=== PATIENT | female | born 1935 | race Caucasian/White ===

== ENCOUNTER 2018-04-05 20:00 | Emergency (ER) | payer OTHER, MEDICARE ==
--- NOTE | 2018-04-05 20:33 | RAD REPORT ---
EXAM DESCRIPTION: CT - Ct Stroke Brain Wo Cont - 04/05/2018 8:24 pm CLINICAL HISTORY: WEAKNESS TIA/CVA COMPARISON: Head Brain Wo Cont dated 08/12/2017; HEAD BRAIN W O CONTRAST dated 03/09/2013; HEAD BRAIN W O CONTRAST dated 02/13/2012 TECHNIQUE: All CT scans are performed using dose optimization technique as appropriate and may inclu de automated exposure control or mA/KV adjustment according to patient size. FINDINGS: No intracranial hemorrhage, hydrocephalus or extra-axial fluid collection.Advanced general ized brain atrophy is present with mild to moderate periventricular and deep white matter chronic ileana rovascular ischemic changes.No areas of brain edema or evidence of midline shift. The paranasal sinuses and mastoids are clear. The calvarium is intact. IMPRESSION: No acute intracranial abnormality. If there is continued clinical concern for CVA, MR i maging of the brain would be recommended.
[2018-04-05 20:39] LABS: Absolute Lymphocytes (CBC) 2.9 K/uL (0.7-4.9); Absolute Monocytes 0.5 K/uL (0.1-1.3); Absolute Neutrophil 2.9 K/uL (1.8-8.0); Basophils % 0.1 % (0-1.3); Hematocrit 36.2 % (36.0-45.0); Lymphocytes % 43.8 % (15.3-44.8); MCH 32.1 pg (27.0-35.0); Monocytes % 8.2 % (3.3-12.3); RBC Red Blood Cell Count 3.89 M/uL (3.86-4.86)
--- NOTE | 2018-04-05 20:42 | RAD REPORT ---
EXAM DESCRIPTION: RAD - Chest Single View - 04/05/2018 8:37 pm CLINICAL HISTORY: MALAISE Chest pain. COMPARISON: Chest Single View dated 08/12/2017; Chest Single View dated 08/08/2016; CHEST SINGLE VIEW dated 08/10/2013; CHEST SINGLE VIEW dated 09/17/2012 FINDINGS: Portable technique limits examination quality. The lungs are mildly emphysematous but clear. The heart is normal in size. No displaced fractures. IMPRESSION: Mild COPD.
[2018-04-05 20:45] LABS: Protime INR 0.92
[2018-04-05 20:46] LABS: Potassium 3.9 mmol/L (3.5-5.1)
--- NOTE | 2018-04-05 21:04 | ER ---
Nurse's Notes [facility] Name: Dinh Love Age: 82 yrs Sex: Female : 1935 Arrival Date: 04/05/2018 Time: 20:08 Bed 7 Private MD: Diagnosis: Cerebral infarction;Aphasia following cerebral infarction Presentation: 04/05 20:05 Presenting complaint: EMS states: Patient began to have symptoms of slurred speech, lp1 right side facial droop, left sided weakness about 1845 this evening; Hx of TIA x7; Speech has resolved on arrival to ED, patient states continued feeling of weakness and less sensation on left side. Transition of care: patient was not received from another setting of care. An acute neurological deficit is present. The charge nurse has been notified. Pre-hospital glucose is not applicable to this patient. Onset of symptoms was April 05, 2018 at 18:45. Risk Assessment: Do you want to hurt yourself or someone else? Patient reports no desire to harm self or others. Initial Sepsis Screen: Does the patient meet any 2 criteria? No. Patient's initial sepsis screen is negative. Does the patient have a suspected source of infection? No. Patient's initial sepsis screen is negative. Care prior to arrival: None. 20:05 Method Of Arrival: EMS: [facility] lp1 20:05 Acuity: KAROLINA 2 lp1 Triage Assessment: 21:00 The onset of the patients symptoms was April 05, 2018 at 18:45. lp1 Stroke Activation: Symptom onset < 3 hours Physician: Stroke Attending; Name: ; Notified At: ; Arrived At: Physician: Chief Stroke Resident; Name: ; Notified At: ; Arrived At: Physician: Stroke Resident; Name: ; Notified At: ; Arrived At: Physician: ED Attending; Name: Dr. Roberts; Notified At: 20:04; Arrived At: 20:07 Physician: ED Resident; Name: ; Notified At: ; Arrived At: Historical: - Allergies: 20:55 Keflex; lp1 - Home Meds: 20:55 alprazolam 1 mg Oral tab nightly [Active]; fentanyl 25 mcg/hr Topical pt72 1 patch lp1 every 72 hours [Active]; meclizine 25 mg Oral tab 1 tab 2 times per day [Active]; aspirin 81 mg Oral TbEC 1 tab once daily [Active]; propranolol 20 mg Oral tab 2 times per day [Active]; amitriptyline 50 mg oral tab nightly [Active]; - PMHx: 20:55 Arthritis; SHAKING SYNDROME; TIA; x 7; lp1 - Immunization history:: Adult Immunizations up to date. - Family history:: not pertinent. - Social history:: Smoking status: Patient uses tobacco products, smokes one-half pack cigarettes per day. - Ebola Screening: : No symptoms or risks identified at this time. Screenin:18 Abuse screen: Denies threats or abuse. Denies injuries from another. Nutritional lp1 screening: No deficits noted. Tuberculosis screening: No symptoms or risk factors identified. Fall Risk Total Rivas Fall Scale indicates High Risk Score (45 or more points). Fall prevention measures have been instituted. Side Rails Up X 2 Family Present and informed to notify staff if the need to leave the bedside As available patient and family educated on Fall Prevention Program and Strategies. Assessment: 20:30 General: Appears in no apparent distress. Behavior is calm, cooperative, appropriate lp1 for age. Pain: Denies pain. Neuro: Level of Consciousness is awake, alert, obeys commands, Oriented to person, place, time, situation, Assistant Department Manager are equal bilaterally Weakness in left leg(s) Gait is steady, Speech is normal, Facial droop on right, Pupils are PERRLA, paresthesias in left leg, left side of face Reports paresthesias in left leg, left side of face weakness in left leg. Cardiovascular: Patient's skin is warm and dry. Respiratory: Respiratory effort is even, unlabored, Respiratory pattern is regular, Breath sounds are clear bilaterally. GI: Abdomen is flat. : No signs and/or symptoms were reported regarding the genitourinary system. EENT: No signs and/or symptoms were reported regarding the EENT system. Derm: Skin is intact, is fragile, is thin, Skin is dry, Skin is pink, warm \T\ dry. Musculoskeletal: Range of motion: intact in all extremities. 20:35 Patient has been NPO before screening. The patient is alert, and able to follow lp1 commands. The patient does not exhibit slurred or garbled speech. The patient is not exhibiting difficulty speaking. The patient does not exhibit difficulty understanding words. The patient is able to swallow own secretions with no drooling or need for suction. Patient tolerated one teaspoon of water. No drooling, immediate coughing, gurgling, or clearing of the throat was noted. The patient tolerated 90mL of water. No drooling, immediate coughing, gurgling, or clearing of the throat was noted. The patient passed the bedside swallow screening. Oral medications may be given as ordered. Contact Physician for further diet orders. Provider notified of bedside swallow screening results: Nahid Roberts MD. 21:15 T-PA (Activase) Screening: Indications: Definite evidence of stroke, ischemic, embolic, lp1 or hypertensive: Yes. Treatment will start within 4.5 hours onset of symptoms: Yes. No evidence of intracranial hemorrhage or CT of head and no evidence of peripheral hemorrhage or recent CVA: Yes. Consent for thrombolytic therapy: Yes. 21:40 Reassessment: Patient states improvement of sensation to left side of face and left lp1 leg; TPA currently infusing. 22:00 Reassessment: Patient appears in no apparent distress at this time. Patient is alert, lp1 oriented x 3, equal unlabored respirations, skin warm/dry/pink. Family at bedside Patient states feeling better. Patient states symptoms have improved. 22:10 Reassessment: EMS at bedside. lp1 Vital Signs: 20:02 BP 179 / 79; Pulse 79; Resp 18; Pulse Ox 98% on R/A; Weight 52.16 kg; Pain 0/10; lp1 20:45 BP 190 / 84; Pulse 77; Resp 18; Pulse Ox 99% on R/A; lp1 21:05 Weight 51.39 kg (M); lp1 21:35 lp1 21:37 BP 177 / 76; Pulse 78; Resp 15; Pulse Ox 98% on R/A; tl2 21:55 BP 164 / 68; Pulse 73; Resp 14; Pulse Ox 99% on R/A; Pain 0/10; lp1 21:35 See TPA transfusion flowsheet for vitals lp1 NIH Stroke Scale Scores: 20:10 NIHSS Score: 3 lp1 20:32 NIHSS Score: 1 mamadou 21:00 NIHSS Score: 2 lp1 22:00 NIHSS Score: 1 lp1 ED Course: 20:08 Patient arrived in ED. tl2 20:23 Inserted saline lock: 22 gauge in right antecubital area, using aseptic technique. lp1 Blood collected. 20:24 CT Stroke Brain w/o Contrast In Process Unspecified. EDMS 20:25 Claire Echols, MARIO is Primary Nurse. lp1 20:26 Nahid Roberts MD is Attending Physician. mamadou 20:27 Triage completed. lp1 20:35 X-ray completed. Portable x-ray completed in exam room. Patient tolerated procedure ls3 well. 20:37 Stroke CXR 1 View In Process Unspecified. EDMS 20:45 Patient has correct armband on for positive identification. Placed in gown. Bed in low lp1 position. Call light in reach. Side rails up X2. court recording monitor on. Pulse ox on. NIBP on. 20:48 Arm band placed on right wrist. lp1 20:53 EKG done, by ED staff, reviewed by Nahid Roberts MD. cb2 21:25 One-on-one care X 45 minutes. lp1 21:30 Inserted saline lock: 22 gauge in left antecubital area, using aseptic technique. tl2 22:00 No provider procedures requiring assistance completed. Patient transferred, IV remains lp1 in place. Administered Medications: 21:25 Drug: ACTIvase 46.8 mg {Co-Signature: tl2 (Magda Walton RN).} {Note: 46.25mg per lp1 weight.} Route: IV; Rate: calculated rate; Infused Over: 60 mins; Site: right antecubital; 22:15 Follow up: IV Status: Infusion continued upon transfer lp1 21:30 Drug: NS 0.9% 1000 ml Route: IV; Rate: 1 bolus; Site: left antecubital; tl2 22:14 Follow up: IV Status: Infusion continued upon transfer lp1 21:30 Drug: foLIC Acid 1 mg Route: IVPB; Site: left antecubital; tl2 22:15 Follow up: IV Status: Completed infusion lp1 22:14 Not Given (Patient for transfer): Pepcid 20 mg IVP once lp1 Point of Care Testing: Blood Glucose: 20:06 Blood Glucose: 101 mg/dL; lp1 Ranges: Outcome: 21:04 ER care complete, transfer ordered by . mamadou 22:20 Transferred by ground EMS to [facility], Transfer form completed. lp1 X-rays sent w/ patient. 22:20 Condition: stable 22:20 Instructed on the need for transfer. 22:20 Patient left the ED. lp1 NIH Stroke Scale - NIH Stroke Score Date: 04/05/2018 Time: 20:10 Total Score = 3 1a. Level of Consciousness (LOC) - 0(Alert) 1b. Level of Consciousness (LOC) (Year \T\ Age) - 0(Both) 1c. LOC Commands (Open \T\ Closes Eyes/Administrative Operations Coordinator) - 0(Both) 2. Best Gaze (Lateral Gaze Paresis) - 0(Normal) 3. Visual Field Loss - 0(No visual loss) 4. Facial Palsy - 1(Minor Paralysis) 5a. Left Arm: Motor (10-second hold) - 0(No drift) 5b. Right Arm: Motor (10-second hold) - 0(No drift) 6a. Left Leg: Motor (5-second hold - always test supine) - 1(Drift) 6b. Right Leg: Motor (5-second hold - always test supine) - 0(No drift) 7. Limb Ataxia (finger/nose \T\ heel/betancourt - test with eyes open) - 0(Absent) 8. Sensory Loss (pinprick arms/legs/face) - 1(Mild to moderate loss) 9. Best Language: Aphasia (description/naming/reading) - 0(No aphasia) 10. Dysarthria (speech clarity - read or repeat words) - 0(Normal) 11. Extinction and Inattention (visual/tactile/auditory/spatial/personal) - 0(No abnormality) Initials: lp1 NIH Stroke Scale - NIH Stroke Score Date: 04/05/2018 Time: 20:32 Total Score = 1 1a. Level of Consciousness (LOC) - 0(Alert) 1b. Level of Consciousness (LOC) (Year \T\ Age) - 0(Both) 1c. LOC Commands (Open \T\ Closes Eyes/Administrative Operations Coordinator) - 0(Both) 2. Best Gaze (Lateral Gaze Paresis) - 0(Normal) 3. Visual Field Loss - 0(No visual loss) 4. Facial Palsy - 0(Normal) 5a. Left Arm: Motor (10-second hold) - 0(No drift) 5b. Right Arm: Motor (10-second hold) - 0(No drift) 6a. Left Leg: Motor (5-second hold - always test supine) - 0(No drift) 6b. Right Leg: Motor (5-second hold - always test supine) - 0(No drift) 7. Limb Ataxia (finger/nose \T\ heel/betancourt - test with eyes open) - 0(Absent) 8. Sensory Loss (pinprick arms/legs/face) - 1(Mild to moderate loss) 9. Best Language: Aphasia (description/naming/reading) - 0(No aphasia) 10. Dysarthria (speech clarity - read or repeat words) - 0(Normal) 11. Extinction and Inattention (visual/tactile/auditory/spatial/personal) - 0(No abnormality) Initials: mamadou NIH Stroke Scale - NIH Stroke Score Date: 04/05/2018 Time: 21:00 Total Score = 2 1a. Level of Consciousness (LOC) - 0(Alert) 1b. Level of Consciousness (LOC) (Year \T\ Age) - 0(Both) 1c. LOC Commands (Open \T\ Closes Eyes/Administrative Operations Coordinator) - 0(Both) 2. Best Gaze (Lateral Gaze Paresis) - 0(Normal) 3. Visual Field Loss - 0(No visual loss) 4. Facial Palsy - 0(Normal) 5a. Left Arm: Motor (10-second hold) - 0(No drift) 5b. Right Arm: Motor (10-second hold) - 0(No drift) 6a. Left Leg: Motor (5-second hold - always test supine) - 1(Drift) 6b. Right Leg: Motor (5-second hold - always test supine) - 0(No drift) 7. Limb Ataxia (finger/nose \T\ heel/betancourt - test with eyes open) - 0(Absent) 8. Sensory Loss (pinprick arms/legs/face) - 1(Mild to moderate loss) 9. Best Language: Aphasia (description/naming/reading) - 0(No aphasia) 10. Dysarthria (speech clarity - read or repeat words) - 0(Normal) 11. Extinction and Inattention (visual/tactile/auditory/spatial/personal) - 0(No abnormality) Initials: lp1 NIH Stroke Scale - NIH Stroke Score Date: 04/05/2018 Time: 22:00 Total Score = 1 1a. Level of Consciousness (LOC) - 0(Alert) 1b. Level of Consciousness (LOC) (Year \T\ Age) - 0(Both) 1c. LOC Commands (Open \T\ Closes Eyes/Administrative Operations Coordinator) - 0(Both) 2. Best Gaze (Lateral Gaze Paresis) - 0(Normal) 3. Visual Field Loss - 0(No visual loss) 4. Facial Palsy - 0(Normal) 5a. Left Arm: Motor (10-second hold) - 0(No drift) 5b. Right Arm: Motor (10-second hold) - 0(No drift) 6a. Left Leg: Motor (5-second hold - always test supine) - 1(Drift) 6b. Right Leg: Motor (5-second hold - always test supine) - 0(No drift) 7. Limb Ataxia (finger/nose \T\ heel/betancourt - test with eyes open) - 0(Absent) 8. Sensory Loss (pinprick arms/legs/face) - 0(Normal) 9. Best Language: Aphasia (description/naming/reading) - 0(No aphasia) 10. Dysarthria (speech clarity - read or repeat words) - 0(Normal) 11. Extinction and Inattention (visual/tactile/auditory/spatial/personal) - 0(No abnormality) Initials: lp1 Signatures: Dispatcher [employer] EDMS Nahid Roberts MD MD cha Pena, Laura, RN RN lp1 Magda Walton RN RN tl2 Siddharth Herndon Lynzie 3 Magda Walton RN tl2 Corrections: (The following items were deleted from the chart) 22:28 20:30 Neuro: Level of Consciousness is awake, alert, obeys commands, Oriented lp1 to person, place, time, situation, Assistant Department Manager are equal bilaterally Weakness in left leg(s) Gait is steady, Speech is normal, Facial droop on right, Pupils are PERRLA, paresthesias in left leg, left side of face lp1 22:30 22:29 Patient left the ED. lp1 lp1
--- NOTE | 2018-04-05 21:04 | EDPHYS ---
Physician Documentation [facility] Name: Dinh Love Age: 82 yrs Sex: Female : 1935 Arrival Date: 04/05/2018 Time: 20:08 Bed 7 Private MD: ED Physician Nahid Roberts HPI: 04/05 20:28 This 82 yrs old Female presents to ER via EMS with complaints of S/S of mamadou Possible Stroke. 20:28 The patient's problem is reported as paresthesias, in left upper extremity, in left mamadou lower extremity, in left side of face, weakness. Onset: The symptoms/episode began/occurred just prior to arrival. Duration: The episode is continuous. Context: the episode(s) was witnessed, by family. The symptoms are alleviated by nothing. The symptoms are aggravated by nothing. Associated signs and symptoms: The patient has no apparent associated signs or symptoms. Severity of symptoms: At their worst the symptoms were mild in the emergency department the symptoms have improved moderately. Patient's baseline: Neuro: alert and fully oriented. The patient has experienced similar episodes in the past, a few times. 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 - Family history:: not pertinent. - Social history:: Smoking status: Patient uses tobacco products, smokes one-half pack cigarettes per day. - Ebola Screening: : No symptoms or risks identified at this time. ROS: 20:28 Constitutional: Negative for fever, chills, and weight loss, Eyes: Negative for injury, mamadou pain, redness, and discharge, ENT: Negative for injury, pain, and discharge, Neck: Negative for injury, pain, and swelling, Cardiovascular: Negative for chest pain, palpitations, and edema, Respiratory: Negative for shortness of breath, cough, wheezing, and pleuritic chest pain, Abdomen/GI: Negative for abdominal pain, nausea, vomiting, diarrhea, and constipation, Back: Negative for injury and pain, : Negative for injury, bleeding, discharge, and swelling, MS/Extremity: Negative for injury and deformity, Skin: Negative for injury, rash, and discoloration, Psych: Negative for depression, anxiety, suicide ideation, homicidal ideation, and hallucinations, Allergy/Immunology: Negative for hives, rash, and allergies, Endocrine: Negative for neck swelling, polydipsia, polyuria, polyphagia, and marked weight changes, Hematologic/Lymphatic: Negative for swollen nodes, abnormal bleeding, and unusual bruising. 20:28 Neuro: Positive for gait disturbance, numbness, speech changes, of the face, left arm and left leg. Exam: 20:28 Constitutional: This is a well developed, well nourished patient who is awake, alert, mamadou and in no acute distress. Head/Face: Normocephalic, atraumatic. Eyes: Pupils equal round and reactive to light, extra-ocular motions intact. Lids and lashes normal. Conjunctiva and sclera are non-icteric and not injected. Cornea within normal limits. Periorbital areas with no swelling, redness, or edema. ENT: Nares patent. No nasal discharge, no septal abnormalities noted. Tympanic membranes are normal and external auditory canals are clear. Oropharynx with no redness, swelling, or masses, exudates, or evidence of obstruction, uvula midline. Mucous membranes moist. Neck: Trachea midline, no thyromegaly or masses palpated, and no cervical lymphadenopathy. Supple, full range of motion without nuchal rigidity, or vertebral point tenderness. No Meningismus. Chest/axilla: Normal chest wall appearance and motion. Nontender with no deformity. No lesions are appreciated. Cardiovascular: Regular rate and rhythm with a normal S1 and S2. No gallops, murmurs, or rubs. Normal PMI, no JVD. No pulse deficits. Respiratory: Lungs have equal breath sounds bilaterally, clear to auscultation and percussion. No rales, rhonchi or wheezes noted. No increased work of breathing, no retractions or nasal flaring. Abdomen/GI: Soft, non-tender, with normal bowel sounds. No distension or tympany. No guarding or rebound. No evidence of tenderness throughout. Back: No spinal tenderness. No costovertebral tenderness. Full range of motion. Female : Normal external genitalia. Skin: Warm, dry with normal turgor. Normal color with no rashes, no lesions, and no evidence of cellulitis. MS/ Extremity: Pulses equal, no cyanosis. Neurovascular intact. Full, normal range of motion. Psych: Awake, alert, with orientation to person, place and time. Behavior, mood, and affect are within normal limits. 20:28 Neuro: Orientation: appropriate for stated age, no acute changes, to person, place, time \T\ situation. Mentation: is normal, appropriate for stated age, no acute changes, Memory: is normal, appropriate for stated age, no acute changes, Cranial nerves: is grossly normal based on the patient's age, no acute changes, Cerebellar function: is grossly normal based on the patient's age, no acute changes, Motor: moves all fours, strength is normal, strength is 5/5 in all extremities, Sensation: no obvious gross deficits, appropriate no acute changes, Gait: not tested. seizure activity, is not displayed by the patient. 20:31 Radiologist reports: see report [facility] Vital Signs: 20:02 BP 179 / 79; Pulse 79; Resp 18; Pulse Ox 98% on R/A; Weight 52.16 kg; Pain 0/10; lp1 20:45 BP 190 / 84; Pulse 77; Resp 18; Pulse Ox 99% on R/A; lp1 21:05 Weight 51.39 kg (M); lp1 21:35 lp1 21:37 BP 177 / 76; Pulse 78; Resp 15; Pulse Ox 98% on R/A; tl2 21:55 BP 164 / 68; Pulse 73; Resp 14; Pulse Ox 99% on R/A; Pain 0/10; lp1 21:35 See TPA transfusion flowsheet for vitals lp1 NIH Stroke Scale Scores: 20:10 NIHSS Score: 3 lp1 20:32 NIHSS Score: 1 mamadou 21:00 NIHSS Score: 2 lp1 22:00 NIHSS Score: 1 lp1 MDM: 20:26 Patient medically screened. [facility] 20:31 Data reviewed: vital signs, nurses notes, lab test result(s), EKG, radiologic studies, [facility] CT scan, plain films. 10/10 20:19 Order name: Basic Metabolic Panel; Complete Time: 20:59 aa04/05 20:19 Order name: CBC with Diff; Complete Time: 20:59 aa04/05 20:19 Order name: Protime (+inr); Complete Time: 20:59 aa1 04/05 20:19 Order name: Ptt, Activated; Complete Time: 20:59 aa04/05 20:27 Order name: Urine Culture [facility] 04/05 20:40 Order name: Urine Dipstick--Ancillary (enter results); Complete Time: 22:20 mt 04/05 20:19 Order name: CT Stroke Brain w/o Contrast; Complete Time: 20:59 aa04/05 20:19 Order name: Stroke CXR 1 View; Complete Time: 20:59 04/05 20:19 Order name: EKG; Complete Time: 20:19 aa04/05 20:19 Order name: Accucheck; Complete Time: 20:57 04/05 20:19 Order name: Cardiac monitoring; Complete Time: 20:57 04/05 20:19 Order name: EKG - Nurse/Tech; Complete Time: 20:53 04/05 20:19 Order name: IV Saline Lock; Complete Time: 20:57 04/05 20:19 Order name: Labs collected and sent; Complete Time: 20:57 04/05 20:19 Order name: NPO; Complete Time: 20:57 04/05 20:19 Order name: O2 Per Protocol; Complete Time: 20:57 04/05 20:19 Order name: O2 Sat Monitoring; Complete Time: 20:57 04/05 20:19 Order name: Stroke Swallow Screen; Complete Time: 20:57 04/05 20:19 Order name: Urine Dipstick-Ancillary (obtain specimen); Complete Time: 20:57 aa Administered Medications: 21:25 Drug: ACTIvase 46.8 mg {Co-Signature: tl2 (Magda Walton RN).} {Note: 46.25mg per lp1 weight.} Route: IV; Rate: calculated rate; Infused Over: 60 mins; Site: right antecubital; 22:15 Follow up: IV Status: Infusion continued upon transfer lp1 21:30 Drug: NS 0.9% 1000 ml Route: IV; Rate: 1 bolus; Site: left antecubital; tl2 22:14 Follow up: IV Status: Infusion continued upon transfer lp1 21:30 Drug: foLIC Acid 1 mg Route: IVPB; Site: left antecubital; tl2 22:15 Follow up: IV Status: Completed infusion lp1 22:14 Not Given (Patient for transfer): Pepcid 20 mg IVP once lp1 Point of Care Testing: Blood Glucose: 20:06 Blood Glucose: 101 mg/dL; lp1 Ranges: Critical Glucose Levels:Adult <50 mg/dl or >400 mg/dl <40 mg/dl or >180 mg/dl Disposition: 04/05/18 21:04 Transfer ordered to [facility]. Diagnosis are Cerebral infarction, Aphasia following cerebral infarction. - Reason for transfer: Higher level of care. - Accepting physician is to neuro icu, dr torres. - Condition is Fair. - Problem is new. - Symptoms have improved. NIH Stroke Scale - NIH Stroke Score Date: 04/05/2018 Time: 20:10 Total Score = 3 1a. Level of Consciousness (LOC) - 0(Alert) 1b. Level of Consciousness (LOC) (Year \T\ Age) - 0(Both) 1c. LOC Commands (Open \T\ Closes Eyes/Presales Consultant) - 0(Both) 2. Best Gaze (Lateral Gaze Paresis) - 0(Normal) 3. Visual Field Loss - 0(No visual loss) 4. Facial Palsy - 1(Minor Paralysis) 5a. Left Arm: Motor (10-second hold) - 0(No drift) 5b. Right Arm: Motor (10-second hold) - 0(No drift) 6a. Left Leg: Motor (5-second hold - always test supine) - 1(Drift) 6b. Right Leg: Motor (5-second hold - always test supine) - 0(No drift) 7. Limb Ataxia (finger/nose \T\ heel/betancourt - test with eyes open) - 0(Absent) 8. Sensory Loss (pinprick arms/legs/face) - 1(Mild to moderate loss) 9. Best Language: Aphasia (description/naming/reading) - 0(No aphasia) 10. Dysarthria (speech clarity - read or repeat words) - 0(Normal) 11. Extinction and Inattention (visual/tactile/auditory/spatial/personal) - 0(No abnormality) Initials: lp1 NIH Stroke Scale - NIH Stroke Score Date: 04/05/2018 Time: 20:32 Total Score = 1 1a. Level of Consciousness (LOC) - 0(Alert) 1b. Level of Consciousness (LOC) (Year \T\ Age) - 0(Both) 1c. LOC Commands (Open \T\ Closes Eyes/Presales Consultant) - 0(Both) 2. Best Gaze (Lateral Gaze Paresis) - 0(Normal) 3. Visual Field Loss - 0(No visual loss) 4. Facial Palsy - 0(Normal) 5a. Left Arm: Motor (10-second hold) - 0(No drift) 5b. Right Arm: Motor (10-second hold) - 0(No drift) 6a. Left Leg: Motor (5-second hold - always test supine) - 0(No drift) 6b. Right Leg: Motor (5-second hold - always test supine) - 0(No drift) 7. Limb Ataxia (finger/nose \T\ heel/betancourt - test with eyes open) - 0(Absent) 8. Sensory Loss (pinprick arms/legs/face) - 1(Mild to moderate loss) 9. Best Language: Aphasia (description/naming/reading) - 0(No aphasia) 10. Dysarthria (speech clarity - read or repeat words) - 0(Normal) 11. Extinction and Inattention (visual/tactile/auditory/spatial/personal) - 0(No abnormality) Initials: mamadou NIH Stroke Scale - NIH Stroke Score Date: 04/05/2018 Time: 21:00 Total Score = 2 1a. Level of Consciousness (LOC) - 0(Alert) 1b. Level of Consciousness (LOC) (Year \T\ Age) - 0(Both) 1c. LOC Commands (Open \T\ Closes Eyes/Presales Consultant) - 0(Both) 2. Best Gaze (Lateral Gaze Paresis) - 0(Normal) 3. Visual Field Loss - 0(No visual loss) 4. Facial Palsy - 0(Normal) 5a. Left Arm: Motor (10-second hold) - 0(No drift) 5b. Right Arm: Motor (10-second hold) - 0(No drift) 6a. Left Leg: Motor (5-second hold - always test supine) - 1(Drift) 6b. Right Leg: Motor (5-second hold - always test supine) - 0(No drift) 7. Limb Ataxia (finger/nose \T\ heel/betancourt - test with eyes open) - 0(Absent) 8. Sensory Loss (pinprick arms/legs/face) - 1(Mild to moderate loss) 9. Best Language: Aphasia (description/naming/reading) - 0(No aphasia) 10. Dysarthria (speech clarity - read or repeat words) - 0(Normal) 11. Extinction and Inattention (visual/tactile/auditory/spatial/personal) - 0(No abnormality) Initials: lp1 NIH Stroke Scale - NIH Stroke Score Date: 04/05/2018 Time: 22:00 Total Score = 1 1a. Level of Consciousness (LOC) - 0(Alert) 1b. Level of Consciousness (LOC) (Year \T\ Age) - 0(Both) 1c. LOC Commands (Open \T\ Closes Eyes/Presales Consultant) - 0(Both) 2. Best Gaze (Lateral Gaze Paresis) - 0(Normal) 3. Visual Field Loss - 0(No visual loss) 4. Facial Palsy - 0(Normal) 5a. Left Arm: Motor (10-second hold) - 0(No drift) 5b. Right Arm: Motor (10-second hold) - 0(No drift) 6a. Left Leg: Motor (5-second hold - always test supine) - 1(Drift) 6b. Right Leg: Motor (5-second hold - always test supine) - 0(No drift) 7. Limb Ataxia (finger/nose \T\ heel/betancourt - test with eyes open) - 0(Absent) 8. Sensory Loss (pinprick arms/legs/face) - 0(Normal) 9. Best Language: Aphasia (description/naming/reading) - 0(No aphasia) 10. Dysarthria (speech clarity - read or repeat words) - 0(Normal) 11. Extinction and Inattention (visual/tactile/auditory/spatial/personal) - 0(No abnormality) Initials: lp1 Signatures: Dispatcher [employer] EDDarcie Cheema RN RN aa1 Nahid Roberts MD MD cha Pena, Laura, RN RN lp1 Magda Walton RN RN tl2 Magda Walton RN tl2 Corrections: (The following items were deleted from the chart) 22:29 21:04 04/05/2018 21:04 Transfer ordered to [facility]. lp1 Diagnosis is Cerebral infarction; Aphasia following cerebral infarction. Reason for transfer: Higher level of care. Accepting physician is to neuro icu, dr torres. Condition is Fair. Problem is new. Symptoms have improved. mamadou
[2018-04-05] MEDS ORDERED: NA CHLORIDE 0.9% 1,000 ML ONE (21:05)
[2018-04-05] MEDS ORDERED: FOLIC ACID 5 MG/ML VIAL ONE (21:06)
[2018-04-05] MEDS ORDERED: NA CHLORIDE 0.9% 50 ML IV ONE ×2 (21:06→21:30)
[2018-04-05] MEDS ORDERED: ALTEPLASE 100 ML IV ONE (21:20)
[2018-04-05 21:34] LABS: Urine Blood TRACE (NEG); Urine Glucose NEGATIVE (NEG); Urine Protein NEGATIVE (NEG); Urine pH 7.5 (5.0-7.0)
[2018-04-05 22:46] VITALS: BP 164/68; O2SAT 99
--- NOTE | 2018-04-06 07:53 | EKG ---
Test Date: 2018-04-05 Test Time: 20:52:03 Reflector [employer]iller And Deburrer: RHONDA MEASUREMENT RESULTS: Intervals: Rate: 74 NC: 188 QRSD: 84 QT: 390 QTc: 432 [place]: P: 51 NC: 188 QRS: -10 T: 65 INTERPRETIVE STATEMENTS: Normal sinus rhythm Normal ECG Compared to ECG 08/12/2017 20:56:44 No significant changes Electronically Signed On 04-06-18 07:53:14 CDT by Lit Morales
== END 2018-04-05 22:29 | disposition short-term general hospital (02) ==
LOC: ER 20:00
DX: I63.9 Cerebral infarction, unspecified (principal); R47.01 Aphasia; R29.703 NIHSS score 3; F17.210 Nicotine dependence, cigarettes, uncomplicated; Z79.82 Long term (current) use of aspirin; Z88.1 Allergy status to other antibiotic agents; Z86.73 Personal history of transient ischemic attack (TIA), and cerebral infarction without residual deficits
CPT/HCPCS: 36415; 70450; 71045; 80048; 81003; 85025; 85610; 85730; 87086; 87088; 96374; J2997; J7030; 93005

== ENCOUNTER 2018-11-11 20:57 | Inpatient (IN) | payer OTHER, MEDICARE ==
--- OUTSIDE RECORDS SUMMARY | 2018-11-11 21:00 | XMS REPORT ---
:1935 Author Organization [facility] Address [address] [place] [address] Care Team Providers Name Role Phone RICARDO CARLTON Unavailable Unavailable Problems This patient has no known problems. Allergies, Adverse Reactions, Alerts This patient has no known allergies or adverse reactions. Medications This patient has no known medications. Results Test Description Test Time Test Comments Text Results Atomic Results Result Comments B-TYPE NATRIURETIC FACTOR (BNP) 2018-04-08 14:09:00 Test Item Value Reference Range Comments B-TYPE NATRIURETIC PEPTIDE (BEAKER) (test ejff=448) 109 pg/mL 0-100 [id number] 07:11:00 Test Item Value Reference Range Comments MAGNESIUM (BEAKER) (test hwim=749) 2.0 mg/dL 1.6-2.6 BASIC METABOLIC [id number] 07:11:00 Test Item Value Reference Range Comments SODIUM (BEAKER) (test 128 meq/L 136-145 jbqt=193) POTASSIUM (BEAKER) (test 3.9 meq/L 3.5-5.1 yrsk=487) CHLORIDE (BEAKER) (test 101 meq/L 98-107 lgvn=080) CO2 (BEAKER) (test 21 meq/L 22-29 sqjy=144) BLOOD UREA NITROGEN 13 mg/dL 7-21 (BEAKER) (test dusq=280) CREATININE (BEAKER) (test 0.73 mg/dL 0.57-1.25 hdqu=785) GLUCOSE RANDOM (BEAKER) 84 mg/dL 70-105 (test mqqx=052) CALCIUM (BEAKER) (test 8.6 mg/dL 8.4-10.2 gybk=190) EGFR (BEAKER) (test 77 mL/min/1.73 sq m ESTIMATED GFR IS NOT vnkc=2666) ACCURATE CREATININE CLEARANCE IN PREDICTING GLOMERULAR FILTRATION RATE. ESTIMATED GFR IS NOT APPLICABLE FOR DIALYSIS PATIENTS. CBC W/PLT COUNT & AUTO [id number] 06:38:00 Test Item Value Reference Range Comments WHITE BLOOD CELL COUNT (BEAKER) (test nhhb=202) 6.5 K/ L 3.5-10.5 RED BLOOD CELL COUNT (BEAKER) (test hrmy=625) 3.54 M/ L 3.93-5.22 HEMOGLOBIN (BEAKER) (test hctd=455) 11.2 GM/DL 11.2-15.7 HEMATOCRIT (BEAKER) (test wshr=631) 33.2 % 34.1-44.9 MEAN CORPUSCULAR VOLUME (BEAKER) (test sbcd=842) 93.8 fL 79.4-94.8 MEAN CORPUSCULAR HEMOGLOBIN (BEAKER) (test 31.6 pg 25.6-32.2 ayzf=020) MEAN CORPUSCULAR HEMOGLOBIN CONC (BEAKER) (test 33.7 GM/DL 32.2-35.5 qhce=206) RED CELL DISTRIBUTION WIDTH (BEAKER) (test 13.7 % 11.7-14.4 wfbv=783) PLATELET COUNT (BEAKER) (test fodu=186) 229 K/CU MM 150-450 MEAN PLATELET VOLUME (BEAKER) (test kfwt=356) 10.6 fL 9.4-12.3 NUCLEATED RED BLOOD CELLS (BEAKER) (test 0 /100 WBC 0-0 ibph=472) NEUTROPHILS RELATIVE PERCENT (BEAKER) (test 35 % bdlt=006) LYMPHOCYTES RELATIVE PERCENT (BEAKER) (test 49 % oaty=137) MONOCYTES RELATIVE PERCENT (BEAKER) (test 10 % jjfc=692) EOSINOPHILS RELATIVE PERCENT (BEAKER) (test 4 % qmdm=501) BASOPHILS RELATIVE PERCENT (BEAKER) (test 2 % fmpy=657) NEUTROPHILS ABSOLUTE COUNT (BEAKER) (test 2.25 K/ L 1.56-6.13 jymq=149) LYMPHOCYTES ABSOLUTE COUNT (BEAKER) (test 3.18 K/ L 1.18-3.74 lzxo=884) MONOCYTES ABSOLUTE COUNT (BEAKER) (test 0.65 K/ L 0.24-0.36 aiys=810) EOSINOPHILS ABSOLUTE COUNT (BEAKER) (test 0.27 K/ L 0.04-0.36 qflf=833) BASOPHILS ABSOLUTE COUNT (BEAKER) (test 0.11 K/ L 0.01-0.08 rthk=355) IMMATURE GRANULOCYTES-RELATIVE PERCENT (BEAKER) 1 % 0-1 (test frtd=6451) BASIC METABOLIC [id number] 06:18:00 Test Item Value Reference Range Comments SODIUM (BEAKER) (test 129 meq/L 136-145 qrqg=071) POTASSIUM (BEAKER) (test 3.9 meq/L 3.5-5.1 fbet=282) CHLORIDE (BEAKER) (test 101 meq/L 98-107 ydsp=189) CO2 (BEAKER) (test 21 meq/L 22-29 qqyj=975) BLOOD UREA NITROGEN 12 mg/dL 7-21 (BEAKER) (test xlhw=703) CREATININE (BEAKER) (test 0.73 mg/dL 0.57-1.25 rolp=701) GLUCOSE RANDOM (BEAKER) 84 mg/dL 70-105 (test dqkm=530) CALCIUM (BEAKER) (test 8.7 mg/dL 8.4-10.2 wspq=674) EGFR (BEAKER) (test 77 mL/min/1.73 sq m ESTIMATED GFR IS NOT wnih=8537) ACCURATE CREATININE CLEARANCE IN PREDICTING GLOMERULAR FILTRATION RATE. ESTIMATED GFR IS NOT APPLICABLE FOR DIALYSIS PATIENTS. [id number] 03:50:00 Test Item Value Reference Range Comments RPR SCREEN (BEAKER) (test qrvt=853) Nonreactive Nonreactive BASIC METABOLIC [id number] 06:30:00 Test Item Value Reference Range Comments SODIUM (BEAKER) (test 134 meq/L 136-145 qlzg=175) POTASSIUM (BEAKER) (test 4.2 meq/L 3.5-5.1 Specimen slightly ncct=473) hemolyzed CHLORIDE (BEAKER) (test 103 meq/L 98-107 tswq=299) CO2 (BEAKER) (test 24 meq/L 22-29 fdrq=667) BLOOD UREA NITROGEN 12 mg/dL 7-21 (BEAKER) (test fdja=477) CREATININE (BEAKER) (test 0.81 mg/dL 0.57-1.25 Specimen slightly qqyn=140) hemolyzed GLUCOSE RANDOM (BEAKER) 89 mg/dL 70-105 (test gnmt=409) CALCIUM (BEAKER) (test 9.2 mg/dL 8.4-10.2 eheh=763) EGFR (BEAKER) (test 68 mL/min/1.73 sq m ESTIMATED GFR IS NOT ihui=3395) ACCURATE CREATININE CLEARANCE IN PREDICTING GLOMERULAR FILTRATION RATE. ESTIMATED GFR IS NOT APPLICABLE FOR DIALYSIS PATIENTS. [id number] 06:24:00 Test Item Value Reference Range Comments MAGNESIUM (BEAKER) (test uqmh=304) 2.4 mg/dL 1.6-2.6 CBC W/PLT COUNT & AUTO [id number] 06:06:00 Test Item Value Reference Range Comments WHITE BLOOD CELL COUNT (BEAKER) (test uwsj=024) 8.2 K/ L 3.5-10.5 RED BLOOD CELL COUNT (BEAKER) (test wzye=507) 3.83 M/ L 3.93-5.22 HEMOGLOBIN (BEAKER) (test axlt=696) 11.9 GM/DL 11.2-15.7 HEMATOCRIT (BEAKER) (test knxu=396) 36.5 % 34.1-44.9 MEAN CORPUSCULAR VOLUME (BEAKER) (test zopw=650) 95.3 fL 79.4-94.8 MEAN CORPUSCULAR HEMOGLOBIN (BEAKER) (test 31.1 pg 25.6-32.2 ktry=001) MEAN CORPUSCULAR HEMOGLOBIN CONC (BEAKER) (test 32.6 GM/DL 32.2-35.5 ezcu=641) RED CELL DISTRIBUTION WIDTH (BEAKER) (test 14.2 % 11.7-14.4 spsp=320) PLATELET COUNT (BEAKER) (test uutf=508) 245 K/CU MM 150-450 MEAN PLATELET VOLUME (BEAKER) (test ejrl=792) 10.6 fL 9.4-12.3 NUCLEATED RED BLOOD CELLS (BEAKER) (test 0 /100 WBC 0-0 cmll=074) NEUTROPHILS RELATIVE PERCENT (BEAKER) (test 49 % ybop=996) LYMPHOCYTES RELATIVE PERCENT (BEAKER) (test 36 % eesp=240) MONOCYTES RELATIVE PERCENT (BEAKER) (test 10 % obkn=161) EOSINOPHILS RELATIVE PERCENT (BEAKER) (test 3 % tegv=776) BASOPHILS RELATIVE PERCENT (BEAKER) (test 1 % foyc=698) NEUTROPHILS ABSOLUTE COUNT (BEAKER) (test 4.01 K/ L 1.56-6.13 zkmh=134) LYMPHOCYTES ABSOLUTE COUNT (BEAKER) (test 2.99 K/ L 1.18-3.74 rvek=751) MONOCYTES ABSOLUTE COUNT (BEAKER) (test 0.85 K/ L 0.24-0.36 enxt=693) EOSINOPHILS ABSOLUTE COUNT (BEAKER) (test 0.23 K/ L 0.04-0.36 hcby=780) BASOPHILS ABSOLUTE COUNT (BEAKER) (test 0.11 K/ L 0.01-0.08 jblj=976) IMMATURE GRANULOCYTES-RELATIVE PERCENT (BEAKER) 0 % 0-1 (test ajab=5663) MR, BRAIN, WITHOUT [id number] 04:23:00FINAL REPORT MRI Brain without contrast, MRA head and neck without contrast. Clinical History: Stroke Technique: MRI of the brain utilizing axial T2, FLAIR, GRE, DWI; sagittal and coronal T1-weighted images.MRA of the head utilizing 3-D riuu-zf-kwatij technique, with 3-D reconstructions. MRA of the neck utilizing 2- D and 3-D xeur-lz-mvditx technique, with 3-D reconstructions. Comparisons: None Findings:MRI brain:There is no evidence of acute infarct or hemorrhage. Multiple bilateral T2 and FLAIR hyperintense ventricular and deep white matter foci likely represent chronic white matter microvascular disease. Remote small infarction within the right marshall radiata. Generalized parenchymal volume loss with commensurate enlargement of CSF spaces and ventricles, particularly within the frontal lobes. There is no hydrocephalus or midline shift. There are no extra-axial fluid collections. The craniocervical junction is preserved. The major intracranial flow-voids appear patent. Paranasal sinuses are clear. Middle ears and mastoid air cells are clear. Intraorbital contents areunremarkable. No aggressive osseous or soft tissue lesions identified. MRA head: Examination is severely degraded by motion artifact. The bilateral A1 and proximal A2 segments of the anterior cerebral arteries are not well evaluated.Otherwise no evidence of intracranial aneurysm, focal stenosis, or major branch vessel occlusion. MRA neck: The carotid arteries in the neck are patent including theirbifurcations. There is antegrade flow in the vertebral arteries in the neck. IMPRESSION:MRI brain: No evidence of acute infarct, hemorrhage, or hydrocephalus. Remote small right marshall radiata infarction superimposed on chronic microvascular ischemic changes. MRA head: Examination is severely degraded by motion artifact. The bilateral A1 and proximal A2 segments of the anterior cerebral arteries are not well evaluated. Otherwise no evidence for a major alatna of Smiley proximal branch vessel occlusion. MRA neck: No evidence of hemodynamically significant stenosis in the cervical carotid or vertebral arteries by NASCET criteria. Signed: Nallely Torres Verified Date/Time: 04/07/2018 04:23:47 Reading Location: [address] Reading Room MR, MRA, BRAIN, WITHOUT [id number] 04 :23:00Reason for exam:->stroke s/p tpaFINAL REPORT MRI Brain without contrast, MRA head and neck without contrast. Clinical History : Stroke Technique: MRI of the brain utilizing axial T2, FLAIR, GRE, DWI; sagittal and coronal T1-weighted images.MRA of the head utilizing 3-D time-of- flight technique, with 3-D reconstructions. MRA of the neck utilizing 2-D and 3- D zupv-qi-izdwgt technique, with 3-D reconstructions. Comparisons: None Findings :MRI brain:There is no evidence of acute infarct or hemorrhage. Multiple bilateral T2 and FLAIR hyperintense ventricular and deep white matter foci likely represent chronic white matter microvascular disease. Remote small infarction within the right marshall radiata. Generalized parenchymal volume loss with commensurate enlargement of CSF spaces and ventricles, particularly within the frontal lobes. There is no hydrocephalus or midline shift. There are no extra-axial fluid collections. The craniocervical junction is preserved. The major intracranial flow-voids appear patent. Paranasal sinuses are clear. Middle ears and mastoid air cells are clear. Intraorbital contents areunremarkable. No aggressive osseous or soft tissue lesions identified. MRA head: Examination is severely degraded by motion artifact. The bilateral A1 and proximal A2 segments of the anterior cerebral arteries are not well evaluated.Otherwise no evidence of intracranial aneurysm, focal stenosis, or major branch vessel occlusion. MRA neck: The carotid arteries in the neck are patent including theirbifurcations. There is antegrade flow in the vertebral arteries in the neck. IMPRESSION:MRI brain: No evidence of acute infarct, hemorrhage, or hydrocephalus. Remote small right marshall radiata infarction superimposed on chronic microvascular ischemic changes. MRA head: Examination is severely degraded by motion artifact. The bilateral A1 and proximal A2 segments of the anterior cerebral arteries are not well evaluated. Otherwise no evidence for a major alatna of Smiley proximal branch vessel occlusion. MRA neck: No evidence of hemodynamically significant stenosis in the cervical carotid or vertebral arteries by NASCET criteria. Signed: Nallely Torres MDReport Verified Date/Time: 04/07/2018 04:23:47 Reading Location: [address] Reading Room MR, MRA, NECK, WITHOUT IV [id number] 04:23:00Reason for exam:->stroke s/p tpaFINAL REPORT MRI Brain without contrast, MRA head and neck without contrast. Clinical History : Stroke Technique: MRI of the brain utilizing axial T2, FLAIR, GRE, DWI; sagittal and coronal T1-weighted images.MRA of the head utilizing 3-D time-of- flight technique, with 3-D reconstructions. MRA of the neck utilizing 2-D and 3- D lhky-nf-ndaqvf technique, with 3-D reconstructions. Comparisons: None Findings :MRI brain:There is no evidence of acute infarct or hemorrhage. Multiple bilateral T2 and FLAIR hyperintense ventricular and deep white matter foci likely represent chronic white matter microvascular disease. Remote small infarction within the right marshall radiata. Generalized parenchymal volume loss with commensurate enlargement of CSF spaces and ventricles, particularly within the frontal lobes. There is no hydrocephalus or midline shift. There are no extra-axial fluid collections. The craniocervical junction is preserved. The major intracranial flow-voids appear patent. Paranasal sinuses are clear. Middle ears and mastoid air cells are clear. Intraorbital contents areunremarkable. No aggressive osseous or soft tissue lesions identified. MRA head: Examination is severely degraded by motion artifact. The bilateral A1 and proximal A2 segments of the anterior cerebral arteries are not well evaluated.Otherwise no evidence of intracranial aneurysm, focal stenosis, or major branch vessel occlusion. MRA neck: The carotid arteries in the neck are patent including theirbifurcations. There is antegrade flow in the vertebral arteries in the neck. IMPRESSION:MRI brain: No evidence of acute infarct, hemorrhage, or hydrocephalus. Remote small right marshall radiata infarction superimposed on chronic microvascular ischemic changes. MRA head: Examination is severely degraded by motion artifact. The bilateral A1 and proximal A2 segments of the anterior cerebral arteries are not well evaluated. Otherwise no evidence for a major alatna of Smiley proximal branch vessel occlusion. MRA neck: No evidence of hemodynamically significant stenosis in the cervical carotid or vertebral arteries by NASCET criteria. Signed: Nallely Torres MDReport Verified Date/Time: 04/07/2018 04:23:47 Reading Location: [address] Reading Room TROPONIN [id number] 19:07:00 Test Item Value Reference Range Comments TROPONIN I (BEAKER) (test klgl=493) 0.36 ng/mL 0.00-0.03 Troponin I (TnI) levels must be interpreted in the context of the presenting symptoms and the clinical findings. Elevated TnI levels indicate myocardial damage, but are not specific for ischemic heart disease. Elevated TnI levels are seen in patients with other cardiac conditions (including myocarditis and congestive heart failure), and slight TnI elevations occur in patients with other conditions, including sepsis, renal failure, acidosis, acute neurological disease, and persistent tachyarrhythmia.CREATINE KINASE (CK), TOTAL AND [id number] 19:06:00 Test Item Value Reference Range Comments CREATINE KINASE TOTAL (BEAKER) (test svnl=477) 60 U/L 29-200 CREATINE KINASE-MB (BEAKER) (test isha=033) 4.8 ng/mL 0.0-6.6 CREATINE KINASE-MB INDEX (BEAKER) (test qtxy=662) 8.0 % CK-MB Reference Range:<6.7 Normal6.7-10.0 Borderline>10.0 AbnormalTROPONIN [id number] 13:23:00 Test Item Value Reference Range Comments TROPONIN I (BEAKER) (test fzic=435) 0.33 ng/mL 0.00-0.03 Troponin I (TnI) levels must be interpreted in the context of the presenting symptoms and the clinical findings. Elevated TnI levels indicate myocardial damage, but are not specific for ischemic heart disease. Elevated TnI levels are seen in patients with other cardiac conditions (including myocarditis and congestive heart failure), and slight TnI elevations occur in patients with other conditions, including sepsis, renal failure, acidosis, acute neurological disease, and persistent tachyarrhythmia.Check Serum Potassium level 2 hours after oral potassium replacement completed or 30 min after intravenous potassium replacement.CREATINE KINASE (CK), TOTAL AND [id number] 13:17:00 Test Item Value Reference Range Comments CREATINE KINASE TOTAL (BEAKER) (test rthl=134) 64 U/L 29-200 CREATINE KINASE-MB (BEAKER) (test nqva=165) 4.2 ng/mL 0.0-6.6 CREATINE KINASE-MB INDEX (BEAKER) (test fyzj=972) 6.6 % CK-MB Reference Range:<6.7 Normal6.7-10.0 Borderline>10.0 AbnormalCheck Serum Potassium level 2 hours after oral potassium replacement completed or 30 min after intravenous potassium replacement.Check Serum Potassium level 2 hours after oral potassium replacement completed or 30 min after intravenous potassium replacement.[id number] 13:08:00 Test Item Value Reference Range Comments POTASSIUM (BEAKER) (test wlda=182) 4.0 meq/L 3.5-5.1 Check Serum Potassium level 2 hours after oral potassium replacement completed or 30 min after intravenous potassium replacement.[id number] 13:08:00 Test Item Value Reference Range Comments MAGNESIUM (BEAKER) (test wxso=874) 2.6 mg/dL 1.6-2.6 Check Serum Potassium level 2 hours after oral potassium replacement completed or 30 min after intravenous potassium replacement.HEMOGLOBIN [id number] 09:52 :00 Test Item Value Reference Range Comments HEMOGLOBIN A1C (BEAKER) (test ftuj=982) 5.1 % 4.3-6.1 TROPONIN [id number] 06:59:00 Test Item Value Reference Range Comments TROPONIN I (BEAKER) (test obsy=518) 0.48 ng/mL 0.00-0.03 Troponin I (TnI) levels must be interpreted in the context of the presenting symptoms and the clinical findings. Elevated TnI levels indicate myocardial damage, but are not specific for ischemic heart disease. Elevated TnI levels are seen in patients with other cardiac conditions (including myocarditis and congestive heart failure), and slight TnI elevations occur in patients with other conditions, including sepsis, renal failure, acidosis, acute neurological disease, and persistent tachyarrhythmia.CREATINE KINASE (CK), TOTAL AND [id number] 06:58:00 Test Item Value Reference Range Comments CREATINE KINASE TOTAL (BEAKER) (test deok=593) 63 U/L 29-200 CREATINE KINASE-MB (BEAKER) (test mjoy=373) 4.0 ng/mL 0.0-6.6 CREATINE KINASE-MB INDEX (BEAKER) (test ublc=335) 6.3 % CK-MB Reference Range:<6.7 Normal6.7-10.0 Borderline>10.0 AbnormalTSH/FREE T4 IF [id number] 03:54:00 Test Item Value Reference Range Comments THYROID STIMULATING HORMONE (BEAKER) (test 2.21 uIU/mL 0.35-4.94 garw=358) VITAMIN B12 AND [id number] 03:54:00 Test Item Value Reference Range Comments VITAMIN B12 (BEAKER) (test aqpf=720) 802 pg/mL 213-816 FOLATE (BEAKER) (test srwl=444) 36.5 ng/mL >=7.0 RAD, CHEST, 1 VIEW, NON [id number] 03:38:00Reason for exam:->basline hospitalized for strokeShould this be performed at the bedside?->YesFINAL REPORT Chest one view. Clinical history: Baseline; hospitalized for stroke Comparison: None. Technique: A single frontal view of the chest was obtained. Findings/impression: The heart is normal in size. The aorta is uncoiled and atherosclerotic. There is no focal pulmonary consolidation , pleural effusion or pneumothorax. There is no pulmonary edema. The bony thorax is demineralized. Impression: No focal pulmonary consolidation. Signed: Sonya Armendariz MDReport Verified Date/Time: 04/06/2018 03:38:00 Reading Location: [facility] C013Y CT Body Reading Room C-REACTIVE [id number] 02:20:00 Test Item Value Reference Range Comments C-REACTIVE PROTEIN (BEAKER) (test kcfo=959) 0.05 mg/dL 0.00-0.50 TROPONIN [id number] 02:07:00 Test Item Value Reference Range Comments TROPONIN I (BEAKER) (test pqqs=929) 0.67 ng/mL 0.00-0.03 Troponin I (TnI) levels must be interpreted in the context of the presenting symptoms and the clinical findings. Elevated TnI levels indicate myocardial damage, but are not specific for ischemic heart disease. Elevated TnI levels are seen in patients with other cardiac conditions (including myocarditis and congestive heart failure), and slight TnI elevations occur in patients with other conditions, including sepsis, renal failure, acidosis, acute neurological disease, and persistent tachyarrhythmia.FastingPROTHROMBIN [id number] 02 :06:00 Test Item Value Reference Range Comments PROTIME (BEAKER) (test msvr=255) 13.6 seconds 11.7-14.7 INR (BEAKER) (test snwr=307) 1.0 <=5.9 RECOMMENDED COUMADIN/WARFARIN INR THERAPY RANGESSTANDARD DOSE: 2.0 - 3.0 Includes: PROPHYLAXIS forvenous thrombosis, systemic embolization; TREATMENT for venous thrombosis and/or pulmonary embolus.HIGH RISK: Target INR is 2.5-3.5 for patients with mechanical heart valves.[id number] 02:06:00 Test Item Value Reference Range Comments PARTIAL THROMBOPLASTIN TIME (BEAKER) (test 26.6 seconds 22.5-36.0 szyr=663) [id number] 01:57:00 Test Item Value Reference Range Comments MAGNESIUM (BEAKER) (test rowh=921) 1.9 mg/dL 1.6-2.6 FastingBASIC METABOLIC [id number] 01:57:00 Test Item Value Reference Range Comments SODIUM (BEAKER) (test 138 meq/L 136-145 wzfe=326) POTASSIUM (BEAKER) (test 3.7 meq/L 3.5-5.1 rvui=877) CHLORIDE (BEAKER) (test 106 meq/L 98-107 ealr=110) CO2 (BEAKER) (test 23 meq/L 22-29 atqv=608) BLOOD UREA NITROGEN 11 mg/dL 7-21 (BEAKER) (test pavd=553) CREATININE (BEAKER) (test 0.73 mg/dL 0.57-1.25 wopt=703) GLUCOSE RANDOM (BEAKER) 100 mg/dL 70-105 (test ucuy=783) CALCIUM (BEAKER) (test 8.9 mg/dL 8.4-10.2 xldw=841) EGFR (BEAKER) (test 77 mL/min/1.73 sq m ESTIMATED GFR IS NOT uijd=5990) ACCURATE CREATININE CLEARANCE IN PREDICTING GLOMERULAR FILTRATION RATE. ESTIMATED GFR IS NOT APPLICABLE FOR DIALYSIS PATIENTS. FastingLIPID [id number] 01:57:00 Test Item Value Reference Range Comments TRIGLYCERIDES (BEAKER) (test zfhl=580) 68 mg/dL CHOLESTEROL (BEAKER) (test kdhj=054) 216 mg/dL HDL CHOLESTEROL (BEAKER) (test rdws=709) 60 mg/dL LDL CHOLESTEROL CALCULATED (BEAKER) (test 142 mg/dL zwol=875) Triglyceride Reference Range: Low Risk <150 Borderline 150- 199 High Risk 200-499 Very High Risk >=500Cholesterol Reference Range: Low Risk <200 Borderline 200-239 High Risk > 240HDL Cholesterol Reference Range: Low Risk >=60 High Risk <40LDL Cholesterol Reference Range: Optimal <100 Near Optimal 100-129 Borderline 130-159 High 160-189 Very High >=190 FastingCBC W/PLT COUNT & AUTO [id number] 01:37:00 Test Item Value Reference Range Comments WHITE BLOOD CELL COUNT (BEAKER) (test iwek=792) 8.9 K/ L 3.5-10.5 RED BLOOD CELL COUNT (BEAKER) (test jhwc=442) 3.79 M/ L 3.93-5.22 HEMOGLOBIN (BEAKER) (test angd=664) 12.2 GM/DL 11.2-15.7 HEMATOCRIT (BEAKER) (test tooz=576) 35.9 % 34.1-44.9 MEAN CORPUSCULAR VOLUME (BEAKER) (test auhn=076) 94.7 fL 79.4-94.8 MEAN CORPUSCULAR HEMOGLOBIN (BEAKER) (test 32.2 pg 25.6-32.2 gsws=624) MEAN CORPUSCULAR HEMOGLOBIN CONC (BEAKER) (test 34.0 GM/DL 32.2-35.5 focy=676) RED CELL DISTRIBUTION WIDTH (BEAKER) (test 14.4 % 11.7-14.4 pghc=401) PLATELET COUNT (BEAKER) (test ynye=930) 252 K/CU MM 150-450 MEAN PLATELET VOLUME (BEAKER) (test xxst=661) 10.4 fL 9.4-12.3 NUCLEATED RED BLOOD CELLS (BEAKER) (test 0 /100 WBC 0-0 cdnj=507) NEUTROPHILS RELATIVE PERCENT (BEAKER) (test 56 % nzqq=356) LYMPHOCYTES RELATIVE PERCENT (BEAKER) (test 30 % jnvp=563) MONOCYTES RELATIVE PERCENT (BEAKER) (test 9 % utrf=065) EOSINOPHILS RELATIVE PERCENT (BEAKER) (test 3 % yrne=556) BASOPHILS RELATIVE PERCENT (BEAKER) (test 1 % wiwq=785) NEUTROPHILS ABSOLUTE COUNT (BEAKER) (test 5.01 K/ L 1.56-6.13 fiaw=281) LYMPHOCYTES ABSOLUTE COUNT (BEAKER) (test 2.71 K/ L 1.18-3.74 evyl=953) MONOCYTES ABSOLUTE COUNT (BEAKER) (test 0.80 K/ L 0.24-0.36 wklb=706) EOSINOPHILS ABSOLUTE COUNT (BEAKER) (test 0.27 K/ L 0.04-0.36 vvvz=074) BASOPHILS ABSOLUTE COUNT (BEAKER) (test 0.10 K/ L 0.01-0.08 xsrg=640) IMMATURE GRANULOCYTES-RELATIVE PERCENT (BEAKER) 0 % 0-1 (test xzsu=4796)
--- OUTSIDE RECORDS SUMMARY | 2018-11-11 21:00 | XMS REPORT | Clinical Summary ---
:1935 Author Organization [facility] Address [address] [place] [address] Care Team Providers Name Role Phone Randolph Moore Primary Care Provider Allergies Active Allergy Reactions Severity Noted Date Comments Cephalexin 04/06/2018 Medications Medication Sig Dispensed Refills Start Date End Date Status ALPRAZolam (XANAX) 1 Take 1 mg by 0 03/28/2018 Active MG tablet mouth every night as needed . fentaNYL (DURAGESIC) Place 25 0 03/27/2018 Active 25 mcg/hr patch patches onto the skin every third day . meclizine (ANTIVERT) Take 25 mg by 0 Active 25 MG tablet mouth 2 (two) times daily as needed. aspirin 81 MG EC Take 81 mg by 0 Active tablet mouth daily. propranolol (INDERAL) Take 20 mg by 0 Active 20 MG tablet mouth 2 (two) times daily. amitriptyline (ELAVIL) Take 50 mg by 0 Active 50 MG tablet mouth nightly. atorvastatin (LIPITOR) Take 1 tablet 30 tablet 1 04/09/2018 Active 80 MG tablet (80 mg total) by mouth nightly. clopidogrel (PLAVIX) Take 1 tablet 87 tablet 0 04/09/2018 07/05/2018 75 mg tablet (75 mg total) by mouth daily for 87 days. Active Problems Problem Noted Date Stroke (cerebrum) 04/06/2018 Acute ischemic stroke 04/06/2018 Essential hypertension 04/06/2018 Received tissue plasminogen activator (t-PA) less than 24 hours prior to 04/06 arrival Encounters Date Type Specialty Care Team Description 04/05/2018 - [facility] Acute [facility] ([facility]); 04/09/2018 Encounter Medicine Jonatan Received tissue plasminogen activator (t-PA) less than 24 hours prior to arrival; MD Marvin Essential hypertension Evelyn Stallings MD after 11/10/2017 Family History Medical History Relation Name Comments Stroke Mother Relation Name Status Comments Mother Social History Tobacco Use Types Packs/Day Years Used Date Current Every Day Smoker 0.5 60 Alcohol Use Drinks/Week oz/Week Comments No Sex Assigned at Date Recorded Not on file Job Start Date Occupation Industry Not on file Not on file Not on file Travel History Travel Start Travel End No recent travel history available. Last Filed Vital Signs Vital Sign Reading Time Taken Blood Pressure 178/81 04/09/2018 11:48 AM CDT Pulse 71 04/09/2018 11:48 AM CDT Temperature 36.9 C (98.4 F) 04/09/2018 11:48 AM CDT Respiratory Rate 18 04/09/2018 11:48 AM CDT Oxygen Saturation 98% 04/09/2018 11:48 AM CDT Inhaled Oxygen Concentration - - Weight 52.6 kg (116 lb) 04/06/2018 3:40 AM CDT Height 149.9 cm (4' 11") 04/06/2018 3:40 AM CDT Body Mass Index 23.43 04/06/2018 3:40 AM CDT Plan of Treatment Not on file Procedures Procedure Name Priority Date/Time Associated Comments Diagnosis REPORT OF PROCEDURE - 04/11/2018 11:11 ENDOSCOPY SCAN AM CDT RHYTHM STRIP - SCAN 04/11/2018 11:11 AM CDT ECHOCARDIOGRAM REPORT - 04/09/2018 1:20 SCAN PM CDT 2D ECHO W/ DOPPLER STAT 04/08/2018 2:33 Results for this (CW/PW/COLOR) PM CDT procedure are in the results section. B-TYPE NATRIURETIC Routine 04/08/2018 1:26 Results for this FACTOR (BNP) PM CDT procedure are in the results section. CBC W/PLT COUNT & AUTO Routine 04/08/2018 4:47 Results for this DIFFERENTIAL AM CDT procedure are in the results section. MAGNESIUM Routine 04/08/2018 4:47 Results for this AM CDT procedure are in the results section. CBC W/PLT COUNT & AUTO Routine 04/08/2018 4:47 Results for this DIFFERENTIAL AM CDT procedure are in the results section. BASIC METABOLIC PANEL Routine 04/08/2018 4:47 Results for this (7) AM CDT procedure are in the results section. BASIC METABOLIC PANEL Routine 04/08/2018 4:47 Results for this (7) AM CDT procedure are in the results section. MAGNESIUM Routine 04/07/2018 5:56 Results for this AM CDT procedure are in the results section. CBC W/PLT COUNT & AUTO Routine 04/07/2018 5:36 Results for this DIFFERENTIAL AM CDT procedure are in the results section. BASIC METABOLIC PANEL Routine 04/07/2018 5:36 Results for this (7) AM CDT procedure are in the results section. CBC W/PLT COUNT & AUTO Routine 04/07/2018 5:36 Results for this DIFFERENTIAL AM CDT procedure are in the results section. MR MRA NECK WITHOUT IV Routine 04/07/2018 2:08 Results for this CONTRAST AM CDT procedure are in the results section. MR MRA HEAD WITHOUT Routine 04/07/2018 2:08 Results for this CONTRAST AM CDT procedure are in the results section. MR BRAIN WITHOUT IV Routine 04/07/2018 2:08 Results for this CONTRAST AM CDT procedure are in the results section. CREATINE KINASE (CK), Routine 04/06/2018 6:30 Results for this TOTAL AND MB PM CDT procedure are in the results section. TROPONIN I Routine 04/06/2018 6:30 Results for this PM CDT procedure are in the results section. POTASSIUM Routine 04/06/2018 11:58 Results for this AM CDT procedure are in the results section. MAGNESIUM Routine 04/06/2018 11:58 Results for this AM CDT procedure are in the results section. CREATINE KINASE (CK), Routine 04/06/2018 11:58 Results for this TOTAL AND MB AM CDT procedure are in the results section. TROPONIN I Routine 04/06/2018 11:58 Results for this AM CDT procedure are in the results section. CREATINE KINASE (CK), Routine 04/06/2018 6:07 Results for this TOTAL AND MB AM CDT procedure are in the results section. TROPONIN I Routine 04/06/2018 6:07 Results for this AM CDT procedure are in the results section. XR CHEST 1 VIEW Routine 04/06/2018 3:20 Results for this PORTABLE/BEDSIDE AM CDT procedure are in the results section. C-REACTIVE PROTEIN Routine 04/06/2018 1:27 Results for this AM CDT procedure are in the results section. MAGNESIUM Routine 04/06/2018 1:26 Results for this AM CDT procedure are in the results section. TROPONIN I Routine 04/06/2018 1:26 Results for this AM CDT procedure are in the results section. LIPID PANEL Routine 04/06/2018 1:26 Results for this AM CDT procedure are in the results section. BASIC METABOLIC PANEL Routine 04/06/2018 1:26 Results for this (7) AM CDT procedure are in the results section. CBC W/PLT COUNT & AUTO Routine 04/06/2018 1:25 Results for this DIFFERENTIAL AM CDT procedure are in the results section. VITAMIN B12 AND FOLATE Routine 04/06/2018 1:25 Results for this AM CDT procedure are in the results section. TSH/FREE T4 IF Routine 04/06/2018 1:25 Results for this INDICATED AM CDT procedure are in the results section. PROTHROMBIN TIME/INR Routine 04/06/2018 1:25 Results for this AM CDT procedure are in the results section. APTT Routine 04/06/2018 1:25 Results for this AM CDT procedure are in the results section. RPR Routine 04/06/2018 1:25 Results for this AM CDT procedure are in the results section. HEMOGLOBIN A1C Routine 04/06/2018 1:25 Results for this AM CDT procedure are in the results section. CBC W/PLT COUNT & AUTO Routine 04/06/2018 1:25 Results for this DIFFERENTIAL AM CDT procedure are in the results section. after 11/10/2017 Results EKG-SCANNED (04/11/2018 11:11 AM CDT) Narrative Performed At RHYTHM STRIP - SCAN (04/11/2018 11:11 AM CDT) Narrative Performed At ECHOCARDIOGRAM REPORT - SCAN (04/09/2018 1:20 PM CDT) Narrative Performed At Transthoracic 2D echo w/ doppler (cw/pw/color) (04/08/2018 2:33 PM CDT) Ejection Fraction [facility] [facility] Specimen Narrative Performed At Transthoracic Echocardiography Report (TTE) [facility] [facility] Demographics Patient NameVANDERGRIFFT,Date of Study04/08/2018 DINH Gender Female Visit [id number] Race Unknown [id number] Number Date of 1935 Romaincharlibri Mouna piedad Age 82 year(s) SonographMelody Rodrigues [facility] Interpreting Vania Ochoa FEL Procedure Type of Study TTE procedure:2DECHO W DOPPLER(CW/PW/COLOR) (STAT) Indications:Suspected cardiac source of emboli. Clinical History Tremor, TIA HGB 11.2 HCT 33.2 % Contrast Medium: Bubble Study. Height: 59 inches Weight: 52.62 kg (116 lbs) BSA: 1.46 m^2 BMI: 23.43 kg/m^2 HR: 55 bpm BP: 110/53 mmHg Summary 1. No apparent segmental wall motion abnormalities. Estimated LVEF by qualitative assessment is normal (60%) . 2. Grade 1 diastolic dysfunction (impaired relaxation and low-normal LA pressure). 3. IV saline contrast injection was negative for a PFO (patent foramen ovale) at rest and post Valsalva . The right ventricular chamber size and systolic function are within normal limits. Previous Study No prior studies available for comparison. Signature Findings Rhythm/BPRegular rhythm during the exam. Left Ventricle Normal left ventricular chamber size. Normal wall th ickness. Normal overall left ventricular systolic fu nction. No apparent segmental wall motion ab normalities. Gr adolfo 1 diastolic dysfunction (impaired relaxation an d low-normal LA pressure). Es timated LVEF by qualitative assessment is normal (6 0%) . Left AtriumLA size is normal . Right VentricleThe right ventricular chamber size and systolic fu nction are within normal limits. Right Atrium RA size is normal. Atrial SeptumIV saline contrast injection was negative for a PFO (p atent foramen ovale) at rest and post Valsalva . Aortic Valve AoV is not well visualized, by current views the Ao V appears normal. Mitral Valve Normal MV structure. Tricuspid ValveTV structure is normal. No evidence of tricuspid regurgitation. Es timated peak systolic PA pressure is cannot be de termined due to inadequate TR velocity signal . Pulmonic Valve Normal PV structure and function by limited views an d Doppler. AortaAortic root size (SInus of Valsalva diameter) is no rmal . PericardiumAn echo lucent space is noted consistent with pr ominent pericardial fat pad. IVC/SVC/PA/PV/PleuralThe estimated RA pressure by IVC dynamics 0-5mmHg . Chambers/Structures Left Atrium LA Volume: 28.98 ml LA Vol. Index: 20 ml/m^2 Left Ventricle LVIDd: 3.58 cm LVEDV:53.79 ml LVIDs: 2.67 cm LVESV:19.01 ml LV Septum Diastolic: 0.96 cm LVEF 2D Cube: 58.7 % LV PW Diastolic: 1.11 cm LVEDV Miranda's:53.42 ml LV FS: 25.4 % LVESV Miranda's:22.94 ml LVEF Miranda's: 57.1 % LVEDVI: 37 ml/m^2 LVESVI: 16 ml/m^2 LVOT Diameter: 1.69 cm LVEF: 64.7 % Aorta Ao Root S of Donna.: 2.64 cm Doppler/Quantitative Measurements Mitral Valve MV Peak E-Wave: 0.48 m/sMV Peak A-Wave: 0.8 m/s E/A Ratio: 0.6 Mean Velocity: 0.42 m/s Peak Gradient: 0.91 mmHg Mean Gradient: 0.9 mmHg Deceleration Time: 277.6 msec Area (continuity): 2.49 cm^2 MV VTI: 18.79 cm MV Luis A. Peak: 0.95 m/s Tissue Doppler E' Septal Velocity: 0.07 m/sE/E': 6.96 Aortic Valve Peak Velocity: 1.16 m/sMean Velocity: 0.92 m/s Peak Gradient: 5.4 mmHgMean Gradient: 3.62 mmHg AV Area (continuity): 1.69 cm^2 AV VTI: 27.72 cm AV DVI: 0.75 LVOT Peak Velocity: 1.07 m/s Peak Gradient: 4.6 mmHg Mean Velocity: 0.75 m/s Mean Gradient: 2.52 mmHg LVOT Diameter: 1.69 cmLVOT VTI: 20.88 cm LVOT Area: 2.24 cm^2LVOT SV:46.81 ml LVOT CO: 2.57 l/min LVOT CI: 1.76 l/min/m^2 Procedure Note Interface, External Ris In - 04/09/2018 12:31 PM CDT Transthoracic Echocardiography Report (TTE) Demographics Patient Name LI, Date of Study 04/08/2018 DINH Gender Female Visit Number [id number] Race Unknown Room Number 2206 Number Date of 1935 [address] [facility] Physician Chandrakant Age 82 year(s) Seamless [employer] Roller Jennifer Rodrigues [facility] Interpreting Debby Maloney, Physician MD Fellow CRIS Schaefer Procedure Type of Study TTE procedure:2DECHO W DOPPLER(CW/PW/COLOR) (STAT) Indications:Suspected cardiac source of emboli. Clinical History Tremor, TIA HGB 11.2 HCT 33.2 % Contrast Medium: Bubble Study. Height: 59 inches Weight: 52.62 kg (116 lbs) BSA: 1.46 m^2 BMI: 23.43 kg/m^2 HR: 55 bpm BP: 110/53 mmHg Summary 1. No apparent segmental wall motion abnormalities. Estimated LVEF by qualitative assessment is normal (60%) . 2. Grade 1 diastolic dysfunction (impaired relaxation and low-normal LA pressure). 3. IV saline contrast injection was negative for a PFO (patent foramen ovale) at rest and post Valsalva . The right ventricular chamber size and systolic function are within normal limits. Previous Study No prior studies available for comparison. Signature Findings Rhythm/BP Regular rhythm during the exam. Left Ventricle Normal left ventricular chamber size. Normal wall thickness. Normal overall left ventricular systolic function. No apparent segmental wall motion abnormalities. Grade 1 diastolic dysfunction (impaired relaxation and low-normal LA pressure). Estimated LVEF by qualitative assessment is normal (60%) . Left Atrium LA size is normal . Right Ventricle The right ventricular chamber size and systolic function are within normal limits. Right Atrium RA size is normal. Atrial Septum IV saline contrast injection was negative for a PFO (patent foramen ovale) at rest and post Valsalva . Aortic Valve AoV is not well visualized, by current views the AoV appears normal. Mitral Valve Normal MV structure. Tricuspid Valve TV structure is normal. No evidence of tricuspid regurgitation. Estimated peak systolic PA pressure is cannot be determined due to inadequate TR velocity signal . Pulmonic Valve Normal PV structure and function by limited views and Doppler. Aorta Aortic root size (SInus of Valsalva diameter) is normal . Pericardium An echo lucent space is noted consistent with prominent pericardial fat pad. IVC/SVC/PA/PV/Pleural The estimated RA pressure by IVC dynamics 0-5mmHg . Chambers/Structures Left Atrium LA Volume: 28.98 ml LA Vol. Index: 20 ml/m^2 Left Ventricle LVIDd: 3.58 cm LVEDV:53.79 ml LVIDs: 2.67 cm LVESV:19.01 ml LV Septum Diastolic: 0.96 cm LVEF 2D Cube: 58.7 % LV PW Diastolic: 1.11 cm LVEDV Miranda's:53.42 ml LV FS: 25.4 % LVESV Miranda's:22.94 ml LVEF Miranda's: 57.1 % LVEDVI: 37 ml/m^2 LVESVI: 16 ml/m^2 LVOT Diameter: 1.69 cm LVEF: 64.7 % Aorta Ao Root S of Donna.: 2.64 cm Doppler/Quantitative Measurements Mitral Valve MV Peak E-Wave: 0.48 m/s MV Peak A-Wave: 0.8 m/s E/A Ratio: 0.6 Mean Velocity: 0.42 m/s Peak Gradient: 0.91 mmHg Mean Gradient: 0.9 mmHg Deceleration Time: 277.6 msec Area (continuity): 2.49 cm^2 MV VTI: 18.79 cm MV Luis A. Peak: 0.95 m/s Tissue Doppler E' Septal Velocity: 0.07 m/s E/E': 6.96 Aortic Valve Peak Velocity: 1.16 m/s Mean Velocity: 0.92 m/s Peak Gradient: 5.4 mmHg Mean Gradient: 3.62 mmHg AV Area (continuity): 1.69 cm^2 AV VTI: 27.72 cm AV DVI: 0.75 LVOT Peak Velocity: 1.07 m/s Peak Gradient: 4.6 mmHg Mean Velocity: 0.75 m/s Mean Gradient: 2.52 mmHg LVOT Diameter: 1.69 cm LVOT VTI: 20.88 cm LVOT Area: 2.24 cm^2 LVOT SV:46.81 ml LVOT CO: 2.57 l/min LVOT CI: 1.76 l/min/m^2 Performing Organization Address City/[facility]ode Phone Number [facility] MKCKESSON CPACS B-type Natriuretic Factor (BNP) (04/08/2018 1:26 PM CDT) BNP 109 (H) 0 - 100 pg/mL [facility] Specimen Blood Performing Organization Address City/[facility]/Zipcode Phone Number [facility] [address] [place] [address] [phone] CENTER CBC with platelet count + automated diff (04/08/2018 4:47 AM CDT)Only the most recent of3 resultswithin the time period is included. WBC 6.5 3.5 - 10.5 K/L [facility] RBC 3.54 (L) 3.93 - 5.22 M/L [facility] Hemoglobin 11.2 11.2 - 15.7 GM/DL [facility] Hematocrit 33.2 (L) 34.1 - 44.9 % [facility] MCV 93.8 79.4 - 94.8 fL [facility] MCH 31.6 25.6 - 32.2 pg [facility] MCHC 33.7 32.2 - 35.5 GM/DL [facility] RDW 13.7 11.7 - 14.4 % [facility] Platelets 229 150 - 450 K/CU MM [facility] MPV 10.6 9.4 - 12.3 fL [facility] nRBC 0 0 - 0 /100 WBC [facility] % Neutros 35 % [facility] % Lymphs 49 % [facility] % Monos 10 % [facility] % Eos 4 % [facility] % Baso 2 % [facility] # Neutros 2.25 1.56 - 6.13 K/L [facility] # Lymphs 3.18 1.18 - 3.74 K/L [facility] # Monos 0.65 (H) 0.24 - 0.36 K/L [facility] # Eos 0.27 0.04 - 0.36 K/L [facility] # Baso 0.11 (H) 0.01 - 0.08 K/L [facility] Immature Granulocytes-Relative 1 0 - 1 % [facility] Specimen Blood Performing Organization Address City/State/Zipcode Phone Number [facility] [address] [place] [address] CENTER Magnesium (04/08/2018 4:47 AM CDT)Only the most recent of4 resultswithin the time period is included. Magnesium 2.0 1.6 - 2.6 mg/dL [facility] Specimen Blood Performing Organization Address City/[facility]/Zipcode Phone Number [facility] [address] [place] [address] [phone] [facility] Basic Metabolic Panel (04/08/2018 4:47 AM CDT)Only the most recent of4 resultswithin the time period is included. Sodium 129 (L) 136 - 145 meq/L [facility] Potassium 3.9 3.5 - 5.1 meq/L [facility] Chloride 101 98 - 107 meq/L [facility] CO2 21 (L) 22 - 29 meq/L [facility] BUN 12 7 - 21 mg/dL [facility] Creatinine 0.73 0.57 - 1.25 mg/dL [facility] Glucose 84 70 - 105 mg/dL [facility] Calcium 8.7 8.4 - 10.2 mg/dL [facility] EGFR 77Comment: ESTIMATED GFR IS mL/min/1.73 sq m [facility] NOT ACCURATE CREATININE [facility] CLEARANCE IN PREDICTING GLOMERULAR FILTRATION RATE. ESTIMATED GFR IS NOT APPLICABLE FOR DIALYSIS PATIENTS. Specimen Blood Performing Organization Address City/[facility]/Zipcode Phone Number [place] [phone] [place] [address] [phone] [facility] MR brain without IV contrast (04/07/2018 2:08 AM CDT) Specimen Narrative Performed At FINAL REPORT [employer] [facility] MRI Brain without contrast, MRA head and neck without contrast. Clinical History: Stroke Technique: MRI of the brain utilizing axial T2, FLAIR, GRE, DWI; sagittal and coronal T1-weighted images. MRA of the head utilizing 3-D fzjo-qu-cyhlow technique, with 3-D reconstructions. MRA of the neck utilizing 2-D and 3-D kbqv-mv-lzycef technique, with 3-D reconstructions. Comparisons: None Findings: MRI brain: There is no evidence of acute infarct or [...] mastoid air cells are clear. Intraorbital contents are unremarkable. No aggressive osseous or soft tissue lesions identified. MRA head: Examination is severely degraded by motion artifact. The bilateral A1 and proximal A2 segments of the anterior cerebral arteries are not well evaluated. Otherwise no evidence of intracranial aneurysm, focal stenosis, or major branch vessel occlusion. MRA neck: The carotid arteries in the neck are patent including their bifurcations. There is antegrade flow in the vertebral arteries in the neck. IMPRESSION: MRI brain: No evidence of acute infarct, hemorrhage, or hydrocephalus. Remote small right marshall radiata infarction superimposed on chronic microvascular ischemic changes. MRA head: Examination is severely degraded by motion artifact. The bilateral A1 and proximal A2 segments of the anterior cerebral arteries are not well evaluated.Otherwise no evidence for a major [place] proximal branch vessel occlusion. MRA neck: No evidence of hemodynamically significant stenosis in the cervical carotid or vertebral arteries by NASCET criteria. Signed: Nallely Torres MD Report Verified Date/Time:04/07/2018 04:23:47 Reading Location: [address] Reading Room Procedure Note Interface, External Ris In - 04/07/2018 4:26 AM CDT FINAL REPORT MRI Brain without contrast, MRA head and neck without contrast. Clinical History: Stroke Technique: MRI of the brain utilizing axial T2, FLAIR, GRE, DWI; sagittal and coronal T1-weighted images. MRA of the head utilizing 3-D rzyz-dr-ohdpal technique, with 3-D reconstructions. MRA of the neck utilizing 2-D and 3-D vkjd-xe-wdlchw technique, with 3-D reconstructions. Comparisons: None Findings: MRI brain: There is no evidence of acute infarct or [...] mastoid air cells are clear. Intraorbital contents are unremarkable. No aggressive osseous or soft tissue lesions identified. MRA head: Examination is severely degraded by motion artifact. The bilateral A1 and proximal A2 segments of the anterior cerebral arteries are not well evaluated. Otherwise no evidence of intracranial aneurysm, focal stenosis, or major branch vessel occlusion. MRA neck: The carotid arteries in the neck are patent including their bifurcations. There is antegrade flow in the vertebral arteries in the neck. IMPRESSION: MRI brain: No evidence of acute infarct, hemorrhage, or hydrocephalus. Remote small right marshall radiata infarction superimposed on chronic microvascular ischemic changes. MRA head: Examination is severely degraded by motion artifact. The bilateral A1 and proximal A2 segments of the anterior cerebral arteries are not well evaluated. Otherwise no evidence for a major [place] proximal branch vessel occlusion. MRA neck: No evidence of hemodynamically significant stenosis in the cervical carotid or vertebral arteries by NASCET criteria. Signed: Nallely Torres MD Report Verified Date/Time: 04/07/2018 04:23:47 Reading Location: [address] Reading Room Performing Organization Address City/State/Zipcode Phone Number [facility] MRA neck without IV contrast (04/07/2018 2:08 AM CDT) Specimen Narrative Performed At FINAL REPORT [facility] MRI Brain without contrast, MRA head and neck without contrast. Clinical History: Stroke Technique: MRI of the brain utilizing axial T2, FLAIR, GRE, DWI; sagittal and coronal T1-weighted images. MRA of the head utilizing 3-D hpyi-io-fjpvbm technique, with 3-D reconstructions. MRA of the neck utilizing 2-D and 3-D kozq-uo-yrefws technique, with 3-D reconstructions. Comparisons: None Findings: MRI brain: There is no evidence of acute infarct or [...] mastoid air cells are clear. Intraorbital contents are unremarkable. No aggressive osseous or soft tissue lesions identified. MRA head: Examination is severely degraded by motion artifact. The bilateral A1 and proximal A2 segments of the anterior cerebral arteries are not well evaluated. Otherwise no evidence of intracranial aneurysm, focal stenosis, or major branch vessel occlusion. MRA neck: The carotid arteries in the neck are patent including their bifurcations. There is antegrade flow in the vertebral arteries in the neck. IMPRESSION: MRI brain: No evidence of acute infarct, hemorrhage, or hydrocephalus. Remote small right marshall radiata infarction superimposed on chronic microvascular ischemic changes. MRA head: Examination is severely degraded by motion artifact. The bilateral A1 and proximal A2 segments of the anterior cerebral arteries are not well evaluated.Otherwise no evidence for a major [place] proximal branch vessel occlusion. MRA neck: No evidence of hemodynamically significant stenosis in the cervical carotid or vertebral arteries by NASCET criteria. Signed: Nallely Torres MD Report Verified Date/Time:04/07/2018 04:23:47 Reading Location: [address] Reading Room Procedure Note Interface, External Ris In - 04/07/2018 4:26 AM CDT FINAL REPORT MRI Brain without contrast, MRA head and neck without contrast. Clinical History: Stroke Technique: MRI of the brain utilizing axial T2, FLAIR, GRE, DWI; sagittal and coronal T1-weighted images. MRA of the head utilizing 3-D apmp-gc-wgoxxw technique, with 3-D reconstructions. MRA of the neck utilizing 2-D and 3-D coey-pc-ceexwn technique, with 3-D reconstructions. Comparisons: None Findings: MRI brain: There is no evidence of acute infarct or [...] mastoid air cells are clear. Intraorbital contents are unremarkable. No aggressive osseous or soft tissue lesions identified. MRA head: Examination is severely degraded by motion artifact. The bilateral A1 and proximal A2 segments of the anterior cerebral arteries are not well evaluated. Otherwise no evidence of intracranial aneurysm, focal stenosis, or major branch vessel occlusion. MRA neck: The carotid arteries in the neck are patent including their bifurcations. There is antegrade flow in the vertebral arteries in the neck. IMPRESSION: MRI brain: No evidence of acute infarct, hemorrhage, or hydrocephalus. Remote small right marshall radiata infarction superimposed on chronic microvascular ischemic changes. MRA head: Examination is severely degraded by motion artifact. The bilateral A1 and proximal A2 segments of the anterior cerebral arteries are not well evaluated. Otherwise no evidence for a major [place] proximal branch vessel occlusion. MRA neck: No evidence of hemodynamically significant stenosis in the cervical carotid or vertebral arteries by NASCET criteria. Signed: Nallely Torres MD Report Verified Date/Time: 04/07/2018 04:23:47 Reading Location: [address] Reading Room Performing Organization Address City/State/Zipcode Phone Number GE i'mma MRA head without IV contrast (04/07/2018 2:08 AM CDT) Specimen Narrative Performed At FINAL REPORT [facility] MRI Brain without contrast, MRA head and neck without contrast. Clinical History: Stroke Technique: MRI of the brain utilizing axial T2, FLAIR, GRE, DWI; sagittal and coronal T1-weighted images. MRA of the head utilizing 3-D shdg-rw-ugcawb technique, with 3-D reconstructions. MRA of the neck utilizing 2-D and 3-D mwdq-zq-vtxfdn technique, with 3-D reconstructions. Comparisons: None Findings: MRI brain: There is no evidence of acute infarct or [...] mastoid air cells are clear. Intraorbital contents are unremarkable. No aggressive osseous or soft tissue lesions identified. MRA head: Examination is severely degraded by motion artifact. The bilateral A1 and proximal A2 segments of the anterior cerebral arteries are not well evaluated. Otherwise no evidence of intracranial aneurysm, focal stenosis, or major branch vessel occlusion. MRA neck: The carotid arteries in the neck are patent including their bifurcations. There is antegrade flow in the vertebral arteries in the neck. IMPRESSION: MRI brain: No evidence of acute infarct, hemorrhage, or hydrocephalus. Remote small right marshall radiata infarction superimposed on chronic microvascular ischemic changes. MRA head: Examination is severely degraded by motion artifact. The bilateral A1 and proximal A2 segments of the anterior cerebral arteries are not well evaluated.Otherwise no evidence for a major [place] proximal branch vessel occlusion. MRA neck: No evidence of hemodynamically significant stenosis in the cervical carotid or vertebral arteries by NASCET criteria. Signed: Nallely Torres MD Report Verified Date/Time:04/07/2018 04:23:47 Reading Location: [address] Reading Room Procedure Note Interface, External Ris In - 04/07/2018 4:26 AM CDT FINAL REPORT MRI Brain without contrast, MRA head and neck without contrast. Clinical History: Stroke Technique: MRI of the brain utilizing axial T2, FLAIR, GRE, DWI; sagittal and coronal T1-weighted images. MRA of the head utilizing 3-D dxxr-az-zkxgdl technique, with 3-D reconstructions. MRA of the neck utilizing 2-D and 3-D tgsh-vk-ohdjlk technique, with 3-D reconstructions. Comparisons: None Findings: MRI brain: There is no evidence of acute infarct or [...] mastoid air cells are clear. Intraorbital contents are unremarkable. No aggressive osseous or soft tissue lesions identified. MRA head: Examination is severely degraded by motion artifact. The bilateral A1 and proximal A2 segments of the anterior cerebral arteries are not well evaluated. Otherwise no evidence of intracranial aneurysm, focal stenosis, or major branch vessel occlusion. MRA neck: The carotid arteries in the neck are patent including their bifurcations. There is antegrade flow in the vertebral arteries in the neck. IMPRESSION: MRI brain: No evidence of acute infarct, hemorrhage, or hydrocephalus. Remote small right marshall radiata infarction superimposed on chronic microvascular ischemic changes. MRA head: Examination is severely degraded by motion artifact. The bilateral A1 and proximal A2 segments of the anterior cerebral arteries are not well evaluated. Otherwise no evidence for a major [place] proximal branch vessel occlusion. MRA neck: No evidence of hemodynamically significant stenosis in the cervical carotid or vertebral arteries by NASCET criteria. Signed: Nallely Torres MD Report Verified Date/Time: 04/07/2018 04:23:47 Reading Location: [address] Reading Room Performing Organization Address City/State/Zipcode Phone Number [facility] Troponin I (04/06/2018 6:30 PM CDT)Only the most recent of4 resultswithin the time period is included. Troponin I 0.36 (HH) 0.00 - 0.03 ng/mL [facility] Specimen Blood Narrative Performed At [facility] Troponin I (TnI) levels must be interpreted [...] failure, acidosis, acute neurological disease, and persistent tachyarrhythmia. Performing Organization Address City/[facility] Phone Number [address] [phone] [place] Creatine Kinase (CK), Total and MB (04/06/2018 6:30 PM CDT)Only the most recent of3 resultswithin the time period is included. Total CK 60 29 - 200 U/L [facility] CK-MB 4.8 0.0 - 6.6 ng/mL [facility] MB Relative Index 8.0 % [facility] Specimen Blood Narrative Performed At CK-MB Reference Range: [facility] <6.7Normal 6.7-10.0Borderline >10.0 Abnormal Performing Organization Address [facility] Cent[facility] Phone Number [address] [phone] [place] Potassium (04/06/2018 11:58 AM CDT) Potassium 4.0 3.5 - 5.1 meq/L [facility] Specimen Blood Narrative Performed At Check Serum Potassium level 2 hours after [facility] oral potassium replacement completed or 30 min after intravenous potassium replacement. Performing Organization Address City/[facility] Cent[facility] Phone Number [address] [phone] [place] XR chest 1 view portable / bedside (04/06/2018 3:20 AM CDT) Specimen Narrative Performed At FINAL REPORT [facility] Chest one view. Clinical history: Baseline; hospitalized for stroke Comparison: None. Technique: A single frontal view of the chest was obtained. Findings/impression: The heart is normal in size. The aorta is uncoiled and atherosclerotic. There is no focal pulmonary consolidation, pleural effusion or pneumothorax. There is no pulmonary edema. The bony thorax is demineralized. Impression: No focal pulmonary consolidation. Signed: Kervin Armendariz MD Report Verified Date/Time:04/06/2018 03:38:00 Reading Location: [facility] B1 C013Y CT Body Reading Room Procedure Note Interface, External Ris In - 04/06/2018 3:40 AM CDT FINAL REPORT Chest one view. Clinical history: Baseline; hospitalized for stroke Comparison: None. Technique: A single frontal view of the chest was obtained. Findings/impression: The heart is normal in size. The aorta is uncoiled and atherosclerotic. There is no focal pulmonary consolidation, pleural effusion or pneumothorax. There is no pulmonary edema. The bony thorax is demineralized. Impression: No focal pulmonary consolidation. Signed: Kervin Armendariz MD Report Verified Date/Time: 04/06/2018 03:38:00 Reading Location: [facility] B1 C013Y CT Body Reading Room Performing Organization Address City/[facility] Phone Number RIS C-Reactive Protein (04/06/2018 1:27 AM CDT) CRP 0.05 0.00 - 0.50 mg/dL [facility] Specimen Blood Performing Organization Address [facility] [place] [address] CENTER Fasting lipid panel (04/06/2018 1:26 AM CDT) Triglycerides 68 mg/dL [facility] Cholesterol 216 mg/dL [facility] HDL 60 mg/dL [facility] LDL Calculated 142 mg/dL [facility] Specimen Blood Narrative Performed At [facility] Triglyceride Reference Range: Low Risk <150 [id number] High Risk 200-499 Very High Risk>=500 Cholesterol Reference Range: Low Risk <200 [id number] High Risk>240 HDL Cholesterol Reference Range: Low Risk >=60 High Risk <40 LDL Cholesterol Reference Range: Optimal<100 Near [id number] Cnatxcokvi251-875 [id number] Very High >=190 Fasting Performing Organization Address [facility]/Zipcode Phone Number [address] [phone] CENTER Vitamin B12 and Folate (04/06/2018 1:25 AM CDT) Vitamin B12 802 213 - 816 pg/mL [facility] Folate 36.5 >=7.0 ng/mL [facility] Specimen Blood Performing Organization Address City/[facility] Phone Number [address] [phone] CENTER TSH/Free T4 If Indicated (04/06/2018 1:25 AM CDT) TSH 2.21 0.35 - 4.94 uIU/mL [facility] Specimen Blood Performing Organization Address [facility] Centerconh Phone Number [address] [phone] CENTER RPR (04/06/2018 1:25 AM CDT) RPR Nonreactive Nonreactive [facility] Specimen Blood Performing Organization Address City/[facility] Centercode Phone Number [address] [address] [phone] CENTER aPTT (04/06/2018 1:25 AM CDT) PTT 26.6 22.5 - 36.0 seconds [facility] Specimen Blood Performing Organization Address City/[facility] Cent[facility] Phone Number [address] [phone] CENTER Prothrombin time/INR (04/06/2018 1:25 AM CDT) Protime 13.6 11.7 - 14.7 seconds [facility] INR 1.0 <=5.9 [facility] Specimen Blood Narrative Performed At [facility] RECOMMENDED COUMADIN/WARFARIN INR THERAPY RANGES STANDARD DOSE: 2.0 - 3.0 Includes: PROPHYLAXIS for venous thrombosis, systemic embolization; TREATMENT for venous thrombosis and/or pulmonary embolus. HIGH RISK: Target INR is 2.5-3.5 for patients with mechanical heart valves. Performing Organization Address City/State/Zipcode Phone Number [facility] [address] [place] [address] [phone] CENTER Hemoglobin A1c (04/06/2018 1:25 AM CDT) Hemoglobin A1C 5.1 4.3 - 6.1 % [facility] Specimen Blood Performing Organization Address City/State/Zipcode Phone Number [facility] [address] [place], [place] [phone] CENTER after 11/10/2017 Insurance Payer Benefit Plan / Group Subscriber ID Type Phone Address MEDICARE MEDICARE A B xxxxxxxxxxx Medicare MCR SUPPLEMENT/INDIVIDUAL AARP/[facility] xxxxxxxxxxx Medigap Advance Directives Patient has advance care planning documents, and code status on file. For more information, please contact:[facility] [place] [address] [phone] Code Status Date Activated Date Inactivated Comments Full Code 04/06/2018 12:42 AM 04/09/2018 4:50 PM This code status was determined by: Patient
[2018-11-11 21:42] LABS: Absolute Lymphocytes (CBC) 2.6 K/uL (0.7-4.9); Absolute Monocytes 0.6 K/uL (0.1-1.3); Absolute Neutrophil 3.2 K/uL (1.8-8.0); Basophils % 2.3 % (0-1.3); Eosinophils % 3.8 % (0-4.4); Lymphocytes % 38.3 % (15.3-44.8); MPV 9.1 fL (7.6-11.3); Monocytes % 8.5 % (3.3-12.3); RBC Red Blood Cell Count 4.05 M/uL (3.86-4.86)
[2018-11-11 21:45] LABS: Protime INR 0.9
[2018-11-11 22:22] LABS: BUN Blood Urea Nitrogen 21 mg/dL (7-18); Bicarbonate 28 mmol/L (21-32); Glucose Level 97 mg/dL (74-106); Potassium 4.1 mmol/L (3.5-5.1); Sodium Level 141 mmol/L (136-145)
[2018-11-11 22:23] LABS: ALT/SGPT 19 U/L (12-78); AST/SGOT 19 U/L (15-37); Albumin 3.7 g/dL (3.4-5.0); Alkaline Phosphatase 82 U/L (45-117); Bilirubin Direct 0.1 mg/dL (0-0.2); Bilirubin Total 0.3 mg/dL (0.2-1.0); NT PRO-BNP 180 pg/mL (<450); Protein, Total 7.3 g/dL (6.4-8.2); Troponin (Emerg Dept Use Only) < 0.02 ng/mL (0.0-0.045)
[2018-11-11 22:24] LABS: Magnesium 1.7 mg/dL (1.8-2.4)
[2018-11-11] MEDS ORDERED: ACETAMINOPHEN 500 MG TAB ONE (22:48)
[2018-11-11] MEDS ORDERED: cloNIDine HCl 0.1 MG TAB ONE (23:25)
--- NOTE | 2018-11-12 00:35 | ER ---
Nurse's Notes [facility] Name: Dinh Love Age: 83 yrs Sex: Female : 1935 Arrival Date: 11/11/2018 Time: 21:02 Bed 7 Private MD: Diagnosis: Hypertensive urgency;Non-ST elevation (NSTEMI) myocardial infarction Presentation: 11/11 20:55 Presenting complaint: EMS states: "chest tightness that started 2 hours ago associated cc3 with jaw pain and horrible headache". Transition of care: patient was not received from another setting of care. Onset of symptoms was November 11, 2018. Risk Assessment: Do you want to hurt yourself or someone else? Patient reports no desire to harm self or others. Initial Sepsis Screen: Does the patient meet any 2 criteria? No. Patient's initial sepsis screen is negative. Does the patient have a suspected source of infection? No. Patient's initial sepsis screen is negative. Care prior to arrival: Medication(s) given: Patient took 1 baby Aspirin at home then EMS gave 3 more baby Aspirin en route. 20:55 Method Of Arrival: EMS: [facility] cc3 20:55 Acuity: KAROLINA 3 cc3 Triage Assessment: 20:55 General: Appears in no apparent distress. uncomfortable, Behavior is calm, cooperative, cc3 appropriate for age. Pain: Complains of pain in head and jaw Pain currently is 8 out of 10 on a pain scale. Quality of pain is described as aching. EENT: No signs and/or symptoms were reported regarding the EENT system. Neuro: Level of Consciousness is awake, alert, obeys commands, Oriented to person, place, time, situation, Appropriate for age. Cardiovascular: Reports chest tightness since 2 hours ago Patient's skin is warm and dry. Respiratory: Airway is patent Respiratory effort is even, unlabored, Respiratory pattern is regular, symmetrical. GI: Abdomen is flat. : No signs and/or symptoms were reported regarding the genitourinary system. Derm: No signs and/or symptoms reported regarding the dermatologic system. Musculoskeletal: Circulation, motion, and sensation intact. Range of motion: intact in all extremities. Historical: - Allergies: 20:55 Keflex; cc3 - Home Meds: 20:55 alprazolam 1 mg Oral tab nightly [Active]; amitriptyline 50 mg Oral tab nightly cc3 [Active]; aspirin 81 mg Oral TbEC 1 tab once daily [Active]; fentanyl 25 mcg/hr Topical pt72 1 patch every 72 hours [Active]; meclizine 25 mg Oral tab 1 tab 2 times per day [Active]; propranolol 20 mg Oral tab 2 times per day [Active]; 21:00 Fortea shots daily [Active]; cc3 - PMHx: 20:55 Arthritis; TIA; cc3 - PSHx: 20:55 hiatal hernia; Hysterectomy; Cholecystectomy; cc3 - Immunization history:: Adult Immunizations up to date. - Social history:: Smoking status: Patient uses tobacco products, denies chronic smoking, but will smoke occasionally. - Ebola Screening: : No symptoms or risks identified at this time. Screenin:55 Abuse screen: Denies threats or abuse. Denies injuries from another. Nutritional cc3 screening: No deficits noted. Tuberculosis screening: No symptoms or risk factors identified. Fall Risk Ambulatory Aid- None/Bed Rest/Nurse Assist (0 pts). Gait- Normal/Bed Rest/Wheelchair (0 pts) Mental Status- Oriented to own ability (0 pts). Assessment: 20:55 General: see triage assessment. cc3 21:47 Reassessment: Patient appears in no apparent distress at this time. Patient and/or cc3 family updated on plan of care and expected duration. Pain level reassessed. Patient is alert, oriented x 3, equal unlabored respirations, skin warm/dry/pink. 22:38 Reassessment: pt stated she just remembered she has her 23mcg fentanyl patch on that ak1 she changes every 3 days for pain control. 23:20 Reassessment: Patient appears in no apparent distress at this time. Patient and/or cc3 family updated on plan of care and expected duration. Pain level reassessed. Patient is alert, oriented x 3, equal unlabored respirations, skin warm/dry/pink. Troponin I sample collected and sent to lab as ordered. 11/12 00:50 Reassessment: Patient appears in no apparent distress at this time. Patient and/or cc3 family updated on plan of care and expected duration. Pain level reassessed. Patient is alert, oriented x 3, equal unlabored respirations, skin warm/dry/pink. Patient for admission, Dr. Guerrero at bedside. 01:20 Reassessment: Patient appears in no apparent distress at this time. Patient and/or cc3 family updated on plan of care and expected duration. Pain level reassessed. Patient is alert, oriented x 3, equal unlabored respirations, skin warm/dry/pink. 02:18 Reassessment: Patient appears in no apparent distress at this time. Patient and/or cc3 family updated on plan of care and expected duration. Pain level reassessed. Patient is alert, oriented x 3, equal unlabored respirations, skin warm/dry/pink. 03:00 Reassessment: Patient appears in no apparent distress at this time. Patient and/or cc3 family updated on plan of care and expected duration. Pain level reassessed. Patient is alert, oriented x 3, equal unlabored respirations, skin warm/dry/pink. Patient for admission in ICU but no bed available, charting started in [facility]. Vital Signs: 11/11 20:55 BP 203 / 84; Pulse 81; Resp 19 S; Temp 98.1(O); Pulse Ox 100% on R/A; Weight 51.71 kg cc3 (R); Height 4 ft. 11 in. (149.86 cm) (R); Pain 8/10; 21:20 BP 179 / 77; Pulse 80; Resp 12; Temp 98.1; Pulse Ox 100% on R/A; ak1 22:39 BP 177 / 88; Pulse 79; Resp 14; Pulse Ox 99% on R/A; ak1 23:02 BP 170 / 86; Pulse 74; Resp 19 S; Pulse Ox 98% on R/A; cc3 23:30 BP 161 / 80; Pulse 78; Resp 16 S; Pulse Ox 98% on R/A; cc3 11/12 00:06 BP 160 / 78; Pulse 76; Resp 14; Pulse Ox 98% on R/A; ak1 00:30 BP 143 / 84; Pulse 84; Resp 14 S; Pulse Ox 98% on R/A; Pain 2/10; cc3 01:00 BP 164 / 88; Pulse 75; Resp 11 S; Pulse Ox 98% on R/A; cc3 01:13 BP 139 / 87; Pulse 82; Resp 18 S; Pulse Ox 97% on R/A; cc3 02:00 BP 116 / 73; Pulse 75; Resp 13 S; Pulse Ox 98% on R/A; cc3 03:28 BP 153 / 71; Pulse 82; Resp 13 S; Pulse Ox 99% on R/A; cc3 11/11 20:55 Body Mass Index 23.02 (51.71 kg, 149.86 cm) cc3 ED Course: 11/11 20:55 Patient has correct armband on for positive identification. Placed in gown. Bed in low cc3 position. Call light in reach. Side rails up X 1. pvc monitor on. Pulse ox on. NIBP on. 20:55 Arm band placed on right wrist. EKG completed in triage. Results shown to MD. cc3 21:02 Patient arrived in ED. bb 21:04 Lisa Donato is Primary Nurse. cc3 21:09 Triage completed. cc3 21:10 Joni Nieto MD is Attending Physician. tw4 21:18 Initial lab(s) drawn, by me, sent to lab. EKG done, by ED staff, reviewed by Joni Nieto MD. Inserted saline lock: 22 gauge in right antecubital area, using aseptic technique. Blood collected. 11/12 00:01 XRAY Chest (1 view) In Process Unspecified. EDMS 00:21 Elva Guerrero MD is Hospitalizing Provider. tw4 07:00 Report given to MARIO Guardado and MARIO Pat. cc3 07:26 Debby Frances, MARIO is Primary Nurse. sv 08:54 No provider procedures requiring assistance completed. Patient admitted, IV remains in iw place. Administered Medications: 11/11 22:38 Drug: Tylenol 1000 mg Route: PO; ak1 22:45 Follow up: Response: No adverse reaction cc3 23:10 Drug: cloNIDine 0.1 mg Route: PO; cc3 11/12 00:30 Follow up: Response: No adverse reaction; Blood pressure is lowered cc3 01:07 Drug: Nitroglycerin 0.4 mg Route: Sublingual; ak1 01:13 Follow up: Response: No adverse reaction; Blood pressure is lowered cc3 Point of Care Testing: Blood Glucose: 11/11 21:18 Blood Glucose: 107 mg/dL; ak1 Ranges: Outcome: 11/12 00:34 Decision to Hospitalize by Provider. tw4 07:00 Admitted to ER Hold. Please see [employer] for further documentation. iw 08:54 Condition: stable iw 10:43 Admitted to ICU accompanied by nurse, accompanied by tech, family with patient, via stretcher, room 1, on monitor, with chart, Report called to Lamine MARTIN 10:54 Patient left the ED. Signatures: Dispatcher [employer] EDDebby Plasencia RN RN sv Ballard, Brenda RN Hallie Hodges RN RN Maria Victoria Carmona RN RN ak1 Joni Nieto MD MD tw4 Lisa Donato cc3 Corrections: (The following items were deleted from the chart) 01:01 00:30 BP 143 / 84; Pulse 84bpm; Resp 14bpm; Spontaneous; Pulse Ox 98% RA; cc3 cc3 01:01 00:30 BP 143 / 84; Pulse 84bpm; Resp 14bpm; Spontaneous; Pulse Ox 98% RA; Pain 3/10; cc3cc3 08:54 08:53 Admitted to ER Hold. Please see [employer] for further documentation. iw
--- NOTE | 2018-11-12 00:35 | EDPHYS ---
Physician Documentation [facility] Name: Dinh Love Age: 83 yrs Sex: Female : 1935 Arrival Date: 11/11/2018 Time: 21:02 Bed 7 Private MD: ED Physician Joni Nieto HPI: 11/12 02:50 This 83 yrs old Female presents to ER via EMS with complaints of Chest tw4 Tightness, Headache. 02:50 The patient or guardian reports chest pain that is located primarily in the anterior tw4 chest wall. Onset: today. The pain does not radiate. Associated signs and symptoms: Pertinent positives: headache, lightheadedness, weakness. The chest pain is described as dull. Duration: The patient or guardian reports a single episode, that is still ongoing. Modifying factors: The symptoms are alleviated by nothing. the symptoms are aggravated by nothing. Severity of pain: At its worst the pain was moderate in the emergency department the pain is unchanged. The patient has not experienced similar symptoms in the past. Historical: - Allergies: 11/11 20:55 Keflex; cc3 - Home Meds: 20:55 alprazolam 1 mg Oral tab nightly [Active]; amitriptyline 50 mg Oral tab nightly cc3 [Active]; aspirin 81 mg Oral TbEC 1 tab once daily [Active]; fentanyl 25 mcg/hr Topical pt72 1 patch every 72 hours [Active]; meclizine 25 mg Oral tab 1 tab 2 times per day [Active]; propranolol 20 mg Oral tab 2 times per day [Active]; 21:00 Fortea shots daily [Active]; cc3 - PMHx: 20:55 Arthritis; TIA; cc3 - PSHx: 20:55 hiatal hernia; Hysterectomy; Cholecystectomy; cc3 - Immunization history:: Adult Immunizations up to date. - Social history:: Smoking status: Patient uses tobacco products, denies chronic smoking, but will smoke occasionally. - Ebola Screening: : No symptoms or risks identified at this time. ROS: 11/12 02:50 Constitutional: Negative for fever, chills, and weight loss, Eyes: Negative for injury, tw4 pain, redness, and discharge, Respiratory: Negative for shortness of breath, cough, wheezing, and pleuritic chest pain, Abdomen/GI: Negative for abdominal pain, nausea, vomiting, diarrhea, and constipation, Back: Negative for injury and pain, MS/Extremity: Negative for injury and deformity, Skin: Negative for injury, rash, and discoloration. Abdomen/GI: Positive for abdominal pain, Negative for nausea and vomiting, nausea, vomiting, and diarrhea, nausea, vomiting, abdominal cramps, abdominal distension, anorexia, dysphagia, hematemesis, black/tarry stool, rectal pain, rectal bleeding. Exam: 02:50 Constitutional: This is a well developed, well nourished patient who is awake, alert, tw4 and in no acute distress. Head/Face: Normocephalic, atraumatic. Eyes: Pupils equal round and reactive to light, extra-ocular motions intact. Lids and lashes normal. Conjunctiva and sclera are non-icteric and not injected. Cornea within normal limits. Periorbital areas with no swelling, redness, or edema. Chest/axilla: Normal chest wall appearance and motion. Nontender with no deformity. No lesions are appreciated. Cardiovascular: Regular rate and rhythm with a normal S1 and S2. No gallops, murmurs, or rubs. Normal PMI, no JVD. No pulse deficits. Respiratory: Lungs have equal breath sounds bilaterally, clear to auscultation and percussion. No rales, rhonchi or wheezes noted. No increased work of breathing, no retractions or nasal flaring. Abdomen/GI: Soft, non-tender, with normal bowel sounds. No distension or tympany. No guarding or rebound. No evidence of tenderness throughout. MS/ Extremity: Pulses equal, no cyanosis. Neurovascular intact. Full, normal range of motion. Neuro: Awake and alert, GCS 15, oriented to person, place, time, and situation. Cranial nerves II-XII grossly intact. Motor strength 5/5 in all extremities. Sensory grossly intact. Cerebellar exam normal. Normal gait. Vital Signs: 11/11 20:55 BP 203 / 84; Pulse 81; Resp 19 S; Temp 98.1(O); Pulse Ox 100% on R/A; Weight 51.71 kg cc3 (R); Height 4 ft. 11 in. (149.86 cm) (R); Pain 8/10; 21:20 BP 179 / 77; Pulse 80; Resp 12; Temp 98.1; Pulse Ox 100% on R/A; ak1 22:39 BP 177 / 88; Pulse 79; Resp 14; Pulse Ox 99% on R/A; ak1 23:02 BP 170 / 86; Pulse 74; Resp 19 S; Pulse Ox 98% on R/A; cc3 23:30 BP 161 / 80; Pulse 78; Resp 16 S; Pulse Ox 98% on R/A; cc3 11/12 00:06 BP 160 / 78; Pulse 76; Resp 14; Pulse Ox 98% on R/A; ak1 00:30 BP 143 / 84; Pulse 84; Resp 14 S; Pulse Ox 98% on R/A; Pain 2/10; cc3 01:00 BP 164 / 88; Pulse 75; Resp 11 S; Pulse Ox 98% on R/A; cc3 01:13 BP 139 / 87; Pulse 82; Resp 18 S; Pulse Ox 97% on R/A; cc3 02:00 BP 116 / 73; Pulse 75; Resp 13 S; Pulse Ox 98% on R/A; cc3 03:28 BP 153 / 71; Pulse 82; Resp 13 S; Pulse Ox 99% on R/A; cc3 11/11 20:55 Body Mass Index 23.02 (51.71 kg, 149.86 cm) cc3 MDM: 11/11 21:10 Patient medically screened. tw4 11/12 02:50 Differential diagnosis: abnormal EKG, acute pericarditis, pulmonary embolus, thoracic tw4 aortic disection, unstable angina. Data reviewed: vital signs, nurses notes. Data interpreted: Pulse oximetry: Interpretation: normal. Test interpretation: by ED physician or midlevel provider: ECG. Counseling: I had a detailed discussion with the patient and/or guardian regarding: the historical points, exam findings, and any diagnostic results supporting the discharge/admit diagnosis, lab results, radiology results. Medication response: Nitro x 2 relieved pain. Response to treatment: the patient's symptoms have markedly improved after treatment, and as a result, I will admit patient. Physician consultation: Elva Guerrero MD regarding admission, and will see patient in ED. 11/11 21:25 Order name: Basic Metabolic Panel; Complete Time: 23:04 tw4 11/11 23:04 Interpretation: Normal except: CL 109; BUN 21; GFR 57. tw4 11/11 21:25 Order name: CBC with Diff; Complete Time: 23:04 [facility] 11/11 23:04 Interpretation: Within normal limits. [facility] 11/11 21:25 Order name: LFT's; Complete Time: 23:05 [facility] 11/11 23:05 Interpretation: Normal except: GLOB 3.6; A/G 1.0. [facility] 11/11 21:25 Order name: Magnesium; Complete Time: 23:05 [facility] 11/11 23:05 Interpretation: Normal except: MG 1.7. [facility] 11/11 21:25 Order name: NT PRO-BNP; Complete Time: 23:05 [facility] 11/11 23:05 Interpretation: Within normal limits: NT PRO-BNP 180. [facility] 11/11 21:25 Order name: PT-INR; Complete Time: 23:05 [facility] 11/11 21:25 Order name: Troponin (emerg Dept Use Only); Complete Time: 23:05 [facility] 11/11 23:05 Interpretation: Within normal limits: TROPED < 0.02. [facility] 11/11 21:25 Order name: XRAY Chest (1 view) [facility] 11/11 23:06 Order name: Troponin I; Complete Time: 00:06 [facility] 11/11 23:50 Order name: Glucose, Ancillary Testing [facility] 11/12 05:41 Order name: Lipid Profile [facility] 11/12 05:53 Order name: Troponin I [facility] 11/11 21:25 Order name: EKG; Complete Time: 21:26 [facility] 11/11 21:25 Order name: Cardiac monitoring; Complete Time: 21: [facility] 11/11 21:25 Order name: EKG - Nurse/Tech; Complete Time: 21: [facility] 11/11 21:25 Order name: IV Saline Lock; Complete Time: 21:31 [facility] 11/11 21:25 Order name: Labs collected and sent; Complete Time: 21: [facility] 11/11 21:25 Order name: O2 Per Protocol; Complete Time: 21:31 [facility] 11/11 21:25 Order name: O2 Sat Monitoring; Complete Time: 21:31 4 EC:49 Rate is 79 beats/min. Rhythm is regular. QRS [place] is Normal. [place] interval is normal. QRS tw4 interval is normal. QT interval is normal. No Q waves. T waves are Normal. ST Segment is depressed in leads V2, V3. Clinical impression: Normal ECG. Interpreted by me. Reviewed by me. Administered Medications: 11/11 22:38 Drug: Tylenol 1000 mg Route: PO; ak1 22:45 Follow up: Response: No adverse reaction cc3 23:10 Drug: cloNIDine 0.1 mg Route: PO; cc3 11/12 00:30 Follow up: Response: No adverse reaction; Blood pressure is lowered cc3 01:07 Drug: Nitroglycerin 0.4 mg Route: Sublingual; ak1 01:13 Follow up: Response: No adverse reaction; Blood pressure is lowered cc3 Point of Care Testing: Blood Glucose: 11/11 21:18 Blood Glucose: 107 mg/dL; ak1 Ranges: Critical Glucose Levels:Adult <50 mg/dl or >400 mg/dl <40 mg/dl or >180 mg/dl Disposition: 11/12/18 00:34 Hospitalization ordered by Elva Guerrero for Observation. Preliminary diagnosis are Hypertensive urgency, Non-ST elevation (NSTEMI) myocardial infarction. - Bed requested for Intensive Care Unit. - Status is Observation. sv - Condition is Stable. - Problem is new. - Symptoms have improved. UTI on Admission? No Signatures: Dispatcher [employer] EDDebby Plasencia RN RN sv Hallie Wynne RN RN iw Maria Victoria Carmona RN RN ak1 Joni Nieto MD MD tw4 Lisa Donato cc3 Corrections: (The following items were deleted from the chart) 11/12 03:10 00:34 Hospitalization Ordered by Elva Guerrero MD for Observation. Preliminary tw4 diagnosis is Angina pectoris, unspecified; Hypertensive urgency. Bed requested for Telemetry/MedSurg (observation). Status is Observation. Condition is Stable. Problem is new. Symptoms have improved. UTI on Admission? No. tw4 07:22 03:10 11/12/2018 00:34 Hospitalization Ordered by Elva Guerrero MD for Observation. iw Preliminary diagnosis is Hypertensive urgency; Non-ST elevation (NSTEMI) myocardial infarction. Bed requested for Telemetry/MedSurg (observation). Status is Observation. Condition is Stable. Problem is new. Symptoms have improved. UTI on Admission? No. tw4 10:33 07:22 11/12/2018 00:34 Hospitalization Ordered by Elva Guerrero MD for Observation. sv Preliminary diagnosis is Hypertensive urgency; Non-ST elevation (NSTEMI) myocardial infarction. Bed requested for [facility] ER HOLD. Status is Observation. Condition is Stable. Problem is new. Symptoms have improved. UTI on Admission? No. iw 10:54 10:33 11/12/2018 00:34 Hospitalization Ordered by Elva Guerrero MD for Observation. sv Preliminary diagnosis is Hypertensive urgency; Non-ST elevation (NSTEMI) myocardial infarction. Bed requested for Intensive Care Unit. Status is Observation. Condition is Stable. Problem is new. Symptoms have improved. UTI on Admission? No. sv
[2018-11-12] MEDS ORDERED: NITROGLYCERIN 0.4 MG/TAB SL ONE (01:15)
--- NOTE | 2018-11-12 01:51 | P.HP ---
Certification for Inpatient Patient admitted to: Inpatient With expected LOS: >2 Midnights Practitioner: I am a practitioner with admitting privileges, knowledge of patient current condition, hospital course, and medical plan of care. Services: Services provided to patient in accordance with Admission requirements found in Title 42 Section 412.3 of the Code of Federal Regulations Patient History Date of Service: 11/12/18 Reason for admission: NESTEMI History of Present Illness: Ms Love is an 83 years old woman with history of osteoarthritis, HTN, tobacco abuse, who start with chest tightness in the morning around 9:00. She said that her chest pain was constant, 8/10 of intensity, associated with nausea , SOB, and 1 episode of diaphoresis. The pain radiate to her jaw. At arrival, she was hypertensive 179/77, HR [address] depression on anteroinferior leads, however, she has this changes in previous EKG. Initial trop I was negative. Second trop I was 0.09. The patient received 3 babies aspiring by EMS. In ER the pain in her jaw resolved with 1 nitro SL, and her chest pain almost disappeared. Allergies cephalexin monohydrate [From Keflex] Allergy (Severe, Verified 08/07/15 09:33) CAUSES VERY HIGH TEMP codeine [Codeine] Allergy (Severe, Verified 08/07/15 09:33) PARALYSIS Home medications list reviewed: Yes Home Medications: Amitriptyline [Elavil*] 50 mg PO BEDTIME 02/13/12 ALPRAZolam [Xanax*] 0.5 mg PO BEDTIME 09/17/12 Omeprazole [Prilosec] 40 mg PO DAILY 08/11/13 Fentanyl Patch [Duragesic Patch*] 1 patch TD EVERY 3RD DAY 08/07/15 Tramadol HCl [Ultram] 50 mg PO QID 08/09/16 Aspirin [Aspirin EC 81 MG] 81 mg PO DAILY #30 tablet. 08/13/17 Metoprolol Tartrate [Lopressor] 25 mg PO BID #60 tab 08/13/17 Vitamin E 400 unit PO DAILY 08/13/17 - Past Medical/Surgical History Diabetic: No -: Transient ischemic attack -: Deep venous thrombosis -: hiatal hernia -: OA OF SPINE -: SHAKING SYNDROME -: MIGRAINES -: behzad fundiplication -: choleycystectomy -: hysterectomy -: growth on facial nerv rmovd -: bilateral cataract - Family History Family History: Reviewed- Non-Contributory - Social History Smoking Status: Current every day smoker Counseled patient to stop smoking for: less than 10 minutes Alcohol use: Yes CD- Drugs: No Caffeine use: Yes Place of Residence: Home Review of Systems 10-point ROS is otherwise unremarkable Physical Examination - Physical Exam General: Alert, In no apparent distress HEENT: Atraumatic, PERRLA, Mucous membr. moist/pink, EOMI, Sclerae nonicteric Neck: Supple, 2+ carotid pulse no bruit, No LAD, Without JVD or thyroid abnormality Respiratory: Clear to auscultation bilaterally, Normal air movement Cardiovascular: Regular rate/rhythm, Normal S1 S2 Gastrointestinal: Normal bowel sounds, No tenderness Musculoskeletal: No tenderness Integumentary: No rashes Neurological: Normal speech, Normal strength at 5/5 x4 extr, Normal tone, Normal affect Lymphatics: No axilla or inguinal lymphadenopathy - Studies Laboratory Data (last 24 hrs) 11/11/18 23:20: Troponin I 0.09 H 11/11/18 21:15: PT 10.7, INR 0.90 11/11/18 21:15: WBC 6.8, Hgb 12.6, Hct 38.0, Plt Count 249 11/11/18 21:15: Sodium 141, Potassium 4.1, BUN 21 H, Creatinine 0.94, Glucose 97 , Magnesium 1.7 L, Total Bilirubin 0.3, AST 19, ALT 19, Alkaline Phosphatase 82 Assessment and Plan - Problems (Diagnosis) (1) NSTEMI (non-ST elevated myocardial infarction) Current Visit: Yes Status: Acute (2) HTN (hypertension) Current Visit: Yes Status: Acute Qualifiers: Hypertension type: essential hypertension Qualified Code(s): I10 - Essential (primary) hypertension (3) Osteoarthritis Current Visit: Yes Status: Acute Qualifiers: Osteoarthritis location: unspecified site Osteoarthritis type: unspecified Qualified Code(s): M19.90 - Unspecified osteoarthritis, unspecified site - Plan Will admit the patient in ICU for close monitoring due to a NSTEMI. Will order ASA, brilinta, statins, metoprolol and full dose Lovenox. Will order ECHO, consult cardiology team. - Advance Directives Does patient have a Living Will: Yes Does patient have a Durable POA for Healthcare: No - Code Status/Comfort Care Code Status Assessed: Yes Code Status: Full Code
[2018-11-12] MEDS ORDERED: NITROGLYCERIN 0.4 MG/TAB SL PRN (03:09)
--- NOTE | 2018-11-12 06:19 | EKG ---
Test Date: 2018-11-11 Test Time: 21:04:09 Compliance Manager: COLETTE MEASUREMENT RESULTS: Intervals: Rate: 79 IN: 188 QRSD: 82 QT: 366 QTc: 419 [place]: P: 68 IN: 188 QRS: -15 T: 68 INTERPRETIVE STATEMENTS: Normal sinus rhythm Normal ECG Compared to ECG 04/05/2018 20:52:03 No significant changes Electronically Signed On 11-12-18 06:18:43 CDT by Lit Morales
[2018-11-12] MEDS ORDERED: ASPIRIN EC 81 MG TAB PO ONE (08:17)
[2018-11-12] MEDS ORDERED: TICAGRELOR 90 MG TABLET PO ONE (08:17)
[2018-11-12] MEDS ORDERED: ENOXAPARIN 60 MG/0.6 ML SQ ONE (08:17)
[2018-11-12] MEDS: ONDANSETRON 4 MG/2 ML VIAL IV PRN ×2 (08:27→12:34)
[2018-11-12] MEDS ORDERED: ONDANSETRON 4 MG/2 ML VIAL ONE (08:31)
[2018-11-12] MEDS: ASPIRIN EC 81 MG TAB PO SCH (08:50)
[2018-11-12] MEDS: TICAGRELOR 90 MG TABLET PO SCH ×2 (08:50→20:48)
[2018-11-12] MEDS: METOPROLOL TAR 50 MG TAB PO SCH ×2 (09:00→21:21)
[2018-11-12] MEDS ORDERED: MORPHINE 2 MG/ML SYR IV ONE (09:00)
[2018-11-12] MEDS ORDERED: ENOXAPARIN 60 MG/0.6 ML SQ SCH ×3 (09:00→21:00)
[2018-11-12] MEDS ORDERED: METOPROLOL TAR 50 MG TAB ONE (10:40)
[2018-11-12] MEDS ORDERED: HOME MED 1 EA UNK (Meclizine Hcl [Meclizine Hcl] 25 MG) PO PRN (11:36)
[2018-11-12] MEDS ORDERED: FENTANYL TOP SCH (11:45)
[2018-11-12] MEDS ORDERED: MECLIZINE HCL 12.5 MG TAB PO PRN (12:16)
--- NOTE | 2018-11-12 13:05 | RAD REPORT ---
EXAM DESCRIPTION: RAD - Chest Single View - 11/12/2018 12:00 am CLINICAL HISTORY: CHEST PAIN Chest pain. COMPARISON: Chest Single View dated 04/05/2018; Chest Single View dated 08/12/2017; Chest Single View dated 08/08/2016; CHEST SINGLE VIEW dated 08/10/2013 FINDINGS: Portable technique limits examination quality. The lungs are grossly clear. The heart is normal in size. No displaced fractures. IMPRESSION: No acute intrathoracic process suspected.
--- NOTE | 2018-11-12 16:05 | PN ---
Code Status: Full. Subjective: The patient seen and examined, chart reviewed and case discussed with RN. The patient is still complaining of some chest tightness, improved with sublingual nitroglycerin. Medications: List reviewed. Physical Examination: Vital Signs: Temperature 98, heart rate 72, blood pressure 141/73, respirations 14, O2 97% on room air. General: Awake, alert, oriented x3. Elderly female, ill-appearing, in some mild pain due to chest discomfort. CV: S1, S2. Regular rate and rhythm. Peripheral pulses present. Respiratory: Moving air well bilaterally. No wheezing. Gastrointestinal: Abdomen is soft, nontender, nondistended. Positive bowel sounds. Extremities: No clubbing, cyanosis, or edema. Neurologic: Nonfocal. Laboratory Data: Troponin level less than 0.02, 0.09, 0.27. Triglycerides 55, cholesterol 210, LDL 133, HDL 66. Assessment: An 83-year-old female with: 1. Vbf-SQ-[id number] myocardial infarction. Continue with chest pain guidelines. The patient is on beta jalil, statin, prn nitroglycerin and morphine p.r.n. for chest pain. The patient is still having some chest tightness. Continue with Lovenox 1 mg/kg q.12 hours. Cardiology has been consulted. 2. Essential hypertension, stable. We will resume home medications as appropriate. 3. Generalized osteoarthritis. 4. History of transient ischemic attack. 5. History of migraines. Plan: Follow up on echocardiogram. Monitor closely in the ICU setting. BRADLY Voice ID: [id number] Report ID: [id number] KALANI
--- NOTE | 2018-11-12 17:05 | CON ---
History Of Present Illness: Ms. Love came to the hospital because of chest pain. She awaken ed with chest pain and then noticed it was getting worse, came to the hospital. Initial troponin nor mal. Subsequent troponins have been abnormal at 0.09 and 0.27. She has no previous history of myoca rdial infarction, stroke, or diabetes. She has TIAs which are possibly hypertension crisis. It is a lways associated with diastolic blood pressure over 100. She has never had any vascular surgeries. She has longstanding hypertension. Medications: Her outpatient medications have been vitamin E, alprazolam, fentanyl patch, meclizine, propranolol 20 b.i.d., aspirin, amitriptyline. Allergies: SHE IS ALLERGIC TO CEPHALEXIN AND CODEINE. Social History: She uses tobacco. She has cut down to 6 cigarettes a day and plans to quit. Physical Examination: General: She is alert, oriented, pleasant, 4 feet 11 inches, 114 pounds. HEENT: Normal. Lungs: Clear. Heart: Within normal limits. Abdomen: Soft. Extremities: Diminished distal pulses. No cyanosis, clubbing, or edema. Radial pulses reveal very tiny arteries. Femoral pulses are diminished. So access to do a cardiac cath may be challenging, but I think we should approach via the femoral. S he needs a cardiac cath and possibly a stent, possibly coronary bypass surgery. Her EKG does not giv e us any clues as to which part of the heart might be involved. There is no ST elevation and no Q-wa ves. Her EKG is completely normal. Impression: The patient needs a cardiac cath for a non-ST elevation non-Q-wave myocardial infarction . JOSE/RIO Voice ID: [id number] Report ID: [id number]
--- NOTE | 2018-11-12 19:43 | EKG ---
Test Date: 2018-11-12 Test Time: 01:15:15 Cheese Wrapper: COLETTE MEASUREMENT RESULTS: Intervals: Rate: 87 CO: 180 QRSD: 78 QT: 374 QTc: 450 [place]: P: 70 CO: 180 QRS: 1 T: 65 INTERPRETIVE STATEMENTS: Normal sinus rhythm Normal ECG Compared to ECG 11/11/2018 21:04:09 No significant changes Electronically Signed On 11-12-18 19:43:01 CDT by Lit Morales
[2018-11-12] MEDS: AMITRIPTYLINE 50 MG TAB PO SCH (20:47)
[2018-11-12] MEDS: ALPRAZOLAM 0.5 MG TABLET PO SCH (20:47)
[2018-11-12] MEDS: ATORVASTATIN 80 MG TAB PO SCH (20:47)
[2018-11-12] MEDS ORDERED: ALPRAZOLAM 1 MG TABLET PO SCH (21:00)
[2018-11-13] MEDS ORDERED: NA CHLORIDE 0.9% 1,000 ML IV SCH (05:00)
[2018-11-13 06:07] LABS: Absolute Lymphocytes (CBC) 3.2 K/uL (0.7-4.9); Absolute Monocytes 0.7 K/uL (0.1-1.3); Absolute Neutrophil 2.7 K/uL (1.8-8.0); Basophils % 1.2 % (0-1.3); Eosinophils % 3.4 % (0-4.4); Lymphocytes % 45.8 % (15.3-44.8); Monocytes % 10.2 % (3.3-12.3); RBC Red Blood Cell Count 3.76 M/uL (3.86-4.86)
[2018-11-13 06:11] LABS: Potassium 3.8 mmol/L (3.5-5.1)
[2018-11-13] MEDS ORDERED: HYDROCODONE/APAP 5/325 MG TAB PO PRN (08:18)
[2018-11-13 08:45] LABS: Blood Morphology Comment NOT SEEN (NOT SEEN); Platelet Estimate ADEQ
[2018-11-13] MEDS: TICAGRELOR 90 MG TABLET PO SCH ×2 (09:17→20:11)
[2018-11-13] MEDS: METOPROLOL TAR 50 MG TAB PO SCH ×2 (09:17→20:11)
[2018-11-13] MEDS: ASPIRIN EC 81 MG TAB PO SCH (09:17)
--- NOTE | 2018-11-13 13:06 | ECHO ---
HEIGHT: 4 ft 11 in WEIGHT: 107 lb 3.2 oz DATE OF STUDY: 11/13/[address]: Elva Monroe MD 2-DIMENSIONAL: YES M.MODE: YES DOPPLER: YES COLOR FLOW: YES TDS: NO PORTABLE: NO DEFINITY: NO BUBBLE STUDY: NO DIAGNOSIS: NSTEMI CARDIAC HISTORY: CATHERIZATION: NO SURGERY: NO PROSTHETIC VALVE: NO PACEMAKER: NO MEASUREMENTS (cm) DIASTOLIC (NORMALS) SYSTOLIC (NORMALS) IVSd 1.0 (0.6-1.2) LA Diam 3.5 (1.9-4.0) LVEF 66% LVIDd 3.7 (3.5-5.7) LVIDs 2.4 (2.0-3.5) %FS 36% LVPWd 1.0 (0.6-1.2) Ao Diam 2.4 (2.0-3.7) 2 DIMENSIONAL ASSESSMENT: RIGHT ATRIUM: NORMAL LEFT ATRIUM: NORMAL RIGHT VENTRICLE: NORMAL LEFT VENTRICLE: NORMAL TRICUSPID VALVE: NORMAL MITRAL VALVE: NORMAL PULMONIC VALVE: NORMAL AORTIC VALVE: NORMAL PERICARDIAL EFFUSION: NONE AORTIC ROOT: NORMAL LEFT VENTRICULAR WALL MOTION: NORMAL. DOPPLER/COLOR FLOW: TRACE MITRAL REGURGITATION AND TRICUSPID REGURGITATION. UNABLE TO ESTIMATE RIGHT VENTRICULAR SYSTOLIC PRESSURE. COMMENTS: NORMAL 2D ECHOCARDIOGRAM. TRACE MITRAL REGURGITATION AND TRICUSPID REGURGITATION. TECHNOLOGIST: FUENTES NOWAK [facility]
[2018-11-13] MEDS ORDERED: HEPA 1000U/500MLS 2,000 UNIT/1,000 ML BAG IV ONE (13:10)
[2018-11-13] MEDS ORDERED: ATROPINE SULF 1 MG/10 ML SYR IV ONE (13:11)
[2018-11-13] MEDS ORDERED: FENTANYL CITR 100 MCG/2 ML ONE (13:11)
[2018-11-13] MEDS ORDERED: MIDAZOLAM HCL 2 MG/2 ML INJ ONE (13:11)
[2018-11-13] MEDS ORDERED: NA CHLORIDE 0.9% 50 ML ONE (13:11)
[2018-11-13] MEDS ORDERED: HYDRALAZINE HCL 20 MG/ML VIAL ONE (13:53)
[2018-11-13] MEDS: ALPRAZOLAM 0.5 MG TABLET PO SCH (20:11)
[2018-11-13] MEDS: ATORVASTATIN 80 MG TAB PO SCH (20:11)
[2018-11-13] MEDS: AMITRIPTYLINE 50 MG TAB PO SCH (20:11)
--- NOTE | 2018-11-14 00:55 | OP ---
Surgeon: Lit Morales MD Procedures: Left heart catheterization, coronary left ventricular angiography, percutaneous coronary intervention of the right coronary artery, successful. Procedure Findings: The patient had some 40% and 50% smooth lesions in the circumflex and obtuse mar ginal branch. They did not look like they were infarct lesions. The right coronary artery had a deven y irregular 70% to 80% stenosis in its mid section. It looked like it had a dissection plane and was probably the infarct-related artery for her non-ST elevation myocardial infarction. Her left ventri cular ejection fraction is normal and after the stent the 80% stenosis with dissection resolved to a smooth lesion with a 20% residual. We were unable to get that dilated any further and we felt we had adequate angiographic result. Procedure In Detail: The patient was brought to the cardiac laboratory equipment installer in a fasting state, sedated wit h Versed and fentanyl. Prepared and draped in usual sterile fashion. Right femoral artery was used. 1% lidocaine was used to anesthetize the tissues around the right femoral artery. The artery was e ntered using an 18-gauge needle, cannulated with a short J-wire. A 4-Cameroonian sheath was placed. We d id a diagnostic angiography using 4-Cameroonian catheters, a JL-4, 3DRC, and angled pigtail. A decision w as made to put a stent in the right coronary. We switched for a 6-Cam[place]onian sheath, gave Angiomax, demo nstrated activated clotting time over 300 seconds. We guided the catheter into place using a J-wire, engaged the right coronary ostium and placed a Soper wire across it. We were able to easily cross with a stent catheter inflated up to 14 atmospheres. An attempt was made to postdilate, but the ball oons would not cross, and looking at the angiographic result we decided not to try to improve on what was an adequate result and perhaps make things worse. The wire stayed across the lesion the whole t lesa. It was not the matter of the wire being under a strut, just the guide support was not adequate. So, we decided to let things be as they are. If it needs post-dilation, we will start with a diffe rent guide, a stiffer wire, and perhaps we can do that if we need to. I suspect it will not be neces trena. I think we have an excellent angiographic result. Estimated Blood Loss: 30 cc. Spinning Supervisor: Humphrey Fall. Complications: None. JOSE/RIO Voice ID: [id number] Report ID: [id number]
[2018-11-14 05:39] LABS: Absolute Lymphocytes (CBC) 2.9 K/uL (0.7-4.9); Absolute Monocytes 0.9 K/uL (0.1-1.3); Absolute Neutrophil 4.7 K/uL (1.8-8.0); Basophils % 1.2 % (0-1.3); Eosinophils % 2.5 % (0-4.4); Hematocrit 34.1 % (36.0-45.0); Lymphocytes % 32.8 % (15.3-44.8); MPV 9.4 fL (7.6-11.3); Monocytes % 10.2 % (3.3-12.3); RBC Red Blood Cell Count 3.66 M/uL (3.86-4.86)
[2018-11-14 05:47] LABS: Potassium 4.3 mmol/L (3.5-5.1)
[2018-11-14 05:53] VITALS: BMI 21.4
[2018-11-14] MEDS: TICAGRELOR 90 MG TABLET PO SCH ×2 (08:34→22:09)
[2018-11-14] MEDS: ASPIRIN EC 81 MG TAB PO SCH (08:34)
[2018-11-14] MEDS: METOPROLOL TAR 50 MG TAB PO SCH (08:34)
[2018-11-14] MEDS: FORTEO 20 MCG SQ SCH (08:34)
--- NOTE | 2018-11-14 15:32 | PN ---
Date of Progress Note: 11/14/2018 The patient has done quite well post stent. However, her blood pressure has been quite low this morn ing in the 90s/50s. She does feel somewhat lightheaded when she moves. The possibility of her being discharged later in the day will be considered, however, I do not feel comfortable sending her home when hypotensive. She does take a beta-jalil for her tremors. She has not had this today. We patricia l transfer her to the floor and have her walk with physical therapy prior to discharging her. If her blood pressure remains low, we may keep her overnight. HR/MODL Voice ID: [id number] Report ID: [id number]
[2018-11-14] MEDS: AMITRIPTYLINE 50 MG TAB PO SCH (22:08)
[2018-11-14] MEDS: ATORVASTATIN 80 MG TAB PO SCH (22:08)
[2018-11-14] MEDS: ALPRAZOLAM 0.5 MG TABLET PO SCH (22:09)
[2018-11-14] MEDS: METOPROLOL TAR 25 MG TAB PO SCH (22:09)
[2018-11-15 01:50] VITALS: O2SAT 98
--- NOTE | 2018-11-15 08:56 | PN ---
She is in ICU. The patient states she is basically asymptomatic as far as the pain is reported to [facility], which were chest and her jaw, specifically her jaw. When she was borderline on her enzym es, it was reasonable to do a cath. She had one about 2 years ago, which was negative. Cath is sche duled for later today, depending on results, obviously depend on followup treatment. HR/MODAziza Voice ID: [id number] Report ID: [id number]
[2018-11-15] MEDS: METOPROLOL TAR 25 MG TAB PO SCH (09:00)
[2018-11-15] MEDS: FORTEO 20 MCG SQ SCH ×2 (09:00→10:01)
[2018-11-15] MEDS ORDERED: FENTANYL 25 MCG/PATCH TD SCH (09:00)
[2018-11-15] MEDS: ASPIRIN EC 81 MG TAB PO SCH (09:56)
[2018-11-15] MEDS: TICAGRELOR 90 MG TABLET PO SCH (09:56)
[2018-11-15 14:57] VITALS: BP 105/53; TEMP 98.5
--- NOTE | 2018-11-15 15:23 | PN ---
Ms. Love has had some low blood pressures and we are going to reduce her metoprolol dose lowe r to 12.5 b.i.d. I think she could be discharged home fairly soon for an acute coronary syndrome whi ch is stable after her stent. NAM Voice ID: [id number] Report ID: [id number]
[2018-11-15] MEDS ORDERED: METOPROLOL TAR 25 MG TAB PO SCH (21:00)
--- NOTE | 2018-11-15 22:26 | PN ---
Date of Progress Note: 11/15/2018 The patient feels much better this afternoon. I held the beta jalil this morning due to hypotensio n. Blood pressure is not stable. She has been up and about, feels she can handle things at home as long as her blood pressure remains at this level, continue with her beta jalil. Instructed to hold if it is less than 100. Was also placed on Brilinta and Lipitor and was also advised to discontinue smoking altogether. She will be seen in the office next week in a couple of weeks with Cardiology. HR/MODL Voice ID: [id number] Report ID: [id number]
== END 2018-11-15 17:55 | disposition home or self-care (01) | DRG 247 ==
LOC: ER 20:57 → ERHOLD 11-12 02:07 → 3RD-ICU 11-12 10:41 → 2ND 11-14 18:00
PROVIDERS: ADMIT Family Medicine; ATTEND Family Medicine
PROC: 027034Z Dilation of Coronary Artery, One Artery with Drug-eluting Intraluminal Device, Percutaneous Approach (ICD-10-PCS; principal; 2018-11-13)
PROC: 4A023N7 Measurement of Cardiac Sampling and Pressure, Left Heart, Percutaneous Approach (ICD-10-PCS; 2018-11-13)
PROC: B201YZZ Plain Radiography of Multiple Coronary Arteries using Other Contrast (ICD-10-PCS; 2018-11-13)
PROC: B205YZZ Plain Radiography of Left Heart using Other Contrast (ICD-10-PCS; 2018-11-13)
DX: I21.4 Non-ST elevation (NSTEMI) myocardial infarction (principal); I10 Essential (primary) hypertension; M15.9 Polyosteoarthritis, unspecified; I95.9 Hypotension, unspecified; F17.200 Nicotine dependence, unspecified, uncomplicated
CPT/HCPCS: 36415; 71045; 80048; 80061; 80076; 82962; 83735; 83880; 84484; 85025; 85347; 85610; 93005; 93306; 93458; 96365; 96367; 97116; 97163; 97530; 99285; C1725; C1760; C1893; C9600; J0360; J0583; J1650; J2250; J2270; J2405; J3010; J7030

== ENCOUNTER 2020-01-28 12:29 | Emergency (ER) | payer OTHER, MEDICARE ==
[2020-01-28 14:26] LABS: Absolute Lymphocytes (CBC) 2.6 K/uL (0.7-4.9); Basophils % 2.2 % (0-1.3); Hematocrit 34.9 % (36.0-45.0); Lymphocytes % 34.7 % (15.3-44.8); MPV 9.5 fL (7.6-11.3); RBC Red Blood Cell Count 3.75 M/uL (3.86-4.86)
[2020-01-28 14:30] LABS: Protime INR 0.93
--- OUTSIDE RECORDS SUMMARY | 2020-01-28 14:44 | XMS REPORT | Clinical Summary ---
:1935 Author Organization [facility] Address [address] [place] [address] Care Team Providers Name Role Phone Randolph Moore MD Primary Care Provider Allergies Active Allergy Reactions Severity Noted Date Comments Cephalexin 04/06/2018 Medications Medication Sig Dispensed Refills Start Date End Date Status ALPRAZolam (XANAX) 1 MG Take 1 mg by 0 03/28/2018 Active tablet mouth every night as needed . fentaNYL (DURAGESIC) 25 Place 25 patches 0 8 Active mcg/hr patch onto the skin every third day . meclizine (ANTIVERT) 25 Take 25 mg by 0 Active MG tablet mouth 2 (two) times daily as needed. aspirin 81 MG EC tablet Take 81 mg by 0 Active mouth daily. propranolol (INDERAL) Take 20 mg by 0 Active 20 MG tablet mouth 2 (two) times daily. amitriptyline (ELAVIL) Take 50 mg by 0 Active 50 MG tablet mouth nightly. atorvastatin (LIPITOR) Take 1 tablet (80 30 tablet 1 8 Active 80 MG tablet mg total) by mouth nightly. 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 Last Filed Vital Signs Not on file Plan of Treatment Not on file Results Not on fileafter 01/27/2019 Insurance Payer Benefit Plan / Group Subscriber ID Type Phone A ddress MEDICARE MEDICARE A B xxxxxxxxxxx Medicare MCR SUPPLEMENT/INDIVIDUAL AARP/[facility] xxxxxxxxxxx Mediburt Advance Directives Patient has advance care planning documents, and code status on file. For more information, please contact:[facility] [place], [place] [phone] Code Status Date Activated Date Inactivated Comments Full Code 04/06/2018 12:42 AM 04/09/2018 4:50 PM This code status was determined by: Patient
--- OUTSIDE RECORDS SUMMARY | 2020-01-28 14:45 | XMS REPORT | Continuity of Care Document ---
:1935 Author Organization [facility] t Address [address] [place] [address] Care Team Providers Name Role Phone Oscar FRANKLIN Primary Care Physician EVELIN CARLTON Attending Clinician Unavail able EVELIN CARLTON Admitting Clinician Unavail able Problems Condition Condition Condition Status Onset Resolution Last Treating Co mments Source Name Details Category Date Date Treatment Clinician Date Stroke Stroke Disease Active 2017-[address] [facility] (cerebrum) (cerebrum) 0-11 Annalee kes - 00:00: Medical 00 [place] Acute Acute Disease Active 2017-[address] [facility] ischemic ischemic 0-11 [facility] stroke [facility]: Medical 00 [place] Essential Essential Disease Active 2017-[address] [facility] hypertensi hypertensi 0-11 Annalee kes - on on 00:00: Medical 00 [place] Received Received Disease [facility]oge [facility] [place] [facility] activator activator (t-PA) (t-PA) less than less than 24 hours 24 hours prior to prior to arrival arrival Allergies, Adverse Reactions, Alerts Allergy Allergy Status Severity Reaction(s) Onset Inactive Treating Comm ents Source Name Type Date Date Clinician Cephalex Propensi Active 2017-[address] [facility] in ty to 0-11 [facility] - adverse 00:00: Medical reaction 00 Center s Family History Family Member Diagnosis Comments Start Date Stop Date Source Natural mother Stroke [facility] Social History Social Habit Start Date Stop Date Quantity Comments Source Sex Assigned At [facility] Cigarettes smoked 2018-04-06 2018-04-[address] [facility] - current (pack per 00:00:00 00:00:00 [facility] Center day) - Reported Cigarette pack-years 2018-04-06 2018-04-[address] [facility] - 00:[facility]00 [facility]00 [facility] Smoking Status Start Date Stop Date Source Current every day sm[facility] Medications Ordered Filled Start Stop Current Ordering Indication Dosage Frequency Signature Comments Components Source Medication Medication Date Date Medication? Clinician (SIG) Name Name gisela 2017-06 Yes 80mg QD Take [address] [facility] n (LIPITOR) 0-14 tablet (80 Annalee kes - 80 MG 00:00: mg total) Medical tablet 00 by mouth Center nightly. aspirin 81 2017-06 Yes 81mg QD Take [address] MG EC 0-11 by mouth [facility] - tablet 05:33: daily. Medical 43 Center propranolol 2017-06 Yes 20mg Q.5D Take [address] [facility] (INDERAL) 0-11 by mouth 2 [facility] - 20 MG 05:33: (two) Medical tablet 43 times Center daily. amitriptyli 2017-06 Yes 50mg QD Take [address] [facility] ne (ELAVIL) 0-11 by mouth [facility] - 50 MG 05:33: nightly. Medical tablet 43 Center meclizine 2017-06 Yes 25mg Take [address] [facility] (ANTIVERT) 0-11 by mouth 2 Dolores es - 25 MG 05:33: (two) Medical tablet 42 times Center daily as needed. ALPRAZolam 2017-06 Yes 1mg Take [address] [facility] [address] [facility] (XANAX) 1 0-02 by mouth [facility] - MG tablet 00:00: every Medical 00 night as Center needed . fentaNYL 2017-06 Yes 25{patc Place [address] (DURAGESIC) 0-01 h} patches [facility] - 25 mcg/hr 00:00: onto the Medi karlee patch 00 skin every Center third day . Procedures This patient has no known procedures. Results Test Description Test Time Test Comments Results Result Comments Source B-TYPE NATRIURETIC FACTOR (BNP) 2018-04-08 14:09:00 Test Item Value Reference Range Interpretation Comme nts B-TYPE NATRIURETIC PEPTIDE (BEAKER) (test code = 700) 109 pg/mL 0-100 H [id number] 07:11:00 Test Item Value Reference Range Interpretation Comments MAGNESIUM (BEAKER) (test code = 2.0 mg/dL 1.6-2.6 627) BASIC METABOLIC [id number] 07:11:00 Test Item Value Reference Range Interpretation Comments SODIUM (BEAKER) 128 meq/L 136-145 L (test code = 381) POTASSIUM (BEAKER) 3.9 meq/L 3.5-5.1 (test code = 379) CHLORIDE (BEAKER) 101 meq/L 98-107 (test code = 382) CO2 (BEAKER) (test 21 meq/L 22-29 L code = 355) BLOOD UREA NITROGEN 13 mg/dL 7-21 (BEAKER) (test code = 354) CREATININE (BEAKER) 0.73 mg/dL 0.57-1.25 (test code = 358) GLUCOSE RANDOM 84 mg/dL 70-105 (BEAKER) (test code = 652) CALCIUM (BEAKER) 8.6 mg/dL 8.4-10.2 (test code = 697) EGFR (BEAKER) (test 77 mL/min/1.73 ESTIMA BALBINA GFR IS code = 1092) sq m NOT ACCURATE CREATININE CLEARANCE IN PREDICTING GLOMERULAR FILTRATION RATE . ESTIMATED GFR I S NOT APPLICABLE FOR DIALYSIS PATIEN TS. CBC W/PLT COUNT & AUTO [id number] 06:38:00 Test Item Value Reference Range Interpretation Comments WHITE BLOOD CELL COUNT (BEAKER) 6.5 K/ L 3.5-10.5 (test code = 775) RED BLOOD CELL COUNT (BEAKER) 3.54 M/ L 3.93-5.22 L (test code = 761) HEMOGLOBIN (BEAKER) (test code = 11.2 GM/DL 11.2-15.7 410) HEMATOCRIT (BEAKER) (test code = 33.2 % 34.1-44.9 L 411) MEAN CORPUSCULAR VOLUME (BEAKER) 93.8 fL 79.4-94.8 (test code = 753) MEAN CORPUSCULAR HEMOGLOBIN 31.6 pg 25.6-32.2 (BEAKER) (test code = 751) MEAN CORPUSCULAR HEMOGLOBIN CONC 33.7 GM/DL 32.2-35.5 (BEAKER) (test code = 752) RED CELL DISTRIBUTION WIDTH 13.7 % 11.7-14.4 (BEAKER) (test code = 412) PLATELET COUNT (BEAKER) (test 229 K/CU MM 150-450 code = 756) MEAN PLATELET VOLUME (BEAKER) 10.6 fL 9.4-12.3 (test code = 754) NUCLEATED RED BLOOD CELLS 0 /100 WBC 0-0 (BEAKER) (test code = 413) NEUTROPHILS RELATIVE PERCENT 35 % (BEAKER) (test code = 429) LYMPHOCYTES RELATIVE PERCENT 49 % (BEAKER) (test code = 430) MONOCYTES RELATIVE PERCENT 10 % (BEAKER) (test code = 431) EOSINOPHILS RELATIVE PERCENT 4 % (BEAKER) (test code = 432) BASOPHILS RELATIVE PERCENT 2 % (BEAKER) (test code = 437) NEUTROPHILS ABSOLUTE COUNT 2.25 K/ L 1.56-6.13 (BEAKER) (test code = 670) LYMPHOCYTES ABSOLUTE COUNT 3.18 K/ L 1.18-3.74 (BEAKER) (test code = 414) MONOCYTES ABSOLUTE COUNT (BEAKER) 0.65 K/ L 0.24-0.36 H (test code = 415) EOSINOPHILS ABSOLUTE COUNT 0.27 K/ L 0.04-0.36 (BEAKER) (test code = 416) BASOPHILS ABSOLUTE COUNT (BEAKER) 0.11 K/ L 0.01-0.08 H (test code = 417) IMMATURE GRANULOCYTES-RELATIVE 1 % 0-1 PERCENT (BEAKER) (test code = 2801) BASIC METABOLIC [id number] 06:18:00 Test Item Value Reference Range Interpretation Comments SODIUM (BEAKER) 129 meq/L 136-145 L (test code = 381) POTASSIUM (BEAKER) 3.9 meq/L 3.5-5.1 (test code = 379) CHLORIDE (BEAKER) 101 meq/L 98-107 (test code = 382) CO2 (BEAKER) (test 21 meq/L 22-29 L code = 355) BLOOD UREA NITROGEN 12 mg/dL 7-21 (BEAKER) (test code = 354) CREATININE (BEAKER) 0.73 mg/dL 0.57-1.25 (test code = 358) GLUCOSE RANDOM 84 mg/dL 70-105 (BEAKER) (test code = 652) CALCIUM (BEAKER) 8.7 mg/dL 8.4-10.2 (test code = 697) EGFR (BEAKER) (test 77 mL/min/1.73 ESTIMA BALBINA GFR IS code = 1092) sq m NOT ACCURATE CREATININE CLEARANCE IN PREDICTING GLOMERULAR FILTRATION RATE . ESTIMATED GFR I S NOT APPLICABLE FOR DIALYSIS PATIEN TS. [id number] 03:50:00 Test Item Value Reference Range Interpretation Comments RPR SCREEN (BEAKER) (test code = Nonreactive Nonreactive 420) BASIC METABOLIC [id number] 06:30:00 Test Item Value Reference Range Interpretation Comments SODIUM (BEAKER) 134 meq/L 136-145 L (test code = 381) POTASSIUM (BEAKER) 4.2 meq/L 3.5-5.1 Specimen slightly (test code = 379) hemolyzed CHLORIDE (BEAKER) 103 meq/L 98-107 (test code = 382) CO2 (BEAKER) (test 24 meq/L 22-29 code = 355) BLOOD UREA NITROGEN 12 mg/dL 7-21 (BEAKER) (test code = 354) CREATININE (BEAKER) 0.81 mg/dL 0.57-1.25 Specimen slightly (test code = 358) hemolyzed GLUCOSE RANDOM 89 mg/dL 70-105 (BEAKER) (test code = 652) CALCIUM (BEAKER) 9.2 mg/dL 8.4-10.2 (test code = 697) EGFR (BEAKER) (test 68 mL/min/1.73 ESTIMA BALBINA GFR IS code = 1092) sq m NOT ACCURATE CREATININE CLEARANCE IN PREDICTING GLOMERULAR FILTRATION RATE . ESTIMATED GFR I S NOT APPLICABLE FOR DIALYSIS PATIEN TS. [id number] 06:24:00 Test Item Value Reference Range Interpretation Comments MAGNESIUM (BEAKER) (test code = 2.4 mg/dL 1.6-2.6 627) CBC W/PLT COUNT & AUTO [id number] 06:06:00 Test Item Value Reference Range Interpretation Comments WHITE BLOOD CELL COUNT (BEAKER) 8.2 K/ L 3.5-10.5 (test code = 775) RED BLOOD CELL COUNT (BEAKER) 3.83 M/ L 3.93-5.22 L (test code = 761) HEMOGLOBIN (BEAKER) (test code = 11.9 GM/DL 11.2-15.7 410) HEMATOCRIT (BEAKER) (test code = 36.5 % 34.1-44.9 411) MEAN CORPUSCULAR VOLUME (BEAKER) 95.3 fL 79.4-94.8 H (test code = 753) MEAN CORPUSCULAR HEMOGLOBIN 31.1 pg 25.6-32.2 (BEAKER) (test code = 751) MEAN CORPUSCULAR HEMOGLOBIN CONC 32.6 GM/DL 32.2-35.5 (BEAKER) (test code = 752) RED CELL DISTRIBUTION WIDTH 14.2 % 11.7-14.4 (BEAKER) (test code = 412) PLATELET COUNT (BEAKER) (test 245 K/CU MM 150-450 code = 756) MEAN PLATELET VOLUME (BEAKER) 10.6 fL 9.4-12.3 (test code = 754) NUCLEATED RED BLOOD CELLS 0 /100 WBC 0-0 (BEAKER) (test code = 413) NEUTROPHILS RELATIVE PERCENT 49 % (BEAKER) (test code = 429) LYMPHOCYTES RELATIVE PERCENT 36 % (BEAKER) (test code = 430) MONOCYTES RELATIVE PERCENT 10 % (BEAKER) (test code = 431) EOSINOPHILS RELATIVE PERCENT 3 % (BEAKER) (test code = 432) BASOPHILS RELATIVE PERCENT 1 % (BEAKER) (test code = 437) NEUTROPHILS ABSOLUTE COUNT 4.01 K/ L 1.56-6.13 (BEAKER) (test code = 670) LYMPHOCYTES ABSOLUTE COUNT 2.99 K/ L 1.18-3.74 (BEAKER) (test code = 414) MONOCYTES ABSOLUTE COUNT (BEAKER) 0.85 K/ L 0.24-0.36 H (test code = 415) EOSINOPHILS ABSOLUTE COUNT 0.23 K/ L 0.04-0.36 (BEAKER) (test code = 416) BASOPHILS ABSOLUTE COUNT (BEAKER) 0.11 K/ L 0.01-0.08 H (test code = 417) IMMATURE GRANULOCYTES-RELATIVE 0 % 0-1 PERCENT (BEAKER) (test code = 2801) MR, BRAIN, WITHOUT [id number] 04:23:00FINAL REPORT MRI Brain without contrast, MRA head and neck without contrast. C linical History: Stroke Technique: MRI of the brain utilizing axial T2, FLAIR, GRE, DWI; sagittal and coronal T1-weighted images.MRA of the head utilizing 3-D zoej-ln-jbuhtj technique, with 3-D reconstructions. MRA of the neck utilizing 2- D and 3-D sibd-ll-bhiizt technique, with 3-D reconstructions. Comparisons: None Findings:MRI [...] ischemic changes. MRA head: Examination is severely degr aded by motion artifact. The bilateral A1 and proximal A2 segments of the anterior cerebral arteries are not well evaluated. Otherwise no evidence for a major kaibab of Smiley proximal branch vessel occlusion. MRA neck: No evidence of hemodynamically significant stenosis in the cervical carotid or vertebral arteries by NASCET criteria. Signed: Nallely Torres MDRepelissa Verified Date/Time: 04/07/2018 04:23:47 Reading Location: [address] Reading Room MR, MRA, BRAIN, WITHOUT [id number] 04:23:00Reason for exam:->stroke s/p tpaFINAL REPORT MRI Brain without contrast, MRA head and neck without contrast. Clinical History: Stroke Technique: MRI of the brain utilizing axial T2, FLAIR, GRE, DWI; sagittal and coronal T1-weighted images.MRA of the head utilizing 3-D vylu-lm-bshrvo technique, with 3-D reconstructions. MRA of the neck utilizing 2-D and 3-D tnjk-gz-ohdecx technique, with 3-D reconstructions. Comparisons: None Findings:MRI [...] ischemic changes. MRA head: Examination is severely degr aded by motion artifact. The bilateral A1 and proximal A2 segments of the anterior cerebral arteries are not well evaluated. Otherwise no evidence for a major kaibab of Smiley proximal branch vessel occlusion. MRA neck: No evidence of hemodynamically significant stenosis in the cervical carotid or vertebral arteries by NASCET criteria. Signed: Nallely Torres MDRepelissa Verified Date/Time: 04/07/2018 04:23:47 Reading Location: [address] Reading Room MR, MRA, NECK, WITHOUT IV [id number] 04:23:00Reason for exam:->stroke s/p tpaFINAL REPORT MRI Brain without contrast, MRA head and neck without contrast. Clinical History: Stroke Technique: MRI of the brain utilizing axial T2, FLAIR, GRE, DWI; sagittal and coronal T1-weighted images.MRA of the head utilizing 3-D ibhm-ng-gbsvhc technique, with 3-D reconstructions. MRA of the neck utilizing 2-D and 3-D lpjv-nn-qrshqz technique, with 3-D reconstructions. Comparisons: None Findings:MRI [...] ischemic changes. MRA head: Examination is severely degr aded by motion artifact. The bilateral A1 and proximal A2 segments of the anterior cerebral arteries are not well evaluated. Otherwise no evidence for a major kaibab of Smiley proximal branch vessel occlusion. MRA neck: No evidence of hemodynamically significant stenosis in the cervical carotid or vertebral arteries by NASCET criteria. Signed: Nallely Torres MDRepelissa Verified Date/Time: 04/07/2018 04:23:47 Reading Location: [address] Reading Room TROPONIN [id number] 19:07:00 Test Item Value Reference Range Interpretation Comments TROPONIN I (BEAKER) (test code = 0.36 ng/mL 0.00-0.03 [facility]) Troponin I (TnI) levels must be interpreted [...] and persistent tachyarrhythmia.CREATINE KINASE (CK), TOTAL AND MB 2018-04-06 19:06:00 Test Item Value Reference Range Interpretation Comments CREATINE KINASE TOTAL (BEAKER) 60 U/L 29-200 (test code = 380) CREATINE KINASE-MB (BEAKER) (test 4.8 ng/mL 0.0-6.6 code = 750) CREATINE KINASE-MB INDEX (BEAKER) 8.0 % (test code = 395) CK-MB Reference Range:<6.7 Normal6.7-10.0 Borderline>10.0 AbnormalTROPONIN [id number] 13:23:00 Test Item Value Reference Range Interpretation Comments TROPONIN I (BEAKER) (test code = 0.33 ng/mL 0.00-0.03 397) Troponin I (TnI) levels must be interpreted [...] intravenous potassium replacement.CREATINE KINASE (CK), TOTAL AND [id number] 13:17:00 Test Item Value Reference Range Interpretation Comments CREATINE KINASE TOTAL (BEAKER) 64 U/L 29-200 (test code = 380) CREATINE KINASE-MB (BEAKER) (test 4.2 ng/mL 0.0-6.6 code = 750) CREATINE KINASE-MB INDEX (BEAKER) 6.6 % (test code = 395) CK-MB Reference Range:<6.7 Normal6.7-10.0 Borderline>10.0 AbnormalCheck Serum Potassium level 2 hours after oral potassium replacement completed or 30 min after intravenous potassium replacement.Check Serum Potassium level 2 hours after oral potassium replacement completed or 30 min aft er intravenous potassium replacement.[id number] 13:08:00 Test Item Value Reference Range Interpretation Comments POTASSIUM (BEAKER) (test code = 4.0 meq/L 3.5-5.1 379) Check Serum Potassium level 2 hours after oral potassium replacement completed or 30 min after intravenous potassium replacement.[id number] 13:08:00 Test Item Value Reference Range Interpretation Comments MAGNESIUM (BEAKER) (test code = 2.6 mg/dL 1.6-2.6 627) Check Serum Potassium level 2 hours after oral potassium replacement completed or 30 min after intravenous potassium replacement.HEMOGLOBIN [id number] 09:52:00 Test Item Value Reference Range Interpretation Comments HEMOGLOBIN A1C (BEAKER) (test code = 5.1 % 4.3-6.1 368) TROPONIN [id number] 06:59:00 Test Item Value Reference Range Interpretation Comments TROPONIN I (BEAKER) (test code = 0.48 ng/mL 0.00-0.03 [facility] 397) Troponin I (TnI) levels must be interpreted [...] and persistent tachyarrhythmia.CREATINE KINASE (CK), TOTAL AND MB 2018-04-06 06:58:00 Test Item Value Reference Range Interpretation Comments CREATINE KINASE TOTAL (BEAKER) 63 U/L 29-200 (test code = 380) CREATINE KINASE-MB (BEAKER) (test 4.0 ng/mL 0.0-6.6 code = 750) CREATINE KINASE-MB INDEX (BEAKER) 6.3 % (test code = 395) CK-MB Reference Range:<6.7 Normal6.7-10.0 Borderline>10.0 AbnormalTSH/FREE T4 IF [id number] 03:54:00 Test Item Value Reference Range Interpretation Comments THYROID STIMULATING HORMONE 2.21 uIU/mL 0.35-4.94 (BEAKER) (test code = 772) VITAMIN B12 AND [id number] 03:54:00 Test Item Value Reference Range Interpretation Comments VITAMIN B12 (BEAKER) (test code = 802 pg/mL 213-816 774) FOLATE (BEAKER) (test code = 362) 36.5 ng/mL >=7.0 RAD, CHEST, 1 VIEW, NON [id number] 03:38:00Reason for exam:->basline hospitalized for strokeShould this [...] No focal pulmonary consolidation. Signed: Sonya Armendariz MDRepst. louis behavioral medicine institute Verified Date/Time: 04/06/2018 03:38:00 Reading Location: [address] Body Reading Room C-REACTIVE [id number] 02:20:00 Test Item Value Reference Range Interpretation Comments C-REACTIVE PROTEIN (BEAKER) (test 0.05 mg/dL 0.00-0.50 code = 676) TROPONIN [id number] 02:07:00 Test Item Value Reference Range Interpretation Comments TROPONIN I (BEAKER) (test code = 0.67 ng/mL 0.00-0.03 [facility] 397) Troponin I (TnI) levels must be interpreted [...] acidosis, acute neurological disease, and persistent tachyarrhythmia.FastingPROTHROMBIN [id number] 02:06:00 Test Item Value Reference Range Interpretation Comments PROTIME (BEAKER) (test code = 13.6 seconds 11.7-14.7 759) INR (BEAKER) (test code = 370) 1.0 <=5.9 RECOMMENDED COUMADIN/WARFARIN INR THERAPY RANGESSTANDARD DOSE: 2.0 - 3.0 Includes: PROPHYLAXIS forvenous thrombosis, systemic embolization; TREATMENT for venous thrombosis and/or pulmonary embolus.HIGH RISK: Target INR is 2.5-3.5 for patients with mechanical heart valves.[id number] 02:06:00 Test Item Value Reference Range Interpretation Comments PARTIAL THROMBOPLASTIN TIME 26.6 seconds 22.5-36.0 (BEAKER) (test code = 760) [id number] 01:57:00 Test Item Value Reference Range Interpretation Comments MAGNESIUM (BEAKER) (test code = 1.9 mg/dL 1.6-2.6 627) FastingBASIC METABOLIC [id number] 01:57:00 Test Item Value Reference Range Interpretation Comments SODIUM (BEAKER) 138 meq/L 136-145 (test code = 381) POTASSIUM (BEAKER) 3.7 meq/L 3.5-5.1 (test code = 379) CHLORIDE (BEAKER) 106 meq/L 98-107 (test code = 382) CO2 (BEAKER) (test 23 meq/L 22-29 code = 355) BLOOD UREA NITROGEN 11 mg/dL 7-21 (BEAKER) (test code = 354) CREATININE (BEAKER) 0.73 mg/dL 0.57-1.25 (test code = 358) GLUCOSE RANDOM 100 mg/dL 70-105 (BEAKER) (test code = 652) CALCIUM (BEAKER) 8.9 mg/dL 8.4-10.2 (test code = 697) EGFR (BEAKER) (test 77 mL/min/1.73 ESTIMA BALBINA GFR IS code = 1092) sq m NOT ACCURATE CREATININE CLEARANCE IN PREDICTING GLOMERULAR FILTRATION RATE . ESTIMATED GFR I S NOT APPLICABLE FOR DIALYSIS PATIKEL TS. FastingLIPID [id number] 01:57:00 Test Item Value Reference Range Interpretation Comments TRIGLYCERIDES (BEAKER) (test code = 68 mg/dL 540) CHOLESTEROL (BEAKER) (test code = 216 mg/dL 631) HDL CHOLESTEROL (BEAKER) (test code 60 mg/dL = 976) LDL CHOLESTEROL CALCULATED (BEAKER) 142 mg/dL (test code = 633) Triglyceride Reference Range: Low Risk <150 Borderline 150-199 High Risk 200-499 Very High Risk >=500Cholesterol Reference Range: Low Risk <200 Borderline 200-239 High Risk >240HDL Cholesterol Reference Range: Low Risk >=60 High Risk <40LDL Cholesterol Reference Range: Optimal <100 Near Optimal 100-129 Borderline 130-159 High 160-189 Very High >=190 FastingCBC W/PLT COUNT & AUTO [id number] 01:37:00 Test Item Value Reference Range Interpretation Comments WHITE BLOOD CELL COUNT (BEAKER) 8.9 K/ L 3.5-10.5 (test code = 775) RED BLOOD CELL COUNT (BEAKER) 3.79 M/ L 3.93-5.22 L (test code = 761) HEMOGLOBIN (BEAKER) (test code = 12.2 GM/DL 11.2-15.7 410) HEMATOCRIT (BEAKER) (test code = 35.9 % 34.1-44.9 411) MEAN CORPUSCULAR VOLUME (BEAKER) 94.7 fL 79.4-94.8 (test code = 753) MEAN CORPUSCULAR HEMOGLOBIN 32.2 pg 25.6-32.2 (BEAKER) (test code = 751) MEAN CORPUSCULAR HEMOGLOBIN CONC 34.0 GM/DL 32.2-35.5 (BEAKER) (test code = 752) RED CELL DISTRIBUTION WIDTH 14.4 % 11.7-14.4 (BEAKER) (test code = 412) PLATELET COUNT (BEAKER) (test 252 K/CU MM 150-450 code = 756) MEAN PLATELET VOLUME (BEAKER) 10.4 fL 9.4-12.3 (test code = 754) NUCLEATED RED BLOOD CELLS 0 /100 WBC 0-0 (BEAKER) (test code = 413) NEUTROPHILS RELATIVE PERCENT 56 % (BEAKER) (test code = 429) LYMPHOCYTES RELATIVE PERCENT 30 % (BEAKER) (test code = 430) MONOCYTES RELATIVE PERCENT 9 % (BEAKER) (test code = 431) EOSINOPHILS RELATIVE PERCENT 3 % (BEAKER) (test code = 432) BASOPHILS RELATIVE PERCENT 1 % (BEAKER) (test code = 437) NEUTROPHILS ABSOLUTE COUNT 5.01 K/ L 1.56-6.13 (BEAKER) (test code = 670) LYMPHOCYTES ABSOLUTE COUNT 2.71 K/ L 1.18-3.74 (BEAKER) (test code = 414) MONOCYTES ABSOLUTE COUNT (BEAKER) 0.80 K/ L 0.24-0.36 H (test code = 415) EOSINOPHILS ABSOLUTE COUNT 0.27 K/ L 0.04-0.36 (BEAKER) (test code = 416) BASOPHILS ABSOLUTE COUNT (BEAKER) 0.10 K/ L 0.01-0.08 H (test code = 417) IMMATURE GRANULOCYTES-RELATIVE 0 % 0-1 PERCENT (BEAKER) (test code = 2801)
[2020-01-28 14:48] LABS: ALT/SGPT 13 U/L (12-78); AST/SGOT 15 U/L (15-37); Albumin 3.2 g/dL (3.4-5.0); Alkaline Phosphatase 64 U/L (45-117); BUN Blood Urea Nitrogen 22 mg/dL (7-18); Bicarbonate 27 mmol/L (21-32); Bilirubin Direct 0.1 mg/dL (0-0.2); Bilirubin Total 0.5 mg/dL (0.2-1.0); Glucose Level 91 mg/dL (74-106); Magnesium 2.1 mg/dL (1.8-2.4); NT PRO-BNP 259 pg/mL (<450); Sodium Level 140 mmol/L (136-145); Troponin (Emerg Dept Use Only) < 0.02 ng/mL (0.0-0.045)
--- NOTE | 2020-01-28 14:52 | RAD REPORT ---
EXAM DESCRIPTION: CT - Head Brain Wo Cont - 01/28/2020 2:26 pm CLINICAL HISTORY: Head injury status post fall/headache COMPARISON: 2019 TECHNIQUE: Computed axial tomography of the head was obtained. IV contrast was not requested. All CT scans are performed using dose optimization technique as appropriate and may include automated exposure control or mA/KV adjustment according to patient size. FINDINGS: An intracranial bleed is not seen . The ventricles are normal in caliber. No extra-axial fluid collection is noted. Mioderate low-density areas within periventricular, deep and subcortical white matter likely represen t ischemic changes secondary to small vessel disease. Fluid within the sinuses/ mastoids is not seen. IMPRESSION: No acute intracranial abnormality is seen. If patient's symptoms persist MRI of the bra in would be recommended.
[2020-01-28] MEDS ORDERED: NA CHLORIDE 0.9% 1,000 ML ONE (15:01)
--- NOTE | 2020-01-28 15:41 | RAD REPORT ---
EXAM DESCRIPTION: Beka Single View01/28/2020 3:16 pm CLINICAL HISTORY: Chest pain COMPARISON: 2018 FINDINGS: The lungs appear clear of acute infiltrate. The heart is normal size IMPRESSION: No acute abnormalities displayed
--- NOTE | 2020-01-28 16:52 | EDPHYS ---
Physician Documentation [facility] Name: Dinh Love Age: 84 yrs Sex: Female : 1935 Arrival Date: 01/28/2020 Time: 12:32 Bed 30 Private MD: Randolph Kelly ED Physician Nahid Roberts HPI: 01/27 14:20 This 84 yrs old Female presents to ER via Wheelchair with complaints of mamadou Dizziness, Repeated Falls. 14:20 The patient presents with dizziness, generalized weakness. Onset: The symptoms/episode mamadou began/occurred 2 month(s) ago. Context: occurred while the patient was standing. Modifying factors: The symptoms are alleviated by nothing, the symptoms are aggravated by nothing. Associated signs and symptoms: Pertinent positives: ataxia. Severity of symptoms: At their worst the symptoms were mild in the emergency department the symptoms are unchanged. Patient's baseline: Neuro: alert and fully oriented. The patient has experienced similar episodes in the past, multiple times. Historical: - Allergies: 12:42 Codeine; itch; ca1 12:42 Keflex; ca1 - PMHx: 12:42 Arthritis; Hypertension; Myocardial infarction; TIA; ca1 - PSHx: 12:42 hiatal hernia; Hysterectomy; Cholecystectomy; Heart stents; ca1 - Immunization history:: Adult Immunizations up to date. - Social history:: Smoking status: Patient reports the use of cigarette tobacco products, smokes one-half pack cigarettes per day. - Family history:: not pertinent. ROS: 14:20 Constitutional: Negative for fever, chills, and weight loss, Eyes: Negative for injury, mamadou pain, redness, and discharge, ENT: Negative for injury, pain, and discharge, Neck: Negative for injury, pain, and swelling, Cardiovascular: Negative for chest pain, palpitations, and edema, Respiratory: Negative for shortness of breath, cough, wheezing, and pleuritic chest pain, Abdomen/GI: Negative for abdominal pain, nausea, vomiting, diarrhea, and constipation, Back: Negative for injury and pain, : Negative for injury, bleeding, discharge, and swelling, MS/Extremity: Negative for injury and deformity, Skin: Negative for injury, rash, and discoloration, Psych: Negative for depression, anxiety, suicide ideation, homicidal ideation, and hallucinations, Allergy/Immunology: Negative for hives, rash, and allergies, Endocrine: Negative for neck swelling, polydipsia, polyuria, polyphagia, and marked weight changes, Hematologic/Lymphatic: Negative for swollen nodes, abnormal bleeding, and unusual bruising. 14:20 Neuro: Positive for dizziness, numbness, weakness. Exam: 14:20 Constitutional: This is a well developed, well nourished patient who is awake, alert, mamadou and in no acute distress. Head/Face: Normocephalic, atraumatic. Eyes: Pupils equal round and reactive to light, extra-ocular motions intact. Lids and lashes normal. Conjunctiva and sclera are non-icteric and not injected. Cornea within normal limits. Periorbital areas with no swelling, redness, or edema. ENT: Nares patent. No nasal discharge, no septal abnormalities noted. Tympanic membranes are normal and external auditory canals are clear. Oropharynx with no redness, swelling, or masses, exudates, or evidence of obstruction, uvula midline. Mucous membranes moist. Neck: Trachea midline, no thyromegaly or masses palpated, and no cervical lymphadenopathy. Supple, full range of motion without nuchal rigidity, or vertebral point tenderness. No Meningismus. Chest/axilla: Normal chest wall appearance and motion. Nontender with no deformity. No lesions are appreciated. Cardiovascular: Regular rate and rhythm with a normal S1 and S2. No gallops, murmurs, or rubs. Normal PMI, no JVD. No pulse deficits. Respiratory: Lungs have equal breath sounds bilaterally, clear to auscultation and percussion. No rales, rhonchi or wheezes noted. No increased work of breathing, no retractions or nasal flaring. Abdomen/GI: Soft, non-tender, with normal bowel sounds. No distension or tympany. No guarding or rebound. No evidence of tenderness throughout. Back: No spinal tenderness. No costovertebral tenderness. Full range of motion. Female : Normal external genitalia. Skin: Warm, dry with normal turgor. Normal color with no rashes, no lesions, and no evidence of cellulitis. MS/ Extremity: Pulses equal, no cyanosis. Neurovascular intact. Full, normal range of motion. Neuro: Awake and alert, GCS 15, oriented to person, place, time, and situation. Cranial nerves II-XII grossly intact. Motor strength 5/5 in all extremities. Sensory grossly intact. Cerebellar exam normal. Normal gait. Psych: Awake, alert, with orientation to person, place and time. Behavior, mood, and affect are within normal limits. 14:20 Neuro: Orientation: is normal, appropriate for stated age, no acute changes, Mentation: is normal, appropriate for stated age, no acute changes, Memory: is normal, appropriate for stated age, no acute changes, Cranial nerves: grossly normal, is grossly normal based on the patient's age, no acute changes, Cerebellar function: is grossly normal, is grossly normal based on the patient's age, no acute changes, Motor: moves all fours, Gait: not tested. Vital Signs: 12:37 BP 150 / 70; Pulse 52; Resp 18 S; Temp 98.3(O); Pulse Ox 99% on R/A; Weight 54.43 kg ca1 (R); Height 5 ft. 0 in. (152.40 cm) (R); 13:05 BP 146 / 64; Pulse 52; Resp 17; Temp 98.3(O); Pulse Ox 97% on R/A; Pain 0/10; ks7 13:34 BP 140 / 51; Pulse 52; Resp 18; Pulse Ox 95% on R/A; Pain 0/10; ks7 14:30 BP 182 / 67; Pulse 49; Resp 16; Pulse Ox 100% on R/A; Pain 0/10; ks7 15:00 BP 165 / 59; Pulse 50; Resp 16; Pulse Ox 99% on R/A; Pain 0/10; ks7 16:00 BP 150 / 67; Pulse 51; Resp 16; Pulse Ox 100% on R/A; Pain 0/10; ks7 16:30 BP 149 / 54; Pulse 51; Resp 18; Pulse Ox 99% on R/A; Pain 0/10; ks7 17:00 BP 176 / 61; Pulse 53; Resp 18; Pulse Ox 99% on R/A; Pain 0/10; ks7 17:47 BP 183 / 67 Supine; Pulse 50; Resp 18; Pulse Ox 100% on R/A; ks7 17:49 BP 172 / 93 Sitting; Pulse 54; Resp 18; Pulse Ox 100% on R/A; ks7 17:51 BP 160 / 98 Standing; Pulse 59; Resp 18; Pulse Ox 100% on R/A; ks7 12:37 Body Mass Index 23.44 (54.43 kg, 152.40 cm) ca1 MDM: 13:41 Patient medically screened. [facility] 14:23 Data reviewed: vital signs, nurses notes, lab test result(s), EKG, radiologic studies, mamadou CT scan, plain films. 16:43 Differential diagnosis: cardiac arrhythmia, CVA, generalized weakness, head injury, mamadou hypovolemia, idiopathic dizziness, near-syncope, TIA, vertigo. Data interpreted: monitoring specialist: rate is 52 beats/min, rhythm is regular, Pulse oximetry: on room air is 100 %. Test interpretation: by ED physician or midlevel provider: ECG, plain radiologic studies. Counseling: I had a detailed discussion with the patient and/or guardian regarding: the historical points, exam findings, and any diagnostic results supporting the discharge/admit diagnosis, lab results, radiology results. 16:48 ED course: multiple falls, 5 falls in 2 months, follow up as out patient dr kelly. [facility] 01/27 14:00 Order name: Basic Metabolic Panel; Complete Time: 16:41 01/27 14:00 Order name: CBC with Diff; Complete Time: 16:41 01/27 14:00 Order name: LFT's; Complete Time: 16:41 01/27 14:00 Order name: Magnesium; Complete Time: 16:41 01/27 14:00 Order name: NT PRO-BNP; Complete Time: 16:41 01/27 14:00 Order name: PT-INR; Complete Time: 16:41 01/27 14:00 Order name: Troponin (emerg Dept Use Only); Complete Time: 16:41 01/27 14:00 Order name: XRAY Chest (1 view); Complete Time: 16:41 01/27 14:00 Order name: EKG; Complete Time: 14:01 01/27 14:00 Order name: CT Head Brain wo Cont; Complete Time: 16:41 01/27 16:50 Order name: Urine Culture [facility] 01/27 17:47 Order name: Urine Dipstick--Ancillary (enter results) 01/27 14:00 Order name: Cardiac monitoring; Complete Time: 14:17 01/27 14:00 Order name: IV Saline Lock; Complete Time: 14:17 sv 01/27 14:00 Order name: Labs collected and sent; Complete Time: 14:17 01/27 14:00 Order name: O2 Per Protocol; Complete Time: 14:17 01/27 14:00 Order name: O2 Sat Monitoring; Complete Time: 14:17 01/27 14:20 Order name: Urine Dipstick-Ancillary (obtain specimen); Complete Time: 17:35 [facility] 01/27 16:50 Order name: Orthostatics mamadou Administered Medications: 15:01 Drug: NS 0.9% 1000 ml Route: IV; Rate: 125 ml/hr; Site: right antecubital; ks7 16:56 Drug: Aspirin 81 mg Route: PO; ks7 Disposition: 01/28/20 16:51 Discharged to Home. Impression: Repeated falls, Bradycardia, unspecified, Dizziness and giddiness. - Condition is Stable. - Discharge Instructions: Bradycardia, Adult, Dizziness, Fall Prevention in the Home, Fall Prevention in the Home, [id number], Aspirin and Your Heart, Dizziness, [id number]. - Medication Reconciliation Form, Thank You Letter, Antibiotic Education, Prescription Opioid Use form. - Follow up: Randolph Kelly MD; When: Tomorrow; Reason: Recheck today's complaints, Continuance of care, Re-evaluation by your physician. - Problem is new. - Symptoms have improved. Signatures: Dispatcher [employer] Debby Riddle RN RN sv Anderson, Corey, MD MD cha Acob, Cheryl, RN RN ca1 Songcuan, Kathleen, RN RN ks7 Corrections: (The following items were deleted from the chart) 16:52 16:51 01/28/2020 16:51 Discharged to Home. Impression: Repeated falls; Bradycardia, mamadou unspecified. Condition is Stable. Forms are Medication Reconciliation Form, Thank You Letter, Antibiotic Education, Prescription Opioid Use. Follow up: Randolph Kelly; When: Tomorrow; Reason: Recheck today's complaints, Continuance of care, Re-evaluation by your physician. Problem is new. Symptoms have improved. mamadou 18:06 16:52 01/28/2020 16:51 Discharged to Home. Impression: Repeated falls; Bradycardia, ks7 unspecified; Dizziness and giddiness. Condition is Stable. Forms are Medication Reconciliation Form, Thank You Letter, Antibiotic Education, Prescription Opioid Use. Follow up: Randolph Kelly; When: Tomorrow; Reason: Recheck today's complaints, Continuance of care, Re-evaluation by your physician. Problem is new. Symptoms have improved. mamadou
--- NOTE | 2020-01-28 16:52 | ER ---
Nurse's Notes [facility] Name: Dinh Love Age: 84 yrs Sex: Female : 1935 Arrival Date: 01/28/2020 Time: 12:32 Bed 30 Private MD: Randolph Moore Diagnosis: Repeated falls;Bradycardia, unspecified;Dizziness and giddiness Presentation: 01/27 12:37 Chief complaint: Patient states: Fell a week ago, hit back of head on the floor. Denies ca1 LOC. Was on blood thinners at that time. Did not seek any medical consult. Sore spot on the back of head. Has had dizzy a few dizzy spells prior to the fall, but has gotten more frequent since the fall. Coronavirus screen: Client denies travel out of the [place] in the last 14 days. At this time, the client does not indicate any symptoms associated with coronavirus-19. Ebola Screen: Patient negative for fever greater than or equal to 101.5 degrees Fahrenheit, and additional compatible Ebola Virus Disease symptoms Patient denies exposure to infectious person. Patient denies travel to an Ebola-affected area in the 21 days before illness onset. No symptoms or risks identified at this time. Initial Sepsis Screen: Does the patient meet any 2 criteria? No. Patient's initial sepsis screen is negative. Does the patient have a suspected source of infection? No. Patient's initial sepsis screen is negative. Risk Assessment: Do you want to hurt yourself or someone else? Patient reports no desire to harm self or others. Onset of symptoms was January 28, 2020. 12:37 Method Of Arrival: Wheelchair ca1 12:37 Acuity: KAR[place] 3 ca1 Historical: - Allergies: 12:42 Codeine; itch; ca1 12:42 Keflex; ca1 - PMHx: 12:42 Arthritis; Hypertension; Myocardial infarction; TIA; ca1 - PSHx: 12:42 hiatal hernia; Hysterectomy; Cholecystectomy; Heart stents; ca1 - Immunization history:: Adult Immunizations up to date. - Social history:: Smoking status: Patient reports the use of cigarette tobacco products, smokes one-half pack cigarettes per day. - Family history:: not pertinent. Screenin:06 Abuse screen: Denies threats or abuse. Denies injuries from another. Nutritional ks7 screening: No deficits noted. Tuberculosis screening: No symptoms or risk factors identified. Fall Risk Fall in past 12 months (25 points). No secondary diagnosis (0 pts). IV access (20 points). Ambulatory Aid- Crutches/Cane/Walker (15 pts). Gait- Normal/Bed Rest/Wheelchair (0 pts) Mental Status- Oriented to own ability (0 pts). Total Rivas Fall Scale indicates High Risk Score (45 or more points). Side Rails Up X 2 Frequent Obs/Assessments Occuring As available patient and family educated on Fall Prevention Program and Strategies. Assessment: 13:06 General: Appears in no apparent distress. Behavior is calm, cooperative, appropriate ks7 for age. Pain: Complains of pain in scalp, mid occiput Pain does not radiate. Pain currently is 0 out of 10 on a pain scale. at worst was 8 out of 10 on a pain scale. Quality of pain is described as sharp, tender, Pain began pt fell 1 week ago, hit back of head, did not tell anyone when she fell. pt states that she has had intermittent dizziness since the fall. pain only when back of head palpated. Is episodic, Aggravated by palpating head or if she lays on back of head. Neuro: No deficits noted. Neuro: Reports dizziness, intermittent Denies blurred vision paresthesias headache. Cardiovascular: No deficits noted. Respiratory: No deficits noted. 15:08 Reassessment: Patient is alert, oriented x 3, equal unlabored respirations, skin ks7 warm/dry/pink. 17:33 Reassessment: collected urine sample. pt ambulated to bathroom with stand by assist ks7 only. DC after urine results. 17:56 Reassessment: Patient is alert, oriented x 3, equal unlabored respirations, skin ks7 warm/dry/pink. Patient denies pain at this time. Vital Signs: 12:37 BP 150 / 70; Pulse 52; Resp 18 S; Temp 98.3(O); Pulse Ox 99% on R/A; Weight 54.43 kg ca1 (R); Height 5 ft. 0 in. (152.40 cm) (R); 13:05 BP 146 / 64; Pulse 52; Resp 17; Temp 98.3(O); Pulse Ox 97% on R/A; Pain 0/10; ks7 13:34 BP 140 / 51; Pulse 52; Resp 18; Pulse Ox 95% on R/A; Pain 0/10; ks7 14:30 BP 182 / 67; Pulse 49; Resp 16; Pulse Ox 100% on R/A; Pain 0/10; ks7 15:00 BP 165 / 59; Pulse 50; Resp 16; Pulse Ox 99% on R/A; Pain 0/10; ks7 16:00 BP 150 / 67; Pulse 51; Resp 16; Pulse Ox 100% on R/A; Pain 0/10; ks7 16:30 BP 149 / 54; Pulse 51; Resp 18; Pulse Ox 99% on R/A; Pain 0/10; ks7 17:00 BP 176 / 61; Pulse 53; Resp 18; Pulse Ox 99% on R/A; Pain 0/10; ks7 17:47 BP 183 / 67 Supine; Pulse 50; Resp 18; Pulse Ox 100% on R/A; ks7 17:49 BP 172 / 93 Sitting; Pulse 54; Resp 18; Pulse Ox 100% on R/A; ks7 17:51 BP 160 / 98 Standing; Pulse 59; Resp 18; Pulse Ox 100% on R/A; ks7 12:37 Body Mass Index 23.44 (54.43 kg, 152.40 cm) ca1 ED Course: 12:32 Patient arrived in ED. as 12:32 Randolph Moore MD is Private Physician. as 12:41 Triage completed. ca1 12:42 Arm band placed on right wrist. ca1 13:05 Wandy Ervin, RN is Primary Nurse. ks7 13:06 Resting quietly. ks7 13:06 Patient has correct armband on for positive identification. Placed in gown. Bed in low ks7 position. Call light in reach. Side rails up X2. 13:06 No provider procedures requiring assistance completed. ks7 13:41 Nahid Roberts MD is Attending Physician. mamadou 13:55 Inserted saline lock: 22 gauge in right antecubital area, using aseptic technique. ks7 Blood collected. 14:27 CT Head Brain wo Cont In Process Unspecified. EDMS 15:16 XRAY Chest (1 view) In Process Unspecified. EDMS 15:48 Patient requests liquids. warm blanket given to pt. ks7 16:51 Randolph Moore MD is Referral Physician. mamadou 18:05 IV discontinued, intact, bleeding controlled, No redness/swelling at site. Pressure ks7 dressing applied. Administered Medications: 15:01 Drug: NS 0.9% 1000 ml Route: IV; Rate: 125 ml/hr; Site: right antecubital; ks7 16:56 Drug: Aspirin 81 mg Route: PO; ks7 Outcome: 16:51 Discharge ordered by . mamadou 18:05 Discharged to home ambulatory. ks7 18:05 Condition: good 18:05 Discharge instructions given to patient, Instructed on discharge instructions, follow up and referral plans. Demonstrated understanding of instructions, follow-up care. 18:06 Patient left the ED. ks7 Signatures: Dispatcher [employer] EDMA Nahid Roberts MD MD cha Martinez, Amelia as Acob, Cheryl RN Wandy Greene RN RN ks7 Corrections: (The following items were deleted from the chart) 15:09 15:00 BP 182 / 67; Pulse 49bpm; Resp 16bpm; Pulse Ox 100% RA; Pain 0/10; ks7 ks7
[2020-01-28] MEDS ORDERED: ASPIRIN EC 81 MG TAB PO ONE (17:01)
[2020-01-28 18:13] VITALS: TEMP 98.3
[2020-01-28 18:24] VITALS: O2SAT 100
[2020-01-28 18:26] VITALS: BP 160/98
[2020-01-28 18:50] LABS: Urine Blood TRACE (NEG); Urine Glucose NEGATIVE (NEG); Urine Protein NEGATIVE (NEG); Urine pH 5.5 (5.0-7.0)
--- NOTE | 2020-01-29 11:04 | EKG ---
Test Date: 2020-01-28 Test Time: 14:38:05 Drapery Inspector: KATLYN MEASUREMENT RESULTS: Intervals: Rate: 52 PA: 196 QRSD: 86 QT: 462 QTc: 429 [place]: P: 76 PA: 196 QRS: 26 T: 77 INTERPRETIVE STATEMENTS: Sinus bradycardia Otherwise normal ECG Compared to ECG 02/21/2019 16:28:38 No significant changes Electronically Signed On 01-29-20 11:01:53 CDT by Brandon Vo
== END 2020-01-28 18:06 | disposition home or self-care (01) ==
LOC: ER 12:29
DX: R00.1 Bradycardia, unspecified (principal); R29.6 Repeated falls; I10 Essential (primary) hypertension; Z95.818 Presence of other cardiac implants and grafts
CPT/HCPCS: 93005; 87088; 85025; 87086; 80048; 36415; 83735; 85610; 80076; 81003; 84484; 83880; 70450; 71045; 99284; J7030

== ENCOUNTER 2020-08-07 00:16 | Observation (INO) | payer OTHER, MEDICARE ==
--- OUTSIDE RECORDS SUMMARY | 2020-08-07 00:19 | XMS REPORT | Clinical Summary ---
:1935 Author Organization [facility] Address [address] [place] [address] Care Team Providers Name Role Phone Randolph [...] Assigned at Date Recorded Not on file Last Filed Vital Signs Not on file Plan of Treatment Health Maintenance Due Date Last Done Comments PNEUMOCOCCAL 65+ YRS (1 of 1 - [id number]) 2002 MEDICARE ANNUAL WELLNESS (YEAR 2 or FIRST YEAR if no 05/28/2003 IPPE) INFLUENZA VACCINE (#1) 2020 08/13/2013 Results Not on fileafter 08/07/2019 Insurance Payer Benefit Plan / Subscriber ID Effective Dates Phone Addre ss Type Group MEDICARE MEDICARE A B [id number] 2002-Presen Medicare t MCR A[place] [id number] 2017-Present Medigap SUPPLEMENT/[employer] Advance Directives For more information, please contact: [phone] Type Date Recorded Patient Refrigeration Manager Explanati on Power of Stock Raiser 04/05/2018 12:00 AM Advance Directives 04/11/2018 10:59 AM Code Status Date Activated Date Inactivated Comments Full Code 04/06/2018 12:42 AM 04/09/2018 4:50 PM This code status was determined by: Patient
--- OUTSIDE RECORDS SUMMARY | 2020-08-07 00:19 | XMS REPORT | Continuity of Care Document ---
:1935 Author Organization [facility] t Address [address] [place] [address] Care Team Providers Name Role Phone Oscar FRANKLIN Primary Care Physician EVELIN CARLTON Attending Clinician Unavail able EVELIN CARLTON Admitting Clinician Unavail able Problems Condition Condition Condition Status Onset Resolution Last Treating Co mments Source Name Details Category Date Date Treatment Clinician Date Stroke Stroke Disease Active 2017-[address] [facility] (cerebrum) (cerebrum) 0-11 Annalee kes - 00:00: Medical 00 [place] Acute Acute Disease Active 2017-[address] [facility] ischemic ischemic 0-11 [facility] stroke 00:[facility]: Medical 00 [place] Essential Essential Disease Active 2017-[address] [facility] hypertensi hypertensi 0-11 Annalee kes - on on 00:00: Medical 00 [place] Received Received Disease [facility] - plasminoge plasminoge 00:00: Me dical n n 00 Center activator activator [...] Date Stop Date Source Natural mother Stroke [facility] Social History Social Habit Start Date Stop Date Quantity Comments Source Sex Assigned At [facility] Center Cigarettes smoked 2018-04-06 2018-04-06 [facility] - current (pack per 00:00:00 00:00:00 [facility] Center day) - Reported Cigarette 2018-04-06 2018-04-06 [facility] - pack-years 00:00:00 00:00:00 [facility] Alcohol intake 2018-04-06 2018-04-06 Current [facility] es - 00:00:00 00:00:00 non-drinker of Medical Ce nter alcohol (finding) Smoking Status Start Date Stop Date Source Current every day smoker 2018-04-06 00:00:00 [facility] Medications Ordered Filled Start Stop Current Ordering Indication Dosage Frequency Signature Comments Components Source Medication Medication Date Date Medication? Clinician (SIG) Name Name meclizine 2017-06 Yes 25mg Take [address] (ANTIVERT) 0-14 by mouth 2 [facility] es - 25 MG 14:50: (two) Medical tablet 14 times Center daily as needed. aspirin 81 2017-06 Yes 81mg QD Take [address] [facility] EC 0-14 by mouth [facility] - tablet 14:50: daily. Medical 14 [place] propranolol 2017-06 Yes 20mg Q.5D Take [address] [facility] (INDERAL) 0-14 by mouth 2 [facility] - 20 MG 14:50: (two) Medical tablet 14 times Center daily. amitriptyli 2017-06 Yes 50mg QD Take [address] [facility] ne (ELAVIL) 0-14 by mouth [facility] - 50 MG 14:50: nightly. Medical tablet 14 Center atorvastati 2017-06 Yes 80mg QD Take [address] [facility] n (LIPITOR) 0-14 tablet (80 Annalee kes - 80 MG 00:00: mg total) Medical tablet 00 by mouth Center nightly. ALPRAZolam 2017-06 Yes 1mg Take 1 mg [...] Procedures This patient has no known procedures. Plan of Care Planned Activity Planned Date Details Comments Source Future Scheduled 2020-02-26 INFLUENZA VACCINE (#1) [facility] Test 00:00:00 [code = INFLUENZA Medical Ce nter VACCINE (#1)] Future Scheduled 2003-05-[address] [facility] - Test 00:00:00 WELLNESS (YEAR 2 or Medical Center FIRST YEAR if no IPPE) [code = MEDICARE ANNUAL WELLNESS (YEAR 2 or FIRST YEAR if no IPPE)] Future Scheduled 2002 PNEUMOCOCCAL 65+ YRS [facility] - Test 00:00:00 (1 of 1 - Medical Center [id number] PCV13) [code = PNEUMOCOCCAL 65+ YRS (1 of 1 - [id number] PCV13)] Results Test Description Test Time Test Comments Results Result Comments Source B-TYPE NATRIURETIC FACTOR (BNP) 2018-04-08 14:09:00 Test Item Value Reference Range Interpretation Comme nts B-TYPE NATRIURETIC PEPTIDE (BEAKER) (test code = 700) 109 pg/mL 0-100 H [id number] 07:11:00 Test Item Value Reference Range Interpretation Comments MAGNESIUM (BEAKER) (test code = 2.0 mg/dL 1.6-2.6 627) BASIC METABOLIC [id number] 07:11:00 Test Item Value Reference Range Interpretation [...] PATIEN TS. CBC W/PLT COUNT & AUTO [id number] 06:38:00 Test Item Value Reference Range Interpretation [...] (BEAKER) (test code = 2801) BASIC METABOLIC [id number] 06:18:00 Test Item Value Reference Range Interpretation [...] S NOT APPLICABLE FOR DIALYSIS PATIEN TS. [id number] 03:50:00 Test Item Value Reference Range Interpretation Comments RPR SCREEN (BEAKER) (test code = Nonreactive Nonreactive 420) BASIC METABOLIC [id number] 06:30:00 Test Item Value Reference Range Interpretation [...] S NOT APPLICABLE FOR DIALYSIS PATIEN TS. [id number] 06:24:00 Test Item Value Reference Range Interpretation Comments MAGNESIUM (BEAKER) (test code = 2.4 mg/dL 1.6-2.6 627) CBC W/PLT COUNT & AUTO [id number] 06:06:00 Test Item Value Reference Range Interpretation [...] (test code = 2801) MR, BRAIN, WITHOUT [id number] 04:23:00FINAL REPORT MRI Brain without contrast, MRA head and neck without contrast. C linical History: Stroke Technique: MRI of the brain utilizing axial T2, FLAIR, GRE, DWI; sagittal and coronal T1-weighted images.MRA of the head utilizing 3-D kzli-ra-tsfcbr technique, with 3-D reconstructions. MRA of the neck utilizing 2- D and 3-D yeov-ll-isbbxn technique, with 3-D reconstructions. Comparisons: None Findings:MRI [...] evaluated. Otherwise no evidence for a major nondalton of [place] proximal branch vessel occlusion. MRA neck: No evidence of hemodynamically significant stenosis in the cervical carotid or vertebral arteries by NASCET criteria. Signed: Nallely Torres MDReport Verified Date/Time: 04/07/2018 04:23:47 Reading Location: [address] Reading Room MR, MRA, BRAIN, WITHOUT [id number] 04:23:00Reason for exam:->stroke s/p tpaFINAL REPORT MRI Brain without contrast, MRA head and neck without contrast. Clinical History: Stroke Technique: MRI of the brain utilizing axial T2, FLAIR, GRE, DWI; sagittal and coronal T1-weighted images.MRA of the head utilizing 3-D zlxm-mu-qwuxly technique, with 3-D reconstructions. MRA of the neck utilizing 2-D and 3-D zdvq-ol-vgpnlo technique, with 3-D reconstructions. Comparisons: None Findings:MRI [...] evaluated. Otherwise no evidence for a major nondalton of [place] proximal branch vessel occlusion. MRA neck: No evidence of hemodynamically significant stenosis in the cervical carotid or vertebral arteries by NASCET criteria. Signed: Nallely Torres MDReport Verified Date/Time: 04/07/2018 04:23:47 Reading Location: [address] Reading Room MR, MRA, NECK, WITHOUT IV [id number] 04:23:00Reason for exam:->stroke s/p tpaFINAL REPORT MRI Brain without contrast, MRA head and neck without contrast. Clinical History: Stroke Technique: MRI of the brain utilizing axial T2, FLAIR, GRE, DWI; sagittal and coronal T1-weighted images.MRA of the head utilizing 3-D iwat-sm-xyqfqb technique, with 3-D reconstructions. MRA of the neck utilizing 2-D and 3-D bbqo-wq-pzgwia technique, with 3-D reconstructions. Comparisons: None Findings:MRI [...] evaluated. Otherwise no evidence for a major nondalton of [place] proximal branch vessel occlusion. MRA neck: No evidence of hemodynamically significant stenosis in the cervical carotid or vertebral arteries by NASCET criteria. Signed: Nallely Torres Verified Date/Time: 04/07/2018 04:23:47 Reading Location: [address] Reading Room TROPONIKhadijah [id number] 19:07:00 Test Item Value Reference Range Interpretation Comments TROPONIN I (BEAKER) (test code = 0.36 ng/mL 0.00-0.03 397) Troponin I (TnI) levels [...] 395) CK-MB Reference Range:<6.7 Normal6.7-10.0 Borderline>10.0 AbnormalTROPONIN [id number] 13:23:00 Test Item Value Reference Range Interpretation [...] intravenous potassium replacement.CREATINE KINASE (CK), TOTAL AND [id number] 13:17:00 Test Item Value Reference Range Interpretation [...] or 30 min aft er intravenous potassium replacement.[id number] 13:08:00 Test Item Value Reference Range Interpretation Comments POTASSIUM (BEAKER) (test code = 4.0 meq/L 3.5-5.1 379) Check Serum Potassium level 2 hours after oral potassium replacement completed or 30 min after intravenous potassium replacement.[id number] 13:08:00 Test Item Value Reference Range Interpretation Comments MAGNESIUM (BEAKER) (test code = 2.6 mg/dL 1.6-2.6 627) Check Serum Potassium level 2 hours after oral potassium replacement completed or 30 min after intravenous potassium replacement.HEMOGLOBIN [id number] 09:52:00 Test Item Value Reference Range Interpretation Comments HEMOGLOBIN A1C (BEAKER) (test code = 5.1 % 4.3-6.1 368) TROPONIN [id number] 06:59:00 Test Item Value Reference Range Interpretation [...] Reference Range:<6.7 Normal6.7-10.0 Borderline>10.0 AbnormalTSH/FREE T4 IF [id number] 03:54:00 Test Item Value Reference Range Interpretation Comments THYROID STIMULATING HORMONE 2.21 uIU/mL 0.35-4.94 (BEAKER) (test code = 772) VITAMIN B12 AND [id number] 03:54:00 Test Item Value Reference Range Interpretation Comments VITAMIN B12 (BEAKER) (test code = 802 pg/mL 213-816 774) FOLATE (BEAKER) (test code = 362) 36.5 ng/mL >=7.0 RAD, CHEST, 1 VIEW, NON [id number] 03:38:00Reason for exam:->basline hospitalized for strokeShould this [...] No focal pulmonary consolidation. Signed: Sonya Armendariz Verified Date/Time: 04/06/2018 03:38:00 Reading Location: [address] Body Reading Room C-REACTIVE [id number] 02:20:00 Test Item Value Reference Range Interpretation Comments C-REACTIVE PROTEIN (BEAKER) (test 0.05 mg/dL 0.00-0.50 code = 676) TROPONIN [id number] 02:07:00 Test Item Value Reference Range Interpretation [...] acidosis, acute neurological disease, and persistent tachyarrhythmia.FastingPROTHROMBIN [id number] 02:06:00 Test Item Value Reference Range Interpretation Comments PROTIME (BEAKER) (test code = 13.6 seconds 11.7-14.7 759) INR (BEAKER) (test code = 370) 1.0 <=5.9 RECOMMENDED COUMADIN/WARFARIN INR THERAPY RANGESSTANDARD DOSE: 2.0 - 3.0 Includes: PROPHYLAXIS forvenous thrombosis, systemic embolization; TREATMENT for venous thrombosis and/or pulmonary embolus.HIGH RISK: Target INR is 2.5-3.5 for patients with mechanical heart valves.[id number] 02:06:00 Test Item Value Reference Range Interpretation Comments PARTIAL THROMBOPLASTIN TIME 26.6 seconds 22.5-36.0 (BEAKER) (test code = 760) [id number] 01:57:00 Test Item Value Reference Range Interpretation Comments MAGNESIUM (BEAKER) (test code = 1.9 mg/dL 1.6-2.6 627) FastingBASIC METABOLIC [id number] 01:57:00 Test Item Value Reference Range Interpretation [...] S NOT APPLICABLE FOR DIALYSIS PATIEN TS. FastingLIPID [id number] 01:57:00 Test Item Value Reference Range Interpretation [...] High >=190 FastingCBC W/PLT COUNT & AUTO [id number] 01:37:00 Test Item Value Reference Range Interpretation [...] % 0-1 PERCENT (BEAKER) (test code = 2421)
[2020-08-07 00:59] LABS: Protime INR 1.05
[2020-08-07 01:01] LABS: Absolute Lymphocytes (CBC) 2.8 K/uL (0.7-4.9); Basophils % 1.5 % (0-1.3); Hematocrit 35.5 % (36.0-45.0); Lymphocytes % 42.3 % (15.3-44.8); MPV 9.1 fL (7.6-11.3); RBC Red Blood Cell Count 3.87 M/uL (3.86-4.86)
[2020-08-07] MEDS ORDERED: ASPIRIN 81 MG CHEWABLE TABLET ONE (01:07)
[2020-08-07 01:15] LABS: ALT/SGPT 15 U/L (12-78); AST/SGOT 12 U/L (15-37); Albumin 3.2 g/dL (3.4-5.0); Alkaline Phosphatase 64 U/L (45-117); BUN Blood Urea Nitrogen 14 mg/dL (7-18); Bicarbonate 29 mmol/L (21-32); Bilirubin Direct < 0.1 mg/dL (0-0.2); Bilirubin Total 0.4 mg/dL (0.2-1.0); Glucose Level 91 mg/dL (74-106); Magnesium 1.8 mg/dL (1.8-2.4); NT PRO-BNP 90 pg/mL (<450); Potassium 4.2 mmol/L (3.5-5.1); Sodium Level 139 mmol/L (136-145); Troponin (Emerg Dept Use Only) < 0.02 ng/mL (0.0-0.045)
--- NOTE | 2020-08-07 02:18 | EDPHYS ---
Physician Documentation [facility] Name: Dinh Love Age: 85 yrs Sex: Female : 1935 Arrival Date: 08/07/2020 Time: 00:22 Bed 19 Private MD: ED Physician Giovanna Stevenson HPI: 08/07 00:41 This 85 yrs old Female presents to ER via EMS with complaints of jaw pain. ma2 00:41 The patient or guardian reports chest pain that is located primarily in the. Onset: ma2 gradually, 2 hour(s) ago. Associated signs and symptoms: Pertinent negatives: cough, headache, lightheadedness, near syncope. Severity of pain: At its worst the pain was moderate in the emergency department the pain is unchanged. The patient has experienced similar episodes in the past. Historical: - Allergies: 01:06 Keflex; sf 01:06 Codeine; itch; sf - Home Meds: 01:06 alprazolam 0.5 mg oral tab HS [Active]; amitriptyline 50 mg Oral tab nightly [Active]; sf Fortea shots daily [Active]; Metoprolol Tartrate Oral [Active]; Eliquis 2.5 mg oral tab 1 tab 2 times per day [Active]; - PMHx: 01:06 Atrial Fib; Hypertension; Arthritis; TIA; Myocardial infarction; sf - PSHx: 01:06 Heart stents; sf - Immunization history:: Last tetanus immunization: > 10 years ago Pneumococcal vaccine is up to date, Flu vaccine is up to date. - Social history:: Patient/guardian denies using alcohol, street drugs, The patient lives with family, Smoking status: Patient reports the use of cigarette tobacco products, smokes one-half pack cigarettes per day, Patient uses alcohol, occasionally. caffeine, Patient/guardian denies using street drugs, IV drugs. - Family history:: not pertinent. ROS: 00:41 Constitutional: Negative for fever, chills, and weight loss. ma2 00:41 All other systems are negative. Exam: 00:41 Constitutional: This is a well developed, well nourished patient who is awake, alert, ma2 and in no acute distress. ENT: Nares patent. No nasal discharge, no septal abnormalities noted. Tympanic membranes are normal and external auditory canals are clear. Oropharynx with no redness, swelling, or masses, exudates, or evidence of obstruction, uvula midline. Mucous membranes moist. Neck: Trachea midline, no thyromegaly or masses palpated, and no cervical lymphadenopathy. Supple, full range of motion without nuchal rigidity, or vertebral point tenderness. No Meningismus. Chest/axilla: Normal chest wall appearance and motion. Nontender with no deformity. No lesions are appreciated. Cardiovascular: Regular rate and rhythm with a normal S1 and S2. No gallops, murmurs, or rubs. Normal PMI, no JVD. No pulse deficits. Respiratory: Lungs have equal breath sounds bilaterally, clear to auscultation and percussion. No rales, rhonchi or wheezes noted. No increased work of breathing, no retractions or nasal flaring. Abdomen/GI: Soft, non-tender, with normal bowel sounds. No distension or tympany. No guarding or rebound. No evidence of tenderness throughout. MS/ Extremity: Pulses equal, no cyanosis. Neurovascular intact. Full, normal range of motion. Neuro: Awake and alert, GCS 15, oriented to person, place, time, and situation. Cranial nerves II-XII grossly intact. Motor strength 5/5 in all extremities. Sensory grossly intact. Cerebellar exam normal. Normal gait. Vital Signs: 00:24 BP 149 / 76 (auto/); Pulse 66 MON; Resp 16 S; Temp 97.6(TE); Pulse Ox 98% on R/A; sf Weight 56.25 kg (R); Height 4 ft. 11 in. (149.86 cm) (R); Pain 3/10; 01:00 BP 130 / 73; Pulse 64; Resp 16; Pulse Ox 97% ; sf 01:30 BP 132 / 68; Pulse 61; Resp 16; Pulse Ox 96% ; sf 02:00 BP 123 / 64; Pulse 59; Resp 16; Pulse Ox 97% ; sf 00:24 Body Mass Index 25.05 (56.25 kg, 149.86 cm) sf MDM: 00:29 Patient medically screened. ma2 00:41 Differential diagnosis: abnormal EKG, esophagitis, gastroesophageal reflux disease ma2 (GERD), stable angina. HEART Score: History: Moderately Suspicious (1), ECG: Non specific repolarization disturbance / LBTB / PM (1), Age: > or = 65 years (2), Risk Factors: > or = 3 Risk factors for atherosclerotic disease (2), Troponin: < or = 1 x Normal Limit (0), Total Score = 3. The patient was given aspirin in the Emergency Department. 02:16 Data reviewed: vital signs, nurses notes. Counseling: I had a detailed discussion with [facility] the patient and/or guardian regarding: the historical points, exam findings, and any diagnostic results supporting the discharge/admit diagnosis, the presence of at least one elevated blood pressure reading (>120/80) during this emergency department visit, the need for further work-up and treatment in the hospital. 06:15 ED course: dr. chatman advised to admit to hospitalist. discussed with dr. foss.. [facility] 08/07 00:30 Order name: Basic Metabolic Panel; Complete Time: 01:58 [facility] 08/07 00:30 Order name: CBC with Diff; Complete Time: :58 [facility] 08/07 00:30 Order name: LFT's; Complete Time: :58 [facility] 08/07 00:30 Order name: Magnesium; Complete Time: :58 [facility] 08/07 00:30 Order name: NT PRO-BNP; Complete Time: :58 [facility] 08/07 00:30 Order name: PT-INR; Complete Time: :58 [facility] 08/07 00:30 Order name: Troponin (emerg Dept Use Only); Complete Time: 01:58 [facility] 08/07 02:19 Order name: COVID-19 : Document "Date of Symptom Onset" if Symptomatic. em 08/07 02:25 Order name: Basic Metabolic Panel [facility] 08/07 02:25 Order name: Basic Metabolic Panel [facility] 08/07 02:25 Order name: CBC with Automated Diff [facility] 08/07 02:25 Order name: Troponin I [facility] 08/07 02:25 Order name: Troponin I [facility] 08/07 02:25 Order name: Troponin I [facility] 08/07 00:30 Order name: XRAY Chest (1 view) [facility] 08/07 00:30 Order name: EKG; Complete Time: 00:30 [facility] 08/07 00:30 Order name: Cardiac monitoring; Complete Time: 00:35 [facility] 08/07 00:30 Order name: EKG - Nurse/Tech; Complete Time: 00:36 [facility] 08/07 00:30 Order name: IV Saline Lock; Complete Time: 00:49 [facility] 08/07 00:30 Order name: Labs collected and sent; Complete Time: 00:49 [facility] 08/07 00:30 Order name: O2 Per Protocol; Complete Time: 00:36 [facility] 08/07 00:30 Order name: O2 Sat Monitoring; Complete Time: 00:36 [facility] 08/07 02:25 Order name: Consistent Carb (ADA) [address] EDMS 08/07 02:25 Order name: EKG Electrocardiogram EDMS 08/07 02:25 Order name: EKG Electrocardiogram EDMS 08/07 02:25 Order name: EKG Electrocardiogram EDMS 08/07 02:25 Order name: EKG Electrocardiogram EDMS 08/07 02:25 Order name: CBC with Automated Diff EDMS 08/07 04:31 Order name: SARS-COV-2 RT PCR; Complete Time: 06:09 EDMS Administered Medications: 00:55 Drug: Aspirin Chewable Tablet 324 mg Route: PO; sf 02:10 Follow up: Response: No adverse reaction sf Disposition: 08/07/20 02:17 Hospitalization ordered by Giovanna Foss for Observation. Preliminary diagnosis is Other chest pain. - Bed requested for Telemetry/MedSurg (observation). - Status is Observation. jd3 - Condition is Stable. - Problem is new. - Symptoms are unchanged. Signatures: Dispatcher [employer] EDMS Lit Powell em1 Monica Allison RN RN tl1 Cain Jamison RN RN jd3 Giovanna Stevenson MD MD ma2 Jimenez Nolasco RN RN sf Corrections: (The following items were deleted from the chart) 04:26 02:17 Hospitalization Ordered by Chadd Owen MD for Observation. Preliminary diagnosis tl1 is Other chest pain. Bed requested for Telemetry/MedSurg (observation). Status is Observation. Condition is Stable. Problem is new. Symptoms are unchanged. ma2 06:16 04:26 08/07/2020 02:17 Hospitalization Ordered by Chadd Owen MD for Observation. ma2 Preliminary diagnosis is Other chest pain. Bed requested for [facility] ER HOLD. Status is Observation. Condition is Stable. Problem is new. Symptoms are unchanged. tl1 09:44 06:16 08/07/2020 02:17 Hospitalization Ordered by Giovanna Foss MD for Observation. em1 Preliminary diagnosis is Other chest pain. Bed requested for [facility] ER HOLD. Status is Observation. Condition is Stable. Problem is new. Symptoms are unchanged. ma2 11:08 09:44 08/07/2020 02:17 Hospitalization Ordered by Giovanna Foss MD for Observation. jd3 Preliminary diagnosis is Other chest pain. Bed requested for Telemetry/MedSurg (observation). Status is Observation. Condition is Stable. Problem is new. Symptoms are unchanged. em1
--- NOTE | 2020-08-07 02:18 | ER ---
Nurse's Notes [facility] Joi Name: Dinh Love Age: 85 yrs Sex: Female : 1935 Arrival Date: 08/07/2020 Time: 00:22 Bed 19 Private MD: Diagnosis: Other chest pain Presentation: 08/07 00:24 Chief complaint: EMS states: Complains of right jaw pain starting about 2245 this sf evening, similar pain in December. Dx NSTEMI with stent placement at that time. Coronavirus screen: Client denies travel out of the [place] in the last 14 days. At this time, the client does not indicate any symptoms associated with coronavirus-19. Ebola Screen: Patient negative for fever greater than or equal to 101.5 degrees Fahrenheit, and additional compatible Ebola Virus Disease symptoms Patient denies exposure to infectious person. Patient denies travel to an Ebola-affected area in the 21 days before illness onset. No symptoms or risks identified at this time. Initial Sepsis Screen: Does the patient meet any 2 criteria? No. Patient's initial sepsis screen is negative. Does the patient have a suspected source of infection? No. Patient's initial sepsis screen is negative. Risk Assessment: Do you want to hurt yourself or someone else? Patient reports no desire to harm self or others. Onset of symptoms was August 06, 2020 at 22:45. 00:24 Method Of Arrival: EMS: [facility] 00:24 Acuity: [place] 3 sf Historical: - Allergies: 01:06 Keflex; sf 01:06 Codeine; itch; sf - Home Meds: 01:06 alprazolam 0.5 mg oral tab HS [Active]; amitriptyline 50 mg Oral tab nightly [Active]; sf Fortea shots daily [Active]; Metoprolol Tartrate Oral [Active]; Eliquis 2.5 mg oral tab 1 tab 2 times per day [Active]; - PMHx: 01:06 Atrial Fib; Hypertension; Arthritis; TIA; Myocardial infarction; sf - PSHx: 01:06 Heart stents; sf - Immunization history:: Last tetanus immunization: > 10 years ago Pneumococcal vaccine is up to date, Flu vaccine is up to date. - Social history:: Patient/guardian denies using alcohol, street drugs, The patient lives with family, Smoking status: Patient reports the use of cigarette tobacco products, smokes one-half pack cigarettes per day, Patient uses alcohol, occasionally. caffeine, Patient/guardian denies using street drugs, IV drugs. - Family history:: not pertinent. Screenin:25 Abuse screen: Denies threats or abuse. Denies injuries from another. Nutritional sf screening: No deficits noted. Tuberculosis screening: No symptoms or risk factors identified. Never had TB. Possible symptoms: None Risk factors: None. Fall Risk None identified. No fall in past 12 months (0 pts). No secondary diagnosis (0 pts). IV access (20 points). Ambulatory Aid- None/Bed Rest/Nurse Assist (0 pts). Gait- Normal/Bed Rest/Wheelchair (0 pts) Mental Status- Oriented to own ability (0 pts). Total Rivas Fall Scale indicates No Risk (0-24 pts). Assessment: 00:25 General: Appears in no apparent distress. comfortable, Behavior is calm, cooperative, sf appropriate for age, Denies feeling ill. Pain: Complains of pain in right jaw Pain currently is 3 out of 10 on a pain scale. Neuro: No deficits noted. Level of Consciousness is awake, alert, obeys commands, Oriented to person, place, time, situation, Appropriate for age. Cardiovascular: No deficits noted. Denies chest pain, palpitations, Patient's skin is warm and dry. Rhythm is sinus rhythm. Respiratory: No deficits noted. Airway is patent Respiratory effort is even, unlabored, Respiratory pattern is regular, symmetrical. 02:10 Reassessment: Patient appears in no apparent distress at this time. No changes from sf previously documented assessment. Patient and/or family updated on plan of care and expected duration. Pain level reassessed. Patient is alert, oriented x 3, equal unlabored respirations, skin warm/dry/pink. Vital Signs: 00:24 BP 149 / 76 (auto/); Pulse 66 MON; Resp 16 S; Temp 97.6(TE); Pulse Ox 98% on R/A; sf Weight 56.25 kg (R); Height 4 ft. 11 in. (149.86 cm) (R); Pain 3/10; 01:00 BP 130 / 73; Pulse 64; Resp 16; Pulse Ox 97% ; sf 01:30 BP 132 / 68; Pulse 61; Resp 16; Pulse Ox 96% ; sf 02:00 BP 123 / 64; Pulse 59; Resp 16; Pulse Ox 97% ; sf 00:24 Body Mass Index 25.05 (56.25 kg, 149.86 cm) sf Vitals: 02:00 Cardiac Rhythm Assessment Sinus ana m. sf ED Course: 00:16 EKG done, by ED staff, reviewed by Jimenez Nolasco RN. em 00:22 Patient arrived in ED. em 00:24 Jimenez Nolasco, RN is Primary Nurse. sf 00:24 Arm band placed on. sf 00:25 environmental monitoring technician on. Pulse ox on. NIBP on. sf 00:27 Triage completed. sf 00:29 Giovanna Stevenson MD is Attending Physician. ma2 00:40 Initial lab(s) drawn, by ct, sent to lab. Inserted saline lock: 20 gauge in right sf forearm, using aseptic technique. Blood collected. 00:50 Patient has correct armband on for positive identification. Placed in gown. Bed in low sf position. Call light in reach. Side rails up X2. Door closed. Noise minimized. Warm blanket given. Verbal reassurance given. 00:59 X-ray(s) taken. sf 01:11 XRAY Chest (1 view) In Process Unspecified. EDWA 02:17 Chadd Owen MD is Hospitalizing Provider. ma2 03:00 No provider procedures requiring assistance completed. sf 03:00 Patient admitted, IV remains in place. sf 03:00 Report given to Paola Huang RN. sf 06:16 Hospitalizing Provider role handed off by Chadd Owen MD ma2 06:16 Giovanna Li MD is Hospitalizing Provider. ma2 Administered Medications: 00:55 Drug: Aspirin Chewable Tablet 324 mg Route: PO; sf 02:10 Follow up: Response: No adverse reaction sf Outcome: 02:17 Decision to Hospitalize by Provider. ma2 03:00 Admitted to ER Hold. Please see [facility] for further documentation. sf 03:00 Condition: stable 11:08 Patient left the ED. jd3 Signatures: Dispatcher [employer] Rory Valencia RN RN em Davies, Jonathon, RN RN jd3 Giovanna Stevenson MD MD ma2 Jimenez Nolasco, RN RN sf Corrections: (The following items were deleted from the chart) 00:28 00:24 BP 149 / 76 Auto; Pulse 66bpm; MonitorResp 16bpm; Spontaneous; Pulse Ox 98% RA; sf 56.25 kg Reported; Height 4 ft. 11 in. Reported; BMI: 25.0; Pain 3/10; sf
[2020-08-07 03:17] VITALS: BMI 25.0
--- NOTE | 2020-08-07 08:15 | P.HP ---
Certification for Inpatient Patient admitted to: Observation With expected LOS: <2 Midnights Patient will require the following post-hospital care: None Practitioner: I am a practitioner with admitting privileges, knowledge of patient current condition, hospital course, and medical plan of care. Services: Services provided to patient in accordance with Admission requirements found in Title 42 Section 412.3 of the Code of Federal Regulations Patient History Date of Service: 08/07/20 Reason for admission: Chest pain rule out Acute coronary syndrome History of Present Illness: Patient is a 85-year-old female came to the hospital with chest discomfort. Pain was mainly is sternal region. She has history of Coronary artery disease and recently had heart catheterization a couple of years ago. Findings revealed 40% and 50% lesions in the circumflex and obtuse marginal branch. The right coronary artery had a very irregular 70% to 80% stenosis in the mid section and this was stented with a residual 20% lesion. Her left ventricular ejection fraction is normal. At this time patient be admitted to the hospital for cardiac evaluation. Will get an echocardiogram and a stress test. Allergies cephalexin monohydrate [From Keflex] Allergy (Severe, Verified 02/21/19 22:22) CAUSES VERY HIGH TEMP codeine [Codeine] Allergy (Severe, Verified 02/21/19 22:22) PARALYSIS Home Medications: ALPRAZolam [Alprazolam] 0.5 mg PO BEDTIME 11/12/18 Amitriptyline HCl 50 mg PO BEDTIME 11/12/18 Forteo 20 mcg SQ DAILY 11/14/18 Metoprolol Tartrate [Lopressor*] 50 mg PO BID #60 tab 11/14/18 Apixaban [Eliquis] 2.5 mg PO BID 08/07/20 Levothyroxine Sodium [Levothyroxine] 25 mcg PO DAILY 08/07/20 Nitroglycerin 0.4 mg SL PRN PRN 08/07/20 Omeprazole [Prilosec] 40 mg PO DAILY 08/07/20 - Past Medical/Surgical History Has patient received pneumonia vaccine in the past: Yes Diabetic: No -: Transient ischemic attack -: Hiatal hernia -: OA OF SPINE -: MIGRAINES -: SHAKING SYNDROME -: MIGRAINES -: hypothyroid -: Zay fundiplication -: Choleycystectomy -: Hysterectomy -: growth on facial nerv rmovd -: bilateral cataract -: heart stents - Family History Father Medical History: Heart disease Notes: Heart attack Brother Notes: Brain cancer, Liver Cirrhosis Mother Medical History: Heart disease, Hypertension - Social History Smoking Status: Current every day smoker Alcohol use: Yes CD- Drugs: No Caffeine use: Yes Place of Residence: Home Review of Systems 10-point ROS is otherwise unremarkable Physical Examination - Vital Signs Temperature: 99 F Blood Pressure: 101/43 Pulse: 60 Respirations: 18 Pulse Ox (%): 96 - Physical Exam General: Alert, In no apparent distress, Oriented x3 HEENT: Atraumatic, PERRLA, Mucous membr. moist/pink, EOMI, Sclerae nonicteric Neck: Supple, 2+ carotid pulse no bruit, No LAD, Without JVD or thyroid abnormality Respiratory: Clear to auscultation bilaterally, Normal air movement Cardiovascular: Regular rate/rhythm, Normal S1 S2 Gastrointestinal: Normal bowel sounds, No tenderness Musculoskeletal: No tenderness Integumentary: No rashes Neurological: Normal gait, Normal speech, Normal strength at 5/5 x4 extr, Normal tone, Normal affect Lymphatics: No axilla or inguinal lymphadenopathy - Studies Laboratory Data (last 24 hrs) 08/07/20 00:40: PT 12.1, INR 1.05 08/07/20 00:40: WBC 6.70, Hgb 11.9 L, Hct 35.5 L, Plt Count 260 08/07/20 00:40: Sodium 139, Potassium 4.2, BUN 14, Creatinine 1.01, Glucose 91, Magnesium 1.8, Total Bilirubin 0.4, AST 12 L, ALT 15, Alkaline Phosphatase 64 Assessment & Plan - Problems (Diagnosis) (1) Chest pain, rule out acute myocardial infarction Status: Acute (2) History of coronary artery stent placement Status: Acute (3) History of coronary artery disease Status: Acute - Plan 1. Serial troponins and EKG 2. Cardiology consultation 3. Echocardiogram and stress test as patient is high risk 4. Anti-platelet therapy, anti coagulation, beta-jalil, statin, and O2 as needed 5. IV morphine for pain 6. Nitro p.r.n. Discharge Plan: Home Plan to discharge in: 24 Hours - Advance Directives Does patient have a Living Will: No Does patient have a Durable POA for Healthcare: Yes - Code Status/Comfort Care Code Status Assessed: Yes Code Status: Full Code Critical Care: No Time Spent Managing PTS Care (In Minutes): 45 Home Medications: ALPRAZolam [Alprazolam] 0.5 mg PO BEDTIME 11/12/18 Amitriptyline HCl 50 mg PO BEDTIME 11/12/18 Forteo 20 mcg SQ DAILY 11/14/18 Metoprolol Tartrate [Lopressor*] 50 mg PO BID #60 tab 11/14/18 Apixaban [Eliquis] 2.5 mg PO BID 08/07/20 Levothyroxine Sodium [Levothyroxine] 25 mcg PO DAILY 08/07/20 Nitroglycerin 0.4 mg SL PRN PRN 08/07/20 Omeprazole [Prilosec] 40 mg PO DAILY 08/07/20 Diet: AHA Activity: Fall precautions Time spent managing pt's care (in minutes): 35
[2020-08-07] MEDS ORDERED: ASPIRIN EC 81 MG TAB PO SCH (09:00)
--- NOTE | 2020-08-07 09:02 | RAD REPORT ---
EXAM DESCRIPTION: RAD - Chest Single View - 08/07/2020 1:11 am CLINICAL HISTORY: CHEST PAIN Chest pain. COMPARISON: Chest Single View dated 01/28/2020; Chest Single View dated 02/21/2019; Chest Single View d ated 11/11/2018; Chest Single View dated 04/05/2018 FINDINGS: Portable technique limits examination quality. The lungs are grossly clear. The heart is normal in size. No displaced fractures. IMPRESSION: No acute intrathoracic process suspected.
[2020-08-07] MEDS ORDERED: ASPIRIN EC 81 MG TAB PO ONE (09:26)
[2020-08-07 09:43] VITALS: O2SAT 99
[2020-08-07] MEDS ORDERED: REGADENOSON 0.4 MG/5 ML SYR IV ONE (10:58)
--- NOTE | 2020-08-07 12:35 | RAD REPORT ---
EXAM DESCRIPTION: NM - Rest Stress Cardiac Imaging - 08/07/2020 12:29 pm CLINICAL HISTORY: Chest pain COMPARISON: Cardiac study August 2012 TECHNIQUE: The patient was administered 10.9 mCi of Tc 99m Sestamibi prior to resting SPECT imaging of the heart. The patient was then administered 30.2 mCi of Tc 99m Sestamibi following exercise or ph armacologic stress. Multiplanar SPECT images were reviewed. FINDINGS: The end diastolic volume is 39 ml, the end systolic volume is 9 ml, and the ejection fract ion is 76 %. Ventricular volumes and ejection fraction match the 2013 study. Physiologic distribution of the radiopharmaceutical through the myocardium is noted. No stress induce d ischemic defect is seen to suggest stress induced ischemia. No fixed defect is seen to suggest hibe rnating myocardium or scarred myocardium. IMPRESSION: No stress induced ischemia or other suspicious findings. Ventricular volumes and ejection fraction are normal range and match the 2013 study.
--- NOTE | 2020-08-07 18:46 | CON ---
Date of Consultation: 08/07/2020 Reason For Consultation: Chest pain. History Of Present Illness: An 85-year-old female with history of coronary artery disease, status po st cardiac stent done by Dr. Morales. At that time, her presentation was jaw pain and this time same thing. She is having jaw pain on and off that comes and goes. She had already a stress test done to day and she denies any further jaw pain. Denies having chest pain. No shortness of breath. Past Medical History: Coronary artery disease, TIA. Medications: Refer to reconciliation sheet for detailed list. Allergies: CEPHALEXIN AND CODEINE. Family History: No premature coronary artery disease or cancer. Social History: Does not smoke or drink. Does not use any drugs. Review of Systems: All systems reviewed and they were negative except for what mentioned in the HPI. Physical Examination: Vital Signs: Temperature is 99.0, pulse 60, breathing at 18, blood pressure 127/56, saturating 96%. General: Pleasant elderly female, in no apparent distress. Head and Neck: Pupils are equal, reactive to light. Intact eye movements. No JVD. No cervical wit hin. Neck: Supple. Thyroid is not enlarged. Heart: Regular rate and rhythm. No extra sounds. Abdomen: Soft, nontender. Bowel sounds positive. No organomegaly. No masses or hernia. No rigidi ty or rebound. Lungs: Clear to auscultation bilaterally. Skin: No rash. Neurologic: Alert, awake, oriented x3. No acute focal deficits appreciated. Lymph Nodes: No cervical adenopathy. Investigations: Creatinine is 1.0. Troponin less than 0.02 x3. Hemoglobin 11.9, platelet count is 260. Assessment/plan: Chest pain. Possible unstable angina. Await on stress test results. If this is n egative, patient can be released. Followup as an outpatient. Echo was obtained and ejection fractio n was normal and I reviewed the images myself. There are no wall motion abnormalities. This is like ly noncardiac in origin. However, await on stress test to further determine the need for further wor kup. If stress test is positive, then coronary angiogram is to be performed. If stress test is nega tive, patient can be released home today. I appreciate the courtesy of this consult. /RIO Voice ID: [id number] Report ID: [id number]
--- NOTE | 2020-08-08 08:50 | ECHO ---
HEIGHT: 4 ft 11 in WEIGHT: 124 lb 0 oz DATE OF STUDY: 08/07/[address]: Giovanna Li MD 2-DIMENSIONAL: YES M.MODE: YES DOPPLER: YES COLOR FLOW: YES TDS: PORTABLE: DEFINITY: BUBBLE STUDY: DIAGNOSIS: CHEST PAIN CARDIAC HISTORY: CATHERIZATION: SURGERY: PROSTHETIC VALVE: PACEMAKER: MEASUREMENTS (cm) DIASTOLIC (NORMALS) SYSTOLIC (NORMALS) IVSd 0.8 (0.6-1.2) LA Diam 3.1 (1.9-4.0) LVEF 55% LVIDd 3.8 (3.5-5.7) LVIDs 2.7 (2.0-3.5) %FS 28% LVPWd 1.0 (0.6-1.2) Ao Diam 2.8 (2.0-3.7) 2 DIMENSIONAL ASSESSMENT: RIGHT ATRIUM: NORMAL LEFT ATRIUM: NORMAL RIGHT VENTRICLE: NORMAL LEFT VENTRICLE: NORMAL TRICUSPID VALVE: NORMAL MITRAL VALVE: NORMAL PULMONIC VALVE: NORMAL AORTIC VALVE: MILD CALCIFICATION PERICARDIAL EFFUSION: NONE AORTIC ROOT: NORMAL LEFT VENTRICULAR WALL MOTION: NORMAL DOPPLER/COLOR FLOW: NORMAL COMMENTS: NORMAL LEFT VENTRICULAR EJECTION FRACTION 55-60%. NORMAL WALL MOTION. MILD AORTIC VALUE CALCIFICATION, NO AORTIC STENOSIS. TECHNOLOGIST: COILN PORTILLO
--- NOTE | 2020-08-08 08:59 | TREADPHA ---
DX: CHEST PAIN Date of Study: 08/07/2020 Ht: 4' 11 " Wt: 124 lb 0 oz Consulting Physician: KYLAH MEDICATIONS: ASPIRIN, PRILOSEC, LEVOTHYROXINE, ELIQUIS, NITROGLYCERIN-PRN, LOPRESSOR HISTORY: HYPERTENSION, MYOCARDIAL INFARCTION, STENT, ATRIAL FIBRILLATION PHYSICIAL EXAMINATION: RESTING B.P.: 132/72 RESTING H.R.: 61 RESTING EKG: NORMAL PROTOCOL: PHARMACOLOGIC EXERCISE TIME: 3:30 B.P. AT PEAK STRESS: 124/66 IMPRESSION: LEXISCAN STRESS TEST PERFORMED, CARDIOLITE INJECTED PER PROTOCOL. SEE NUCLEAR MEDICINE REPORT. NO SUPRAVENTRICULAR TACHYCARDIA. NO VENTRICULAR TACHYCARDIA. NO ARRHYTHMIAS NOTED. RESPIRATORY EVEN NONLABORED. PATIENT TOLERATED WELL. NO ELECTROCARDIOGRAM CHANGES OF ISCHEMIA WITH LEXISCAN.
[2020-08-25 05:32] VITALS: BP 101/43; TEMP 99
== END 2020-08-07 18:36 | disposition home or self-care (01) ==
LOC: ER 00:16 → ERHOLD 01:22 → 2ND 11:07
PROVIDERS: ADMIT Hospitalist; ATTEND Hospitalist
DX: R07.89 Other chest pain (principal); I25.10 Atherosclerotic heart disease of native coronary artery without angina pectoris; Z95.5 Presence of coronary angioplasty implant and graft; I10 Essential (primary) hypertension; I48.91 Unspecified atrial fibrillation; I25.2 Old myocardial infarction; E03.9 Hypothyroidism, unspecified; G43.909 Migraine, unspecified, not intractable, without status migrainosus; M47.9 Spondylosis, unspecified; F17.210 Nicotine dependence, cigarettes, uncomplicated; Z20.822 Contact with and (suspected) exposure to COVID-19; Z86.73 Personal history of transient ischemic attack (TIA), and cerebral infarction without residual deficits; Z88.1 Allergy status to other antibiotic agents; Z88.6 Allergy status to analgesic agent; Z90.49 Acquired absence of other specified parts of digestive tract; Z90.710 Acquired absence of both cervix and uterus; Z82.49 Family history of ischemic heart disease and other diseases of the circulatory system; Z80.8 Family history of malignant neoplasm of other organs or systems
CPT/HCPCS: 93005; 93017; 93306; 85025; 80048; 36415; 83735; 85610; 80076; 84484 ×3; 83880; 71045; 78452; 99285; U0003; J2785; A9500; G0378 ×2

== ENCOUNTER 2021-06-08 22:46 | Observation (INO) | payer OTHER, MEDICARE ==
--- OUTSIDE RECORDS SUMMARY | 2021-06-08 22:51 | XMS REPORT | Continuity of Care Document ---
:1935 Author Organization [facility] t Address [address] [place] [address] Care Team Providers Name Role Phone EVELIN CARLTON Attending Clinician Unavail able EVELIN CARLTON Admitting Clinician Unavail able Problems This patient has no known problems. Allergies, Adverse Reactions, Alerts This patient has no known allergies or adverse reactions. Medications This patient has no known medications. Procedures This patient has no known procedures. Results Test Description Test Time Test Comments Results Result Comments Source B-TYPE NATRIURETIC FACTOR (BNP) 2018-04-08 14:09:00 Test Item Value Reference Range Interpretation Comme nts B-TYPE NATRIURETIC PEPTIDE (BEAKER) (test code = 700) 109 pg/mL 0-100 H [id number] 07:11:00 Test Item Value Reference Range Interpretation Comments MAGNESIUM (BEAKER) (test code = 2.0 mg/dL 1.6-2.6 627) BASIC METABOLIC [id number] 07:11:00 Test Item Value Reference Range Interpretation [...] PATIEN TS. CBC W/PLT COUNT & AUTO [id number] 06:38:00 Test Item Value Reference Range Interpretation [...] (BEAKER) (test code = 2801) BASIC METABOLIC [id number] 06:18:00 Test Item Value Reference Range Interpretation [...] 697) EGFR (BEAKER) (test 77 mL/min/1.73 ESTIMA BALBNIA GFR IS code = 1092) sq m NOT ACCURATE CREATININE CLEARANCE IN PREDICTING GLOMERULAR FILTRATION RATE . ESTIMATED GFR I S NOT APPLICABLE FOR DIALYSIS PATIEN TS. [id number] 03:50:00 Test Item Value Reference Range Interpretation Comments RPR SCREEN (BEAKER) (test code = Nonreactive Nonreactive 420) BASIC METABOLIC [id number] 06:30:00 Test Item Value Reference Range Interpretation [...] S NOT APPLICABLE FOR DIALYSIS PATIEN TS. [id number] 06:24:00 Test Item Value Reference Range Interpretation Comments MAGNESIUM (BEAKER) (test code = 2.4 mg/dL 1.6-2.6 627) CBC W/PLT COUNT & AUTO [id number] 06:06:00 Test Item Value Reference Range Interpretation [...] (test code = 2801) MR, BRAIN, WITHOUT [id number] 04:23:00FINAL REPORT MRI Brain without contrast, MRA head and neck without contrast. C linical History: Stroke Technique: MRI of the brain utilizing axial T2, FLAIR, GRE, DWI; sagittal and coronal T1-weighted images.MRA of the head utilizing 3-D jejl-jr-vnwqht technique, with 3-D reconstructions. MRA of the neck utilizing 2- D and 3-D rpxp-kc-eowbni technique, with 3-D reconstructions. Comparisons: None Findings:MRI [...] evaluated. Otherwise no evidence for a major [place] proximal branch vessel occlusion. MRA neck: No evidence of hemodynamically significant stenosis in the cervical carotid or vertebral arteries by NASCET criteria. Signed: Nallely Torres MDReport Verified Date/Time: 04/07/2018 04:23:47 Reading Location: [address] Reading Room MR, MRA, BRAIN, WITHOUT [id number] 04:23:00Reason for exam:->stroke s/p tpaFINAL REPORT MRI Brain without contrast, MRA head and neck without contrast. Clinical History: Stroke Technique: MRI of the brain utilizing axial T2, FLAIR, GRE, DWI; sagittal and coronal T1-weighted images.MRA of the head utilizing 3-D ylje-dc-sapjuj technique, with 3-D reconstructions. MRA of the neck utilizing 2-D and 3-D jdlp-ef-cmwlre technique, with 3-D reconstructions. Comparisons: None Findings:MRI [...] evaluated. Otherwise no evidence for a major [place] proximal branch vessel occlusion. MRA neck: No evidence of hemodynamically significant stenosis in the cervical carotid or vertebral arteries by NASCET criteria. Signed: Nallely Torres MDReport Verified Date/Time: 04/07/2018 04:23:47 Reading Location: [address] Reading Room MR, MRA, NECK, WITHOUT IV [id number] 04:23:00Reason for exam:->stroke s/p tpaFINAL REPORT MRI Brain without contrast, MRA head and neck without contrast. Clinical History: Stroke Technique: MRI of the brain utilizing axial T2, FLAIR, GRE, DWI; sagittal and coronal T1-weighted images.MRA of the head utilizing 3-D khpj-uy-xcsuxi technique, with 3-D reconstructions. MRA of the neck utilizing 2-D and 3-D kvrj-zx-xkhfpy technique, with 3-D reconstructions. Comparisons: None Findings:MRI [...] evaluated. Otherwise no evidence for a major [place] proximal branch vessel occlusion. MRA neck: No evidence of hemodynamically significant stenosis in the cervical carotid or vertebral arteries by NASCET criteria. Signed: Nallely Torres Verified Date/Time: 04/07/2018 04:23:47 Reading Location: [address] Reading Room TROPONIKhadijah [id number] 19:07:00 Test Item Value Reference Range Interpretation [...] 395) CK-MB Reference Range:<6.7 Normal6.7-10.0 Borderline>10.0 AbnormalTROPONIN [id number] 13:23:00 Test Item Value Reference Range Interpretation [...] intravenous potassium replacement.CREATINE KINASE (CK), TOTAL AND [id number] 13:17:00 Test Item Value Reference Range Interpretation [...] or 30 min aft er intravenous potassium replacement.[id number] 13:08:00 Test Item Value Reference Range Interpretation Comments POTASSIUM (BEAKER) (test code = 4.0 meq/L 3.5-5.1 379) Check Serum Potassium level 2 hours after oral potassium replacement completed or 30 min after intravenous potassium replacement.[id number] 13:08:00 Test Item Value Reference Range Interpretation Comments MAGNESIUM (BEAKER) (test code = 2.6 mg/dL 1.6-2.6 627) Check Serum Potassium level 2 hours after oral potassium replacement completed or 30 min after intravenous potassium replacement.HEMOGLOBIN [id number] 09:52:00 Test Item Value Reference Range Interpretation Comments HEMOGLOBIN A1C (BEAKER) (test code = 5.1 % 4.3-6.1 368) TROPONIN [id number] 06:59:00 Test Item Value Reference Range Interpretation [...] Reference Range:<6.7 Normal6.7-10.0 Borderline>10.0 AbnormalTSH/FREE T4 IF [id number] 03:54:00 Test Item Value Reference Range Interpretation Comments THYROID STIMULATING HORMONE 2.21 uIU/mL 0.35-4.94 (BEAKER) (test code = 772) VITAMIN B12 AND [id number] 03:54:00 Test Item Value Reference Range Interpretation Comments VITAMIN B12 (BEAKER) (test code = 802 pg/mL 213-816 774) FOLATE (BEAKER) (test code = 362) 36.5 ng/mL >=7.0 RAD, CHEST, 1 VIEW, NON [id number] 03:38:00Reason for exam:->basline hospitalized for strokeShould this [...] No focal pulmonary consolidation. Signed: [facility] Armendariz [facility] Verified Date/Time: 04/06/2018 03:38:00 Reading Location: [facility] B1 C013Y CT Body Reading Room C-REACTIVE [id number] 02:20:00 Test Item Value Reference Range Interpretation Comments C-REACTIVE PROTEIN (BEAKER) (test 0.05 mg/dL 0.00-0.50 code = 676) TROPONIN [id number] 02:07:00 Test Item Value Reference Range Interpretation [...] acidosis, acute neurological disease, and persistent tachyarrhythmia.FastingPROTHROMBIN TIME/[id number] 02:06:00 Test Item Value Reference Range Interpretation Comments PROTIME (BEAKER) (test code = 13.6 seconds 11.7-14.7 759) INR (BEAKER) (test code = 370) 1.0 <=5.9 RECOMMENDED COUMADIN/WARFARIN INR THERAPY RANGESSTANDARD DOSE: 2.0 - 3.0 Includes: PROPHYLAXIS forvenous thrombosis, systemic embolization; TREATMENT for venous thrombosis and/or pulmonary embolus.HIGH RISK: Target INR is 2.5-3.5 for patients with mechanical heart valves.[id number] 02:06:00 Test Item Value Reference Range Interpretation Comments PARTIAL THROMBOPLASTIN TIME 26.6 seconds 22.5-36.0 (BEAKER) (test code = 760) [id number] 01:57:00 Test Item Value Reference Range Interpretation Comments MAGNESIUM (BEAKER) (test code = 1.9 mg/dL 1.6-2.6 627) FastingBASIC METABOLIC [id number] 01:57:00 Test Item Value Reference Range Interpretation [...] NOT APPLICABLE FOR DIALYSIS PATIEN TS. FastingLIPID [id number] 01:57:00 Test Item Value Reference Range Interpretation [...] High >=190 FastingCBC W/PLT COUNT & AUTO [id number] 01:37:00 Test Item Value Reference Range Interpretation [...] % 0-1 PERCENT (BEAKER) (test code = 6361)
[2021-06-08] MEDS ORDERED: NA CHLORIDE 0.9% 1,000 ML ONE (23:24)
[2021-06-08] MEDS ORDERED: FOLIC ACID 5 MG/ML VIAL ONE (23:25)
[2021-06-08] MEDS ORDERED: NA CHLORIDE 0.9% 50 ML ONE (23:25)
[2021-06-08 23:41] LABS: Urine Blood Trace-intact (Negative); Urine Glucose Negative (Negative); Urine Protein Negative (Negative); Urine Specific Gravity 1.015 (1.005-1.030)
[2021-06-08 23:58] LABS: Absolute Lymphocytes (CBC) 3.1 K/uL (0.7-4.9); Basophils % 0.7 % (0-1.3); Hematocrit 38.8 % (36.0-45.0); Lymphocytes % 43.7 % (15.3-44.8); MPV 8.5 fL (7.6-11.3); RBC Red Blood Cell Count 4.21 M/uL (3.86-4.86)
[2021-06-08 23:59] LABS: Protime INR 1.06
[2021-06-09 00:10] LABS: ALT/SGPT 22 U/L (12-78); AST/SGOT 16 U/L (15-37); Albumin 3.3 g/dL (3.4-5.0); Alkaline Phosphatase 64 U/L (45-117); BUN Blood Urea Nitrogen 10 mg/dL (7-18); Bicarbonate 26 mmol/L (21-32); Bilirubin Direct < 0.1 mg/dL (0-0.2); Bilirubin Total 0.4 mg/dL (0.2-1.0); Glucose Level 99 mg/dL (74-106); Magnesium 2.2 mg/dL (1.8-2.4); NT PRO-BNP 102 pg/mL (<450); Potassium 4.2 mmol/L (3.5-5.1); Protein, Total 7.3 g/dL (6.4-8.2); Sodium Level 135 mmol/L (136-145); Troponin (Emerg Dept Use Only) < 0.02 ng/mL (0.0-0.045)
[2021-06-09 00:11] LABS: C-Reactive Protein < 2.90 mg/L (<3.00)
--- NOTE | 2021-06-09 00:43 | EDPHYS ---
Physician Documentation [facility] Name: Dinh Love Age: 86 yrs Sex: Female : 1935 Arrival Date: 06/08/2021 Time: 22:48 Bed 2 Private MD: ED Physician Nahid Roberts HPI: 06/08 23:28 This 86 yrs old Female presents to ER via EMS with complaints of Chest mamadou Tightness, High Blood Pressure. 23:28 The patient or guardian reports chest pain that is located primarily in the substernal mamadou area. 23:29 The patient complains of pain to the right judaism. The patient describes the headache mamadou as constant. Onset: The symptoms/episode began/occurred today. Onset: today. The pain radiates to the right arm, Associated signs and symptoms: Pertinent positives: dizziness. Severity of symptoms: At its worst the pain was moderate, in the emergency department the pain has improved, moderately. Headache History: The patient has had previous headaches and this one is similar to previous episodes. Associated signs and symptoms: Pertinent positives: headache. Historical: - Allergies: 23:00 Codeine; itch; lp1 23:00 Keflex; lp1 - Home Meds: 23:00 amitriptyline 50 mg Oral tab nightly [Active]; levothyroxine oral [Active]; Eliquis 2.5 lp1 mg Oral tab 1 tab 2 times per day [Active]; Metoprolol Tartrate Oral [Active]; alprazolam 0.5 mg Oral tab HS [Active]; Omeprazole Oral [Active]; - PMHx: 23:00 Arthritis; Atrial Fib; Hypertension; Myocardial infarction; TIA; lp1 - PSHx: 23:00 heart stents; hysterectomy; Cholecystectomy; lp1 - Immunization history:: Adult Immunizations up to date. - Social history:: Smoking status: Patient reports the use of cigarette tobacco products, smokes one-half pack cigarettes per day. - Family history:: not pertinent. - Hospitalizations: : No recent hospitalization is reported. ROS: 23:29 Constitutional: Negative for fever, chills, and weight loss, Eyes: Negative for injury, mamadou pain, redness, and discharge, ENT: Negative for injury, pain, and discharge, Neck: Negative for injury, pain, and swelling, Respiratory: Negative for shortness of breath, cough, wheezing, and pleuritic chest pain, Abdomen/GI: Negative for abdominal pain, nausea, vomiting, diarrhea, and constipation, Back: Negative for injury and pain, : Negative for injury, bleeding, discharge, and swelling, MS/Extremity: Negative for injury and deformity, Skin: Negative for injury, rash, and discoloration, Psych: Negative for depression, anxiety, suicide ideation, homicidal ideation, and hallucinations, Allergy/Immunology: Negative for hives, rash, and allergies, Endocrine: Negative for neck swelling, polydipsia, polyuria, polyphagia, and marked weight changes, Hematologic/Lymphatic: Negative for swollen nodes, abnormal bleeding, and unusual bruising. 23:29 Cardiovascular: Positive for chest pain, of the chest. 23:29 Neuro: Positive for dizziness, headache, weakness. Exam: 23:29 Constitutional: This is a well developed, well nourished patient who is awake, alert, mamadou and in no acute distress. Head/Face: Normocephalic, atraumatic. Eyes: Pupils equal round and reactive to light, extra-ocular motions intact. Lids and lashes normal. Conjunctiva and sclera are non-icteric and not injected. Cornea within normal limits. Periorbital areas with no swelling, redness, or edema. ENT: Nares patent. No nasal discharge, no septal abnormalities noted. Tympanic membranes are normal and external auditory canals are clear. Oropharynx with no redness, swelling, or masses, exudates, or evidence of obstruction, uvula midline. Mucous membranes moist. Neck: Trachea midline, no thyromegaly or masses palpated, and no cervical lymphadenopathy. Supple, full range of motion without nuchal rigidity, or vertebral point tenderness. No Meningismus. Chest/axilla: Normal chest wall appearance and motion. Nontender with no deformity. No lesions are appreciated. Cardiovascular: Regular rate and rhythm with a normal S1 and S2. No gallops, murmurs, or rubs. Normal PMI, no JVD. No pulse deficits. Respiratory: Lungs have equal breath sounds bilaterally, clear to auscultation and percussion. No rales, rhonchi or wheezes noted. No increased work of breathing, no retractions or nasal flaring. Abdomen/GI: Soft, non-tender, with normal bowel sounds. No distension or tympany. No guarding or rebound. No evidence of tenderness throughout. Back: No spinal tenderness. No costovertebral tenderness. Full range of motion. Skin: Warm, dry with normal turgor. Normal color with no rashes, no lesions, and no evidence of cellulitis. MS/ Extremity: Pulses equal, no cyanosis. Neurovascular intact. Full, normal range of motion. Neuro: Awake and alert, GCS 15, oriented to person, place, time, and situation. Cranial nerves II-XII grossly intact. Motor strength 5/5 in all extremities. Sensory grossly intact. Cerebellar exam normal. Normal gait. Psych: Awake, alert, with orientation to person, place and time. Behavior, mood, and affect are within normal limits. Vital Signs: 22:58 BP 189 / 82; Pulse 69; Resp 18; Temp 98.2(O); Pulse Ox 98% on R/A; Weight 56.7 kg (R); lp1 Height 4 ft. 11 in. (149.86 cm); Pain 3/10; 23:06 BP 175 / 73; Pulse 64; Resp 14; Pulse Ox 98% on R/A; tw5 06/09 01:05 BP 137 / 57; Pulse 62; Resp 14; Pulse Ox 96% ; tw5 06/08 22:58 Body Mass Index 25.25 (56.70 kg, 149.86 cm) lp1 NIH Stroke Scale Scores: 06/08 23:06 NIHSS Score: 3 tw5 23:29 NIHSS Score: 0 [facility] Jennifer Coma Score: 06/09 00:43 Eye Response: spontaneous(4). Verbal Response: oriented(5). Motor Response: obeys mamadou commands(6). Total: 15. MDM: 06/08 22:[address] [facility] 06/09 00:43 Differential diagnosis: abnormal EKG, acute myocardial infarction, acute pericarditis, mamadou anxiety, chest wall pain, Cholelithiasis costochondritis, esophagitis, gastroesophageal reflux disease (GERD), hiatal hernia, pancreatitis, pleurisy, pneumonia, pneumothorax, pulmonary embolus, stable angina, thoracic aortic disection, unstable angina, hyponatremia, temporal arteritis. HEART Score: History: Moderately Suspicious (1), ECG: Non specific repolarization disturbance / LBTB / PM (1), Age: > or = 65 years (2), Risk Factors: > or = 3 Risk factors for atherosclerotic disease (2), [Hypercholesterolemia] [Hypertension] [+ Family HX] Troponin: < or = 1 x Normal Limit (0). The patient was not given aspirin in the Emergency Department. The patient's deep vein thrombosis risk score was calculated as follows: Total Score: 0. This patient was found to be at low risk for a deep vein thrombosis by using the Well's assessment criteria. The patient's pulmonary embolism risk score was calculated as follows: Total Score: 0-2 points. This patient was found to be at low risk for a pulmonary embolism by using the Well's assessment criteria. NAILA Risk Score: 1 - patient's age is greater or equal to 65 years, 1 - Three or more CAD risk factors, 1- Known CAD, 1 - Recent [<24hrs] Severe Angina, TOTAL SCORE = 4. Data reviewed: vital signs, nurses notes, lab test result(s), EKG, radiologic studies, CT scan, plain films. 06/08 23:18 Order name: Basic Metabolic Panel; Complete Time: 00:39 [facility] 06/08 23:18 Order name: CBC with Diff; Complete Time: 00:58 [facility] 06/08 23:18 Order name: LFT's; Complete Time: 00:39 [facility] 06/08 23:18 Order name: Magnesium; Complete Time: 00:39 [facility] 06/08 23:18 Order name: NT PRO-BNP; Complete Time: 00:39 [facility] 06/08 23:18 Order name: PT-INR; Complete Time: 00:00 [facility] 06/08 23:18 Order name: Troponin (emerg Dept Use Only); Complete Time: 00:39 [facility] 06/08 23:18 Order name: Sed Rate; Complete Time: 00:58 [facility] 06/08 23:18 Order name: CRP; Complete Time: 00:39 [facility] 06/08 23:18 Order name: SARS-COV-2 RT PCR (Document "Date of Onset" if Symptomatic); Complete Time: [facility] 00:58 06/08 23:22 Order name: Glucose, Ancillary Testing; Complete Time: 00:00 [facility] 06/08 23:22 Order name: Urinalysis tw5 06/08 23:23 Order name: Urinalysis [facility] 06/08 23:40 Order name: Urine Dipstick-Ancillary; Complete Time: 00:00 [facility] 06/08 23:18 Order name: XRAY Chest (1 view) [facility] 06/08 23:18 Order name: EKG; Complete Time: 23:19 [facility] 06/08 23:18 Order name: Cardiac monitoring; Complete Time: 23:21 [facility] 06/08 23:18 Order name: EKG - Nurse/Tech; Complete Time: 23:21 [facility] 06/08 23:18 Order name: IV Saline Lock; Complete Time: 23:21 [facility] 06/08 23:18 Order name: Labs collected and sent; Complete Time: 23:21 [facility] 06/08 23:18 Order name: O2 Per Protocol; Complete Time: 23:21 [facility] 06/08 23:18 Order name: O2 Sat Monitoring; Complete Time: 23:21 [facility] 06/08 23:18 Order name: CT Stroke Brain w/o Contrast [facility] 06/09 00:49 Order name: CONS Physician Consult [facility] 06/09 00:49 Order name: CONS Physician Consult [facility] 06/09 00:58 Order name: US Carotid Artery Bilateral [facility] 06/08 23:18 Order name: Urine Dipstick-Ancillary (obtain specimen); Complete Time: 23:44 [facility] Administered Medications: 06/08 23:49 Drug: foLIC Acid 1 mg Route: IVPB; Site: right antecubital; 06/09 01:02 Follow up: Response: No adverse reaction; IV Status: Completed infusion 06/08 23:49 Drug: NS 0.9% 500 ml Route: IV; Rate: bolus; Site: right antecubital; 06/09 01:02 Follow up: Response: No adverse reaction; IV Status: Completed infusion [facility] 06/08 23:49 Drug: NS 0.9% 1000 ml Route: IV; Rate: 125 ml/hr; Site: right antecubital; 06/09 01:02 Follow up: IV Status: Infusion continued upon admission 01:05 Drug: PlaVIX (clopidogrel) 75 mg Route: PO; 01:26 Follow up: Response: No adverse reaction Disposition Summary: 06/09/21 00:42 Hospitalization Ordered Hospitalization Status: Observation mamadou Provider: Randolph Moore cha Location: Telemetry/MedSurg (observation) mamadou Condition: Fair mamadou Problem: new mamadou Symptoms: have improved mamadou Bed/Room Type: Standard mamadou Room Assignment: 207(12/14/21 01:04) cg Diagnosis - Chest pain, unspecified mamadou - Essential (primary) hypertension mamadou - Weakness mamadou Forms: - Medication Reconciliation Form mamadou - SBAR form mamadou NIH Stroke Scale - NIH Stroke Score Date: 06/08/2021 Time: 23:06 Total Score = 3 1a. Level of Consciousness (LOC) - 0(Alert) 1b. Level of Consciousness (LOC) (Month \\T\\ Age) - 0(Both) 1c. LOC Commands (Open \\T\\ Closes Eyes/Brim Rounder) - 0(Both) 2. Best Gaze (Lateral Gaze Paresis) - 0(Normal) 3. Visual Field Loss - 0(No visual loss) 4. Facial Palsy - 1(Minor Paralysis) 5a. Left Arm: Motor (10-second hold) - 0(No drift) 5b. Right Arm: Motor (10-second hold) - 0(No drift) 6a. Left Leg: Motor (5-second hold - always test supine) - 0(No drift) 6b. Right Leg: Motor (5-second hold - always test supine) - 1(Drift) 7. Limb Ataxia (finger/nose \\T\\ heel/betancourt - test with eyes open) - 1(Present in one limb) 8. Sensory Loss (pinprick arms/legs/face) - 0(Normal) 9. Best Language: Aphasia (description/naming/reading) - 0(No aphasia) 10. Dysarthria (speech clarity - read or repeat words) - 0(Normal) 11. Extinction and Inattention (visual/tactile/auditory/spatial/personal) - 0(No abnormality) Initials: tw5 NIH Stroke Scale - NIH Stroke Score Date: 06/08/2021 Time: 23:29 Total Score = 0 1a. Level of Consciousness (LOC) - 0(Alert) 1b. Level of Consciousness (LOC) (Month \\T\\ Age) - 0(Both) 1c. LOC Commands (Open \\T\\ Closes Eyes/Brim Rounder) - 0(Both) 2. Best Gaze (Lateral Gaze Paresis) - 0(Normal) 3. Visual Field Loss - 0(No visual loss) 4. Facial Palsy - 0(Normal) 5a. Left Arm: Motor (10-second hold) - 0(No drift) 5b. Right Arm: Motor (10-second hold) - 0(No drift) 6a. Left Leg: Motor (5-second hold - always test supine) - 0(No drift) 6b. Right Leg: Motor (5-second hold - always test supine) - 0(No drift) 7. Limb Ataxia (finger/nose \\T\\ heel/betancourt - test with eyes open) - 0(Absent) 8. Sensory Loss (pinprick arms/legs/face) - 0(Normal) 9. Best Language: Aphasia (description/naming/reading) - 0(No aphasia) 10. Dysarthria (speech clarity - read or repeat words) - 0(Normal) 11. Extinction and Inattention (visual/tactile/auditory/spatial/personal) - 0(No abnormality) Initials: mamadou Signatures: Dispatcher [employer] EDNahid Cline MD MD cha Pena, Laura, RN RN lp1 Terese Hinkle RN RN Bette Mcgraw tw5 Corrections: (The following items were deleted from the chart) 06/08 23:02 23:00 Home Meds: Fortea shots daily; joselyn lp1 06/09 01:04 00:42 mamadou
--- NOTE | 2021-06-09 00:43 | ER ---
Nurse's Notes [facility] Name: Dinh Love Age: 86 yrs Sex: Female : 1935 Arrival Date: 06/08/2021 Time: 22:48 Bed 2 Private MD: Diagnosis: Chest pain, unspecified;Essential (primary) hypertension;Weakness Presentation: 06/08 22:58 Chief complaint: EMS states: Called for patient with general weakness, right jaw pain lp1 radiating to right arm with some chest tightness; Family at bedside reports patient had episode where she "passed out" yesterday. Coronavirus screen: At this time, the client does not indicate any symptoms associated with coronavirus-19. Ebola Screen: No symptoms or risks identified at this time. Initial Sepsis Screen: Does the patient meet any 2 criteria? No. Patient's initial sepsis screen is negative. Does the patient have a suspected source of infection? No. Patient's initial sepsis screen is negative. Risk Assessment: Do you want to hurt yourself or someone else? Patient reports no desire to harm self or others. Onset of symptoms was June 08, 2021. 22:58 Method Of Arrival: EMS: [facility] lp1 22:58 Acuity: KAROLINA 3 lp1 06/09 01:06 No acute neurological deficit is noted. Pre-hospital glucose is not applicable to this tw5 patient. Triage Assessment: 06/08 23:05 The onset of the patients symptoms was June 07, 2021 at 20:00. General: Appears in tw5 no apparent distress. Behavior is calm, cooperative, appropriate for age. Pain: Complains of pain in right jaw Pain currently is 9 out of 10 on a pain scale. Neuro: Reports weakness in right arm and right leg. Historical: - Allergies: 23:00 Codeine; itch; lp1 23:00 Keflex; lp1 - Home Meds: 23:00 amitriptyline 50 mg Oral tab nightly [Active]; levothyroxine oral [Active]; Eliquis 2.5 lp1 mg Oral tab 1 tab 2 times per day [Active]; Metoprolol Tartrate Oral [Active]; alprazolam 0.5 mg Oral tab HS [Active]; Omeprazole Oral [Active]; - PMHx: 23:00 Arthritis; Atrial Fib; Hypertension; Myocardial infarction; TIA; lp1 - PSHx: 23:00 heart stents; hysterectomy; Cholecystectomy; lp1 - Immunization history:: Adult Immunizations up to date. - Social history:: Smoking status: Patient reports the use of cigarette tobacco products, smokes one-half pack cigarettes per day. - Family history:: not pertinent. - Hospitalizations: : No recent hospitalization is reported. Screenin:02 Abuse screen: Denies threats or abuse. Denies injuries from another. Nutritional lp1 screening: No deficits noted. Tuberculosis screening: No symptoms or risk factors identified. 23:06 Fall Risk Fall in past 12 months (25 points). Secondary diagnosis (15 points). tw5 Assessment: 23:06 VAN Scoring: Arm Drift: Patients demonstrates NO arm weakness. Patient is VAN Negative. tw5 The patient has not been NPO before screening. The patient is alert, and able to follow commands. The patient does not exhibit slurred or garbled speech. The patient is not exhibiting difficulty speaking. The patient does not exhibit difficulty understanding words. The patient is able to swallow own secretions with no drooling or need for suction. Patient tolerated one teaspoon of water. No drooling, immediate coughing, gurgling, or clearing of the throat was noted. The patient tolerated 90mL of water. No drooling, immediate coughing, gurgling, or clearing of the throat was noted. The patient passed the bedside swallow screening. Oral medications may be given as ordered. Contact Physician for further diet orders. Provider notified of bedside swallow screening results: Nahid Roberts MD. T-PA (Activase) Screening: Indications: Treatment will start within 4.5 hours onset of symptoms: No. Pain: Complains of pain in right jaw Pain currently is 8 out of 10 on a pain scale. Neuro: Level of Consciousness is awake, alert, obeys commands, Oriented to person, place, time, situation. 23:43 General: Appears in no apparent distress. Behavior is calm, cooperative, appropriate tw5 for age. Respiratory: Airway is patent Trachea midline Respiratory effort is even, unlabored, Respiratory pattern is regular, able to handle secretions. : Urine is clear. 23:49 General: Aravind Love [phone]. tw5 06/09 01:05 General: Behavior is calm, cooperative, drowsy. tw5 Vital Signs: 06/08 22:58 BP 189 / 82; Pulse 69; Resp 18; Temp 98.2(O); Pulse Ox 98% on R/A; Weight 56.7 kg (R); lp1 Height 4 ft. 11 in. (149.86 cm); Pain 3/10; 23:06 BP 175 / 73; Pulse 64; Resp 14; Pulse Ox 98% on R/A; tw5 06/09 01:05 BP 137 / 57; Pulse 62; Resp 14; Pulse Ox 96% ; tw5 06/08 22:58 Body Mass Index 25.25 (56.70 kg, 149.86 cm) lp1 Jennifer Coma Score: 00:43 Eye Response: spontaneous(4). Verbal Response: oriented(5). Motor Response: obeys mamadou commands(6). Total: 15. NIH Stroke Scale Scores: 06/08 23:06 NIHSS Score: 3 tw5 23:29 NIHSS Score: 0 [facility] ED Course: 22:48 Patient arrived in ED. da3 22:58 Nahid Roberts MD is Attending Physician. mamadou 22:59 Triage completed. lp1 22:59 Arm band placed on left wrist. lp1 23:03 Patient has correct armband on for positive identification. Placed in gown. Bed in low lp1 position. telemetry monitor on. Pulse ox on. NIBP on. 23:03 Patient maintains SpO2 saturation greater than 95% on room air. lp1 23:04 Bette Schmitz is Primary Nurse. tw5 23:06 Door closed. Noise minimized. Moved to private room. Warm blanket given. Verbal tw5 reassurance given. 23:06 Initial lab(s) drawn, by me, sent to lab. EKG done, by ED staff, COVID swab sent to tw5 lab. Inserted saline lock: 20 gauge in right antecubital area, using aseptic technique. Blood collected. 23:21 Basic Metabolic Panel Sent. 23:21 CBC with Diff Sent. 23:21 LFT's Sent. 23:21 Magnesium Sent. 23:21 NT PRO-BNP Sent. 23:21 PT-INR Sent. 23:21 Troponin (emerg Dept Use Only) Sent. 23:21 CRP Sent. 23:21 Sed Rate Sent. tw5 23:21 SARS-COV-2 RT PCR (Document "Date of Onset" if Symptomatic) Sent. tw5 23:22 Glucose, Ancillary Testing Sent. tw5 23:31 XRAY Chest (1 view) In Process Unspecified. EDMS 23:43 Urine collected: straight cath specimen, clear, Amount Returned: 100mL. tw5 23:44 Urinalysis Sent. tw5 23:44 Urinalysis Sent. tw5 23:52 CT Stroke Brain w/o Contrast In Process Unspecified. EDMS 06/09 00:40 Randolph Moore MD is Hospitalizing Provider. [facility] 01:05 Awaiting bed assignment. tw5 01:06 No provider procedures requiring assistance completed. Patient admitted, IV remains in tw5 place. Administered Medications: 06/08 23:49 Drug: foLIC Acid 1 mg Route: IVPB; Site: right antecubital; tw5 06/09 01:02 Follow up: Response: No adverse reaction; IV Status: Completed infusion tw5 06/08 23:49 Drug: NS 0.9% 500 ml Route: IV; Rate: bolus; Site: right antecubital; tw5 06/09 01:02 Follow up: Response: No adverse reaction; IV Status: Completed infusion tw5 06/08 23:49 Drug: NS 0.9% 1000 ml Route: IV; Rate: 125 ml/hr; Site: right antecubital; tw5 06/09 01:02 Follow up: IV Status: Infusion continued upon admission tw5 01:05 Drug: PlaVIX (clopidogrel) 75 mg Route: PO; tw5 01:26 Follow up: Response: No adverse reaction [facility] Outcome: 00:42 Decision to Hospitalize by Provider. mamadou 01:23 Admitted to Med/surg accompanied by tech, room 207, with chart, Report called to tw Report called to Baldemar 01:26 Condition: stable tw5 01:26 Instructed on the need for admit. 01:41 Patient left the ED. lp1 NIH Stroke Scale - NIH Stroke Score Date: 06/08/2021 Time: 23:06 Total Score = 3 1a. Level of Consciousness (LOC) - 0(Alert) 1b. Level of Consciousness (LOC) (Month \\T\\ Age) - 0(Both) 1c. LOC Commands (Open \\T\\ Closes Eyes/Stitching Department Supervisor) - 0(Both) 2. Best Gaze (Lateral Gaze Paresis) - 0(Normal) 3. Visual Field Loss - 0(No visual loss) 4. Facial Palsy - 1(Minor Paralysis) 5a. Left Arm: Motor (10-second hold) - 0(No drift) 5b. Right Arm: Motor (10-second hold) - 0(No drift) 6a. Left Leg: Motor (5-second hold - always test supine) - 0(No drift) 6b. Right Leg: Motor (5-second hold - always test supine) - 1(Drift) 7. Limb Ataxia (finger/nose \\T\\ heel/betancourt - test with eyes open) - 1(Present in one limb) 8. Sensory Loss (pinprick arms/legs/face) - 0(Normal) 9. Best Language: Aphasia (description/naming/reading) - 0(No aphasia) 10. Dysarthria (speech clarity - read or repeat words) - 0(Normal) 11. Extinction and Inattention (visual/tactile/auditory/spatial/personal) - 0(No abnormality) Initials: tw5 NIH Stroke Scale - NIH Stroke Score Date: 06/08/2021 Time: 23:29 Total Score = 0 1a. Level of Consciousness (LOC) - 0(Alert) 1b. Level of Consciousness (LOC) (Month \\T\\ Age) - 0(Both) 1c. LOC Commands (Open \\T\\ Closes Eyes/Stitching Department Supervisor) - 0(Both) 2. Best Gaze (Lateral Gaze Paresis) - 0(Normal) 3. Visual Field Loss - 0(No visual loss) 4. Facial Palsy - 0(Normal) 5a. Left Arm: Motor (10-second hold) - 0(No drift) 5b. Right Arm: Motor (10-second hold) - 0(No drift) 6a. Left Leg: Motor (5-second hold - always test supine) - 0(No drift) 6b. Right Leg: Motor (5-second hold - always test supine) - 0(No drift) 7. Limb Ataxia (finger/nose \\T\\ heel/betancourt - test with eyes open) - 0(Absent) 8. Sensory Loss (pinprick arms/legs/face) - 0(Normal) 9. Best Language: Aphasia (description/naming/reading) - 0(No aphasia) 10. Dysarthria (speech clarity - read or repeat words) - 0(Normal) 11. Extinction and Inattention (visual/tactile/auditory/spatial/personal) - 0(No abnormality) Initials: mamadou Signatures: Dispatcher [employer] Nahid Mar MD MD cha Pena, Laura RN RN lp1 Jet Warren RN RN da3 Bette Schmitz tw5 Corrections: (The following items were deleted from the chart) 06/08 23:02 23:00 Home Meds: Fortea shots daily; lp1 lp1
[2021-06-09] MEDS ORDERED: CLOPIDOGREL 75 MG TABLET ONE (01:02)
[2021-06-09 02:35] VITALS: BMI 25.2
[2021-06-09] MEDS ORDERED: MORPHINE 2 MG/ML SYR IV PRN (02:44)
[2021-06-09] MEDS ORDERED: ONDANSETRON 4 MG/2 ML VIAL IV PRN (02:44)
[2021-06-09] MEDS ORDERED: ACETAMINOPHEN 500 MG TAB PO PRN (02:44)
[2021-06-09] MEDS: NA CHLORIDE 0.9% 1,000 ML IV SCH ×2 (02:50→09:38)
--- NOTE | 2021-06-09 07:03 | RAD REPORT ---
EXAM DESCRIPTION: - CP - 06/09/2021 2:54 am CLINICAL HISTORY: Dizziness;TIA COMPARISON: MRA Neck W/Wo Cont dated 02/22/2019 TECHNIQUE: Real-time sonographic evaluation of bilateral carotid and vertebral systems was performed . Watson scale and Doppler interrogation were performed with waveform tracing bilaterally. FINDINGS: Normal high resistance waveforms are noted in both external carotid arteries. The common c arotid arteries and internal carotid arteries show normal low resistance waveforms. Mild plaquing changes are seen in the mid and distal portions of the right common carotid artery and in the midportion left common carotid artery. Plaquing changes are present as well in each bulb. Visu ally no significant degree of luminal narrowing is identified. No dissection seen. Peak systolic and end diastolic velocity values and the ICA/CCA ratios are in the non-hemodynamically significant range . Antegrade flow seen in both vertebral arteries. Velocity values and ratios were recorded and are retained in the patient's imaging records. IMPRESSION: Mild calcified and noncalcified plaquing changes in the bilateral common carotid arterie s and carotid bulbs. No evidence of a hemodynamically significant stenosis.
--- NOTE | 2021-06-09 08:19 | RAD REPORT ---
EXAM DESCRIPTION: RAD - Chest Single View - 06/08/2021 11:31 pm CLINICAL HISTORY: COUGH COMPARISON: August 07 TECHNIQUE: AP portable chest image was obtained 06/08/2021 11:31 pm . FINDINGS: No focal mass or consolidation. Mildly prominent interstitial pattern has not change from July. No measurable failure or volume overload. Heart and vasculature are normal. No measurable pleural effusion and no pneumothorax. No acute bony abnormality seen. No acute aortic findings suspected. IMPRESSION: No acute cardiopulmonary process. No significant change from comparison study.
[2021-06-09] MEDS ORDERED: METOPROLOL TAR 50 MG TAB PO SCH (09:00)
[2021-06-09] MEDS ORDERED: CLOPIDOGREL 75 MG TABLET PO SCH (09:00)
[2021-06-09] MEDS ORDERED: APIXABAN 2.5 MG TABLET PO SCH ×2 (09:00→21:00)
[2021-06-09] MEDS ORDERED: FAMOTIDINE 20 MG/2 ML VIAL IV SCH (09:00)
[2021-06-09 09:51] VITALS: O2SAT 97
[2021-06-09] MEDS ORDERED: NITROGLYCERIN 0.4 MG/TAB SL PRN (09:52)
[2021-06-09 10:18] VITALS: TEMP 97.5
--- NOTE | 2021-06-09 12:22 | RAD REPORT ---
EXAM DESCRIPTION: MRI - Brain W/Wo Cont - 06/09/2021 12:12 pm CLINICAL HISTORY: tia/cva COMPARISON: MRA Head Wo Cont dated 06/09/2021 TECHNIQUE: Sagittal and axial T1-weighted images were obtained. Axial PD/heavily T2-weighted and T2- FLAIR images were obtained along with axial DWI/ADC mapping sequences. Coronal heavily T2 weighted s equence obtained. Axial and coronal post-contrast T1-weighted images were also obtained. A 13 ml Mul tihance contrast following utilized. FINDINGS: No intracranial hemorrhage, mass or acute infarction. There is no edema or shift of midli ne structures. No extra-axial fluid collections. Watson-matter/white matter junction is preserved. Sig nal voids are seen as a normal finding in the major intracranial vessels. Atrophy changes are minimal with normal sized ventricles. Mild to moderate severity chronic ischemic changes are present in the cerebral white matter sparing the basal ganglia, thalamus and brainstem tissues. No sella or supra se lla abnormality. No tonsillar ectopia. Post-contrast images show normal enhancement. No dural thickening. Mastoid air cells and paranasal sinuses are clear. IMPRESSION: No acute infarction changes. No hemorrhage, mass or acute intracranial finding. Mild to moderate chronic ischemic changes are present in the cerebral white matter.
--- NOTE | 2021-06-09 12:27 | EKG ---
Test Date: 2021-06-08 Test Time: 22:57:53 Skull Grinder: MILDRED MEASUREMENT RESULTS: Intervals: Rate: 66 MI: 204 QRSD: 80 QT: 416 QTc: 436 [place]: P: 67 MI: 204 QRS: -1 T: 92 INTERPRETIVE STATEMENTS: Normal sinus rhythm Abnormal QRS-T angle, consider primary T wave abnormality Abnormal ECG Compared to ECG 08/07/2020 00:16:32 T-wave abnormality now present Electronically Signed On 06-09-21 12:25:44 TAN ROOM SUPERVISOR by Brandon Vo
--- NOTE | 2021-06-09 12:28 | RAD REPORT ---
EXAM DESCRIPTION: MRI - MRA Head Wo Cont - 06/09/2021 12:12 pm CLINICAL HISTORY: Weakness, dizziness, TIA COMPARISON: MRI brain same date, CT head June 08 TECHNIQUE: Axial and coronal 3D [id number] image acquisition was performed. 3D rotational images were generated with source and reconstruction images reviewed. Horizontal and vertical axis rotation al views generated using MIP protocol. FINDINGS: Bilateral internal carotid arteries show no dissection or significant stenosis. Minimal at herosclerotic change in the bilateral anterior cerebral arteries. Mild atherosclerotic changes are pr esent in the bilateral middle cerebral arteries with no high-grade stenosis, vasculitis or named bran ch occlusion. Vertebral artery tortuosity is noted with no significant finding in the distal vertebral arteries. In the midportion of the basilar artery there is a short segment high-grade stenosis approximately 80 %. CT study of June 08 did not show calcifications in this region. Mild atherosclerotic changes in the bilateral posterior cerebral arteries. Both cerebral arteries are primarily supplied by large posterior communicating arteries. 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 Mild atherosclerotic changes in the anterior, middle and posterior cerebral artery distributions. Pat ient has large bilateral posterior communicating arteries supplying all or most of the posterior cere bral artery distributions.
--- NOTE | 2021-06-09 12:31 | RAD REPORT ---
EXAM DESCRIPTION: MRI - MRA Neck W/Wo Cont - 06/09/2021 12:12 pm CLINICAL HISTORY: Weakness, dizziness, TIA COMPARISON: MRI brain same date, MRA head same date summary: MRA neck January 2019 TECHNIQUE: MR angiography of the cervical vasculature performed. Coronal imaging plane acquisition u tilized. A 13 MultiHance contrast volume was utilized. Coronal reformatted images were generated and reviewed. Vertical axis 3D rotational projections obtained using maximum intensity projection protoco l. FINDINGS: Aortic arch is 3 vessel configuration with no origins stenosis. No vertebral artery origin s stenoses seen. Mild tortuosity of the proximal common carotid arteries noted. There is a low bifurc ation of the right carotid vasculature as a normal variant. No carotid dissection or stenosis identif ied to the skullbase level. Intracranial findings are separately detailed. Codominant vertebral arter ies show no dissection or suspicious finding. Basilar artery abnormalities detailed on the MRA head r eport. IMPRESSION: MRA neck examination shows no significant atherosclerotic change, dissection or other okeefe spicious finding. No significant change since 2019 imaging.
--- NOTE | 2021-06-09 12:44 | RAD REPORT ---
EXAM DESCRIPTION: CT - Ct Stroke Brain Wo Cont - 06/09/2021 4:35 am ADDENDUM #1 CODE STROKE PROTOCOL CONFERENCE CALL: The findings were verbally discussed via telephone conference with Dr. Nahid Roberts on 06/09/2021 12:14 AM DRIVER HELPER. The results were acknowledged and understood. Electronically signed by: Luisana Jacobson MD 06/09/2021 12:14 AM DRIVER HELPER End of Addendum EXAM DESCRIPTION: CT Head Without Intravenous Contrast CLINICAL HISTORY: DIZZINESS TECHNIQUE: Axial computed tomography images of the head/brain without intravenous contrast. Sagitt al and coronal reformatted images were created and reviewed. This CT exam was performed using one o r more of the following dose reduction techniques: automated exposure control, adjustment of the mA and/or kV according to patient size, and/or use of iterative reconstruction technique. COMPARISON: 01/28/2020 FINDINGS: Brain: There is mild cerebral atrophy. Bilateral periventricular and subcortical white m atter hypodensity most likely related to chronic microvascular angiopathy without significant interva l change. No hemorrhage. Ventricles: Unremarkable. No ventriculomegaly. Bones/joints: Unremarkable. No acute fracture. Soft tissues: Unremarkable. Vasculature: There is atherosclerotic disease of the internal carotid arteries bilaterally. Sinuses: Unremarkable as visualized. No acute sinusitis. Mastoid air cells: Unremarkable as visualized. No mastoid effusion. IMPRESSION: 1. No acute hemorrhage, focal mass or large territory infarction. 2. Other findings as above. Electronically signed by: Luisana Jacobson MD 06/09/2021 12:01 AM DRIVER HELPER Due to temporary technical issues with the PACS/Fluency reporting system, reports are being signed by the in house radiologist without review as a courtesy to ensure prompt reporting. The interpreting r adiologist is fully responsible for the content of the report.
[2021-06-09 13:22] VITALS: BP 148/74
--- NOTE | 2021-06-09 14:20 | ECHO ---
HEIGHT: 4 ft 11 in WEIGHT: 125 lb 0 oz DATE OF STUDY: 06/09/[address]: Nahid Roberts MD 2-DIMENSIONAL: YES M.MODE: YES DOPPLER: YES COLOR FLOW: YES TDS: NO PORTABLE: NO DEFINITY: NO BUBBLE STUDY: NO DIAGNOSIS: CEREBRAL VASCULAR ACCIDENT, CHEST PAIN CARDIAC HISTORY: CATHERIZATION:YES SURGERY: NO PROSTHETIC VALVE: NO PACEMAKER: NO MEASUREMENTS (cm) DIASTOLIC (NORMALS) SYSTOLIC (NORMALS) IVSd 0.9 (0.6-1.2) LA Diam 2.9 (1.9-4.0) LVEF 58% LVIDd 3.2 (3.5-5.7) LVIDs 2.2 (2.0-3.5) %FS 30% LVPWd 1.0 (0.6-1.2) Ao Diam 2.6 (2.0-3.7) 2 DIMENSIONAL ASSESSMENT: RIGHT ATRIUM: NORMAL LEFT ATRIUM: NORMAL RIGHT VENTRICLE: NORMAL LEFT VENTRICLE: NORMAL TRICUSPID VALVE: NORMAL MITRAL VALVE: MITRAL ANNULAR CALCIFICATION PULMONIC VALVE: NORMAL AORTIC VALVE: NORMAL PERICARDIAL EFFUSION: NONE AORTIC ROOT: NORMAL LEFT VENTRICULAR WALL MOTION: NORMAL DOPPLER/COLOR FLOW: NORMAL COMMENTS: NORMAL 2D ECHOCARDIOGRAM WITH DOPPLER. MILD MITRAL ANNULAR CALCIFICATION. NO WALL MOTION ABNORMALITY. NO EFFUSION. TECHNOLOGIST: Zaid GILL
--- NOTE | 2021-06-09 16:18 | HP ---
Date of Admission: 06/09/2021 Chief Complaint: Syncope or near-syncope, vertigo, general malaise. History Of Present Illness: The patient states she was in her usual state of health until late yeste afternoon when she was standing and tilted her head to see a situation where somebody was workin g up higher, so she had tilted her head and suddenly became quite dizzy, felt faint, somebody stopped her from falling to the floor. She was taken to bed, but she became progressively more symptomatic and was brought to the emergency room. Past History: The patient has had TIAs in the past, some vertigo, however, she states not quite an e pisode to this extent. Also a long history of cardiac conditions, AFib, hypertension controlled thro ugh medication. Significance is the patient had a vasodilatory procedure of the esophagus couple of days earlier and at that time remained off her beta-jalil for the next few days including the day o this episode. Family History: Noncontributory. Social History: Nonsmoker, nondrinker. Physical Examination: General: The patient at the time she was seen was orientated and in no distress, although she was ma rkedly hypertensive and was seen in the emergency room. Vital Signs: Her blood pressure at this time was normal and stable. Head and Neck: Normocephalic. Pupils are equal, reactive to accommodation. Fundi negative. Trache a midline. Thyroid not palpable. ENT: Negative. Chest: Clear to P and A. Cardiovascular: PMI midclavicular line. Heart sounds normal. Peripheral pulses present and equal b ilaterally. Abdomen: No organomegaly. Bowel sounds present. Extremities: Good tone and movement bilaterally. Reflexes physiologic. Rectal/Pelvic: Deferred. Impression: Vertigo, hypertensive episode, possible transient ischemic attack and/or cerebrovascular accident. Plan: The patient will be admitted, monitored, given treatment for her hypertension, put back on her beta-jalil. Consultation will be obtained with Neurology and Cardiology. HR/MODL Voice ID: [id number]
--- NOTE | 2021-06-09 19:24 | CON ---
Reason For Consultation: Consultation called because of possible stroke. History Of Present Illness: Ms. Love is an 86-year-old right-handed patient, who c omes to [facility] after she reports becoming dizzy and passing out. History Of Present Illness: Ms. Love is an 86-year-old lady, who was at home apparently in h er garage and she went into her house and looked up to observe what was going on above her as some ob jects were being taken care of and she suddenly felt dizzy, faint, and actually passed out. She did not hit the floor as someone nearby caught her and eased her down to the floor. She noted that her b lood pressures were very elevated. In fact, she said prior to [facility] arrived as they were summoned, she had heaviness in the chest and the blood pressure was up to 193/104. They ch ecked her blood pressure and eventually, it came back down somewhat and she was brought to [facility] to rule out possible stroke. She denied any focal weakness in the face, arm, or leg. Her arrival time at [facility] was 2247 and her symptom onset was the day prior to coming to the hospital. She was never considered a candidate for tPA because of that. At [facility], he r head CT scan showed no acute ischemic or hemorrhagic change. Subsequent brain MRI done the followi ruled out the presence of an acute ischemic or hemorrhagic stroke. 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 The neck MRA shows no significant a bnormalities. No dissection, nothings suspicious. 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 It should be noted this area also supplies the brainstem, which may be a source for the patient's clinical symptoms. Carotid artery ultrasound showed no evidence of hemodynamically si gnificant stenosis. There was mild plaque noted and her echocardiogram showed ejection fraction 58% with mild mitral annular calcification. No wall motion abnormalities detected. In terms of symptoms , she said by this morning, she woke up and when she turned to the right to look at the window, she h ad a brief feeling of vertigo with the room spinning that only lasted a few seconds and she has since had no such episodes. She is able to stand and ambulate without difficulty. No falling to the left or right. Denies any significant abnormalities and believes she is back to normal. Blood pressure at the time of my evaluation ranged from 148 over to 161 over 75, around 75 to 80, pulse 68, respirat ory rate was normal at 16, temperature 97.5, pulse ox saturated treatment was 97% on room air. Past Medical History: Hypertension, atrial fibrillation, myocardial infarction, arthritis, and trans ient ischemic attacks. Allergies: CODEINE AND KEFLEX. Medications: At home amitriptyline 50 mg, levothyroxine daily, Eliquis 2.5 mg twice daily, metoprolo l twice daily, alprazolam 0.5 mg daily, and omeprazole daily. Past Surgical History: Cardiac stents, hysterectomy, and cholecystectomy. Family History: Noncontributory. Review of Systems: Aside from mentioned, she has episodes of dizziness and vertigo with very elevated blood pressures, o ccurred in the past. She has had an episode of blood pulse down to 53. Seen hammer repairer, Dr. Lit Morales, and he was considering a pacemaker, but he retired and Dr. Vo is taking over and may ma ke that determination if that is what is required. Physical Examination: Vital Signs: Blood pressure 148/74, pulse 68, respiratory rate 15, temperature 97.5, and oxygen satu ration 97% on room air. Weight 125 pounds, height 4 feet 11 inches, and BMI 25.2. General: Ms. Love is resting comfortably. She was actually standing in her room when I came in the room. HEENT: She is normocephalic, atraumatic. Sclerae anicteric. Oropharynx is pink and moist. Neck: Supple. Chest: Clear. Heart: Regular rhythm and rate. Extremities: Show no edema, cyanosis, or clubbing. Neurological: She is alert and oriented to situation, place, and person. Follows commands appropria tely. All cranial nerves intact by exam. Motor exam 5/5 proximally and distally. Sensory exam inta ct to light touch, temperature, upper and lower extremities. Coordination intact upper and lower ext remities. Gait normal stance, right arm swing. Reflexes are symmetric. Laboratory Studies: Complete blood count with differential is completely normal. Coagulation panel is completely normal. Her basic metabolic panel shows slightly low sodium of 135, otherwise complete ly normal. Liver function study is normal. Her urinalysis shows a trace blood, otherwise normal. C OVID-19 test is negative. Chest x-ray shows no acute cardiopulmonary abnormalities and electrocardio gram shows normal sinus rhythm, abnormal QRS T-angle, consider primary T-wave abnormality. Assessment: Ms. 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 In any event, she is currently on Eliquis now 5 mg twice a day, and she may benefit from a four-vessel angiogram for possible inter vention of the basal artery stenosis in [place]. She should be seen by the [facility] radiologists for such consideration. She may be discharged home and follow up in Dr. Otoole' clini c in one month and with Dr. Moore as appropriate and also continue all her comorbid condition medic ations. CAIO/RIO Voice ID: [id number] Report ID: [id number]
[2021-06-09] MEDS ORDERED: ALPRAZOLAM 0.5 MG TABLET PO SCH (21:00)
[2021-06-09] MEDS ORDERED: AMITRIPTYLINE 50 MG TAB PO SCH (21:00)
[2021-06-10] MEDS ORDERED: LEVOTHYROXINE SOD 0.025 MG TAB PO SCH (06:30)
[2021-06-10] MEDS ORDERED: HOME MED 1 EA UNK (Levothyroxine Sodium [Levothyroxine] 25 MCG Capsule) PO SCH (09:00)
[2021-06-10] MEDS ORDERED: PANTOPRAZOLE 40MG TABLET PO SCH (09:00)
[2021-06-10] MEDS ORDERED: METOPROLOL XL 25 MG TAB PO SCH (09:00)
[2021-06-10] MEDS ORDERED: HOME MED 1 EA UNK (Omeprazole [Prilosec] 40 MG Capsule.Dr) PO SCH (09:00)
== END 2021-06-09 16:55 | disposition home or self-care (01) ==
LOC: ER 22:46 → ERHOLD 06-09 01:02 → 2ND 06-09 01:21
PROVIDERS: ADMIT Family Medicine; ATTEND Family Medicine
DX: R42 Dizziness and giddiness (principal); I10 Essential (primary) hypertension; I48.91 Unspecified atrial fibrillation; I25.2 Old myocardial infarction; Z86.73 Personal history of transient ischemic attack (TIA), and cerebral infarction without residual deficits; Z95.5 Presence of coronary angioplasty implant and graft; Z20.822 Contact with and (suspected) exposure to COVID-19
CPT/HCPCS: 93005; 93306; 85025; 80048; 36415; 83735; 85610; 82947; 80076; 85652; 81003; 84484 ×2; 83880; 86140; 70450; 71045; 93880; 70553; 70544; 70549; U0003; A9577; J7030 ×2; G0378 ×2; 96365; 99285

== ENCOUNTER 2021-08-11 23:51 | Observation (INO) | payer OTHER, MEDICARE ==
--- OUTSIDE RECORDS SUMMARY | 2021-08-12 00:18 | XMS REPORT | Continuity of Care Document ---
:1935 Author Organization [facility] t Address [address] [place] [address] Care Team Providers Name Role Phone EVELIN [...] code = 700) 109 pg/mL 0-100 H [id number] 07:11:00 Test Item Value Reference Range Interpretation Comments MAGNESIUM (BEAKER) (test code = 2.0 mg/dL 1.6-2.6 627) BASIC METABOLIC [id number] 07:11:00 Test Item Value Reference Range Interpretation [...] PATIEN TS. CBC W/PLT COUNT & AUTO [id number] 06:38:00 Test Item Value Reference Range Interpretation [...] (BEAKER) (test code = 2801) BASIC METABOLIC [id number] 06:18:00 Test Item Value Reference Range Interpretation [...] S NOT APPLICABLE FOR DIALYSIS PATIEN TS. [id number] 03:50:00 Test Item Value Reference Range Interpretation Comments RPR SCREEN (BEAKER) (test code = Nonreactive Nonreactive 420) BASIC METABOLIC [id number] 06:30:00 Test Item Value Reference Range Interpretation [...] S NOT APPLICABLE FOR DIALYSIS PATIEN TS. [id number] 06:24:00 Test Item Value Reference Range Interpretation Comments MAGNESIUM (BEAKER) (test code = 2.4 mg/dL 1.6-2.6 627) CBC W/PLT COUNT & AUTO [id number] 06:06:00 Test Item Value Reference Range Interpretation [...] (test code = 2801) MR, BRAIN, WITHOUT [id number] 04:23:00FINAL REPORT MRI Brain without contrast, MRA head and neck without contrast. C linical History: Stroke Technique: MRI of the brain utilizing axial T2, FLAIR, GRE, DWI; sagittal and coronal T1-weighted images.MRA of the head utilizing 3-D eedu-lk-rcntah technique, with 3-D reconstructions. MRA of the neck utilizing 2- D and 3-D nrnb-rq-yxqzrv technique, with 3-D reconstructions. Comparisons: None Findings:MRI [...] evaluated. Otherwise no evidence for a major [place] proximal branch vessel occlusion. MRA neck: No evidence of hemodynamically significant stenosis in the cervical carotid or vertebral arteries by NASCET criteria. Signed: Nallely Torres MDReport Verified Date/Time: 04/07/2018 04:23:47 Reading Location: [address] Reading Room MR, MRA, BRAIN, WITHOUT [id number] 04:23:00Reason for exam:->stroke s/p tpaFINAL REPORT MRI Brain without contrast, MRA head and neck without contrast. Clinical History: Stroke Technique: MRI of the brain utilizing axial T2, FLAIR, GRE, DWI; sagittal and coronal T1-weighted images.MRA of the head utilizing 3-D ibmt-kg-xripkf technique, with 3-D reconstructions. MRA of the neck utilizing 2-D and 3-D ohkv-le-rfklxr technique, with 3-D reconstructions. Comparisons: None Findings:MRI [...] evaluated. Otherwise no evidence for a major [place] proximal branch vessel occlusion. MRA neck: No evidence of hemodynamically significant stenosis in the cervical carotid or vertebral arteries by NASCET criteria. Signed: Nallely Torres MDReport Verified Date/Time: 04/07/2018 04:23:47 Reading Location: [address] Reading Room MR, MRA, NECK, WITHOUT IV [id number] 04:23:00Reason for exam:->stroke s/p tpaFINAL REPORT MRI Brain without contrast, MRA head and neck without contrast. Clinical History: Stroke Technique: MRI of the brain utilizing axial T2, FLAIR, GRE, DWI; sagittal and coronal T1-weighted images.MRA of the head utilizing 3-D dvyy-sf-zlenel technique, with 3-D reconstructions. MRA of the neck utilizing 2-D and 3-D elsu-ny-btoztl technique, with 3-D reconstructions. Comparisons: None Findings:MRI [...] evaluated. Otherwise no evidence for a major [place] proximal branch vessel occlusion. MRA neck: No evidence of hemodynamically significant stenosis in the cervical carotid or vertebral arteries by NASCET criteria. Signed: Nallely Torres Verified Date/Time: 04/07/2018 04:23:47 Reading Location: [address] Reading Room TROPONIKhadijah [id number] 19:07:00 Test Item Value Reference Range Interpretation [...] 395) CK-MB Reference Range:<6.7 Normal6.7-10.0 Borderline>10.0 AbnormalTROPONIN [id number] 13:23:00 Test Item Value Reference Range Interpretation [...] intravenous potassium replacement.CREATINE KINASE (CK), TOTAL AND [id number] 13:17:00 Test Item Value Reference Range Interpretation [...] or 30 min aft er intravenous potassium replacement.[id number] 13:08:00 Test Item Value Reference Range Interpretation Comments POTASSIUM (BEAKER) (test code = 4.0 meq/L 3.5-5.1 379) Check Serum Potassium level 2 hours after oral potassium replacement completed or 30 min after intravenous potassium replacement.[id number] 13:08:00 Test Item Value Reference Range Interpretation Comments MAGNESIUM (BEAKER) (test code = 2.6 mg/dL 1.6-2.6 627) Check Serum Potassium level 2 hours after oral potassium replacement completed or 30 min after intravenous potassium replacement.HEMOGLOBIN [id number] 09:52:00 Test Item Value Reference Range Interpretation Comments HEMOGLOBIN A1C (BEAKER) (test code = 5.1 % 4.3-6.1 368) TROPONIN [id number] 06:59:00 Test Item Value Reference Range Interpretation [...] Reference Range:<6.7 Normal6.7-10.0 Borderline>10.0 AbnormalTSH/FREE T4 IF [id number] 03:54:00 Test Item Value Reference Range Interpretation Comments THYROID STIMULATING HORMONE 2.21 uIU/mL 0.35-4.94 (BEAKER) (test code = 772) VITAMIN B12 AND [id number] 03:54:00 Test Item Value Reference Range Interpretation Comments VITAMIN B12 (BEAKER) (test code = 802 pg/mL 213-816 774) FOLATE (BEAKER) (test code = 362) 36.5 ng/mL >=7.0 RAD, CHEST, 1 VIEW, NON [id number] 03:38:00Reason for exam:->basline hospitalized for strokeShould this [...] No focal pulmonary consolidation. Signed: Sonya Armendariz [facility] Verified Date/Time: 04/06/2018 03:38:00 Reading Location: [facility] B1 C013Y CT Body Reading Room C-REACTIVE [id number] 02:20:00 Test Item Value Reference Range Interpretation Comments C-REACTIVE PROTEIN (BEAKER) (test 0.05 mg/dL 0.00-0.50 code = 676) TROPONIN [id number] 02:07:00 Test Item Value Reference Range Interpretation [...] acidosis, acute neurological disease, and persistent tachyarrhythmia.FastingPROTHROMBIN TIME/[id number] 02:06:00 Test Item Value Reference Range Interpretation Comments PROTIME (BEAKER) (test code = 13.6 seconds 11.7-14.7 759) INR (BEAKER) (test code = 370) 1.0 <=5.9 RECOMMENDED COUMADIN/WARFARIN INR THERAPY RANGESSTANDARD DOSE: 2.0 - 3.0 Includes: PROPHYLAXIS forvenous thrombosis, systemic embolization; TREATMENT for venous thrombosis and/or pulmonary embolus.HIGH RISK: Target INR is 2.5-3.5 for patients with mechanical heart valves.[id number] 02:06:00 Test Item Value Reference Range Interpretation Comments PARTIAL THROMBOPLASTIN TIME 26.6 seconds 22.5-36.0 (BEAKER) (test code = 760) [id number] 01:57:00 Test Item Value Reference Range Interpretation Comments MAGNESIUM (BEAKER) (test code = 1.9 mg/dL 1.6-2.6 627) FastingBASIC METABOLIC [id number] 01:57:00 Test Item Value Reference Range Interpretation [...] NOT APPLICABLE FOR DIALYSIS PATIEN TS. FastingLIPID [id number] 01:57:00 Test Item Value Reference Range Interpretation [...] High >=190 FastingCBC W/PLT COUNT & AUTO [id number] 01:37:00 Test Item Value Reference Range Interpretation [...] % 0-1 PERCENT (BEAKER) (test code = 4911)
[2021-08-12 00:39] LABS: Absolute Lymphocytes (CBC) 2.6 K/uL (0.7-4.9); Lymphocytes % 39.7 % (15.3-44.8); MPV 8.3 fL (7.6-11.3); RBC Red Blood Cell Count 3.97 M/uL (3.86-4.86)
[2021-08-12 00:43] LABS: Protime INR 1.06
[2021-08-12 00:58] LABS: ALT/SGPT 20 U/L (12-78); AST/SGOT 16 U/L (15-37); Albumin 3.1 g/dL (3.4-5.0); Alkaline Phosphatase 73 U/L (45-117); BUN Blood Urea Nitrogen 10 mg/dL (7-18); Bicarbonate 26 mmol/L (21-32); Bilirubin Direct < 0.1 mg/dL (0-0.2); Bilirubin Total 0.2 mg/dL (0.2-1.0); Glucose Level 109 mg/dL (74-106); Magnesium 2.2 mg/dL (1.8-2.4); NT PRO-BNP 178 pg/mL (<450); Potassium 3.9 mmol/L (3.5-5.1); Protein, Total 6.7 g/dL (6.4-8.2); Sodium Level 136 mmol/L (136-145)
--- NOTE | 2021-08-12 01:23 | ER ---
Nurse's Notes [facility] Name: Dinh Love Age: 86 yrs Sex: Female : 1935 Arrival Date: 08/11/2021 Time: 23:54 Bed 15 Private MD: Diagnosis: Chest pain, unspecified;Essential (primary) hypertension Presentation: 08/12 00:01 Chief complaint: Patient states: My daughter checked my blood pressure at home and it vc1 was in the 180's. I had a little bit of chest pressure and some shortness in breath then I started having right jaw pain. EMS states: She called us because her blood pressure was high and she was having right sided jaw pain, she said she had a heart attack a year ago and it felt similar to this. About a month and a half ago she was told she had a blockage to her brain. 00:03 Coronavirus screen: Vaccine status: Patient reports receiving the 2nd dose of the covid vc1 vaccine. Moderna At this time, the client does not indicate any symptoms associated with coronavirus-19. Ebola Screen: No symptoms or risks identified at this time. Initial Sepsis Screen: Does the patient meet any 2 criteria? No. Patient's initial sepsis screen is negative. Does the patient have a suspected source of infection? No. Patient's initial sepsis screen is negative. Risk Assessment: Do you want to hurt yourself or someone else? Patient reports no desire to harm self or others. Onset of symptoms was August 12, 2021. 00:03 Method Of Arrival: EMS: [facility] vc1 00:03 Acuity: KAROLINA 3 vc1 Triage Assessment: 00:08 General: Appears in no apparent distress. comfortable, Behavior is calm, cooperative, vc1 appropriate for age. Pain: Denies pain. Neuro: Level of Consciousness is awake, alert, obeys commands, Oriented to person, place, time, situation, Appropriate for age. Cardiovascular: Reports She is no long experiencing any pressure of shortness of breath. Historical: - Allergies: 00:04 Codeine; itch; vc1 00:04 Keflex; vc1 - Home Meds: 00:04 Eliquis 5 mg oral tab 2 times per day [Active]; metoprolol succinate 25 mg oral Tb24 1 vc1 tab once daily [Active]; amitriptyline 50 mg Oral tab 1 tab nightly [Active]; levothyroxine 25 mcg oral tab 1 tab once daily [Active]; omeprazole 40 mg oral cpDR 1 cap once daily [Active]; alprazolam 0.5 mg Oral tab HS for anxiety [Active]; Vitamin D3 25 mcg (1,000 unit) oral cap daily [Active]; nitroglycerin 0.4 mg SL subl 1 tab as needed [Active]; - PMHx: 00:04 Arthritis; Atrial Fib; Hypertension; Myocardial infarction; TIA; vc1 - PSHx: 00:04 Cholecystectomy; Heart Stents; hysterectomy; vc1 - Immunization history:: Adult Immunizations up to date, Client reports receiving the 2nd dose of the Covid vaccine, Flu vaccine is up to date. - Social history:: Smoking status: Patient reports the use of cigarette tobacco products, smokes one-half pack cigarettes per day. Screenin:21 Abuse screen: Denies threats or abuse. Denies injuries from another. Nutritional alexis screening: No deficits noted. Tuberculosis screening: No symptoms or risk factors identified. Fall Risk None identified. Assessment: 00:01 Reassessment: I recv'd the pt to room #15 \\T\\ 2355. alexis 00:16 General: Appears in no apparent distress. comfortable, Behavior is calm, cooperative. alexis General: Per the pt's report,"...my pressure was really high at home...it was 200 over 114...(I observed the pt moving as I was attempting to take her pressure and took the opportunity to teach)...no, my son is a police booking officer, so he's really hyper...yeah, he called the ambulance...no, I had a headache and my pressure was high...no, it's back to normal now.." She called her son and I was able to get her to hold her arm still and not talk while taking her blood pressure. She was able to observe the drastic difference on values. . Pain: Denies pain. Neuro: No deficits noted. Cardiovascular: No deficits noted. Respiratory: No deficits noted. 00:59 General: The pt was taken to CT via stretcher. . alexis 02:10 General: The pt has been assigned room 232, upstairs and I attempted to call report, alexis but the nurse was unable to take report at this time. She will call me when she is able. . 02:30 General: Report called and the pt is ready for transport. . alexis Vital Signs: 00:00 BP 160 / 72; Pulse 73; Resp 18; Temp 98.6; Pulse Ox 97% on R/A; Pain 0/10; alexis 00:03 BP 177 / 81; Pulse 77; Resp 21; Pulse Ox 97% ; Weight 54.43 kg; Height 4 ft. 11 in. vc1 (149.86 cm); Pain 0/10; 00:20 BP 145 / 60; Pulse 73; Resp 16; Pulse Ox 98% on R/A; Pain 0/10; alexis 01:39 BP 148 / 79; Pulse 70; Resp 18; Pulse Ox 100% on R/A; Pain 0/10; alexis 02:04 BP 131 / 56; Pulse 66; Resp 16; Pulse Ox 99% on R/A; Pain 0/10; alexis 00:03 Body Mass Index 24.24 (54.43 kg, 149.86 cm) vc1 ED Course: 08/11 23:54 Patient arrived in ED. mw2 08/12 00:01 Estelle Lowry, RN is Primary Nurse. alexis 00:03 Suzie Lundberg FNP-C is PHCP. kb 00:03 Nahid Roberts MD is Attending Physician. kb 00:04 Triage completed. vc1 00:11 Basic Metabolic Panel Sent. alexis 00:11 CBC with Diff Sent. alexis 00:11 LFT's Sent. alexis 00:11 Magnesium Sent. alexis 00:11 NT PRO-BNP Sent. alexis 00:11 PT-INR Sent. alexis 00:11 Troponin HS Sent. alexis 00:15 XRAY Chest (1 view) In Process Unspecified. EDMS 00:21 No provider procedures requiring assistance completed. alexis 00:21 Patient has correct armband on for positive identification. Warm blanket given. alexis 00:21 EKG completed in triage. Results shown to MD. alexis 00:22 Arm band placed on. alexis 00:31 COVID-19 SARS RT PCR (Document "Date of Onset" if Symptomatic) Sent. alexis 00:31 Basic Metabolic Panel Sent. alexis 00:31 CBC with Diff Sent. alexis 00:31 LFT's Sent. alexis 00:31 Magnesium Sent. alexis 00:31 NT PRO-BNP Sent. alexis 00:31 PT-INR Sent. alexis 00:31 Troponin HS Sent. alexis 01:09 CT Head Brain wo Cont In Process Unspecified. EDMS 01:22 Angel Kevin MD is Hospitalizing Provider. kb 01:41 COVID-19 SARS RT PCR (Document "Date of Onset" if Symptomatic) Sent. alexis 02:47 IV is patent, is intact, with fluids infusing freely, with good blood return, alexis Administered Medications: No medications were administered Outcome: 00:21 Condition: stable alexis 01:22 Decision to Hospitalize by Provider. kb 02:47 Admitted to accompanied by tech. alexis 02:48 Patient left the ED. alexis Signatures: Dispatcher [employer] EDMS Suzie Lundberg, DIRECTOR MUSIC-C DIRECTOR MUSIC-Jens Ruiz mw2 Estelle Lowry, RN RN Bee Chaudhari RN RN vc1 Corrections: (The following items were deleted from the chart) 02:07 02:05 General: The pt has been assigned a bed upstairs, 225. Registration called and alexis SBAR printed, so I may give report. . alexis 02:11 02:06 General: alexis alexis
--- NOTE | 2021-08-12 01:23 | EDPHYS ---
Physician Documentation [facility] Name: Dinh Love Age: 86 yrs Sex: Female : 1935 Arrival Date: 08/11/2021 Time: 23:54 Bed 15 Private MD: ENE Physician Nahid Roberts HPI: 08/12 00:11 This 86 yrs old Female presents to ER via EMS with complaints of hypertension. kb 00:11 The patient has elevated blood pressure and discovered this at home, with a home kb device. Onset: The symptoms/episode began/occurred just prior to arrival. Associated signs and symptoms: Pertinent positives: headache, Pertinent negatives: chest pain, dizziness, dyspnea, lightheadedness, nausea, visual changes, vomiting, weakness. Severity of symptoms: At its worst the blood pressure was severe, in the emergency department the blood pressure is improved, moderately. The patient has not experienced similar symptoms in the past. The patient has not recently seen a physician. Pt reports she started having pain in her jaw so she checked her bp and it was 190s/114. States she developed a headache as well. . Historical: - Allergies: 00:04 Codeine; itch; vc1 00:04 Keflex; vc1 - Home Meds: 00:04 Eliquis 5 mg oral tab 2 times per day [Active]; metoprolol succinate 25 mg oral Tb24 1 vc1 tab once daily [Active]; amitriptyline 50 mg Oral tab 1 tab nightly [Active]; levothyroxine 25 mcg oral tab 1 tab once daily [Active]; omeprazole 40 mg oral cpDR 1 cap once daily [Active]; alprazolam 0.5 mg Oral tab HS for anxiety [Active]; Vitamin D3 25 mcg (1,000 unit) oral cap daily [Active]; nitroglycerin 0.4 mg SL subl 1 tab as needed [Active]; - PMHx: 00:04 Arthritis; Atrial Fib; Hypertension; Myocardial infarction; TIA; vc1 - PSHx: 00:04 Cholecystectomy; Heart Stents; hysterectomy; vc1 - Immunization history:: Adult Immunizations up to date, Client reports receiving the 2nd dose of the Covid vaccine, Flu vaccine is up to date. - Social history:: Smoking status: Patient reports the use of cigarette tobacco products, smokes one-half pack cigarettes per day. ROS: 00:11 Constitutional: Negative for fever, chills, and weight loss. kb 00:11 ENT: Positive for jaw pain. 00:11 Neuro: Positive for headache. 00:11 All other systems are negative. Exam: 00:11 Constitutional: This is a well developed, well nourished patient who is awake, alert, kb and in no acute distress. Head/Face: Normocephalic, atraumatic. ENT: Moist Mucous membranes Cardiovascular: Regular rate and rhythm with a normal S1 and S2. No gallops, murmurs, or rubs. No pulse deficits. Respiratory: Respirations even and unlabored. No increased work of breathing. Talking in full sentences Skin: Warm, dry with normal turgor. Normal color. MS/ Extremity: Pulses equal, no cyanosis. Neurovascular intact. Full, normal range of motion. Neuro: Awake and alert, GCS 15, oriented to person, place, time, and situation. Moves all extremities. Normal gait. Psych: Awake, alert, with orientation to person, place and time. Behavior, mood, and affect are within normal limits. 00:14 ECG was reviewed by the Attending Physician. kb Vital Signs: 00:00 BP 160 / 72; Pulse 73; Resp 18; Temp 98.6; Pulse Ox 97% on R/A; Pain 0/10; alexis 00:03 BP 177 / 81; Pulse 77; Resp 21; Pulse Ox 97% ; Weight 54.43 kg; Height 4 ft. 11 in. vc1 (149.86 cm); Pain 0/10; 00:20 BP 145 / 60; Pulse 73; Resp 16; Pulse Ox 98% on R/A; Pain 0/10; alexis 01:39 BP 148 / 79; Pulse 70; Resp 18; Pulse Ox 100% on R/A; Pain 0/10; alexis 02:04 BP 131 / 56; Pulse 66; Resp 16; Pulse Ox 99% on R/A; Pain 0/10; alexis 00:03 Body Mass Index 24.24 (54.43 kg, 149.86 cm) vc1 MDM: 00:03 Patient medically screened. kb 00:13 Data reviewed: vital signs, nurses notes. Data interpreted: Pulse oximetry: on room air kb is 97 %. Interpretation: normal. 01:22 Counseling: I had a detailed discussion with the patient and/or guardian regarding: the kb historical points, exam findings, and any diagnostic results supporting the discharge/admit diagnosis, lab results, radiology results, the need for further work-up and treatment in the hospital. Physician consultation: Berny WHITLEY was contacted at 01:22, regarding admission, to the telemetry unit. and will see patient in ED. 08/12 00:03 Order name: Basic Metabolic Panel; Complete Time: 00:58 kb 08/12 00:03 Order name: CBC with Diff; Complete Time: 00:43 kb 08/12 00:03 Order name: LFT's; Complete Time: 00:58 kb 08/12 00:03 Order name: Magnesium; Complete Time: 00:58 kb 08/12 00:03 Order name: NT PRO-BNP; Complete Time: 00:58 kb 08/12 00:03 Order name: PT-INR; Complete Time: 00:48 kb 08/12 00:03 Order name: Troponin HS; Complete Time: 00:58 kb 08/12 00:03 Order name: XRAY Chest (1 view) kb 08/12 00:03 Order name: EKG; Complete Time: 00:04 kb 08/12 00:03 Order name: Cardiac monitoring; Complete Time: 00:11 kb 08/12 00:03 Order name: EKG - Nurse/Tech; Complete Time: 00:11 kb 08/12 00:03 Order name: IV Saline Lock; Complete Time: 00:11 kb 08/12 00:16 Order name: CT Head Brain wo Cont kb 08/12 00:24 Order name: COVID-19 SARS RT PCR (Document "Date of Onset" if Symptomatic); Complete kb Time: 01:46 08/12 00:03 Order name: Labs collected and sent; Complete Time: 00:11 kb 08/12 00:03 Order name: O2 Per Protocol; Complete Time: 00:11 kb 08/12 00:03 Order name: O2 Sat Monitoring; Complete Time: 00:11 kb EC:14 Rate is 76 beats/min. Rhythm is regular. QRS [place] is Normal. DC interval is normal at kb 200 msec. QRS interval is normal at 72 msec. QT interval is normal at 388 msec. Administered Medications: No medications were administered Disposition: 07:08 Co-signature as Attending Physician, Nahid Armando MD I agree with the assessment and mamadou plan of care. Disposition Summary: 08/12/21 01:22 Hospitalization Ordered Hospitalization Status: Observation kb Provider: Angel Kevin Location: Telemetry/MedSurg (observation) kb Condition: Stable kb Problem: new kb Symptoms: are unchanged kb Bed/Room Type: Standard kb Room Assignment: 232(08/12/21 01:58) mw Diagnosis - Chest pain, unspecified kb - Essential (primary) hypertension kb Forms: - Medication Reconciliation Form kb - SBAR form kb Signatures: Dispatcher [employer] EDSuzie Lewis, ARIELLE-C CLAY MAKER-Shyla Samuel RN RN mw Anderson, Corey, MD MD cha O'Farrell, Brenda, RN RN bo Calcote, Vanessa, RN RN vc1 Corrections: (The following items were deleted from the chart) 01:58 01:22 kb mw
--- NOTE | 2021-08-12 01:52 | P.HP ---
Certification for Inpatient Patient admitted to: Observation With expected LOS: <2 Midnights Patient will require the following post-hospital care: None Practitioner: I am a practitioner with admitting privileges, knowledge of patient current condition, hospital course, and medical plan of care. Services: Services provided to patient in accordance with Admission requirements found in Title 42 Section 412.3 of the Code of Federal Regulations <Berny Estrada - Last Filed: 08/12/21 01:49> Patient History Date of Service: 08/12/21 Primary Care Provider: [facility] Reason for admission: Chest pain History of Present Illness: 86-year-old female with history of atrial fibrillation on chronic anticoagulation, TIA, hypothyroidism, hypertension and CAD presents the emergency department for chest pressure, headache and hypertension. Patient reports that she was at home not feeling well when she checked her blood pressure noted to be around 180/110 also developed some pressure-like chest pain nonradiating substernal that resolved after about 15 minutes. Patient was brought to the emergency department evaluated labs were unremarkable initial troponin 6.2 high-sensitivity EKG without acute changes patient chest pain-free at this time ED provider is to admit to observation for ACS rule out. - Past Medical/Surgical History Diabetic: No -: Transient ischemic attack -: Hiatal hernia -: OA OF SPINE -: MIGRAINES -: SHAKING SYNDROME -: MIGRAINES -: hypothyroid -: A. fib -: CAD -: Zay fundiplication -: Choleycystectomy -: Hysterectomy -: growth on facial nerv rmovd -: bilateral cataract -: heart stents Psychosocial/ Personal History: Patient lives at home with her son - Family History Father -: Heart disease Notes: Heart attack Brother Notes: Brain cancer, Liver Cirrhosis Mother -: Heart disease, Hypertension - Social History Smoking Status: Current every day smoker Counseled patient to stop smoking for: less than 10 minutes Smoking therapy provided: No (Patient declined) Alcohol use: Yes CD- Drugs: No Caffeine use: Yes Place of Residence: Home <Berny Estrada - Last Filed: 08/12/21 01:49> Date of Service: 08/12/21 <Angel Kevin - Last Filed: 08/12/21 18:15> Allergies cephalexin monohydrate [From Keflex] Allergy (Severe, Verified 02/21/19 22:22) CAUSES VERY HIGH TEMP codeine [Codeine] Allergy (Severe, Verified 02/21/19 22:22) PARALYSIS Home Medications: ALPRAZolam [Alprazolam] 0.5 mg PO BEDTIME 11/12/18 Amitriptyline HCl 50 mg PO BEDTIME 11/12/18 Levothyroxine Sodium [Levothyroxine] 25 mcg PO DAILY 08/07/20 Nitroglycerin 0.4 mg SL PRN PRN 08/07/20 Omeprazole [Prilosec] 40 mg PO DAILY 08/07/20 Apixaban [Eliquis] 5 mg PO BID #60 tablet 06/09/21 Metoprolol Succinate 25 mg PO DAILY 06/09/21 Review of Systems 10-point ROS is otherwise unremarkable Cardiovascular: Chest Pain <Berny Estrada - Last Filed: 08/12/21 01:49> Physical Examination - Physical Exam General: Alert, In no apparent distress, Oriented x3 HEENT: Atraumatic, PERRLA, Mucous membr. moist/pink, EOMI, Sclerae nonicteric Neck: Supple, 2+ carotid pulse no bruit, No LAD, Without JVD or thyroid abnormality Respiratory: Clear to auscultation bilaterally, Normal air movement Cardiovascular: Regular rate/rhythm, Normal S1 S2 Gastrointestinal: Normal bowel sounds, No tenderness Musculoskeletal: No tenderness Integumentary: No rashes Neurological: Normal speech, Normal strength at 5/5 x4 extr, Normal tone, Normal affect - Studies Laboratory Data (last 24 hrs) 08/12/21 00:13: PT 12.2, INR 1.06 08/12/21 00:13: WBC 6.60, Hgb 12.5, Hct 37.0, Plt Count 312 08/12/21 00:13: Sodium 136, Potassium 3.9, BUN 10, Creatinine 0.95, Glucose 109 H, Magnesium 2.2, Total Bilirubin 0.2, AST 16, ALT 20, Alkaline Phosphatase 73 <Berny Estrada - Last Filed: 08/12/21 01:49> - Studies Laboratory Data (last 24 hrs) 08/12/21 00:13: PT 12.2, INR 1.06 08/12/21 00:13: WBC 6.60, Hgb 12.5, Hct 37.0, Plt Count 312 08/12/21 00:13: Sodium 136, Potassium 3.9, BUN 10, Creatinine 0.95, Glucose 109 H, Magnesium 2.2, Total Bilirubin 0.2, AST 16, ALT 20, Alkaline Phosphatase 73 <Angel Kevin - Last Filed: 08/12/21 18:15> Assessment and Plan - Plan Assessment: Chest pain rule out ACS Atrial fibrillation on chronic anticoagulation therapy Hypertension Hypothyroidism History of TIA Plan: Chest pain rule out ACS: Trend troponin, monitor on telemetry, cardiology consulted. Patient had stress test and echo 1 year ago which were normal, had heart catheterization with stent placement about 2 years ago. Atrial fibrillation on chronic anticoagulation therapy: Continue Eliquis, metoprolol, monitor on telemetry. Hypertension: Metoprolol continued Hypothyroidism: Levothyroxine continued History of TIA: Stable CT head brain negative for any acute changes, home medications continued. DVT PPX: Continue Eliquis Code status: Full Discharge Plan: Home Plan to discharge in: 24 Hours - Advance Directives Does patient have a Living Will: No Does patient have a Durable POA for Healthcare: Yes - Code Status/Comfort Care Code Status Assessed: Yes (Full code) Critical Care: No Time Spent Managing Pts Care (In Minutes): 55 <Berny Estrada - Last Filed: 08/12/21 01:49>
[2021-08-12] MEDS ORDERED: ONDANSETRON 4 MG/2 ML VIAL IV PRN (02:52)
[2021-08-12] MEDS ORDERED: MORPHINE 2 MG/ML SYR IV PRN (02:52)
[2021-08-12 02:57] VITALS: BMI 25.9
[2021-08-12 05:17] LABS: Urine Appearance CLEAR (Clear); Urine Bilirubin NEGATIVE (Negative); Urine Blood NEGATIVE (Negative); Urine Color YELLOW (Yellow); Urine Glucose NEGATIVE (Negative); Urine Protein NEGATIVE (Negative)
[2021-08-12 05:20] LABS: Urine Microscopic Reflex NO UMIC
[2021-08-12] MEDS ORDERED: METOPROLOL XL 25 MG TAB PO SCH (06:00)
[2021-08-12] MEDS ORDERED: LEVOTHYROXINE SOD 0.025 MG TAB PO SCH (06:30)
[2021-08-12 06:36] LABS: Thyroid Stimulating Hormone 2.41 uIU/mL (0.360-3.740); Troponin High Sensitivity 5.8 pg/mL (<58.9)
--- NOTE | 2021-08-12 08:38 | RAD REPORT ---
EXAM DESCRIPTION: Beka Single View08/12/2021 12:15 am CLINICAL HISTORY: Chest pain COMPARISON: 2020 FINDINGS: The lungs appear clear of acute infiltrate. The heart is normal size IMPRESSION: No acute abnormalities displayed
[2021-08-12] MEDS ORDERED: POTASSIUM CL SA 10 MEQ TAB PO ONE (09:00)
[2021-08-12] MEDS ORDERED: APIXABAN 5 MG TABLET PO SCH (09:00)
--- NOTE | 2021-08-12 10:20 | RAD REPORT ---
EXAM DESCRIPTION: CT - Head Brain Wo Cont - 08/12/2021 6:41 am CLINICAL HISTORY: 86 years Female HEADACHE COMPARISON: CT head without contrast dated 06/08/2021 TECHNIQUE: Contiguous axial images of the brain were obtained without the administration of intraven ous contrast.This exam was performed according to our departmental dose-optimization program which in cludes use of Automated Exposure Control, adjustment of the mA and/or kV according to patient size an d/or use of iterative reconstruction technique.DLP: 883 mGy*cm FINDINGS: Brain: No acute intracranial hemorrhage. No extra-axial collection. No mass effect or bryan iation. Unchanged prominence of the sulci and cisterns. Confluent periventricular and subcortical w la matter hypodensity is noted. Vascular calcifications.Ventricles: No hydrocephalus.Globes and orb its: No acute abnormality. Prior colon surgery.Bones: No acute osseous findingParanasal sinuses: Para nasal sinuses are clear.Mastoid air cells: Well pneumatized.Soft tissues: Within normal limits IMPRESSION: No acute intracranial hemorrhage, hydrocephalus or herniation. Cerebral volume loss and chronic small vessel ischemic changes. Consider MRI brain for further evaluation. Electronically signed by: Mars Shaffer DO 08/12/2021 1:41 AM CONTINUOUS DRYOUT OPERATOR HELPER Due to temporary technical issues with the PACS/Fluency reporting system, reports are being signed by the in house radiologist without review as a courtesy to ensure prompt reporting. The interpreting r adiologist is fully responsible for the content of the report.
[2021-08-12 11:00] VITALS: O2SAT 97
--- NOTE | 2021-08-12 11:14 | EKG ---
Test Date: 2021-08-12 Test Time: 00:04:15 Grounds Cleaner: HUMBERTO MEASUREMENT RESULTS: Intervals: Rate: 76 AK: 200 QRSD: 72 QT: 388 QTc: 436 [place]: P: 57 AK: 200 QRS: -5 T: 45 INTERPRETIVE STATEMENTS: Normal sinus rhythm Normal ECG Compared to ECG 06/08/2021 22:57:53 T-wave abnormality no longer present Electronically Signed On 08-12-21 11:13:38 CASING GRADER by Brandon Vo
[2021-08-12 13:39] VITALS: BP 153/74; TEMP 97.3
[2021-08-12] MEDS ORDERED: ATORVASTATIN 20 MG TAB PO SCH (21:00)
--- NOTE | 2021-08-14 17:30 | CON ---
Date of Consultation: 08/12/[address] Kevin on 08/11/2021. I saw the patient on 08/12/2021. Reason For Consultation: Chest pain and hypertension. History Of Present Illness: Ms. Love is an 86-year-old. She is known to us from office visi ts and hospital admissions in the past. She has an extensive past medical history including hyperten pema, atrial fibrillation, arthritis, coronary artery disease, TIA. She has had stents before, had c holecystectomy and hysterectomy. Her main complaint was really a blood pressure being elevated. Her chest pain more felt like a little bit of tightness without any nausea, vomiting, diaphoresis, PND, orthopnea, pedal edema, palpitations, or syncope. She had some headaches. When her blood pressure w as 190/114, her pain from the chest radiated to the right jaw. She has already ruled out for an [place]. EKG was unremarkable. Chest x-ray was unremarkable. Troponin was unremarkable. Her blood pressure better now. She is pain-free now. Allergies: TO CODEINE AND KEFLEX. Review of Systems: Negative. Social History: Negative. Family History: Negative. Medications: At home include Eliquis, metoprolol, amitriptyline, omeprazole, levothyroxine, alprazol am and nitroglycerin as needed. Physical Examination: Vital Signs: When I saw her, her blood pressure was down to 153/74. She was in sinus rhythm, asympt omatic. O2 saturations were normal. She was afebrile. HEENT: Negative. Neck: Supple. No bruit, lymphadenopathy, JVD, or thyromegaly. Chest: Clear to auscultation and percussion. Cardiac: Revealed a regular rhythm and rate. No murmurs, gallops, or rubs. Abdomen: Benign. Extremities: Revealed no clubbing, cyanosis, or edema. Diagnostic Data: Normal. Impression And Plan: Atypical chest pain, most likely secondary to severe uncontrolled hypertension. I think when she goes home, we need to increase her metoprolol. We need to consider losartan and h ydrochlorothiazide combination or maybe Norvasc 5 mg daily. I will be happy to see her as an outpati ent and I will deal with that down the road. From a cardiac standpoint, she had a normal echocardiog sha in May of 2021 and she had a normal stress test in July 2020, and I do not see the need of doing any more cardiac workup on her at this point. She will follow up with us in the office in t he next 2 weeks. She can go home. XU Voice ID: [id number] Report ID: [id number]
== END 2021-08-12 13:16 | disposition home health service (06) ==
LOC: ER 23:51 → INTOOBSV 08-12 01:54 → ERHOLD 08-12 01:54 → 2ND 08-12 02:20
PROVIDERS: ADMIT Hospitalist; ATTEND Hospitalist
DX: R07.89 Other chest pain (principal); I10 Essential (primary) hypertension; E03.9 Hypothyroidism, unspecified; I25.10 Atherosclerotic heart disease of native coronary artery without angina pectoris; I48.91 Unspecified atrial fibrillation; Z86.73 Personal history of transient ischemic attack (TIA), and cerebral infarction without residual deficits; Z79.01 Long term (current) use of anticoagulants; F17.210 Nicotine dependence, cigarettes, uncomplicated; Z20.822 Contact with and (suspected) exposure to COVID-19
CPT/HCPCS: 36415; 70450; 71045; 80048; 80061; 80076; 81003; 83735; 83880; 84439; 84443; 84484; 85025; 85610; 93005; 99285; G0378; U0003

== ENCOUNTER 2021-10-27 23:11 | Emergency (ER) | payer OTHER, MEDICARE ==
--- OUTSIDE RECORDS SUMMARY | 2021-10-27 23:15 | XMS REPORT | Continuity of Care Document ---
:1935 Author Organization [facility] t Address [address] [place] [address] Care Team Providers Name Role Phone EVELIN [...] code = 700) 109 pg/mL 0-100 H [id number] 07:11:00 Test Item Value Reference Range Interpretation Comments MAGNESIUM (BEAKER) (test code = 2.0 mg/dL 1.6-2.6 627) BASIC METABOLIC [id number] 07:11:00 Test Item Value Reference Range Interpretation [...] PATIEN TS. CBC W/PLT COUNT & AUTO [id number] 06:38:00 Test Item Value Reference Range Interpretation [...] (BEAKER) (test code = 2801) BASIC METABOLIC [id number] 06:18:00 Test Item Value Reference Range Interpretation [...] S NOT APPLICABLE FOR DIALYSIS PATIEN TS. [id number] 03:50:00 Test Item Value Reference Range Interpretation Comments RPR SCREEN (BEAKER) (test code = Nonreactive Nonreactive 420) BASIC METABOLIC [id number] 06:30:00 Test Item Value Reference Range Interpretation [...] S NOT APPLICABLE FOR DIALYSIS PATIEN TS. [id number] 06:24:00 Test Item Value Reference Range Interpretation Comments MAGNESIUM (BEAKER) (test code = 2.4 mg/dL 1.6-2.6 627) CBC W/PLT COUNT & AUTO [id number] 06:06:00 Test Item Value Reference Range Interpretation [...] (test code = 2801) MR, BRAIN, WITHOUT [id number] 04:23:00FINAL REPORT MRI Brain without contrast, MRA head and neck without contrast. C linical History: Stroke Technique: MRI of the brain utilizing axial T2, FLAIR, GRE, DWI; sagittal and coronal T1-weighted images.MRA of the head utilizing 3-D qgnz-fe-cvkndm technique, with 3-D reconstructions. MRA of the neck utilizing 2- D and 3-D bmmw-or-gxxwaa technique, with 3-D reconstructions. Comparisons: None Findings:MRI [...] evaluated. Otherwise no evidence for a major [place] proximal branch vessel occlusion. MRA neck: No evidence of hemodynamically significant stenosis in the cervical carotid or vertebral arteries by NASCET criteria. Signed: Nallely Torres MDReport Verified Date/Time: 04/07/2018 04:23:47 Reading Location: [address] Reading Room MR, MRA, BRAIN, WITHOUT [id number] 04:23:00Reason for exam:->stroke s/p tpaFINAL REPORT MRI Brain without contrast, MRA head and neck without contrast. Clinical History: Stroke Technique: MRI of the brain utilizing axial T2, FLAIR, GRE, DWI; sagittal and coronal T1-weighted images.MRA of the head utilizing 3-D ybnp-vo-kfwaza technique, with 3-D reconstructions. MRA of the neck utilizing 2-D and 3-D fnvy-zw-bczwzu technique, with 3-D reconstructions. Comparisons: None Findings:MRI [...] evaluated. Otherwise no evidence for a major [place] proximal branch vessel occlusion. MRA neck: No evidence of hemodynamically significant stenosis in the cervical carotid or vertebral arteries by NASCET criteria. Signed: Nallely Torres MDReport Verified Date/Time: 04/07/2018 04:23:47 Reading Location: [address] Reading Room MR, MRA, NECK, WITHOUT IV [id number] 04:23:00Reason for exam:->stroke s/p tpaFINAL REPORT MRI Brain without contrast, MRA head and neck without contrast. Clinical History: Stroke Technique: MRI of the brain utilizing axial T2, FLAIR, GRE, DWI; sagittal and coronal T1-weighted images.MRA of the head utilizing 3-D bpkj-vy-jxrpxl technique, with 3-D reconstructions. MRA of the neck utilizing 2-D and 3-D gwoi-mt-doqxkl technique, with 3-D reconstructions. Comparisons: None Findings:MRI [...] evaluated. Otherwise no evidence for a major [place] proximal branch vessel occlusion. MRA neck: No evidence of hemodynamically significant stenosis in the cervical carotid or vertebral arteries by NASCET criteria. Signed: Nallely Torres Verified Date/Time: 04/07/2018 04:23:47 Reading Location: [address] Reading Room TROPONIKhadijah [id number] 19:07:00 Test Item Value Reference Range Interpretation [...] 395) CK-MB Reference Range:<6.7 Normal6.7-10.0 Borderline>10.0 AbnormalTROPONIN [id number] 13:23:00 Test Item Value Reference Range Interpretation [...] intravenous potassium replacement.CREATINE KINASE (CK), TOTAL AND [id number] 13:17:00 Test Item Value Reference Range Interpretation [...] or 30 min aft er intravenous potassium replacement.[id number] 13:08:00 Test Item Value Reference Range Interpretation Comments POTASSIUM (BEAKER) (test code = 4.0 meq/L 3.5-5.1 379) Check Serum Potassium level 2 hours after oral potassium replacement completed or 30 min after intravenous potassium replacement.[id number] 13:08:00 Test Item Value Reference Range Interpretation Comments MAGNESIUM (BEAKER) (test code = 2.6 mg/dL 1.6-2.6 627) Check Serum Potassium level 2 hours after oral potassium replacement completed or 30 min after intravenous potassium replacement.HEMOGLOBIN [id number] 09:52:00 Test Item Value Reference Range Interpretation Comments HEMOGLOBIN A1C (BEAKER) (test code = 5.1 % 4.3-6.1 368) TROPONIN [id number] 06:59:00 Test Item Value Reference Range Interpretation [...] Reference Range:<6.7 Normal6.7-10.0 Borderline>10.0 AbnormalTSH/FREE T4 IF [id number] 03:54:00 Test Item Value Reference Range Interpretation Comments THYROID STIMULATING HORMONE 2.21 uIU/mL 0.35-4.94 (BEAKER) (test code = 772) VITAMIN B12 AND [id number] 03:54:00 Test Item Value Reference Range Interpretation Comments VITAMIN B12 (BEAKER) (test code = 802 pg/mL 213-816 774) FOLATE (BEAKER) (test code = 362) 36.5 ng/mL >=7.0 RAD, CHEST, 1 VIEW, NON [id number] 03:38:00Reason for exam:->basline hospitalized for strokeShould this [...] No focal pulmonary consolidation. Signed: Sonya Armendariz [facility] Verified Date/Time: 04/06/2018 03:38:00 Reading Location: [facility] B1 C013Y CT Body Reading Room C-REACTIVE [id number] 02:20:00 Test Item Value Reference Range Interpretation Comments C-REACTIVE PROTEIN (BEAKER) (test 0.05 mg/dL 0.00-0.50 code = 676) TROPONIN [id number] 02:07:00 Test Item Value Reference Range Interpretation [...] acidosis, acute neurological disease, and persistent tachyarrhythmia.FastingPROTHROMBIN [id number] 02:06:00 Test Item Value Reference Range Interpretation Comments PROTIME (BEAKER) (test code = 13.6 seconds 11.7-14.7 759) INR (BEAKER) (test code = 370) 1.0 <=5.9 RECOMMENDED COUMADIN/WARFARIN INR THERAPY RANGESSTANDARD DOSE: 2.0 - 3.0 Includes: PROPHYLAXIS forvenous thrombosis, systemic embolization; TREATMENT for venous thrombosis and/or pulmonary embolus.HIGH RISK: Target INR is 2.5-3.5 for patients with mechanical heart valves.[id number] 02:06:00 Test Item Value Reference Range Interpretation Comments PARTIAL THROMBOPLASTIN TIME 26.6 seconds 22.5-36.0 (BEAKER) (test code = 760) [id number] 01:57:00 Test Item Value Reference Range Interpretation Comments MAGNESIUM (BEAKER) (test code = 1.9 mg/dL 1.6-2.6 627) FastingBASIC METABOLIC [id number] 01:57:00 Test Item Value Reference Range Interpretation [...] NOT APPLICABLE FOR DIALYSIS PATIEN TS. FastingLIPID [id number] 01:57:00 Test Item Value Reference Range Interpretation [...] High >=190 FastingCBC W/PLT COUNT & AUTO [id number] 01:37:00 Test Item Value Reference Range Interpretation [...] % 0-1 PERCENT (BEAKER) (test code = 0711)
[2021-10-28 00:08] LABS: Absolute Lymphocytes (CBC) 2.6 K/uL (0.7-4.9); Hematocrit 34.9 % (36.0-45.0); MPV 8.1 fL (7.6-11.3); Protime INR 1.04
[2021-10-28] MEDS ORDERED: NA CHLORIDE 0.9% 1,000 ML ONE (00:18)
[2021-10-28] MEDS ORDERED: FOLIC ACID 5 MG/ML VIAL ONE (00:22)
[2021-10-28 00:28] LABS: ALT/SGPT 19 U/L (12-78); AST/SGOT 17 U/L (15-37); Albumin 3.1 g/dL (3.4-5.0); Alkaline Phosphatase 53 U/L (45-117); BUN Blood Urea Nitrogen 12 mg/dL (7-18); Bicarbonate 24 mmol/L (21-32); Bilirubin Total 0.2 mg/dL (0.2-1.0); Glucose Level 115 mg/dL (74-106); Magnesium 1.9 mg/dL (1.8-2.4); NT PRO-BNP 195 pg/mL (<450); Potassium 3.8 mmol/L (3.5-5.1); Protein, Total 6.6 g/dL (6.4-8.2); Sodium Level 138 mmol/L (136-145); Troponin High Sensitivity 6.2 pg/mL (<58.9)
[2021-10-28 00:29] LABS: Bilirubin Direct < 0.1 mg/dL (0-0.2); C-Reactive Protein < 2.90 mg/L (<3.00)
[2021-10-28] MEDS ORDERED: AMLODIPINE 5 MG TAB ONE (00:29)
--- NOTE | 2021-10-28 00:38 | ER ---
Nurse's Notes [facility] Name: Dinh Love Age: 86 yrs Sex: Female : 1935 Arrival Date: 10/27/2021 Time: 23:15 Bed 8 Private MD: Diagnosis: Headache;Essential (primary) hypertension;Tobacco abuse counseling;Tobacco use Presentation: 10/27 23:31 Chief complaint: Patient states: headache and left side of mouth numbness with an lg3 episode of high blood pressure. EMS gave 1 of nitro and headache dissipated. Coronavirus screen: Client denies travel out of the [place] in the last 14 days. At this time, the client does not indicate any symptoms associated with coronavirus-19. Ebola Screen: No symptoms or risks identified at this time. Initial Sepsis Screen: Does the patient meet any 2 criteria? No. Patient's initial sepsis screen is negative. Does the patient have a suspected source of infection? No. Patient's initial sepsis screen is negative. Risk Assessment: Do you want to hurt yourself or someone else? Patient reports no desire to harm self or others. Onset of symptoms was October 27, 2021 at 22:20. 23:31 Method Of Arrival: EMS: [facility] lg3 23:31 Acuity: KAROLINA 3 lg3 Triage Assessment: 23:36 General: Appears in no apparent distress. comfortable, Behavior is calm, cooperative. lg3 Pain: Denies pain. EENT: No deficits noted. No signs and/or symptoms were reported regarding the EENT system. Neuro: No deficits noted. Bradley Agitation-Sedation Scale (RASS): 0 - Alert and Calm Level of Consciousness is awake, alert, obeys commands, Oriented to person, place, time, situation, Digital Marketing Associate are equal bilaterally Speech is normal, Facial symmetry appears normal, Reports headache numbness in mouth. Cardiovascular: No deficits noted. Denies chest pain, shortness of breath, Capillary refill < 3 seconds Clubbing of nail beds is absent JVD is absent Patient's skin is warm and dry. Respiratory: No deficits noted. Airway is patent Trachea midline Respiratory effort is even, unlabored, Respiratory pattern is regular, symmetrical. GI: No deficits noted. No signs and/or symptoms were reported involving the gastrointestinal system. : No deficits noted. No signs and/or symptoms were reported regarding the genitourinary system. Derm: No deficits noted. No signs and/or symptoms reported regarding the dermatologic system. Skin is intact, is healthy with good turgor, is thin, Skin is dry, Skin is pink, warm \T\ dry. Musculoskeletal: No deficits noted. No signs and/or symptoms reported regarding the musculoskeletal system. Circulation, motion, and sensation intact. Range of motion: intact in all extremities. Historical: - Allergies: 23:36 Codeine; itch; lg3 23:36 Keflex; lg3 - PMHx: 23:36 Arthritis; Atrial Fib; Hypertension; Myocardial infarction; TIA; lg3 - PSHx: 23:36 Cholecystectomy; Heart Stents; hysterectomy; lg3 - Immunization history:: Adult Immunizations up to date, Client reports receiving the 2nd dose of the Covid vaccine, moderna X2. - Social history:: Smoking status: Patient reports the use of cigarette tobacco products, smokes one-half pack cigarettes per day, Reported history of juuling and/or vaping. Patient uses alcohol, occasionally. - Family history:: not pertinent. Screenin:39 Abuse screen: Denies threats or abuse. Denies injuries from another. Nutritional lg3 screening: No deficits noted. Tuberculosis screening: No symptoms or risk factors identified. Fall Risk None identified. Assessment: 23:39 General: see triage assessment. lg3 10/28 00:26 Reassessment: Patient appears in no apparent distress at this time. No changes from ld1 previously documented assessment. Patient and/or family updated on plan of care and expected duration. Pain level reassessed. Patient is alert, oriented x 3, equal unlabored respirations, skin warm/dry/pink. 00:59 Reassessment: Patient appears in no apparent distress at this time. No changes from ld1 previously documented assessment. Patient and/or family updated on plan of care and expected duration. Pain level reassessed. Patient is alert, oriented x 3, equal unlabored respirations, skin warm/dry/pink. Patient denies pain at this time. Patient states feeling better. Patient states symptoms have improved. Vital Signs: 10/27 23:31 BP 158 / 63; Pulse 58; Resp 17; Temp 99.2(O); Pulse Ox 98% on R/A; Weight 58.97 kg (R); lg3 Height 5 ft. 0 in. (152.40 cm) (R); Pain 0/10; 10/28 00:26 BP 135 / 70; Pulse 57; Resp 19 S; Pulse Ox 99% on R/A; ld1 00:59 BP 136 / 70; Pulse 56; Resp 20; Pulse Ox 98% on R/A; Pain 0/10; ld1 10/27 23:31 Body Mass Index 25.39 (58.97 kg, 152.40 cm) lg3 [place] Coma Score: 00:21 Eye Response: spontaneous(4). Verbal Response: oriented(5). Motor Response: obeys mamadou commands(6). Total: 15. NIH Stroke Scale Scores: 00:17 NIHSS Score: 0 mamadou ED Course: 10/27 23:15 Patient arrived in ED. mw2 23:25 Nahid Roberts MD is Attending Physician. mamadou 23:31 Farrah Andrews, RN is Primary Nurse. lg3 23:36 Triage completed. lg3 23:36 Arm band placed on right wrist. lg3 23:37 CT Stroke Brain w/o Contrast In Process Unspecified. EDMS 23:39 Patient has correct armband on for positive identification. Bed in low position. Call lg3 light in reach. Side rails up X2. Client placed on continuous cardiac and pulse oximetry monitoring. NIBP monitoring applied. quality assurance monitor final on. Door closed. Noise minimized. Warm blanket given. 23:39 Maintain EMS IV. Dressing intact. Good blood return noted. Site clean \T\ dry. Gauge \T\ lg 3 site: 20 LAC. 23:40 XRAY Chest (1 view) In Process Unspecified. EDMS 10/28 00:02 Basic Metabolic Panel Sent. lg3 00:02 CBC with Diff Sent. lg3 00:02 LFT's Sent. lg3 00:02 Magnesium Sent. lg3 00:02 NT PRO-BNP Sent. lg3 00:02 PT-INR Sent. lg3 00:02 Troponin HS Sent. lg3 00:10 CRP Sent. lg3 00:10 Sed Rate Sent. lg3 00:37 Milind Quan MD is Referral Physician. mamadou 01:00 No provider procedures requiring assistance completed. IV discontinued, intact, ld1 bleeding controlled, No redness/swelling at site. Pressure dressing applied. Administered Medications: 00:20 Drug: foLIC Acid 1 mg Route: IVPB; Site: left antecubital; ld1 00:20 Follow up: Response: No adverse reaction; IV Status: Completed infusion; IV Intake: [id number] 00:20 Drug: NS 0.9% 1000 ml Route: IV; Rate: 1 bolus; Site: left antecubital; ld1 01:01 Follow up: Response: No adverse reaction; IV Status: Completed infusion; IV Intake: ld1 500ml 00:25 Drug: Norvasc (amlodipine) 5 mg Route: PO; ld1 00:26 Follow up: Response: No adverse reaction ld1 Intake: 00:20 IV: 10ml; Total: 10ml. ld1 01:01 IV: 500ml; Total: 510ml. ld1 Outcome: 00:37 Discharge ordered by . mamadou 01:00 Discharged to home via wheelchair, with family. ld1 01:00 Condition: stable 01:00 Discharge instructions given to patient, Instructed on discharge instructions, follow up and referral plans. medication usage, Demonstrated understanding of instructions, follow-up care, medications, Prescriptions given X 1. 01:01 Patient left the ED. ld1 NIH Stroke Scale - NIH Stroke Score Date: 10/28/2021 Time: 00:17 Total Score = 0 1a. Level of Consciousness (LOC) - 0(Alert) 1b. Level of Consciousness (LOC) (Month \T\ Age) - 0(Both) 1c. LOC Commands (Open \T\ Closes Eyes/Legal Records Manager) - 0(Both) 2. Best Gaze (Lateral Gaze Paresis) - 0(Normal) 3. Visual Field Loss - 0(No visual loss) 4. Facial Palsy - 0(Normal) 5a. Left Arm: Motor (10-second hold) - 0(No drift) 5b. Right Arm: Motor (10-second hold) - 0(No drift) 6a. Left Leg: Motor (5-second hold - always test supine) - 0(No drift) 6b. Right Leg: Motor (5-second hold - always test supine) - 0(No drift) 7. Limb Ataxia (finger/nose \T\ heel/betancourt - test with eyes open) - 0(Absent) 8. Sensory Loss (pinprick arms/legs/face) - 0(Normal) 9. Best Language: Aphasia (description/naming/reading) - 0(No aphasia) 10. Dysarthria (speech clarity - read or repeat words) - 0(Normal) 11. Extinction and Inattention (visual/tactile/auditory/spatial/personal) - 0(No abnormality) Initials: mamadou Signatures: Dispatcher [employer] Nahid Mar MD MD cha [place], MyKena mw2 Farrah Andrews, RN RN lg3 Marylou العلي RN RN ld1
--- NOTE | 2021-10-28 00:38 | EDPHYS ---
Physician Documentation [facility] Name: Dinh Love Age: 86 yrs Sex: Female : 1935 Arrival Date: 10/27/2021 Time: 23:15 Bed 8 Private MD: ENE Physician Nahdi Roberts HPI: 10/28 00:17 This 86 yrs old Female presents to ER via EMS with complaints of mamadou headache,numbness of face. 00:17 The patient complains of pain to the top of head, forehead, left frontal area, left mamadou side of the back of head, left occipital area, left base of the skull, right frontal area, right side of the back of head, right occipital area and right base of the skull. The patient describes the headache as aching. Onset: The symptoms/episode began/occurred last night. hx htn , branch, facial numbness. Associated signs and symptoms: Pertinent positives: nausea, branch. Severity of symptoms: At its worst the pain was moderate, in the emergency department the pain has improved, moderately. Headache History: The patient has had previous headaches and this one is similar to previous episodes. Onset: The symptoms/episode began/occurred just prior to arrival, last night. Severity of symptoms: At their worst the symptoms were mild in the emergency department the symptoms have improved mildly. The symptoms are alleviated by nothing. the symptoms are aggravated by nothing. Historical: - Allergies: 10/27 23:36 Codeine; itch; lg3 23:36 Keflex; lg3 - PMHx: 23:36 Arthritis; Atrial Fib; Hypertension; Myocardial infarction; TIA; lg3 - PSHx: 23:36 Cholecystectomy; Heart Stents; hysterectomy; lg3 - Immunization history:: Adult Immunizations up to date, Client reports receiving the 2nd dose of the Covid vaccine, moderna X2. - Social history:: Smoking status: Patient reports the use of cigarette tobacco products, smokes one-half pack cigarettes per day, Reported history of juuling and/or vaping. Patient uses alcohol, occasionally. - Family history:: not pertinent. ROS: 10/28 00:17 Constitutional: Negative for fever, chills, and weight loss, Eyes: Negative for injury, mamadou pain, redness, and discharge, ENT: Negative for injury, pain, and discharge, Neck: Negative for injury, pain, and swelling, Cardiovascular: Negative for chest pain, palpitations, and edema, Respiratory: Negative for shortness of breath, cough, wheezing, and pleuritic chest pain, Abdomen/GI: Negative for abdominal pain, nausea, vomiting, diarrhea, and constipation, Back: Negative for injury and pain, : Negative for injury, bleeding, discharge, and swelling, MS/Extremity: Negative for injury and deformity, Skin: Negative for injury, rash, and discoloration, Psych: Negative for depression, anxiety, suicide ideation, homicidal ideation, and hallucinations, Allergy/Immunology: Negative for hives, rash, and allergies, Endocrine: Negative for neck swelling, polydipsia, polyuria, polyphagia, and marked weight changes. Neuro: Positive for headache. Exam: 00:17 Constitutional: This is a well developed, well nourished patient who is awake, alert, mamadou and in no acute distress. Head/Face: Normocephalic, atraumatic. Eyes: Pupils equal round and reactive to light, extra-ocular motions intact. Lids and lashes normal. Conjunctiva and sclera are non-icteric and not injected. Cornea within normal limits. Periorbital areas with no swelling, redness, or edema. ENT: Nares patent. No nasal discharge, no septal abnormalities noted. Tympanic membranes are normal and external auditory canals are clear. Oropharynx with no redness, swelling, or masses, exudates, or evidence of obstruction, uvula midline. Mucous membranes moist. Neck: Trachea midline, no thyromegaly or masses palpated, and no cervical lymphadenopathy. Supple, full range of motion without nuchal rigidity, or vertebral point tenderness. No Meningismus. Chest/axilla: Normal chest wall appearance and motion. Nontender with no deformity. No lesions are appreciated. Cardiovascular: Regular rate and rhythm with a normal S1 and S2. No gallops, murmurs, or rubs. Normal PMI, no JVD. No pulse deficits. Respiratory: Lungs have equal breath sounds bilaterally, clear to auscultation and percussion. No rales, rhonchi or wheezes noted. No increased work of breathing, no retractions or nasal flaring. Abdomen/GI: Soft, non-tender, with normal bowel sounds. No distension or tympany. No guarding or rebound. No evidence of tenderness throughout. Back: No spinal tenderness. No costovertebral tenderness. Full range of motion. Female : Normal external genitalia. Skin: Warm, dry with normal turgor. Normal color with no rashes, no lesions, and no evidence of cellulitis. MS/ Extremity: Pulses equal, no cyanosis. Neurovascular intact. Full, normal range of motion. Neuro: Awake and alert, GCS 15, oriented to person, place, time, and situation. Cranial nerves II-XII grossly intact. Motor strength 5/5 in all extremities. Sensory grossly intact. Cerebellar exam normal. Normal gait. Psych: Awake, alert, with orientation to person, place and time. Behavior, mood, and affect are within normal limits. 00:30 ECG was reviewed by the Attending Physician. [facility] Vital Signs: 10/27 23:31 BP 158 / 63; Pulse 58; Resp 17; Temp 99.2(O); Pulse Ox 98% on R/A; Weight 58.97 kg (R); lg3 Height 5 ft. 0 in. (152.40 cm) (R); Pain 0/10; 10/28 00:26 BP 135 / 70; Pulse 57; Resp 19 S; Pulse Ox 99% on R/A; ld1 00:59 BP 136 / 70; Pulse 56; Resp 20; Pulse Ox 98% on R/A; Pain 0/10; ld1 10/27 23:31 Body Mass Index 25.39 (58.97 kg, 152.40 cm) lg3 NIH Stroke Scale Scores: 00:17 NIHSS Score: 0 mamadou [place] Coma Score: 00:21 Eye Response: spontaneous(4). Verbal Response: oriented(5). Motor Response: obeys [facility] commands(6). Total: 15. MDM: 10/27 23:26 Patient medically screened. [facility] 10/28 00:21 Differential diagnosis: cluster headache, hypertensive headache, hyponatremia, mamadou migraine, subarachnoid bleed, subdural hematoma, temporal arteritis, tension headache. Data reviewed: vital signs, nurses notes, EMS record, lab test result(s), EKG, radiologic studies, CT scan, plain films. Data interpreted: monitoring tech: rate is 58 beats/min, rhythm is regular, Pulse oximetry: on room air is 98 %. Test interpretation: by ED physician or midlevel provider: ECG, plain radiologic studies. Counseling: I had a detailed discussion with the patient and/or guardian regarding: the historical points, exam findings, and any diagnostic results supporting the discharge/admit diagnosis, lab results, radiology results. 10/27 23: Order name: Basic Metabolic Panel; Complete Time: 00:30 [facility] 10/27 22: Order name: CBC with Diff; Complete Time: 00:37 [facility] 10/27 22: Order name: LFT's; Complete Time: 00:30 [facility] 10/27 Order name: Magnesium; Complete Time: 00:30 [facility] 10/27 22: Order name: NT PRO-BNP; Complete Time: 00:30 [facility] 10/27 22: Order name: PT-INR; Complete Time: 00:30 [facility] 10/27 Order name: Troponin HS; Complete Time: 00:30 [facility] 10/27 Order name: XRAY Chest (1 view) [facility] 10/27 Order name: CT Stroke Brain w/o Contrast [facility] 10/27 23: Order name: Sed Rate; Complete Time: 00:37 [facility] 10/27 Order name: CRP; Complete Time: 00:30 [facility] 10/27 22: Order name: EKG; Complete Time: 23: [facility] 10/27 Order name: Cardiac monitoring; Complete Time: 00: [facility] 10/27 Order name: EKG - Nurse/Tech; Complete Time: 00:59 [facility] 10/27 Order name: IV Saline Lock; Complete Time: 00: [facility] 10/27 22: Order name: Labs collected and sent; Complete Time: 00: [facility] 10/27 Order name: O2 Per Protocol; Complete Time: 00: [facility] 10/27 Order name: O2 Sat Monitoring; Complete Time: 00: [facility] EC:30 Rate is 57 beats/min. Rhythm is regular. QRS [place] is Normal. MD interval is normal. QRS mamadou interval is normal. QT interval is normal. No Q waves. T waves are Normal. No ST changes noted. Clinical impression: 1st degree heart block and Sinus bradycardia. Interpreted by me. Reviewed by me. Administered Medications: 00:20 Drug: foLIC Acid 1 mg Route: IVPB; Site: left antecubital; ld1 00:20 Follow up: Response: No adverse reaction; IV Status: Completed infusion; IV Intake: [id number] 00:20 Drug: NS 0.9% 1000 ml Route: IV; Rate: 1 bolus; Site: left antecubital; ld1 01:01 Follow up: Response: No adverse reaction; IV Status: Completed infusion; IV Intake: ld1 500ml 00:25 Drug: Norvasc (amlodipine) 5 mg Route: PO; ld1 00:26 Follow up: Response: No adverse reaction ld1 Disposition Summary: 10/28/21 00:37 Discharge Ordered Location: Home mamadou Problem: new mamadou Symptoms: have improved mamadou Condition: Stable mamadou Diagnosis - Headache mamadou - Essential (primary) hypertension mamadou - Tobacco abuse counseling mamadou - Tobacco use mamadou Followup: mamadou - With: Private Physician - When: 1 - 2 days - Reason: Recheck today's complaints, Continuance of care, Re-evaluation by your physician Followup: mamadou - With: - When: 1 - 2 days - Reason: Recheck today's complaints, Continuance of care, Re-evaluation by your physician Discharge Instructions: - Discharge Summary Sheet mamadou - Hypertension, Adult mamadou - Steps to Quit Smoking mamadou - Health Risks of Smoking mamadou - Stroke Prevention mamadou - Hypertension, Adult, [id number] mamadou - Steps to Quit Smoking, Awdn-un-Tzax mamadou - How to Take Your Blood Pressure, Rcfx-ix-[id number] mamadou - Managing Your Hypertension mamadou Forms: - Medication Reconciliation Form mamadou - Thank You Letter mamadou - Antibiotic Education mamadou - Prescription Opioid Use mamadou Prescriptions: - Norvasc 5 mg Oral Tablet - take 1 tablet by ORAL route once daily; 20 tablet; Refills: 0, Product mamadou Selection Permitted NIH Stroke Scale - NIH Stroke Score Date: 10/28/2021 Time: 00:17 Total Score = 0 1a. Level of Consciousness (LOC) - 0(Alert) 1b. Level of Consciousness (LOC) (Month \T\ Age) - 0(Both) 1c. LOC Commands (Open \T\ Closes Eyes/Nascar Driver) - 0(Both) 2. Best Gaze (Lateral Gaze Paresis) - 0(Normal) 3. Visual Field Loss - 0(No visual loss) 4. Facial Palsy - 0(Normal) 5a. Left Arm: Motor (10-second hold) - 0(No drift) 5b. Right Arm: Motor (10-second hold) - 0(No drift) 6a. Left Leg: Motor (5-second hold - always test supine) - 0(No drift) 6b. Right Leg: Motor (5-second hold - always test supine) - 0(No drift) 7. Limb Ataxia (finger/nose \T\ heel/betancourt - test with eyes open) - 0(Absent) 8. Sensory Loss (pinprick arms/legs/face) - 0(Normal) 9. Best Language: Aphasia (description/naming/reading) - 0(No aphasia) 10. Dysarthria (speech clarity - read or repeat words) - 0(Normal) 11. Extinction and Inattention (visual/tactile/auditory/spatial/personal) - 0(No abnormality) Initials: mamadou Signatures: Dispatcher [employer] Nahid Mar MD MD cha Gibson, Lacie, MARIO RN lg3 Marylou العلي RN RN ld1 Anita To PA PA sb3
[2021-10-28 02:34] VITALS: TEMP 99.2
[2021-10-28 02:36] VITALS: BP 136/70; O2SAT 98
--- NOTE | 2021-10-28 11:03 | RAD REPORT ---
EXAM DESCRIPTION: CT - Ct Stroke Brain Wo Cont - 10/28/2021 6:49 am CLINICAL HISTORY: 86 years Female Neuro deficit, acute, stroke suspected TECHNIQUE: Axial noncontrast CT head with coronal and sagittal reformats. All CT scans at this facil ity use dose modulation, iterative reconstruction, and/or weight based dosing when appropriate to red uce radiation dose to as low as reasonably achievable. COMPARISON: 08/12/2021 FINDINGS: Brain: Parenchymal volume loss. Chronic small vessel disease. No obvious large acute tia torial infarction. No intracranial hemorrhage, midline shift, mass or mass effect. Ventricles: No hydrocephalus. Orbits: Unremarkable. Sinuses: Visualized portions are clear. Mastoid: Clear. Osseous: Unremarkable. Soft tissues: Unremarkable. IMPRESSION: No acute CT abnormality. Electronically signed by: Jerel Phelps MD 10/27/2021 11:52 PM CDT THIS REPORT CONTAINS FINDINGS THAT MAY BE CRITICAL TO PATIENT CARE: The findings were verbally discu ssed via telephone conference with Nahid Roberts MD on 10/27/2021 at 11:52 PM CDT. Due to temporary technical issues with the PACS/Fluency reporting system, reports are being signed by the in house radiologist without review as a courtesy to ensure prompt reporting. The interpreting r adiologist is fully responsible for the content of the report.
--- NOTE | 2021-10-28 11:08 | RAD REPORT ---
EXAM DESCRIPTION: RAD - Chest Single View - 10/27/2021 11:38 pm CLINICAL HISTORY: COUGH. COMPARISON: None. TECHNIQUE: Single view AP chest radiograph(s). FINDINGS: The lungs are clear. No pulmonary infiltrate or edema identified. No pleural effusion. N o pneumothorax. Nonenlarged cardiomediastinal silhouette. No significant osseous abnormality. IMPRESSION: No acute cardiopulmonary abnormality identified by radiograph. Electronically signed by: Vianca Christy MD 10/27/2021 11:49 PM CDT Due to temporary technical issues with the PACS/Fluency reporting system, reports are being signed by the in house radiologist without review as a courtesy to ensure prompt reporting. The interpreting r adiologist is fully responsible for the content of the report.
--- NOTE | 2021-10-28 12:52 | EKG ---
Test Date: 2021-10-28 Test Time: 00:29:52 Soap Press Feeder: TONI MEASUREMENT RESULTS: Intervals: Rate: 57 KS: 212 QRSD: 80 QT: 436 QTc: 424 [place]: P: 61 KS: 212 QRS: 15 T: 69 INTERPRETIVE STATEMENTS: Sinus bradycardia with 1st degree AV block Otherwise normal ECG Compared to ECG 08/12/2021 00:04:15 First degree AV block now present Sinus rhythm no longer present Electronically Signed On 10-28-21 12:51:52 CDT by Brandon Vo
== END 2021-10-28 01:01 | disposition home or self-care (01) ==
LOC: ER 23:11
DX: R51.9 Headache, unspecified (principal); I10 Essential (primary) hypertension; Z72.0 Tobacco use; Z71.6 Tobacco abuse counseling; I48.91 Unspecified atrial fibrillation; I25.2 Old myocardial infarction; Z95.818 Presence of other cardiac implants and grafts; Z88.5 Allergy status to narcotic agent; Z88.8 Allergy status to other drugs, medicaments and biological substances
CPT/HCPCS: 96361; 93005; 85025; 80048; 36415; 83735; 85610; 80076; 85652; 84484; 83880; 86140; 70450; 71045; 96374; 99284; J7030

== ENCOUNTER 2021-11-21 11:28 | Emergency (ER) | payer OTHER, MEDICARE ==
--- OUTSIDE RECORDS SUMMARY | 2021-11-21 11:30 | XMS REPORT | Continuity of Care Document ---
:1935 Author Organization [facility] t Address [address] [place] [address] Care Team Providers Name Role Phone EVELIN [...] code = 700) 109 pg/mL 0-100 H [id number] 07:11:00 Test Item Value Reference Range Interpretation Comments MAGNESIUM (BEAKER) (test code = 2.0 mg/dL 1.6-2.6 627) BASIC METABOLIC [id number] 07:11:00 Test Item Value Reference Range Interpretation [...] PATIEN TS. CBC W/PLT COUNT & AUTO [id number] 06:38:00 Test Item Value Reference Range Interpretation [...] (BEAKER) (test code = 2801) BASIC METABOLIC [id number] 06:18:00 Test Item Value Reference Range Interpretation [...] S NOT APPLICABLE FOR DIALYSIS PATIEN TS. [id number] 03:50:00 Test Item Value Reference Range Interpretation Comments RPR SCREEN (BEAKER) (test code = Nonreactive Nonreactive 420) BASIC METABOLIC [id number] 06:30:00 Test Item Value Reference Range Interpretation [...] S NOT APPLICABLE FOR DIALYSIS PATIEN TS. [id number] 06:24:00 Test Item Value Reference Range Interpretation Comments MAGNESIUM (BEAKER) (test code = 2.4 mg/dL 1.6-2.6 627) CBC W/PLT COUNT & AUTO [id number] 06:06:00 Test Item Value Reference Range Interpretation [...] (test code = 2801) MR, BRAIN, WITHOUT [id number] 04:23:00FINAL REPORT MRI Brain without contrast, MRA head and neck without contrast. C linical History: Stroke Technique: MRI of the brain utilizing axial T2, FLAIR, GRE, DWI; sagittal and coronal T1-weighted images.MRA of the head utilizing 3-D dbni-he-vjqjrj technique, with 3-D reconstructions. MRA of the neck utilizing 2- D and 3-D xlky-vl-iaxjte technique, with 3-D reconstructions. Comparisons: None Findings:MRI [...] evaluated. Otherwise no evidence for a [place] proximal branch vessel occlusion. MRA neck: No evidence of hemodynamically significant stenosis in the cervical carotid or vertebral arteries by NASCET criteria. Signed: Nallely Torres MDReport Verified Date/Time: 04/07/2018 04:23:47 Reading Location: [address] Reading Room MR, MRA, BRAIN, WITHOUT [id number] 04:23:00Reason for exam:->stroke s/p tpaFINAL REPORT MRI Brain without contrast, MRA head and neck without contrast. Clinical History: Stroke Technique: MRI of the brain utilizing axial T2, FLAIR, GRE, DWI; sagittal and coronal T1-weighted images.MRA of the head utilizing 3-D wowp-mi-uixtgp technique, with 3-D reconstructions. MRA of the neck utilizing 2-D and 3-D cobs-rw-xgfekv technique, with 3-D reconstructions. Comparisons: None Findings:MRI [...] evaluated. Otherwise no evidence for a [place] proximal branch vessel occlusion. MRA neck: No evidence of hemodynamically significant stenosis in the cervical carotid or vertebral arteries by NASCET criteria. Signed: Nallely Torres MDReport Verified Date/Time: 04/07/2018 04:23:47 Reading Location: [address] Reading Room MR, MRA, NECK, WITHOUT IV [id number] 04:23:00Reason for exam:->stroke s/p tpaFINAL REPORT MRI Brain without contrast, MRA head and neck without contrast. Clinical History: Stroke Technique: MRI of the brain utilizing axial T2, FLAIR, GRE, DWI; sagittal and coronal T1-weighted images.MRA of the head utilizing 3-D fyfj-lz-pekiza technique, with 3-D reconstructions. MRA of the neck utilizing 2-D and 3-D zakq-tq-iqzoyc technique, with 3-D reconstructions. Comparisons: None Findings:MRI [...] evaluated. Otherwise no evidence for a [place] proximal branch vessel occlusion. MRA neck: No evidence of hemodynamically significant stenosis in the cervical carotid or vertebral arteries by NASCET criteria. Signed: Nallely Torres Verified Date/Time: 04/07/2018 04:23:47 Reading Location: [address] Reading Room TROPONIKhadijah [id number] 19:07:00 Test Item Value Reference Range Interpretation [...] 395) CK-MB Reference Range:<6.7 Normal6.7-10.0 Borderline>10.0 AbnormalTROPONIN [id number] 13:23:00 Test Item Value Reference Range Interpretation [...] intravenous potassium replacement.CREATINE KINASE (CK), TOTAL AND [id number] 13:17:00 Test Item Value Reference Range Interpretation [...] or 30 min aft er intravenous potassium replacement.[id number] 13:08:00 Test Item Value Reference Range Interpretation Comments POTASSIUM (BEAKER) (test code = 4.0 meq/L 3.5-5.1 379) Check Serum Potassium level 2 hours after oral potassium replacement completed or 30 min after intravenous potassium replacement.[id number] 13:08:00 Test Item Value Reference Range Interpretation Comments MAGNESIUM (BEAKER) (test code = 2.6 mg/dL 1.6-2.6 627) Check Serum Potassium level 2 hours after oral potassium replacement completed or 30 min after intravenous potassium replacement.HEMOGLOBIN [id number] 09:52:00 Test Item Value Reference Range Interpretation Comments HEMOGLOBIN A1C (BEAKER) (test code = 5.1 % 4.3-6.1 368) TROPONIN [id number] 06:59:00 Test Item Value Reference Range Interpretation [...] Reference Range:<6.7 Normal6.7-10.0 Borderline>10.0 AbnormalTSH/FREE T4 IF [id number] 03:54:00 Test Item Value Reference Range Interpretation Comments THYROID STIMULATING HORMONE 2.21 uIU/mL 0.35-4.94 (BEAKER) (test code = 772) VITAMIN B12 AND [id number] 03:54:00 Test Item Value Reference Range Interpretation Comments VITAMIN B12 (BEAKER) (test code = 802 pg/mL 213-816 774) FOLATE (BEAKER) (test code = 362) 36.5 ng/mL >=7.0 RAD, CHEST, 1 VIEW, NON [id number] 03:38:00Reason for exam:->basline hospitalized for strokeShould this [...] No focal pulmonary consolidation. Signed: Sonya Armendariz [facility] Verified Date/Time: 04/06/2018 03:38:00 Reading Location: [facility] B1 C013Y CT Body Reading Room C-REACTIVE [id number] 02:20:00 Test Item Value Reference Range Interpretation Comments C-REACTIVE PROTEIN (BEAKER) (test 0.05 mg/dL 0.00-0.50 code = 676) TROPONIN [id number] 02:07:00 Test Item Value Reference Range Interpretation [...] acidosis, acute neurological disease, and persistent tachyarrhythmia.FastingPROTHROMBIN TIME/[id number] 02:06:00 Test Item Value Reference Range Interpretation Comments PROTIME (BEAKER) (test code = 13.6 seconds 11.7-14.7 759) INR (BEAKER) (test code = 370) 1.0 <=5.9 RECOMMENDED COUMADIN/WARFARIN INR THERAPY RANGESSTANDARD DOSE: 2.0 - 3.0 Includes: PROPHYLAXIS forvenous thrombosis, systemic embolization; TREATMENT for venous thrombosis and/or pulmonary embolus.HIGH RISK: Target INR is 2.5-3.5 for patients with mechanical heart valves.[id number] 02:06:00 Test Item Value Reference Range Interpretation Comments PARTIAL THROMBOPLASTIN TIME 26.6 seconds 22.5-36.0 (BEAKER) (test code = 760) [id number] 01:57:00 Test Item Value Reference Range Interpretation Comments MAGNESIUM (BEAKER) (test code = 1.9 mg/dL 1.6-2.6 627) FastingBASIC METABOLIC [id number] 01:57:00 Test Item Value Reference Range Interpretation [...] NOT APPLICABLE FOR DIALYSIS PATIEN TS. FastingLIPID [id number] 01:57:00 Test Item Value Reference Range Interpretation [...] High >=190 FastingCBC W/PLT COUNT & AUTO [id number] 01:37:00 Test Item Value Reference Range Interpretation [...] % 0-1 PERCENT (BEAKER) (test code = 6751)
[2021-11-21] MEDS ORDERED: MORPHINE 4 MG/ML SYR ONE ×2 (12:10→14:10)
[2021-11-21] MEDS ORDERED: ONDANSETRON 4 MG/2 ML VIAL ONE (12:10)
--- NOTE | 2021-11-21 12:46 | RAD REPORT ---
EXAM DESCRIPTION: RAD - Wrist Left 3 View - 11/21/2021 12:34 pm CLINICAL HISTORY: Left wrist pain status post injury FINDINGS: Impacted markedly displaced distal radial fracture. Mildly displaced fracture distal ulna. No dislocation seen
--- NOTE | 2021-11-21 12:47 | RAD REPORT ---
EXAM DESCRIPTION: RAD - Forearm Left - 11/21/2021 12:34 pm CLINICAL HISTORY: Left forearm pain status post injury FINDINGS: Impacted markedly displaced distal radial fracture. Mildly displaced fracture distal ulna. No dislocation seen
--- NOTE | 2021-11-21 13:43 | RAD REPORT ---
EXAM DESCRIPTION: CT - Head C Spine Mpr Wo Con - 11/21/2021 1:19 pm CLINICAL HISTORY: Head and neck injury status post fall. Head and neck pain COMPARISON: July [address] TECHNIQUE: Computed axial tomography of the head and cervical spine was obtained. Sagittal and coronal reconstruction was performed. All CT scans are performed using dose optimization technique as appropriate and may include automated exposure control or mA/KV adjustment according to patient size. FINDINGS: An intracranial bleed is not seen. Mild to moderate low-density areas within periventricul ar, deep and subcortical white matter probably ischemic changes secondary to small vessel disease. The ventricles are normal in caliber. An extra-axial fluid collection is not noted.Fluid within the v isualized sinuses and mastoids is not seen A cervical fracture is not visualized. No dislocation is noted. IMPRESSION: No acute intracranial abnormality is seen. A cervical fracture is not visualized. If the patient continues to have symptoms to suggest intracra nial /spinal cord pathology then MRI would be recommended
--- NOTE | 2021-11-21 14:16 | EDPHYS ---
Physician Documentation [facility] Name: Dinh Love Age: 86 yrs Sex: Female : 1935 Arrival Date: 11/21/2021 Time: 11:35 Bed 18 Private MD: ED Physician Castillo Sagastume HPI: 11/21 11:58 This 86 yrs old Female presents to ER via EMS with complaints of fall from standing. kdr 11:58 Patient was bending over putting her shoes on when she fell forward, she had her left kdr hand outstretched. She now complains of pain to her left wrist and hand. She also hit her head. She denies LOC.. Onset: The symptoms/episode began/occurred suddenly, just prior to arrival. Severity of symptoms: At their worst the symptoms were mild in the emergency department the symptoms are unchanged. The patient has not experienced similar symptoms in the past. The patient has been recently seen by a physician:. Historical: - Allergies: 11:38 Codeine; itch; jd3 11:38 Keflex; jd3 - Home Meds: 11:38 Eliquis 5 mg Oral tab 2 times per day [Active]; nitroglycerin 0.4 mg SL subl 1 tab as jd3 needed [Active]; Vitamin D3 25 mcg (1,000 unit) Oral cap daily [Active]; amitriptyline 50 mg Oral tab 1 tab nightly [Active]; metoprolol succinate 25 mg Oral Tb24 1 tab once daily [Active]; levothyroxine 25 mcg tab 1 tab once daily [Active]; - PMHx: 11:38 Atrial Fib; Myocardial infarction; TIA; Hypertension; Arthritis; jd3 - PSHx: 11:38 Cholecystectomy; Heart Stents; hysterectomy; jd3 - Immunization history:: Adult Immunizations up to date, Client reports receiving the 2nd dose of the Covid vaccine. - Social history:: Smoking status: Patient reports the use of cigarette tobacco products, denies chronic smoking, but will smoke occasionally, Reported history of juuling and/or vaping. - Immunization history: Last tetanus immunization: unknown. ROS: 11:58 Constitutional: Negative for fever, chills, and weight loss, Eyes: Negative for injury, kdr pain, redness, and discharge, Neck: Negative for injury, pain, and swelling, Cardiovascular: Negative for chest pain, palpitations, and edema, Respiratory: Negative for shortness of breath, cough, wheezing, and pleuritic chest pain, Abdomen/GI: Negative for abdominal pain, nausea, vomiting, diarrhea, and constipation, Back: Negative for injury and pain, : Negative for injury, bleeding, discharge, and swelling, Skin: Negative for injury, rash, and discoloration, Neuro: Negative for headache, weakness, numbness, tingling, and seizure activity. Psych: Negative for depression, anxiety, suicide ideation, homicidal ideation, and hallucinations, Allergy/Immunology: Negative for hives, rash, and allergies, Endocrine: Negative for neck swelling, polydipsia, polyuria, polyphagia, and marked weight changes, Hematologic/Lymphatic: Negative for swollen nodes, abnormal bleeding, and unusual bruising. 11:58 MS/extremity: Positive for injury or acute deformity, decreased range of motion, pain, swelling, tenderness, of the left antecubital area, dorsal aspect of left forearm, left wrist, left hand, left elbow and palmar aspect of left forearm. Exam: 11:58 Constitutional: This is a well developed, well nourished patient who is awake, alert, kdr and in no acute distress. Head/Face: Normocephalic, atraumatic. Eyes: Pupils equal round and reactive to light, extra-ocular motions intact. Lids and lashes normal. Conjunctiva and sclera are non-icteric and not injected. Cornea within normal limits. Periorbital areas with no swelling, redness, or edema. Neck: Trachea midline, no thyromegaly or masses palpated, and no cervical lymphadenopathy. Supple, full range of motion without nuchal rigidity, or vertebral point tenderness. No Meningismus. Chest/axilla: Normal chest wall appearance and motion. Nontender with no deformity. No lesions are appreciated. Cardiovascular: Regular rate and rhythm with a normal S1 and S2. No gallops, murmurs, or rubs. Normal PMI, no JVD. No pulse deficits. Respiratory: Lungs have equal breath sounds bilaterally, clear to auscultation and percussion. No rales, rhonchi or wheezes noted. No increased work of breathing, no retractions or nasal flaring. Abdomen/GI: Soft, non-tender, with normal bowel sounds. No distension or tympany. No guarding or rebound. No evidence of tenderness throughout. Skin: Warm, dry with normal turgor. Normal color with no rashes, no lesions, and no evidence of cellulitis. MS/ Extremity: Pulses equal, no cyanosis. Neurovascular intact. Full, normal range of motion. Neuro: Awake and alert, GCS 15, oriented to person, place, time, and situation. Cranial nerves II-XII grossly intact. Motor strength 5/5 in all extremities. Sensory grossly intact. Cerebellar exam normal. Normal gait. 11:58 Musculoskeletal/extremity: Extremities: grossly normal except: noted in the left wrist, left hand and palmar aspect of left forearm: Vital Signs: 11:39 BP 139 / 63; Pulse 68; Resp 17 S; Temp 97.9(O); Pulse Ox 100% on R/A; Weight 56.7 kg jd3 (R); Height 5 ft. 0 in. (152.40 cm) (R); Pain 10/10; 12:49 BP 111 / 99; Pulse 74; Resp 18 S; Pulse Ox 100% on R/A; jd3 13:56 BP 121 / 89; Pulse 74; Resp 18 S; Pulse Ox 100% on R/A; jd3 11:39 Body Mass Index 24.41 (56.70 kg, 152.40 cm) jd3 Jennifer Coma Score: 11:42 Eye Response: spontaneous(4). Verbal Response: oriented(5). Motor Response: obeys jd3 commands(6). Total: 15. 12:49 Eye Response: spontaneous(4). Verbal Response: oriented(5). Motor Response: obeys jd3 commands(6). Total: 15. 13:56 Eye Response: spontaneous(4). Verbal Response: oriented(5). Motor Response: obeys jd3 commands(6). Total: 15. 14:29 Eye Response: spontaneous(4). Verbal Response: oriented(5). Motor Response: obeys jd3 commands(6). Total: 15. Trauma Score (Adult): 11:42 Eye Response: spontaneous(1); Verbal Response: oriented(1); Motor Response: obeys jd3 commands(2); Systolic BP: > 89 mm Hg(4); Respiratory Rate: 10 to 29 per min(4); [place] Score: 15; Trauma Score: 12 12:49 Eye Response: spontaneous(1); Verbal Response: oriented(1); Motor Response: obeys jd3 commands(2); Systolic BP: > 89 mm Hg(4); Respiratory Rate: 10 to 29 per min(4); [place] Score: 15; Trauma Score: 12 13:56 Eye Response: spontaneous(1); Verbal Response: oriented(1); Motor Response: obeys jd3 commands(2); Systolic BP: > 89 mm Hg(4); Respiratory Rate: 10 to 29 per min(4); [place] Score: 15; Trauma Score: 12 14:29 Eye Response: spontaneous(1); Verbal Response: oriented(1); Motor Response: obeys jd3 commands(2); Systolic BP: > 89 mm Hg(4); Respiratory Rate: 10 to 29 per min(4); [place] Score: 15; Trauma Score: 12 MDM: 11:58 Data reviewed: vital signs, nurses notes, lab test result(s), radiologic studies. kdr Counseling: I had a detailed discussion with the patient and/or guardian regarding: the historical points, exam findings, and any diagnostic results supporting the discharge/admit diagnosis, lab results, radiology results. 14:15 Patient medically screened. kdr 11/21 11:40 Order name: Wrist Left (3 View) XRAY; Complete Time: 14:01 kdr 11/21 11:40 Order name: Forearm Left XRAY; Complete Time: 14:01 kdr 11/21 11:58 Order name: CT Head C Spine kdr 11/21 12:02 Order name: Head C Spine Mpr Wo Con; Complete Time: 14:01 EDMS Administered Medications: 12:07 Drug: morphine 4 mg Route: IVP; Infused Over: 4 mins; Site: right antecubital; jd3 12:57 Follow up: Response: No adverse reaction; RASS: Alert and Calm (0) jd3 12:07 Drug: Zofran (Ondansetron) 4 mg Route: IVP; Site: right antecubital; jd3 12:57 Follow up: Response: No adverse reaction jd3 14:28 Drug: morphine 4 mg Route: IVP; Rate: per protocol; Site: right antecubital; jd3 14:28 Follow up: Response: No adverse reaction; Medication administered at discharge.; RASS: jd3 Alert and Calm (0) Disposition Summary: 11/21/21 14:15 Discharge Ordered Location: Home kdr Problem: new kdr Symptoms: have improved kdr Condition: Stable kdr Diagnosis - Colles' fracture of left radius, initial encounter for closed fracture kdr Followup: kdr - With: Private Physician - When: 2 - 3 days - Reason: If symptoms return, Further diagnostic work-up, Recheck today's complaints, Continuance of care, Re-evaluation by your physician Discharge Instructions: - Discharge Summary Sheet kdr - Colles Fracture kdr Forms: - Medication Reconciliation Form kdr - Thank You Letter kdr - Prescription Opioid Use kdr Prescriptions: - Tramadol 50 mg Oral Tablet - take 1 tablet by ORAL route every 8 hours as needed; 18 tablet; Refills: 0, kdr Product Selection Permitted Signatures: Dispatcher [employer] Castillo Valdez MD MD kdr Cain Jamison RN RN jd3
--- NOTE | 2021-11-21 14:16 | ER ---
Nurse's Notes [facility] Name: Dinh Love Age: 86 yrs Sex: Female : 1935 Arrival Date: 11/21/2021 Time: 11:35 Bed 18 Private MD: Diagnosis: Colles' fracture of left radius, initial encounter for closed fracture Presentation: 11/21 11:36 Chief complaint: EMS states: "pt fall and landed on her left wrist. there was an jd3 obvious deformity of her left wrist. she did report hitting her head, but not hard. she also reported being on Eliquis.". Coronavirus screen: At this time, the client does not indicate any symptoms associated with coronavirus-19. Ebola Screen: No symptoms or risks identified at this time. Initial Sepsis Screen: Does the patient meet any 2 criteria? No. Patient's initial sepsis screen is negative. Does the patient have a suspected source of infection? No. Patient's initial sepsis screen is negative. Risk Assessment: Do you want to hurt yourself or someone else? Patient reports no desire to harm self or others. Onset of symptoms was November 21, 2021. 11:36 Method Of Arrival: EMS: [facility] jd3 11:36 Acuity: KAROILNA 2 jd3 11:40 Care prior to arrival: splint applied to left wrist. Mechanism of Injury: Fall from jd3 standing position. Trauma event details: Injury occurred in the [facility], Injury occurred: at home. Injury occurred: November 21, 2021 Injury occurred at: 11:15. Trauma Activation: Alert Physician: ED Physician; Name: Tanika; Notified At: 11:35; Arrived At: 11:35 Physician: General Surgeon; Name: ; Notified At: 11:35; Arrived At: Physician: Radiology; Name: CT and X-ray techs; Notified At: 11:35; Arrived At: 11:35 Physician: Respiratory; Name: ; Notified At: 11:35; Arrived At: Physician: Lab; Name: ; Notified At: 11:35; Arrived At: Historical: - Allergies: 11:38 Codeine; itch; jd3 11:38 Keflex; jd3 - Home Meds: 11:38 Eliquis 5 mg Oral tab 2 times per day [Active]; nitroglycerin 0.4 mg SL subl 1 tab as jd3 needed [Active]; Vitamin D3 25 mcg (1,000 unit) Oral cap daily [Active]; amitriptyline 50 mg Oral tab 1 tab nightly [Active]; metoprolol succinate 25 mg Oral Tb24 1 tab once daily [Active]; levothyroxine 25 mcg tab 1 tab once daily [Active]; - PMHx: 11:38 Atrial Fib; Myocardial infarction; TIA; Hypertension; Arthritis; jd3 - PSHx: 11:38 Cholecystectomy; Heart Stents; hysterectomy; jd3 - Immunization history:: Adult Immunizations up to date, Client reports receiving the 2nd dose of the Covid vaccine. - Social history:: Smoking status: Patient reports the use of cigarette tobacco products, denies chronic smoking, but will smoke occasionally, Reported history of juuling and/or vaping. - Immunization history: Last tetanus immunization: unknown. Screenin:42 Abuse screen: Denies threats or abuse. Nutritional screening: No deficits noted. jd3 Tuberculosis screening: No symptoms or risk factors identified. 11:44 Fall Risk Fall in past 12 months (25 points). Ambulatory Aid- None/Bed Rest/Nurse jd3 Assist (0 pts). Gait- Normal/Bed Rest/Wheelchair (0 pts) Mental Status- Oriented to own ability (0 pts). Total Rivas Fall Scale indicates Low Risk Score (25-44 pts). Fall prevention measures have been instituted. Side Rails Up X 2 Placed close to Nursing Station Frequent Obs/Assesments occuring. Primary Survey: 11:42 NO uncontrolled hemorrhage observed. A: The client is awake and alert. The airway is jd3 patent. Breathing/Chest: Spontaneous respiratory effort, equal unlabored respirations, breath sounds clear bilaterally, regular pattern, symmetrical chest rise and fall. Circulation: No external hemorrhage present. Regular and strong central pulse, skin warm/dry/normal color. Disability Pupils are equal, round, reactive to light and accommodation. Client is alert. Exposure/Environment: All clothing and personal items were removed. Forensic evidence collection is not deemed to be indicated at this time. Items placed in patient belonging bag. There is no evidence of uncontrolled external bleeding. Obvious injury(ies) are noted at this time: deformity noted to left wrist area A warming method has been applied: A warm blanket has been provided to the patient. 12:40 Reassessment Alertness and Airway: Awake and alert. The airway is patent. Breathing: jd3 Spontaneous respiratory effort, equal unlabored respirations, breath sounds clear bilaterally, regular pattern with symmetrical chest rise and fall. Circulation: No external hemorrhage noted. Regular and strong central pulse, skin warm/dry/normal color. Disability: Pupils Pupils are equal, round, reactive to light and accomodation. Alert. Secondary Survey: 11:42 HEENT: No deficits noted. Gastrointestinal: No deficits noted. : No signs and/or jd3 symptoms were reported regarding the genitourinary system. Musculoskeletal: Circulation, motion, and sensation intact. Range of motion: limited in left wrist Bony deformity noted of left wrist. Assessment: 11:40 General: Appears in no apparent distress. uncomfortable, Behavior is calm, cooperative, jd3 appropriate for age. Pain: Complains of pain in left wrist Quality of pain is described as sharp, shooting, tender. Neuro: Bradley Agitation-Sedation Scale (RASS): 0 - Alert and Calm Level of Consciousness is awake, alert, obeys commands, Oriented to person, place, time, situation. EENT: No signs and/or symptoms were reported regarding the EENT system. Cardiovascular: Denies chest pain, Capillary refill < 3 seconds Patient's skin is warm and dry. Respiratory: Airway is patent Respiratory effort is even, unlabored, Respiratory pattern is regular, symmetrical, Denies cough, shortness of breath. GI: No signs and/or symptoms were reported involving the gastrointestinal system. : No signs and/or symptoms were reported regarding the genitourinary system. Derm: Skin is intact, Skin is dry, Skin is normal, Skin temperature is warm. Musculoskeletal: Circulation, motion, and sensation intact. Range of motion: limited in left wrist Bony deformity noted of left wrist. 12:49 Reassessment: Patient appears in no apparent distress at this time. Patient and/or jd3 family updated on plan of care and expected duration. Pain level reassessed. Patient is alert, oriented x 3, equal unlabored respirations, skin warm/dry/pink. 13:56 Reassessment: Patient appears in no apparent distress at this time. Patient and/or jd3 family updated on plan of care and expected duration. Pain level reassessed. Patient is alert, oriented x 3, equal unlabored respirations, skin warm/dry/pink. Patient states feeling better. 14:28 Reassessment: Patient appears in no apparent distress at this time. Patient and/or jd3 family updated on plan of care and expected duration. Pain level reassessed. Patient is alert, oriented x 3, equal unlabored respirations, skin warm/dry/pink. Patient states feeling better. Vital Signs: 11:39 BP 139 / 63; Pulse 68; Resp 17 S; Temp 97.9(O); Pulse Ox 100% on R/A; Weight 56.7 kg jd3 (R); Height 5 ft. 0 in. (152.40 cm) (R); Pain 10/10; 12:49 BP 111 / 99; Pulse 74; Resp 18 S; Pulse Ox 100% on R/A; jd3 13:56 BP 121 / 89; Pulse 74; Resp 18 S; Pulse Ox 100% on R/A; jd3 11:39 Body Mass Index 24.41 (56.70 kg, 152.40 cm) jd3 Jennifer Coma Score: 11:42 Eye Response: spontaneous(4). Verbal Response: oriented(5). Motor Response: obeys jd3 commands(6). Total: 15. 12:49 Eye Response: spontaneous(4). Verbal Response: oriented(5). Motor Response: obeys jd3 commands(6). Total: 15. 13:56 Eye Response: spontaneous(4). Verbal Response: oriented(5). Motor Response: obeys jd3 commands(6). Total: 15. 14:29 Eye Response: spontaneous(4). Verbal Response: oriented(5). Motor Response: obeys jd3 commands(6). Total: 15. Trauma Score (Adult): 11:42 Eye Response: spontaneous(1); Verbal Response: oriented(1); Motor Response: obeys jd3 commands(2); Systolic BP: > 89 mm Hg(4); Respiratory Rate: 10 to 29 per min(4); La Russell Score: 15; Trauma Score: 12 12:49 Eye Response: spontaneous(1); Verbal Response: oriented(1); Motor Response: obeys jd3 commands(2); Systolic BP: > 89 mm Hg(4); Respiratory Rate: 10 to 29 per min(4); Jennifer Score: 15; Trauma Score: 12 13:56 Eye Response: spontaneous(1); Verbal Response: oriented(1); Motor Response: obeys jd3 commands(2); Systolic BP: > 89 mm Hg(4); Respiratory Rate: 10 to 29 per min(4); La Russell Score: 15; Trauma Score: 12 14:29 Eye Response: spontaneous(1); Verbal Response: oriented(1); Motor Response: obeys jd3 commands(2); Systolic BP: > 89 mm Hg(4); Respiratory Rate: 10 to 29 per min(4); La Russell Score: 15; Trauma Score: 12 ED Course: 11:35 Patient arrived in ED. jd3 11:35 Cain Jamison RN is Primary Nurse. jd3 11:38 Triage completed. jd3 11:39 Arm band placed on. jd3 11:40 Castillo Sagastume MD is Attending Physician. kdr 11:42 Patient has correct armband on for positive identification. Placed in gown. Bed in low jd3 position. Call light in reach. Side rails up X2. Pulse ox on. NIBP on. 11:42 Patient maintains SpO2 saturation greater than 95% on room air. Thermoregulation: warm jd3 blanket given to patient. 12:08 Inserted saline lock: 22 gauge in right antecubital area, using aseptic technique. jd3 12:36 Wrist Left (3 View) XRAY In Process Unspecified. EDMS 12:36 Forearm Left XRAY In Process Unspecified. EDMS 13:20 Head C Spine Mpr Wo Con In Process Unspecified. EDMS 13:55 Orthoglass splint: Sugar tong splint applied on left arm. jd3 14:29 No provider procedures requiring assistance completed. IV discontinued, intact, jd3 bleeding controlled, No redness/swelling at site. Pressure dressing applied. Administered Medications: 12:07 Drug: morphine 4 mg Route: IVP; Infused Over: 4 mins; Site: right antecubital; jd3 12:57 Follow up: Response: No adverse reaction; RASS: Alert and Calm (0) jd3 12:07 Drug: Zofran (Ondansetron) 4 mg Route: IVP; Site: right antecubital; jd3 12:57 Follow up: Response: No adverse reaction jd3 14:28 Drug: morphine 4 mg Route: IVP; Rate: per protocol; Site: right antecubital; jd3 14:28 Follow up: Response: No adverse reaction; Medication administered at discharge.; RASS: jd3 Alert and Calm (0) Medication: 11:44 VIS not applicable for this client. jd3 Intake: 14:29 PO: 0ml; Total: 0ml. jd3 Output: 14:29 Urine: 0ml; Total: 0ml. jd3 Outcome: 14:15 Discharge ordered by . kdr 14:29 Discharged to home via wheelchair, with family. jd3 14:29 Condition: stable 14:29 Discharge instructions given to patient, family, Instructed on discharge instructions, follow up and referral plans. medication usage, Demonstrated understanding of instructions, follow-up care, medications, Prescriptions given X 1. 14:29 Patient's length of stay in the Emergency Department was greater than 2 hours. due to jd3 waiting on results and disposition/splintPatient's length of stay extended due to 14:30 Patient left the ED. jd3 Signatures: Dispatcher [employer] EDMS Castillo Sagastume MD MD kdr Davies, Jonathon RN RN jd3
[2021-11-21 15:00] VITALS: TEMP 97.9; O2SAT 100
[2021-11-21 15:03] VITALS: BP 121/89
== END 2021-11-21 14:30 | disposition home or self-care (01) ==
LOC: ER 11:28
PROC: 2W3DX1Z Immobilization of Left Lower Arm using Splint (ICD-10-PCS; principal; 2021-11-21)
DX: S52.532A Colles' fracture of left radius, initial encounter for closed fracture (principal); W18.30XA Fall on same level, unspecified, initial encounter; I10 Essential (primary) hypertension; I48.91 Unspecified atrial fibrillation; I25.2 Old myocardial infarction; F17.210 Nicotine dependence, cigarettes, uncomplicated; Z79.01 Long term (current) use of anticoagulants; Z86.73 Personal history of transient ischemic attack (TIA), and cerebral infarction without residual deficits; Z88.1 Allergy status to other antibiotic agents; Z88.5 Allergy status to narcotic agent; Z95.818 Presence of other cardiac implants and grafts
CPT/HCPCS: 70450; 72125; 73090; 73110; 96375; 96374; 99284; 29125; J2405

== ENCOUNTER 2022-12-16 21:32 | Inpatient (IN) | payer OTHER, MEDICARE ==
--- OUTSIDE RECORDS SUMMARY | 2022-12-16 21:36 | XMS REPORT | Continuity of Care Document ---
:1935 Author Organization [facility] [place] t Address [address] [facility] [address] [place] [address] Care Team Providers Name Role Phone Pcp, Patient Does Not Have A Primary Care Physician [id number] RODY PINTO Attending Clinician Unavailable Kendal Lee OT Attending Clinician Unavailable Rody Pinto MD Attending Clinician Doctor Unassigned, [place] Attending Clinician Unavailable RICARDO CARLTON Attending Clinician Unavailable RICARDO CARLTON Admitting Clinician Unavailable Payers Payer Name Policy Type Policy Number Effective Date Expiration Date S seamus MEDICARE PART A \T\ [id number] 2002 B 00:00:00 [facility] [id number] 2002 MEDICARE SUPPLEMENT 00:00:00 Problems Condition Condition Condition Status Onset Resolution Last Treating Co mments Source Name Details Category Date Date Treatment Clinician Date Stroke Stroke Disease Recurre 2017-[address] [facility] (cerebrum) (cerebrum) nce 0-11 Ann[facility]e kes 00:00: Medical 00 Center Acute Acute Disease Recurre 2017-[address] [facility] ischemic ischemic nce 0[facility]11 [facility] stroke stroke [facility] Center Essential Essential Disease Recurre 2017-[address] hypertensi hypertensi nce 0-11 Annalee kes on on 00:00: Medical 00 Center Received Received Disease Recurre 2017-[address] [facility] tissue tissue nce 011 [facility] plasminoge plasminoge 00:00: Me dical n n 00 Center activator activator (t-PA) (t-PA) less than less than 24 hours 24 hours prior to prior to arrival arrival Encounter Encounter Disease Active Uni vers for for 11-04 [place] Med[place] karlee use of use of Branch NSAIDs NSAIDs Chronic Chronic Disease Active Univers neck and neck and 11-04 [place] of back pain back pain [place] Pain, Pain, Disease Active Univers joint, joint, 11-04 ity of multiple multiple 00:00: [place] sites sites 00 Medical Branch Primary Primary Disease Active Univers osteoarthr osteoarthr 11-04 it y of itis of itis of 00:00: [place] both first both first 00 Me dical carpometac carpometac Br anch arpal arpal joints joints Osteoporos Osteoporos Disease Active U nivers is is 11-04 ity of 00:00: [place] 00 Medical Branch History of History of Disease Active U nivers 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 00:00: [place] thrombosis thrombosis 00 Me dical ) ) Branch Fibromyalg Fibromyalg Disease Active U nivers ia ia 11-04 ity of 00:00: [place] 00 Medical Branch Allergies, Adverse Reactions, Alerts Allergy Allergy Status Severity Reaction(s) Onset Inactive Treating Comm ents Source Name Type Date Date Clinician Cephalex Propensi Active 2017-[address] [facility] [address] in ty to 011 [facility] adverse 00:00: Medical reaction 00 Center s Cephalex Propensi Active Other - See Fever , Univers in ty to comments 11-04 no ity of adverse 00:00: urination [place] reaction 00 Medical s Branch CEPHALEX DRUG Active Other-Cmnt Univ ers IN INGREDI 11-04 ity of 00:00: [place] 00 Medical Branch Family History Family Member Diagnosis Comments Start Date Stop Date Source Natural mother Stroke [facility] Social History Social Habit Start Date Stop Date Quantity Comments Source History [facility] University o f Alcohol Frequency [place] M edical Branch History [facility] University o f Alcohol Std [place] [facility] Drinks Branch History [facility] o f Alcohol Binge [place] [facility] al Branch History of Cigarette Smoker ANAMARIA Saucedo tobacco use [facility] Exposure to 2022-02-08 2022-02-18 Not sure University SARS-CoV-2 00:00:00 12:46:00 [place] [facility] (event) Branch Cigarettes smoked 2018-04-06 2018-04-[address] [facility] current (pack per 00:00:00 00:00:00 Medical Center day) - Reported Cigarette 2018-04-06 2018-04-[address] [facility] pack-years 00:00:00 00:00:00 [facility] Alcohol intake 2018-04-06 2018-04-06 Current non-drinker [facility] 00:00:00 [facility]00:00 of [facility] (finding) Alcohol Comment 2014-11-04 2014-11-04 occasionally Univers ity of 00:00:00 00:00:00 [facility] Tobacco Comment 2014-11-04 2014-11-04 says she tried Unive rsity of 00:00:00 00:00:00 Chantix X 3, did [facility] dical not work, allergic Branch to adhesives so can't try patches, gums caused stomach upset and coudl not take, tried hypnosis and accupuncture but did not work Sex Assigned At [birth year] [facility] [address] Mantilla kes 00:00:00 00:00:00 [facility] Smoking Status Start Date Stop Date Source Smokes tobacco daily 2018-04-06 00:00:00 [facility] Medications Ordered Filled Start Stop Current Ordering Indication Dosage Frequency Signature Comments Components Source Medication Medication Date Date Medication? Clinician (SIG) Name Name meclizine 2017-06 Yes 25mg Take [address] (ANTIVERT) 0-14 by mouth 2 Dolores es 25 MG 14:50: (two) Medical tablet 14 times Center daily as needed. aspirin 81 2017-06 Yes 81mg QD Take [address] MG EC 0-14 by mouth [facility] tablet 14:50: daily. Medical 14 Center propranolol 2017-06 Yes 20mg Q.5D Take [address] [facility] (INDERAL) 0-14 by mouth 2 Luke s 20 MG 14:50: (two) Medical tablet 14 times Center daily. amitriptyli 2017-06 Yes 50mg QD Take [address] [facility] ne (ELAVIL) 0-14 by mouth Luke s 50 MG 14:50: nightly. Medical tablet 14 Center meclizine 2017-06 Yes 25mg Take [address] (ANTIVERT) 0-14 by mouth 2 Dolores es 25 MG 14:50: (two) Medical tablet 14 times Center daily as needed. aspirin 81 2017-06 Yes 81mg QD Take [address] MG EC 0-14 by mouth [facility] tablet 14:50: daily. Medical 14 Center propranolol 2017-06 Yes 20mg Q.5D Take [address] [address] (INDERAL) 0-14 by mouth 2 Luke s 20 MG 14:50: (two) Medical tablet 14 times Center daily. amitriptyli 2017-06 Yes 50mg QD Take [address] ne (ELAVIL) 0-14 by mouth Luke s 50 MG 14:50: nightly. Medical tablet 14 Center atorvastati 2017-06 Yes 80mg QD Take [address] [facility] n (LIPITOR) 0-14 tablet (80 Annalee kes 80 MG 00:00: mg total) Medical tablet 00 by mouth Center nightly. atorvastati 2017-06 Yes 80mg QD Take [address] [facility] n (LIPITOR) 0-14 tablet (80 Annalee kes 80 MG 00:00: mg total) Medical tablet 00 by mouth Center nightly. ALPRAZolam 2017-06 Yes 1mg Take [address] (XANAX) 1 0-02 by mouth [facility] MG tablet 00:00: every Medical 00 night as Center needed . ALPRAZolam 2017-06 Yes 1mg Take [address] (XANAX) 1 0-02 by mouth [facility] MG tablet 00:00: every Medical 00 night as Center needed . fentaNYL 2017-06 Yes 25{patc Place [address] (DURAGESIC) 0-01 h} patches [facility] 25 mcg/hr 00:00: onto the Medi karlee patch 00 skin every Center third day . fentaNYL 2017-06 Yes 25{patc Place [address] (DURAGESIC) 0-01 h} patches [facility] 25 mcg/hr 00:00: onto the Medi karlee patch 00 skin every Center third day . FENTanyl 25 Yes 1{patch Apply 1 Univers mcg/hr 1-17 } Patch to ity of patch 18:56: skin every [place] [id number] Medical ([facility] Branch wo) hours. omeprazole 2017-0 Yes 10mg Take 10 mg U nivers 10 mg 1-17 by mouth ity of capsule 18:56: daily. [address] FENTanyl 25 2017-0 Yes 1{patch Apply 1 Univers mcg/hr 1-17 } Patch to ity of patch 18:56: skin every [place] [id number] Medical ([facility] Branch wo) hours. omeprazole 2017-0 Yes 10mg Take 10 mg U nivers 10 mg 1-17 by mouth ity of capsule 18:56: daily. [address] FENTanyl 25 2016-0 Yes 1{patch Apply 1 Univers mcg/hr 1-17 } Patch to ity of patch 18:56: skin every [place] [id number] 72 Medical ([facility] Branch wo) hours. omeprazole 2017-0 Yes 10mg Take 10 mg U nivers 10 mg 1-17 by mouth ity of capsule 18:56: daily. [address] FENTanyl 25 2016-0 Yes 1{patch Apply 1 Univers mcg/hr 1-17 } Patch to ity of patch 18:56: skin every [place] [address] 72 Medical ([facility] Branch wo) hours. omeprazole 2017-0 Yes 10mg Take 10 mg U nivers 10 mg 1-17 by mouth ity of capsule 18:56: daily. [address] FENTanyl 25 2017-0 Yes 1{patch Apply 1 Univers mcg/hr 1-17 } Patch to ity of patch 18:56: skin every [place] [id number] 72 Medical ([facility] Branch wo) hours. omeprazole 2017-0 Yes 10mg Take 10 mg U nivers 10 mg 1-17 by mouth ity of capsule 18:56: daily. [address] traMADOL 50 2017-0 Yes 50mg Take 50 mg Univers mg tablet 1-17 by mouth ity of 18:56: every 6 [place] 20 (six) Medical hours. Branch traMADOL 50 2017-0 Yes 50mg Take 50 mg Univers mg tablet 1-17 by mouth ity of 18:56: every 6 [place] 20 (six) Medical hours. Branch traMADOL 50 2017-0 Yes 50mg Take 50 mg Univers mg tablet 1-17 by mouth ity of 18:56: every 6 [place] 20 (six) Medical hours. Branch traMADOL 50 Yes 50mg Take 50 mg Univers mg tablet 1-17 by mouth ity of 18:56: every 6 [place] 20 (six) Medical hours. Branch traMADOL 50 Yes 50mg Take 50 mg Univers mg tablet 1-17 by mouth ity of 18:56: every 6 [place] 20 (six) Medical hours. Branch acetaminoph Yes 1{tbl} Take 1 Un jeremiah en-codeine 1-17 tablet by ity of (TYLENOL-CO 00:00: mouth [place] DEINE #3) 00 every 4 Medical 300-30 mg (four) Branch tablet hours as needed for Pain (scale 7-10). acetaminoph Yes 1{tbl} Take 1 Un jeremiah en-codeine 1-17 tablet by ity of (TYLENOL-CO 00:00: mouth [place] DEINE #3) 00 every 4 Medical 300-30 mg (four) Branch tablet hours as needed for Pain (scale 7-10). acetaminoph Yes 1{tbl} Take 1 Un jeremiah en-codeine 1-17 tablet by ity of (TYLENOL-CO 00:00: mouth [place] DEINE #3) 00 every 4 Medical 300-30 mg (four) Branch tablet hours as needed for Pain (scale 7-10). acetaminoph Yes 1{tbl} Take 1 Un jeremiah en-codeine 1-17 tablet by ity of (TYLENOL-CO 00:00: mouth [place] DEINE #3) 00 every 4 Medical 300-30 mg (four) Branch tablet hours as needed for Pain (scale 7-10). acetaminoph Yes 1{tbl} Take 1 Un jeremiah en-codeine 1-17 tablet by ity of (TYLENOL-CO 00:00: mouth [place] DEINE #3) 00 every 4 Medical 300-30 mg (four) Branch tablet hours as needed for Pain (scale 7-10). Aspirin Yes 1{tbl} Take 1 Tab Un jeremiah (ASPERDRINK 5-11 by mouth ity of ) 81 mg 09:03: daily. [place] TbE 53 Medical Branch Cholecalcif Yes 1{tbl} Take 1 Tab Univers eli, 5-11 by mouth ity of Vitamin D3, 09:03: daily. [place] s (VITAMIN 53 Medical D3) 2,000 Branch unit Tab Aspirin Yes 1{tbl} Take 1 Tab Un jeremiah (ASPERDRINK 5-11 by mouth ity of ) 81 mg 09:03: daily. [address] Cholecalcif Yes 1{tbl} Take 1 Tab Univers eli, 5-11 by mouth ity of Vitamin D3, 09:03: daily. [place] s (VITAMIN 53 Medical D3) 2,000 Branch unit Tab Aspirin Yes 1{tbl} Take 1 Tab Un jeremiah (ASPERDRINK 5-11 by mouth ity of ) 81 mg 09:03: daily. [address] Cholecalcif Yes 1{tbl} Take 1 Tab Univers eli, 5-11 by mouth ity of Vitamin D3, 09:03: daily. [place] (VITAMIN 53 Medical D3) 2,000 Branch unit Tab Aspirin Yes 1{tbl} Take 1 Tab Un jeremiah (ASPERDRINK 5-11 by mouth ity of ) 81 mg 09:03: daily. [address] Cholecalcif Yes 1{tbl} Take 1 Tab Univers eli, 5-11 by mouth ity of Vitamin D3, 09:03: daily. [place] (VITAMIN 53 Medical D3) 2,000 Branch unit Tab Aspirin Yes 1{tbl} Take 1 Tab Un jeremiah (ASPERDRINK 5-11 by mouth ity of ) 81 mg 09:03: daily. [address] Cholecalcif Yes 1{tbl} Take 1 Tab Univers eli, 5-11 by mouth ity of Vitamin D3, 09:03: daily. [place] s (VITAMIN 53 Medical D3) 2,000 Branch unit Tab meloxicam Yes Take one Univ ers (MOBIC) 7.5 5-11 to two ity of mg tablet 00:00: tablet by [place] as 00 mouth Medical daily as Branch needed for pain. amitriptyli Yes 25mg Take 0.5 Un jeremiah ne (ELAVIL) 5-11 Tabs by ity o f 50 mg 00:00: mouth at [place] tablet 00 bedtime. Medical Branch meloxicam Yes Take one Univ ers (MOBIC) 7.5 5-11 to two ity of mg tablet 00:00: tablet by [place] as 00 mouth Medical daily as Branch needed for pain. amitriptyli Yes 25mg Take 0.5 Un jeremiah ne (ELAVIL) 5-11 Tabs by ity o f 50 mg 00:00: mouth at [place] tablet 00 bedtime. Medical Branch meloxicam Yes Take one Univ ers (MOBIC) 7.5 5-11 to two ity of mg tablet 00:00: tablet by [place] 00 mouth Medical daily as Branch needed for pain. amitriptyli Yes 25mg Take 0.5 Un jeremiah ne (ELAVIL) 5-11 Tabs by ity o f 50 mg 00:00: mouth at [place] tablet 00 bedtime. Medical Branch meloxicam Yes Take one Univ ers (MOBIC) 7.5 5-11 to two ity of mg tablet 00:00: tablet by [place] 00 mouth Medical daily as Branch needed for pain. amitriptyli Yes 25mg Take 0.5 Un jeremiah ne (ELAVIL) 5-11 Tabs by ity o f 50 mg 00:00: mouth at [place] tablet 00 bedtime. Medical Branch meloxicam Yes Take one Univ ers (MOBIC) 7.5 5-11 to two ity of mg tablet 00:00: tablet by [place] 00 mouth Medical daily as Branch needed for pain. amitriptyli Yes 25mg Take 0.5 Un jeremiah ne (ELAVIL) 5-11 Tabs by ity o f 50 mg 00:00: mouth at [place] tablet 00 bedtime. Medical Branch ALPRAZolam Yes .5mg Take 0.5 Uni vers (XANAX) 1 5-04 mg by ity of mg tablet 00:00: [place] 00 bedtime. Medical Branch ALPRAZolam Yes .5mg Take 0.5 Uni vers (XANAX) 1 5-04 mg by ity of mg tablet 00:00: [place] 00 bedtime. Medical Branch ALPRAZolam Yes .5mg Take 0.5 Uni vers (XANAX) 1 5-04 mg by ity of mg tablet 00:00: [place] 00 bedtime. Medical Branch ALPRAZolam 0 Yes .5mg Take 0.5 Uni vers (XANAX) 1 5-04 mg by ity of mg tablet 00:00: [place] [address] [facility] ALPRAZolam Yes .5mg Take 0.5 Uni vers (XANAX) 1 5-04 mg by ity of mg tablet 00:00: [place] 00 bedtime. Medical Branch Procedures Procedure Date / Time Performed Performing Clinician [facility] e ASSIGNMENT OF BENEFITS 2022-02-18 17:49:55 Doctor Unassigned, No [facility] Name Medical Branch REFERRAL- 2022-01-14 05:01:00 Doctor Unassigned, No [facility] REQUEST/RESPONSE Name [facility] Encounters Start End Encounter Admission Attending Care Care Encounter Source Date/Time Date/Time Type Type Clinicians Facility Department ID 2022-02-18 2022-02-18 Outpatient R [facility] [id number] [address] [place] [address] 13:00:00 14:12:11 RODY itcarlin of [facility] 2022-02-18 2022-02-18 Ancillary Kendal Lee [facility] 1.2. 840.114 [id number] Univers 13:00:00 14:12:11 Visit Rody Pinto HEALTH 350.1.13.10 ity of [place] 4[place]2.686 [place] [id number] [place] [address] Branch OFFICE BUILDING 2022-02-18 2022-02-18 Orders Doctor HAYES [id number] Univers 00:00:00 00:00:00 Only Unassigned, SILVINO 350.1.13.10 ity of [facility] 4.2.7.2.686 Nicolas as [phone] [place] [address] Branch 2022-02-04 2022-02-04 Ancillary Kendal Lee [facility] 1.2. 840.114 [id number] Univers 16:15:00 17:05:41 Visit Rody Pinto HEALTH 350.1.13.10 ity of [place] [id number] [place] [address] Branch OFFICE BUILDING 2022-01-27 2022-01-27 Ancillary Kendal Lee [facility] 1.2. 840.114 [id number] Univers 13:45:00 14:36:15 Visit Rody Pinto 350.1.13.10 ity of [place] 4[place]2.[place]2.[place] [id number] [place] [address] Branch OFFICE BUILDING 2022-01-14 2022-01-14 Orders Doctor FREDDY [id number] Univers 00:00:00 00:00:00 Only Unassigned, SILVINO 350.1.13.10 ity of [facility] 4.2.7.2.686 Nicolas as [phone] [address] Results Test Description Test Time Test Comments Results Result Comments Source B-TYPE NATRIURETIC FACTOR (BNP) 2018-04-08 14:09:00 Test Item Value Reference Range Interpretation Comme nts B-TYPE NATRIURETIC PEPTIDE (BEAKER) (test code = 700) 109 pg/mL 0-100 H [id number] 07:11:00 Test Item Value Reference Range Interpretation Comments MAGNESIUM (BEAKER) (test code = 2.0 mg/dL 1.6-2.6 627) BASIC METABOLIC [id number] 07:11:00 Test Item Value Reference Range Interpretation [...] PATIEN TS. CBC W/PLT COUNT & AUTO [id number] 06:38:00 Test Item Value Reference Range Interpretation [...] % 0-1 PERCENT (BEAKER) (test code = 280) BASIC METABOLIC [id number] 06:18:00 Test Item Value Reference Range Interpretation [...] S NOT APPLICABLE FOR DIALYSIS PATIEN TS. [id number] 03:50:00 Test Item Value Reference Range Interpretation Comments RPR SCREEN (BEAKER) (test code = Nonreactive Nonreactive 420) BASIC METABOLIC [id number] 06:30:00 Test Item Value Reference Range Interpretation [...] S NOT APPLICABLE FOR DIALYSIS PATIEN TS. [id number] 06:24:00 Test Item Value Reference Range Interpretation Comments MAGNESIUM (BEAKER) (test code = 2.4 mg/dL 1.6-2.6 627) CBC W/PLT COUNT & AUTO [id number] 06:06:00 Test Item Value Reference Range Interpretation [...] (test code = 2801) MR, BRAIN, WITHOUT [id number] 04:23:00FINAL REPORT MRI Brain without contrast, MRA head and neck without contrast. Clinical History: Stroke Technique: MRI of the brain utilizing axial T2, FLAIR, GRE, DWI; sagittal and coronal T1-weighted images.MRA of the head utilizing 3-D hfzu-al-yqeokx technique, with 3-D reconstructions. MRA of the neck utilizing 2- D and 3-D thld-go-yttlgo technique, with 3-D reconstructions. Comparisons: None Findings:MRI [...] of the anterior cerebral arteries are not wellevaluated. Otherwise no evidence for a major [place] proximal branch vessel occlusion. MRA neck: No evidence of hemodynamically significant stenosis in the cervical carotid or vertebral arteries by NASCET criteria. Signed: Nallely Torres Verified Date/Time: 04/07/2018 04:23:47 Re ading Location: [address] Reading Room MR, MRA, BRAIN, WITHOUT [id number] 04:23:00Reason for exam:->stroke s/p tpaFINAL REPORT MRI Brain without contrast, MRA head and neck without contrast. Clinical History: Stroke Technique: MRI of the brain utilizing axial T2, FLAIR, GRE, DWI; sagittal and coronal T1-weighted images.MRA of the head utilizing 3-D yhxn-du-eflvgu technique, with 3-D reconstructions. MRA of the neck utilizing 2-D and 3-D ttcx-wf-xhshwz technique, with 3-D reconstructions. Comparisons: None Findings:MRI brain:There is no evidence of acute infarct or hemorrhage. Multiple bilateral T2 and FLAIR hyperintense ventricular and deep white matter foci likely represent chronic white matter microvascular disease. Remote small infarction within the right marshall radiata. Generalized parenchymal volume loss with commensurate enlargement of CSF spaces and ventricles, particularly withinthe frontal lobes. There is no hydrocephalus or [...] of the anterior cerebral arteries are not wellevaluated. Otherwise no evidence for a major [place] proximal branch vessel occlusion. MRA neck: No evidence of hemodynamically significant stenosis in the cervical carotid or vertebral arteries by NASCET criteria. Signed: Nallely Torresepelissa Verified Date/Time: 04/07/2018 04:23:47 Reading Location: [address] Reading Room MR, MRA, NECK, WITHOUT IV [id number] 04:23:00Reason for exam:->stroke s/p tpaFINAL REPORT MRI Brain without contrast, MRA head and neck without contrast. Clinical History: Stroke Technique: MRI of the brain utilizing axial T2, FLAIR, GRE, DWI; sagittal and c oronal T1-weighted images.MRA of the head utilizing 3-D psie-mu-tfefgw technique, with 3-D reconstructions. MRA of the neck utilizing 2-D and 3-D bgua-el-hmtlrn technique, with 3-D reconstructions. Comparisons: None Findings:MRI [...] of the anterior cerebral arteries are not wellevaluated. Otherwise no evidence for a major [place] proximal branch vessel occlusion. MRA neck: No evidence of hemodynamically significant stenosis in the cervical carotid or vertebral arteries by NASCET criteria. Signed: Nallely Torres MDReport Verified Date/Time: 04/07/2018 04:23:47 Re ading Location: [address] Reading Room TROPONIKhadijah [id number] 19:07:00 Test Item Value Reference Range Interpretation [...] 395) CK-MB Reference Range:<6.7 Normal6.7-10.0 Borderline>10.0 AbnormalTROPONIN [id number] 13:23:00 Test Item Value Reference Range Interpretation [...] intravenous potassium replacement.CREATINE KINASE (CK), TOTAL AND [id number] 13:17:00 Test Item Value Reference Range Interpretation [...] completed or 30 min after intravenous potassium replacement.[id number] 13:08:00 Test Item Value Reference Range Interpretation Comments POTASSIUM (BEAKER) (test code = 4.0 meq/L 3.5-5.1 379) Check Serum Potassium level 2 hours after oral potassium replacement completed or 30 min after intravenous potassium replacement.[id number] 13:08:00 Test Item Value Reference Range Interpretation Comments MAGNESIUM (BEAKER) (test code = 2.6 mg/dL 1.6-2.6 627) Check Serum Potassium level 2 hours after oral potassium replacement completed or 30 min after intravenous potassium replacement.HEMOGLOBIN [id number] 09:52:00 Test Item Value Reference Range Interpretation Comments HEMOGLOBIN A1C (BEAKER) (test code = 5.1 % 4.3-6.1 368) TROPONIN [id number] 06:59:00 Test Item Value Reference Range Interpretation [...] Reference Range:<6.7 Normal6.7-10.0 Borderline>10.0 AbnormalTSH/FREE T4 IF [id number] 03:54:00 Test Item Value Reference Range Interpretation Comments THYROID STIMULATING HORMONE 2.21 uIU/mL 0.35-4.94 (BEAKER) (test code = 772) VITAMIN B12 AND [id number] 03:54:00 Test Item Value Reference Range Interpretation Comments VITAMIN B12 (BEAKER) (test code = 802 pg/mL 213-816 774) FOLATE (BEAKER) (test code = 362) 36.5 ng/mL >=7.0 RAD, CHEST, 1 VIEW, NON [id number] 03:38:00Reason for exam:->basline hospitalized for strokeShould this be performed at the bedside?->YesFINAL REPORT Chest one view. Clinical history: Baseline; hospitalized for stroke Comparison: None. Technique: A single frontal view of the chest was obtained. Findings/impression: The heart is normal in size. The aorta is uncoiled and atherosclerotic. There is no focal pulmonary co nsolidation, pleural effusion or pneumothorax. There is no pulmonary edema. The bony thorax is demineralized. Impression: No focal pulmonary consolidation. Signed: Kervin Armendariz MDReport Verified Date/Time: 04/06/2018 03:38:00 Reading Location: [address] Body Reading Room C-REACTIVE [id number] 02:20:00 Test Item Value Reference Range Interpretation Comments C-REACTIVE PROTEIN (BEAKER) (test 0.05 mg/dL 0.00-0.50 code = 676) TROPONIN [id number] 02:07:00 Test Item Value Reference Range Interpretation [...] acidosis, acute neurological disease, and persistent tachyarrhythmia.FastingPROTHROMBIN [id number] 02:06:00 Test Item Value Reference Range Interpretation Comments PROTIME (BEAKER) (test code = 13.6 seconds 11.7-14.7 759) INR (BEAKER) (test code = 370) 1.0 <=5.9 RECOMMENDED COUMADIN/WARFARIN INR THERAPY RANGESSTANDARD DOSE: 2.0 - 3.0 Includes: PROPHYLAXIS for venous thrombosis, systemic embolization; TREATMENT for venous thrombosis and/or pulmonary embolus.HIGH RISK: Target INR is 2.5-3.5 for patients with mechanical heart valves.[id number] 02:06:00 Test Item Value Reference Range Interpretation Comments PARTIAL THROMBOPLASTIN TIME 26.6 seconds 22.5-36.0 (BEAKER) (test code = 760) [id number] 01:57:00 Test Item Value Reference Range Interpretation Comments MAGNESIUM (BEAKER) (test code = 1.9 mg/dL 1.6-2.6 627) FastingBASIC METABOLIC [id number] 01:57:00 Test Item Value Reference Range Interpretation [...] NOT APPLICABLE FOR DIALYSIS PATIEN TS. FastingLIPID [id number] 01:57:00 Test Item Value Reference Range Interpretation Comments TRIGLYCERIDES (BEAKER) (test code = 68 mg/dL 540) CHOLESTEROL (BEAKER) (test code = 216 mg/dL 631) HDL CHOLESTEROL (BEAKER) (test code 60 mg/dL = 976) LDL CHOLESTEROL CALCULATED (BEAKER) 142 mg/dL (test code = 633) Triglyceride Reference Range: Low Risk <150 Borderline 150-199 High Risk 200- 499 Very High Risk >=500Cholesterol Reference Range: Low Risk <200 Borderline 200-239 High Risk >240HDL Cholesterol Reference Range: Low Risk >=60 High Risk <40LDL Cholesterol Reference Range: Optimal <100 Near Optimal 100-129 Borderline 130-159 High 160-189 Very High >=190 FastingCBC W/PLT COUNT & AUTO [id number] 01:37:00 Test Item Value Reference Range Interpretation [...] % 0-1 PERCENT (BEAKER) (test code = 4741)
[2022-12-16 22:14] LABS: Arterial Blood Carboxyhemoglob 1.2 % (0-1.5); Blood Gas Oxyhemoglobin 92.8 % (94-97); Blood O2 Saturation 95.2 % (92-98.5)
--- NOTE | 2022-12-16 22:22 | RAD REPORT ---
EXAM DESCRIPTION: CT - Head Brain Wo Cont - 12/16/2022 10:10 pm CLINICAL HISTORY: CONFUSED Headache, drowsiness, altered awareness COMPARISON: Head Brain Wo Cont dated 07/21/2022; Ct Stroke Brain Wo Cont dated 10/27/2021 TECHNIQUE: All CT scans are performed using dose optimization technique as appropriate and may inclu de automated exposure control or mA/KV adjustment according to patient size. FINDINGS: No intracranial hemorrhage, hydrocephalus or extra-axial fluid collection.Moderate diffuse brain atrophy is present. Mild periventricular and deep white matter chronic microvascular ischemic changes.No areas of brain edema or evidence of midline shift. Opacification of the sphenoid sinus is seen. The paranasal sinuses and mastoids are otherwise clear. The calvarium is intact. IMPRESSION: No acute intracranial abnormality.
--- NOTE | 2022-12-16 22:23 | RAD REPORT ---
EXAM DESCRIPTION: RAD - Chest Single View - 12/16/2022 10:09 pm CLINICAL HISTORY: CHEST PAIN Chest pain. COMPARISON: Chest Single View dated 10/11/2022; Chest Single View dated 10/27/2021; Chest Single View d ated 08/12/2021; Chest Single View dated 06/08/2021 FINDINGS: Portable technique limits examination quality. The lungs are emphysematous but grossly clear. The heart is normal in size. No displaced fractures.Ao rtic atherosclerosis. IMPRESSION: No acute intrathoracic process suspected.
[2022-12-16 22:51] LABS: Absolute Lymphocytes (CBC) 2.5 K/uL (0.7-4.9); Hematocrit 32.4 % (36.0-45.0); Lymphocytes % 20.3 % (15.3-44.8); MCV 89.7 fL (80-100); MPV 9.3 fL (7.6-11.3); RBC Red Blood Cell Count 3.62 M/uL (3.86-4.86)
[2022-12-16 23:05] LABS: AST/SGOT 14 U/L (15-37); Albumin 2.6 g/dL (3.4-5.0); Alkaline Phosphatase 59 U/L (45-117); BUN Blood Urea Nitrogen 15 mg/dL (7-18); Bicarbonate 25 mEq/L (21-32); Bilirubin Total 0.6 mg/dL (0.2-1.0); Glomerular Filtration Rate 63 ml/min (=/>90); Glucose Level 95 mg/dL (74-106); Potassium 3.4 mEq/L (3.5-5.1); Protein, Total 6.4 g/dL (6.4-8.2); Sodium Level 130 mEq/L (136-145); Troponin High Sensitivity 7.8 pg/mL (<58.9)
[2022-12-16 23:07] LABS: ALT/SGPT < 10 U/L (13-56)
[2022-12-16 23:19] LABS: Platelet Estimate ADEQ; White Blood Cell Scan OK (OK)
[2022-12-16 23:20] LABS: Blood Morphology Comment NOT SEEN (NOT SEEN)
[2022-12-16 23:56] LABS: SARS-CoV-2 Antigen Rapid Res Positive (Negative)
[2022-12-17 00:25] LABS: Specific Gravity 1.015 (1.005-1.030); Urine Bilirubin NEGATIVE (Negative); Urine Blood Negative (Negative); Urine Clarity Clear (Clear); Urine Color Yellow (Yellow); Urine Glucose NEGATIVE (Negative); Urine Protein NEGATIVE (Negative); Urine Urobilinogen 2+ (Normal); Urine pH 6.5 (5.0-7.0)
[2022-12-17] MEDS ORDERED: VANCOMYCIN 1 GM/VIAL ONE (00:39)
[2022-12-17] MEDS ORDERED: NA CHLORIDE 0.9% 250 ML ONE (00:40)
[2022-12-17 00:45] LABS: Barbiturates NEGATIVE (NEGATIVE); Benzodiazepines POSITIVE (NEGATIVE); Cocaine NEGATIVE (NEGATIVE); METHAMPHETAM NEGATIVE (NEGATIVE); Methadone NEGATIVE (NEGATIVE); Opiates NEGATIVE (NEGATIVE); Phencyclidine NEGATIVE (NEGATIVE); THC Cannibis NEGATIVE (NEGATIVE)
--- NOTE | 2022-12-17 01:49 | P.HP ---
Certification for Inpatient Patient admitted to: Observation With expected LOS: <2 Midnights Patient will require the following post-hospital care: None Practitioner: I am a practitioner with admitting privileges, knowledge of patient current condition, hospital course, and medical plan of care. Services: Services provided to patient in accordance with Admission requirements found in Title 42 Section 412.3 of the Code of Federal Regulations <Berny Estrada - Last Filed: 12/17/22 01:46> Patient History Date of Service: 12/17/22 Primary Care Provider: Dr. 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 Patient's family was trying to get a hold of her by phone and she is not answering stable to go check on her, she was found lying in bed and difficult to arouse. EMS was called and patient was transferred to the emergency department. She was evaluated in the emergency department and her labs were significant for white blood cell count 12.2 hemoglobin 10.6 medic at 32.4 sodium 130 potassium 3.4 negative for urinary tract infection UDS positive for benzodiazepines which he is prescribed ABG pH 7.39 [address] head negative for acute findings chest x-ray unremarkable. Patients family report finding some pills in her bed and her morning meds not in container, she may have taken extra dose of home meds including xanax. She is drowsy/lethargic but arousable to physical stimulation. Answers questions appropriately but speech is slurred. ED wishes to admit under observation - Past Medical/Surgical History Diabetic: No -: Transient ischemic attack -: Hiatal hernia -: OA OF SPINE -: MIGRAINES -: SHAKING SYNDROME -: MIGRAINES -: hypothyroid -: A. fib -: CAD -: Zay fundiplication -: Choleycystectomy -: Hysterectomy -: growth on facial nerv rmovd -: bilateral cataract -: heart stents Psychosocial/ Personal History: Patient lives at home with her son - Family History Father -: Heart disease Notes: Heart attack Brother Notes: Brain cancer, Liver Cirrhosis Mother -: Heart disease, Hypertension - Social History Smoking Status: Never smoker Alcohol use: Yes CD- Drugs: No Caffeine use: Yes Place of Residence: Home <Berny Estrada - Last Filed: 12/17/22 01:46> Date of Service: 12/17/22 <Angel Kevin - Last Filed: 12/17/22 16:36> Allergies cephalexin monohydrate [From Keflex] Allergy (Severe, Verified 02/21/19 22:22) CAUSES VERY HIGH TEMP codeine [Codeine] Allergy (Severe, Verified 02/21/19 22:22) PARALYSIS Home Medications: ALPRAZolam [Alprazolam] 0.5 mg PO BEDTIME 11/12/18 Amitriptyline HCl 50 mg PO BEDTIME 11/12/18 Levothyroxine Sodium 25 mcg PO DAILY 08/07/20 Nitroglycerin 0.4 mg SL PRN PRN 08/07/20 Omeprazole [Prilosec] 40 mg PO DAILY 08/07/20 Apixaban [Eliquis] 5 mg PO BID #60 tablet 06/09/21 Cholecalciferol (Vitamin D3) [Vitamin D3] 1 tab PO DAILY 10/11/22 Metoprolol Tartrate 25 mg PO BID 10/11/22 Aspirin Chewable [Aspirin Chewable*] 81 mg PO DAILY tab.chew 10/12/22 Doxycycline Hyclate 100 mg PO BID 5 Days #10 tab 10/12/22 Nirmatrelvir/Ritonavir [Paxlovid 2X150 mg-100 mg (Eua)] 1 each PO BID #1 madeline 10/12/22 dexAMETHasone [Decadron*] 4 mg PO DAILY 5 Days #5 tab 10/12/22 Review of Systems is unable to be obtained <Berny Estrada - Last Filed: 12/17/22 01:46> Physical Examination - Physical Exam General: In no apparent distress, Oriented x2, Other (drowsy) HEENT: Atraumatic, PERRLA, Mucous membr. moist/pink, EOMI, Sclerae nonicteric Neck: Supple, 2+ carotid pulse no bruit, No LAD, Without JVD or thyroid abnormality Respiratory: Clear to auscultation bilaterally, Normal air movement Cardiovascular: Regular rate/rhythm, Normal S1 S2 Capillary refill: <2 Seconds Gastrointestinal: Normal bowel sounds, No tenderness Musculoskeletal: No tenderness Integumentary: No rashes Neurological: Normal speech, Normal strength at 5/5 x4 extr, Normal tone, Normal affect - Studies Laboratory Data (last 24 hrs) 12/16/22 22:25: Sodium 130 L, Potassium 3.4 L, BUN 15, Creatinine 0.89, Glucose 95, Total Bilirubin 0.6, AST 14 L, ALT < 10 L, Alkaline Phosphatase 59 12/16/22 22:25: WBC 12.20 H, Hgb 10.6 L, Hct 32.4 L, Plt Count 253 Microbiology Data (last 24 hrs): 12/16/22 23:36 Nasopharnyx Influenza Type A Antigen Screen - Final 12/16/22 23:36 Nasopharnyx Influenza Type B Antigen Screen - Final <Berny Estrada - Last Filed: 12/17/22 01:46> - Studies Laboratory Data (last 24 hrs) 12/16/22 22:25: Sodium 130 L, Potassium 3.4 L, BUN 15, Creatinine 0.89, Glucose 95, Total Bilirubin 0.6, AST 14 L, ALT < 10 L, Alkaline Phosphatase 59 12/16/22 22:25: WBC 12.20 H, Hgb 10.6 L, Hct 32.4 L, Plt Count 253 Microbiology Data (last 24 hrs): 12/16/22 22:25 Blood - Blood Anaerobic Blood Culture - Final 12/16/22 23:36 Nasopharnyx Influenza Type A Antigen Screen - Final 12/16/22 23:36 Nasopharnyx Influenza Type B Antigen Screen - Final <Angel Kevin - Last Filed: 12/17/22 16:36> Assessment and Plan - Plan Assessment: AMS/suspected toxic metabolic encephalopathy secondary to accidental overdose History of DVT on chronic anticoagulation History of TIA/CAD Hypertension Hyperlipidemia Hypothyroidism GERD Plan: AMS/suspected toxic metabolic encephalopathy secondary to accidental overdose Hold home medications including Xanax. Continue gentle IV fluids, serial neurological exams. CT head negative, not hypercapnic on ABG, no UTI. No pneumonia. History of DVT on chronic anticoagulation Eliquis continued. History of TIA/CAD Continue aspirin Hypertension Hyperlipidemia Hypothyroidism GERD Continue home medication. DVT PPX: Continue Eliquis Code status: Full code Discharge Plan: Home Plan to discharge in: 24 Hours - Advance Directives Does patient have a Living Will: Yes Does patient have a Durable POA for Healthcare: Yes - Code Status/Comfort Care Code Status Assessed: Yes (Full code) Critical Care: No Time Spent Managing Pts Care (In Minutes): 55 <Berny Estrada - Last Filed: 12/17/22 01:46> - Plan Patient seen and examined on rounds this morning. States she is feeling better, does not recall all the events that occurred to her being here at the hospital. Reports at least 1-2 days of cough and feeling tired Daughter states patient has been having a cough for 3 days, seem to have some confusion earlier in the day yesterday. Less likely to be reinfected with COVID-19, given her recent COVID-19 pneumonia/infection ~[address] chest with bilateral opacities concerning for pneumonia Continue antibiotic anticipate home, ~1-2 days ramachandran placed in ED, dc ramachandran in AM if better <Angel Kevin - Last Filed: 12/17/22 16:36>
--- NOTE | 2022-12-17 02:22 | ER ---
Nurse's Notes [facility] Name: Dinh Love Age: 87 yrs Sex: Female : 1935 Arrival Date: 12/16/2022 Time: 21:32 Bed 2 Private MD: Diagnosis: Altered mental status, acute hypoactive delirium , metabolic encephalopathy, multifocal pneumonia, lethargy, possible overmedication with p.o. Xanax Presentation: 12/16 21:39 Chief complaint: EMS states: AMS unresponsive per family last known normal 4 pm per patient took nighttime meds of amitriptyline alprazolam and metoprolol per EMS tomorrow am dosages missing. Initial Sepsis Screen: Does the patient meet any 2 criteria? Altered Mental Status. No. Patient's initial sepsis screen is negative. Does the patient have a suspected source of infection? No. Patient's initial sepsis screen is negative. Risk Assessment: Do you want to hurt yourself or someone else? Patient reports no desire to harm self or others. 21:39 Method Of Arrival: EMS: [facility] 21:39 Acuity: KAROLINA 3 12/17 00:41 Coronavirus screen: Vaccine status: Patient reports having had a previously documented Covid positive illness. October 16, 2022. Ebola Screen: Patient negative for fever greater than or equal to 101.5 degrees Fahrenheit, and additional compatible Ebola Virus Disease symptoms. 02:29 Onset of symptoms was December 16, 2022 at 21:00. Triage Assessment: 12/16 21:45 General: Appears in no apparent distress. well groomed, well developed, Behavior is kl cooperative, drowsy, Smells of. Pain: Denies pain. Neuro: Level of Consciousness is obeys commands, lethargic, Oriented to person, place, Speech is slurred, Facial symmetry appears normal, Pupils are PERRLA, Pupil Size: 4. Cardiovascular: Rhythm is sinus bradycardia. Respiratory: No deficits noted. GI: No deficits noted. No signs and/or symptoms were reported involving the gastrointestinal system. : No deficits noted. No signs and/or symptoms were reported regarding the genitourinary system. Derm: No deficits noted. No signs and/or symptoms reported regarding the dermatologic system. Musculoskeletal: No deficits noted. No signs and/or symptoms reported regarding the musculoskeletal system. Historical: - Allergies: 21:43 Codeine; itch; kl 21:43 Keflex; kl - Home Meds: 21:43 amitriptyline 50 mg Oral tab 1 tab nightly [Active]; Eliquis 5 mg Oral tab 2 times per kl day [Active]; levothyroxine 25 mcg tab 1 tab once daily [Active]; metoprolol succinate 25 mg Oral Tb24 1 tab 2 times per day [Active]; Xanax 0.5 mg Oral tablet once [Active]; - PMHx: 21:43 Arthritis; Atrial Fib; Hypertension; Myocardial infarction; TIA; kl - PSHx: 21:43 Cholecystectomy; Heart Stents; hysterectomy; kl - Immunization history:: Adult Immunizations up to date. - Social history:: Smoking status: unknown. - Family history:: not pertinent. Screenin:48 [facility] ED Fall Risk Assessment (Adult) History of falling in the last 3 months, kl including since admission No falls in past 3 months (0 pts) Confusion or Disorientation Yes (5 pts) Intoxicated or Sedated Yes (3 pts) Impaired Gait Yes (1 pt) Mobility Assist Device Used No (0 pt) Altered Elimination No (0 pt) Score/Fall Risk Level 3 or more points = High Risk Oriented to surroundings, Maintained a safe environment, Hourly rounding (assess needs \T\ fall precautionary measures) done, Used ambulatory aids as needed (educated on \T\ assisted with), Implemented a Fall Risk Plan of Care, Utilized family, sitter, or virtual radiology manager as indicated. Abuse screen: Denies threats or abuse. Nutritional screening: No deficits noted. Tuberculosis screening: No symptoms or risk factors identified. Assessment: 22:48 General: Appears in no apparent distress. comfortable, Behavior is cooperative, drowsy. kl Pain: Denies pain. Neuro: Level of Consciousness is lethargic, Oriented to person, place, Speech is slurred, Facial droop on right, Pupils are PERRLA. Cardiovascular: Rhythm is sinus bradycardia. Respiratory: No deficits noted. Airway is patent Trachea midline Respiratory effort is even, unlabored, Respiratory pattern is regular, symmetrical. GI: No deficits noted. No signs and/or symptoms were reported involving the gastrointestinal system. : No deficits noted. No signs and/or symptoms were reported regarding the genitourinary system. EENT: No deficits noted. No signs and/or symptoms were reported regarding the EENT system. Derm: No deficits noted. No signs and/or symptoms reported regarding the dermatologic system. Musculoskeletal: No deficits noted. No signs and/or symptoms reported regarding the musculoskeletal system. 23:48 Reassessment: Patient appears in no apparent distress at this time. Patient and/or kl family updated on plan of care and expected duration. Pain level reassessed. Patient is alert, oriented x 3, equal unlabored respirations, skin warm/dry/pink. 12/17 00:42 Reassessment: Patient appears in no apparent distress at this time. Patient and/or kl family updated on plan of care and expected duration. Pain level reassessed. Patient is alert, oriented x 3, equal unlabored respirations, skin warm/dry/pink. Vital Signs: 12/16 21:39 BP 117 / 88; Pulse 55; Resp 19; Temp 98.8(O); Pulse Ox 96% on R/A; kl 22:45 BP 108 / 56; Pulse 58; Resp 20; Pulse Ox 100% on R/A; kl 23:48 BP 131 / 82; Pulse 61; Resp 20; Pulse Ox 99% on R/A; kl 12/17 02:09 BP 131 / 70; Pulse 60; Resp 19; Pulse Ox 100% on R/A; ED Course: 12/16 21:33 Patient arrived in ED. rv1 21:33 Solomon Short, MARIO is Primary Nurse. rv 21:34 Babar Kirkpatrick MD is Attending Physician. sp4 21:43 Triage completed. kl 22:11 Chest Single View XRAY In Process Unspecified. EDMS 22:12 CT Head Brain wo Cont In Process Unspecified. EDMS 22:43 T4 Free Sent. kl 22:43 Procalcitonin Sent. kl 22:43 Troponin High Sensitivity Sent. kl 22:49 Patient has correct armband on for positive identification. Bed in low position. Call light in reach. Side rails up X2. Adult w/ patient. Client placed on continuous cardiac and pulse oximetry monitoring. NIBP monitoring applied. Door closed. Noise minimized. Warm blanket given. 23:55 Giordano cath inserted, using sterile technique, 16 Fr., by army manager, balloon inflated, to jw7 gravity drainage, urine specimen collected. 12/17 01:32 CT Chest, Abdomen, Pelvis - W/Contrast In Process Unspecified. EDMS 02:08 No apparent distress. Resting quietly. Appears to be sleeping. 02:20 Angel Kevin MD is Hospitalizing Provider. sp4 02:24 No provider procedures requiring assistance completed. Patient admitted, IV remains in kl place. 02:30 Arm band placed on. kl Administered Medications: 12/16 22:56 Drug: LevaQUIN IVPB 750 mg Route: IVPB; Site: left antecubital; 12/17 00:38 Follow up: IV Status: Completed infusion; IV Intake: 200ml 12/16 22:56 Drug: NS 0.9% IV 500 ml Route: IV; Rate: bolus; Site: left antecubital; 12/17 00:39 Follow up: IV Status: Completed infusion; IV Intake: 500ml 00:39 Drug: vancoMYCIN IVPB 1 grams Route: IVPB; Infused Over: 2 hrs; Site: left antecubital; 02:31 Follow up: IV Status: Completed infusion; IV Intake: 250ml kl 01:21 Not Given (Hemodynamic Parameters): D5-NS IV 1000 ml IV at 125 ml/hr continuous kl Intake: 00:38 IV: 200ml; Total: 200ml. kl 00:39 IV: 500ml; Total: 700ml. kl 02:31 IV: 250ml; Total: 950ml. Outcome: 02:21 Decision to Hospitalize by Provider. sp4 02:24 Admitted to Tele via stretcher, room 432, with chart, Report called to Lamine 02:24 Condition: stable 02:42 Patient left the ED. Signatures: Dispatcher [employer] EDMS Nell Smith, RN Solomon Tran RN RN connie Olivares, Nallely jw7 Neda Chung rv1 Babar Kirkpatrick MD MD sp4
--- NOTE | 2022-12-17 02:22 | EDPHYS ---
Physician Documentation [facility] Name: Dinh Love Age: 87 yrs Sex: Female : 1935 Arrival Date: 12/16/2022 Time: 21:32 Bed 2 Private MD: ED Physician Babar Kirkpatrick HPI: 12/16 21:34 This 87 yrs old Female presents to ER via Unassigned with complaints of sp4 general complaint. 23:13 Very pleasant 87-year-old female with a history of recent COVID-19 on 10/11/2022 and sp4 father history all of coronary artery disease prior PR, TIA, hypertension, hypothyroidism, anxiety, DVT, GERD, migraine headaches, presents with EMS from home with generalized weakness and lethargy. Patient was last seen normal about 2 PM. Patient was found at home by her relatives lethargic. Patient was also reported to have suboptimal blood pressure 100 systolic. By EMS. There was no fever. On arrival patient does not have lateralizing weakness but appears quite somnolent there is generalized weakness patient is not able to communicate HPI or review of systems.. Family states that patient may have consumed extra dose of her medications. Patient medications includes alprazolam 0.5 mg at bedtime for anxiety, amitriptyline at bedtime for sleep, Eliquis 5 mg twice a day, levothyroxine 25 mcg once a day, metoprolol tartrate 25 mg twice a day, nitroglycerin as needed, omeprazole 40 mg every morning, tramadol as needed pain, vitamin D3.. Historical: - Allergies: 21:43 Codeine; itch; kl 21:43 Keflex; kl - Home Meds: 21:43 amitriptyline 50 mg Oral tab 1 tab nightly [Active]; Eliquis 5 mg Oral tab 2 times per kl day [Active]; levothyroxine 25 mcg tab 1 tab once daily [Active]; metoprolol succinate 25 mg Oral Tb24 1 tab 2 times per day [Active]; Xanax 0.5 mg Oral tablet once [Active]; - PMHx: 21:43 Arthritis; Atrial Fib; Hypertension; Myocardial infarction; TIA; kl - PSHx: 21:43 Cholecystectomy; Heart Stents; hysterectomy; kl - Immunization history:: Adult Immunizations up to date. - Social history:: Smoking status: unknown. - Family history:: not pertinent. ROS: 23:13 Constitutional: Negative for fever, chills, and weight loss, full ROS not available sp4 secondary to lethargy 23:13 Unable to obtain ROS due to altered mental status. Exam: 23:13 Constitutional: This is a well developed, well nourished patient who is somnolent, sp4 pale, ill-appearing, nontoxic-appearing, there is generalized weakness at this time patient is nonambulatory. Head/Face: Normocephalic, atraumatic. Eyes: Pupils equal round and reactive to light, extra-ocular motions intact. Lids and lashes normal. Conjunctiva and sclera are not injected. Cornea within normal limits. Periorbital areas with no swelling, redness, or edema. ENT: Nares patent. No nasal discharge, no septal abnormalities noted. Tympanic membranes are normal and external auditory canals are clear. Oropharynx with no redness, swelling, or masses, exudates, or evidence of obstruction, uvula midline. Mucous membranes are dry Neck: Trachea midline, no thyromegaly or masses palpated, and no cervical lymphadenopathy. Supple, full range of motion without nuchal rigidity, or vertebral point tenderness. Chest/axilla: Normal chest wall appearance and motion. Nontender with no deformity. No lesions are appreciated. Cardiovascular: Regular rate and rhythm with a normal S1 and S2. No gallops, murmurs, or rubs. Normal PMI, no JVD. No pulse deficits. Respiratory: Lungs have equal breath sounds bilaterally, clear to auscultation and percussion. No rales, rhonchi or wheezes noted. No increased work of breathing, no retractions or nasal flaring. Abdomen/GI: Soft, non-tender, with normal bowel sounds. No distension or tympany. No guarding or rebound. No evidence of tenderness throughout. Back: No spinal tenderness. No costovertebral tenderness. Skin: Warm, dry with normal turgor. with no rashes, no lesions, and no evidence of cellulitis. There is generalized pallor without cyanosis MS/ Extremity: Pulses equal, no cyanosis. Neurovascular intact. Full, normal range of motion. Neuro: Patient is somnolent, oriented to self. Cranial nerves II-XII grossly intact. Motor strength 5/5 in all extremities. Sensory grossly intact. Overall no signs of lateralizing weakness, patient nonambulatory secondary to generalized weakness 23:13 ECG was reviewed by the Attending Physician. EKG reveals sinus bradycardia at the rate of 55, no ST elevation or depression, no ectopy. EKG time 2138 Vital Signs: 21:39 BP 117 / 88; Pulse 55; Resp 19; Temp 98.8(O); Pulse Ox 96% on R/A; kl 22:45 BP 108 / 56; Pulse 58; Resp 20; Pulse Ox 100% on R/A; kl 23:48 BP 131 / 82; Pulse 61; Resp 20; Pulse Ox 99% on R/A; kl 12/17 02:09 BP 131 / 70; Pulse 60; Resp 19; Pulse Ox 100% on R/A; kl MDM: 12/16 21:45 Patient medically screened. sp4 12/17 02:18 Data reviewed: vital signs, nurses notes, EKG, radiologic studies, CT scan, plain sp4 films. ED course: PROCEDURE: CT Chest, Abdomen and Pelvis With Intravenous Contrast CLINICAL INDICATION: The patient is 87 years old and is Female; sepsis, lethargy ,eval for pneumonia [facility] MAIN TECHNIQUE: Axial computed tomography images of the chest, abdomen and pelvis with intravenous contrast. Sagittal and coronal reformatted images were created and reviewed. This CT exam was performed using one or more of the following dose reduction techniques: automated exposure control, adjustment of the mA and/or kV according to patient size, and/or use of iterative reconstruction technique. COMPARISON: 08/08/2016 CT abdomen pelvis with contrast (images only, report unavailable for review). FINDINGS: CHEST: LUNGS: Patchy consolidation demonstrated in the dependent bilateral upper and left lower lobes, favoring multi lobar pneumonia. PLEURAL SPACE: Unremarkable. No significant effusion. No pneumothorax. HEART: No cardiomegaly. No significant pericardial effusion. MEDIASTINUM: Reactive appearing mediastinal lymph nodes. Small hiatal hernia. ABDOMEN: LIVER: Unremarkable. No mass. GALLBLADDER AND BILE DUCTS: Presumed cholecystectomy. No calcified stones. No ductal dilation. PANCREAS: Unremarkable. No ductal dilation. No mass. SPLEEN: Unremarkable. No splenomegaly. ADRENALS: Unremarkable. No mass. KIDNEYS AND URETERS: Unremarkable. No hydronephrosis. No solid mass. STOMACH AND BOWEL: Descending and sigmoid colonic diverticulosis without evidence of acute diverticulitis. No obstruction. PELVIS: APPENDIX: No findings to suggest acute appendicitis. BLADDER: Urinary bladder is relatively decompressed around the indwelling Giordano catheter and bulb. REPRODUCTIVE: Presumed hysterectomy. CHEST, ABDOMEN and PELVIS: INTRAPERITONEAL SPACE: Unremarkable. No significant fluid collection. No free air. BONES/JOINTS: No acute fracture. No dislocation. SOFT TISSUES: Incidental intramuscular lipoma demonstrated in the right gluteus minimus. 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 Moderate thoracic and severe abdominal aortic calcified atherosclerosis without aneurysmal dilatation. Multivessel coronary artery calcifications. LYMPH NODES: No pathologically enlarged lymph nodes. IMPRESSION: 1. Patchy consolidation demonstrated in the dependent bilateral upper and left lower lobes, favoring multi lobar pneumonia. 2. No acute abnormality within the abdomen or pelvis. 3. Suspected sequela of chronic Deanna Thurner syndrome with near complete atretic appearance of the left common and external iliac vein and left or right venous drainage collateralization demonstrated in the subcutaneous pelvis, unchanged from reference exam. 4. Additional non acute findings as above. . 02:21 Differential Diagnosis altered mental status, sepsis, flu. Data reviewed: lab test [facility] result(s), amylase and lipase, cardiac enzymes, CBC, electrolytes, Flu: negative hepatic panel, urinalysis, urine drug screen. Consideration of Admission/Observation Patient was admitted/placed on observation. Escalation of care including admission/observation considered. Management of patient was discussed with the following: Hospitalist: Discussed with admission team . 12/16 21:43 Order name: Blood Culture Adult (2) [facility] 12/16 21:43 Order name: CBC with Diff; Complete Time: 23:58 [facility] 12/16 21:43 Order name: CMP; Complete Time: 23:58 [facility] 12/16 21:43 Order name: Lactate w/ 2H reflex if indic.; Complete Time: 23:58 [facility] 12/16 21:43 Order name: Protime (+inr) [facility] 12/16 21:43 Order name: Ptt, Activated [facility] 12/16 21:43 Order name: Urinalysis w/ reflexes; Complete Time: 00:31 [facility] 12/16 21:43 Order name: ABG; Complete Time: 22:58 [facility] 12/16 21:44 Order name: Troponin High Sensitivity; Complete Time: 23:58 4 12/16 21:44 Order name: Procalcitonin [facility] 12/16 21:44 Order name: T4 Free; Complete Time: 23:58 [facility] 12/16 21:55 Order name: Urine Drug Screen; Complete Time: 01:05 4 12/16 21:55 Order name: Alcohol Level [facility] 12/16 22:54 Order name: CBC Smear Scan; Complete Time: 23:58 EDMS 12/16 23:12 Order name: Influenza Screen (a \T\ B); Complete Time: 00:11 4 12/16 23:12 Order name: SARS RAPID; Complete Time: 23:58 [facility] 12/16 21:43 Order name: Chest Single View XRAY; Complete Time: 22:58 [facility] 12/16 21:44 Order name: CT Head Brain wo Cont; Complete Time: 22:58 [facility] 12/17 00:32 Order name: CT Chest, Abdomen, Pelvis - W/Contrast [facility] 12/16 21:43 Order name: EKG; Complete Time: 21:44 [facility] 12/16 21:43 Order name: Accucheck; Complete Time: 23:25 4 12/16 21:43 Order name: Cardiac monitoring; Complete Time: 23:25 [facility] 12/16 21:43 Order name: Cath; Complete Time: 23:25 4 12/16 21:43 Order name: EKG - Nurse/Tech; Complete Time: 23:25 4 12/16 21:43 Order name: IV Saline Lock - Large Bore; Complete Time: 23:25 [facility] 12/16 21:43 Order name: Labs collected and sent; Complete Time: 23:25 4 12/16 21:43 Order name: O2 Per Protocol; Complete Time: 23:25 4 12/16 21:43 Order name: O2 Sat Monitoring; Complete Time: 23:25 4 12/16 21:43 Order name: Vital Signs; Complete Time: 23:25 sp4 EC/22 23:13 Rate is 55 beats/min. Rhythm is regular, Sinus bradycardia. QRS [place] is Normal. [place] sp4 interval is normal. QRS interval is normal. QT interval is normal. T waves are Normal. No ST changes noted. Clinical impression: No evidence of ischemia. Interpreted by me. Administered Medications: 22:56 Drug: LevaQUIN IVPB 750 mg Route: IVPB; Site: left antecubital; 12/17 00:38 Follow up: IV Status: Completed infusion; IV Intake: 200ml kl 12/16 22:56 Drug: NS 0.9% IV 500 ml Route: IV; Rate: bolus; Site: left antecubital; kl 12/17 00:39 Follow up: IV Status: Completed infusion; IV Intake: 500ml kl 00:39 Drug: vancoMYCIN IVPB 1 grams Route: IVPB; Infused Over: 2 hrs; Site: left antecubital; 02:31 Follow up: IV Status: Completed infusion; IV Intake: 250ml kl 01:21 Not Given (Hemodynamic Parameters): D5-NS IV 1000 ml IV at 125 ml/hr continuous kl Disposition Summary: 12/17/22 02:21 Hospitalization Ordered Hospitalization Status: Inpatient Admission sp4 Provider: Angel Kevin sp4 Location: Telemetry/[facility] (Inpatient) sp4 Condition: Stable sp4 Problem: new sp4 Symptoms: are unchanged sp4 Bed/Room Type: Standard sp4 Room Assignment: 411(12/17/22 02:23) cg Diagnosis - Altered mental status, acute hypoactive delirium , metabolic encephalopathy, sp4 multifocal pneumonia, lethargy, possible overmedication with p.o. Xanax Forms: - Medication Reconciliation Form sp4 - SBAR form sp4 Signatures: Dispatcher [employer] Nell Sullivan RN RN kl Garcia, Cindy, RN RN cg Potepalov, Sergey, MD MD sp4 Corrections: (The following items were deleted from the chart) 02:21 sp4 cg
[2022-12-17 02:51] VITALS: O2SAT 100
[2022-12-17 02:57] VITALS: BMI 26.5
[2022-12-17] MEDS ORDERED: ACETAMINOPHEN 500 MG TAB PO PRN (03:13)
[2022-12-17 05:20] LABS: Absolute Lymphocytes (CBC) 1.7 K/uL (0.7-4.9); Hematocrit 33.2 % (36.0-45.0); MCV 90.1 fL (80-100); MPV 9.5 fL (7.6-11.3); RBC Red Blood Cell Count 3.69 M/uL (3.86-4.86)
[2022-12-17 05:31] LABS: Potassium 3.6 mEq/L (3.5-5.1)
[2022-12-17 06:10] LABS: Protime INR 1.96
[2022-12-17] MEDS ORDERED: HOME MED 1 EA UNK (Levothyroxine Sodium [Levothyroxine Sodium] 25 MCG Capsule) PO SCH (09:00)
[2022-12-17] MEDS ORDERED: HOME MED 1 EA UNK (Omeprazole [Prilosec] 40 MG Capsule.Dr) PO SCH (09:00)
[2022-12-17] MEDS ORDERED: levoFLOXacin 500 MG TAB PO SCH (09:00)
[2022-12-17] MEDS: LEVOTHYROXINE SOD 0.025 MG TAB PO SCH (09:25)
[2022-12-17] MEDS: METOPROLOL TAR 25 MG TAB PO SCH ×2 (09:25→20:52)
[2022-12-17] MEDS: levoFLOXacin 750 MG TAB PO SCH (09:26)
[2022-12-17] MEDS: ASPIRIN 81 MG CHEWABLE TABLET PO SCH (09:26)
[2022-12-17] MEDS: APIXABAN 5 MG TABLET PO SCH ×2 (09:26→20:52)
[2022-12-17] MEDS: PANTOPRAZOLE 40MG TABLET PO SCH (09:26)
--- NOTE | 2022-12-17 11:08 | RAD REPORT ---
EXAM DESCRIPTION: CT - Chest Abdomen Pelvis W Cont - 12/17/2022 2:37 am CLINICAL HISTORY: The patient is 87 years old and is Female; sepsis, lethargy ,eval for pneumonia [facility] MAIN TECHNIQUE: Axial computed tomography images of the chest, abdomen and pelvis with intravenous contra st. Sagittal and coronal reformatted images were created and reviewed. This CT exam was performed using one or more of the following dose reduction techniques: automated exposure control, adjustme nt of the mA and/or kV according to patient size, and/or use of iterative reconstruction technique. COMPARISON: 08/08/2016 CT abdomen pelvis with contrast (images only, report unavailable for review). FINDINGS: CHEST: LUNGS: Patchy consolidation demonstrated in the dependent bilateral upper and left lower lobes, fav oring multi lobar pneumonia. PLEURAL SPACE: Unremarkable. No significant effusion. No pneumothorax. HEART: No cardiomegaly. No significant pericardial effusion. MEDIASTINUM: Reactive appearing mediastinal lymph nodes. Small hiatal hernia. ABDOMEN: LIVER: Unremarkable. No mass. GALLBLADDER AND BILE DUCTS: Presumed cholecystectomy. No calcified stones. No ductal dilation. PANCREAS: Unremarkable. No ductal dilation. No mass. SPLEEN: Unremarkable. No splenomegaly. ADRENALS: Unremarkable. No mass. KIDNEYS AND URETERS: Unremarkable. No hydronephrosis. No solid mass. STOMACH AND BOWEL: Descending and sigmoid colonic diverticulosis without evidence of acute divert iculitis. No obstruction. PELVIS: APPENDIX: No findings to suggest acute appendicitis. BLADDER: Urinary bladder is relatively decompressed around the indwelling Giordano catheter and bulb. REPRODUCTIVE: Presumed hysterectomy. CHEST, ABDOMEN and PELVIS: INTRAPERITONEAL SPACE: Unremarkable. No significant fluid collection. No free air. BONES/JOINTS: No acute fracture. No dislocation. SOFT TISSUES: Incidental intramuscular lipoma demonstrated in the right gluteus minimus. VASCULATURE: Suspected sequela of chronic May Thurner syndrome with near complete atretic appearanc e of the left common and external iliac vein and left or right venous drainage collateralization demo nstrated in the subcutaneous pelvis, unchanged from reference exam. Moderate thoracic and severe abdominal aortic calcified atherosclerosis without aneurysmal dilatation . Multivessel coronary artery calcifications. LYMPH NODES: No pathologically enlarged lymph nodes. IMPRESSION: 1. Patchy consolidation demonstrated in the dependent bilateral upper and left lower lo bes, favoring multi lobar pneumonia. 2. No acute abnormality within the abdomen or pelvis. 3. 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 4. Additional nonacute findings as above. Electronically signed by: Ajay Angel MD 12/17/2022 2:13 AM CDT Due to temporary technical issues with the PACS/Fluency reporting system, reports are being signed by the in house radiologist without review as a courtesy to ensure prompt reporting. The interpreting r adiologist is fully responsible for the content of the report.
--- NOTE | 2022-12-17 16:29 | EKG ---
Test Date: 2022-12-16 Test Time: 21:39:30 Booking Supervisor: RV MEASUREMENT RESULTS: Intervals: Rate: 55 AR: 204 QRSD: 86 QT: 450 QTc: 430 [place]: P: 54 AR: 204 QRS: -2 T: 32 INTERPRETIVE STATEMENTS: Sinus bradycardia Otherwise normal ECG Compared to ECG 10/11/2022 05:16:03 Sinus rhythm no longer present ST (T wave) deviation no longer present Prolonged QT interval no longer present Electronically Signed On 12-17-22 16:27:29 CDT by Basim Rueda
[2022-12-18 04:19] LABS: Absolute Lymphocytes (CBC) 2.2 K/uL (0.7-4.9); Hematocrit 31.4 % (36.0-45.0); Lymphocytes % 21.1 % (15.3-44.8); MCV 89.3 fL (80-100); MPV 8.8 fL (7.6-11.3); RBC Red Blood Cell Count 3.52 M/uL (3.86-4.86)
[2022-12-18 04:33] LABS: Potassium 3.5 mEq/L (3.5-5.1)
[2022-12-18] MEDS: LEVOTHYROXINE SOD 0.025 MG TAB PO SCH (06:27)
--- NOTE | 2022-12-18 07:07 | P.PN ---
Date of Service: 12/18/22 Subjective: feeling better today low grade temp this morning (99.8), 100.1 yesterday has not ambulated out of bed +mild cough ROS: 10 point ROS as noted above, otherwise negative Physical Exam: GEN: Alert, oriented, NAD HEENT: Normal conjunctiva, sclera anicteric CV: Regular rate and rhythm, no edema Pulm: Nonlabored respirations on room air, +mild cough ABD: Soft, nontender, nondistended Neuro: Normal speech, normal affect vitals reviewed Problem List: L Multilobar pneumonia AMS/suspected toxic metabolic encephalopathy secondary to accidental overdose History of DVT on chronic anticoagulation History of TIA/CAD Hypertension Hyperlipidemia Hypothyroidism GERD L Multilobar Pneumonia CXR (12/16): No acute intrathoracic process suspected CT chest (12/16):Patchy consolidation demonstrated in the dependent bilateral upper and left lower lobes, favoring multi lobar pneumonia. 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 Continue gentle IVF, serial neurological exams. CT head (12/16): negative, not hypercapnic on ABG, no UTI. No pneumonia. PT consult History of DVT on chronic anticoagulation Eliquis continued. History of TIA/CAD Continue aspirin Hypertension Hyperlipidemia Hypothyroidism GERD Continue home medication. VTE: Home eliquis Code: Full Dispo: Home, 1-2 days
[2022-12-18] MEDS: ASPIRIN 81 MG CHEWABLE TABLET PO SCH (09:13)
[2022-12-18] MEDS: METOPROLOL TAR 25 MG TAB PO SCH ×2 (09:13→21:04)
[2022-12-18] MEDS: SERTRALINE HCL 50 MG TAB PO SCH (09:13)
[2022-12-18] MEDS: PANTOPRAZOLE 40MG TABLET PO SCH (09:13)
[2022-12-18] MEDS: APIXABAN 5 MG TABLET PO SCH ×2 (09:14→21:04)
[2022-12-18] MEDS ORDERED: AMITRIPTYLINE 50 MG TAB PO SCH (21:00)
[2022-12-19 04:59] LABS: C-Reactive Protein 77.5 mg/L (<3.00); Magnesium 1.6 mg/dL (1.6-2.4); Potassium 3.6 mEq/L (3.5-5.1)
[2022-12-19] MEDS: LEVOTHYROXINE SOD 0.025 MG TAB PO SCH (06:34)
--- NOTE | 2022-12-19 07:10 | P.PN ---
Date of Service: 12/19/22 Subjective: ROS: 10 point ROS as noted above, otherwise negative Physical Exam: GEN: Alert, oriented, NAD HEENT: Normal conjunctiva, sclera anicteric CV: Regular rate and rhythm, no edema Pulm: Nonlabored respirations on room air, +mild cough ABD: Soft, nontender, nondistended Neuro: Normal speech, normal affect vitals reviewed Problem List: L Multilobar pneumonia AMS/suspected toxic metabolic encephalopathy secondary to accidental overdose History of DVT on chronic anticoagulation History of TIA/CAD Hypertension Hyperlipidemia Hypothyroidism GERD L Multilobar Pneumonia CXR (12/16): No acute intrathoracic process suspected CT chest (12/16):Patchy consolidation demonstrated in the dependent bilateral upper and left lower lobes, favoring multi lobar pneumonia. 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 Continue gentle IVF, serial neurological exams. CT head (12/16): negative, not hypercapnic on ABG, no UTI. No pneumonia. PT consult History of DVT on chronic anticoagulation Eliquis continued. History of TIA/CAD Continue aspirin Hypertension Hyperlipidemia Hypothyroidism GERD Continue home medication. VTE: Home eliquis Code: Full Dispo: Home, 1-2 days
[2022-12-19] MEDS: APIXABAN 5 MG TABLET PO SCH (09:27)
[2022-12-19] MEDS: METOPROLOL TAR 25 MG TAB PO SCH (09:27)
[2022-12-19] MEDS: ASPIRIN 81 MG CHEWABLE TABLET PO SCH (09:27)
[2022-12-19] MEDS: levoFLOXacin 750 MG TAB PO SCH (09:27)
[2022-12-19] MEDS: PANTOPRAZOLE 40MG TABLET PO SCH (09:27)
[2022-12-19] MEDS: SERTRALINE HCL 50 MG TAB PO SCH (09:30)
[2022-12-19 09:42] VITALS: BP 126/60; TEMP 97.7
--- NOTE | 2022-12-19 10:22 | P.DS ---
Admission Date: 12/18/22 Discharge Date: 12/19/22 Primary Care Provider: Dr. Moore Disposition: ROUTINE DISCHARGE Discharge Condition: GOOD Reason for Admission: AMS Brief History of Present Illness: 87yo F, PMH: CAD, TIA, hypertension, hypothyroidism, history of DVT on chronic anticoagulation, GERD, anxiety, insomnia Patient presents emergency department with chief complaint of altered mental status. Patient's family was trying to get a hold of her by phone and she is not answering stable to go check on her, she was found lying in bed and difficult to arouse. EMS was called and patient was transferred to the emergency department. She was evaluated in the emergency department and her labs were significant for white blood cell count 12.2 hemoglobin 10.6 medic at 32.4 sodium 130 potassium 3.4 negative for urinary tract infection UDS positive for benzodiazepines which he is prescribed ABG pH 7.39 [address]O2 [address] head negative for acute findings chest x-ray unremarkable. Patients family report finding some pills in her bed and her morning meds not in container, she may have taken extra dose of home meds including xanax. She is drowsy/lethargic but arousable to physical stimulation. Answers questions appropriately but speech is slurred. Hospital Course: Problem List: L Multilobar pneumonia AMS/suspected toxic metabolic encephalopathy secondary to accidental overdose History of DVT on chronic anticoagulation History of TIA/CAD Hypertension Hyperlipidemia Hypothyroidism GERD Patient presented with altered mental status after being found lying in bed and difficult to arouse. UA was positive for benzos. Her mentation improved quickly and significantly. There is the possibility she may have taken an extra dose of her benzodiazepine at home, or secondary to pneumonia. She was found to be covid positive again. CT chest indicated patchy consolidation demonstrated in the dependent bilateral upper and left lower lobes, favoring multi lobar pneumonia. She remained afebrile, breathing comfortably on room air, and with a mild cough. Blood cultures were without growth, however final results pending upon discha rge. Patient was treated with Levofloxacin and had significant improvement of her symptoms. On day of discharge, she was tolerating her diet, ambulating, breathing comfortably on room air, and feeling back to her normal self. new / change in prescriptions Levofloxacin for 7 days Follow up: PCP 3-5 days Physical Exam: GEN: Alert, oriented, NAD HEENT: Normal conjunctiva, sclera anicteric CV: Regular rate and rhythm, no edema Pulm: Nonlabored respirations on room air, +mild cough ABD: Soft, nontender, nondistended MSK: No joint tenderness Integumentary: No rashes Neuro: Normal speech, normal affect Vital Signs/Physical Exam: Temp Pulse Resp BP Pulse Ox 97.7 F 76 18 126/60 96 12/19/22 08:00 12/19/22 08:00 12/19/22 08:00 12/19/22 08:00 12/19/22 08:00 Laboratory Data at Discharge: WBC 10.50 thou/uL (4.3-10.9) 12/18/22 04:02 Hgb 10.5 g/dL (12.0-15.0) L 12/18/22 04:02 Hct 31.4 % (36.0-45.0) L 12/18/22 04:02 Plt Count 266 thou/uL (152-406) 12/18/22 04:02 PT 21.6 SECONDS (9.5-12.5) H 12/17/22 05:23 INR 1.96 12/17/22 05:23 APTT 30.9 SECONDS (24.3-36.9) 12/17/22 05:23 Sodium 135 mEq/L (136-145) L 12/19/22 03:49 Potassium 3.6 mEq/L (3.5-5.1) 12/19/22 03:49 BUN 14 mg/dL (7-18) 12/19/22 03:49 Creatinine 0.83 mg/dL (0.55-1.02) 12/19/22 03:49 Glucose 105 mg/dL (74-106) 12/19/22 03:49 Magnesium 1.6 mg/dL (1.6-2.4) 12/19/22 03:49 Total Bilirubin 0.6 mg/dL (0.2-1.0) 12/16/22 22:25 AST 14 U/L (15-37) L 12/16/22 22:25 ALT < 10 U/L (13-56) L 12/16/22 22:25 Alkaline Phosphatase 59 U/L (45-117) 12/16/22 22:25 Home Medications: Amitriptyline HCl 50 mg PO BEDTIME 11/12/18 Levothyroxine Sodium 25 mcg PO DAILY 08/07/20 Nitroglycerin 0.4 mg SL PRN PRN 08/07/20 Omeprazole [Prilosec] 40 mg PO DAILY 08/07/20 Apixaban [Eliquis] 5 mg PO BID #60 tablet 06/09/21 Cholecalciferol (Vitamin D3) [Vitamin D3] 1 tab PO DAILY 10/11/22 Metoprolol Tartrate 25 mg PO BID 10/11/22 ALPRAZolam [Xanax*] 0.5 mg PO BEDTIME 12/17/22 Sertraline [Zoloft*] 25 mg PO DAILY 12/17/22 levoFLOXacin [Levaquin*] 750 mg PO Q48H 8 Days #4 tab 12/19/22 New Medications: levoFLOXacin [Levaquin*] 750 mg PO Q48H 8 Days #4 tab Physician Discharge Instructions: Patient presented with altered mental status after being found lying in bed and difficult to arouse. UA was positive for benzos. Her mentation improved quickly and significantly. There is the possibility she may have taken an extra dose of her benzodiazepine at home, or secondary to pneumonia. She was found to be covid positive again. CT chest indicated patchy consolidation demonstrated in the dependent bilateral upper and left lower lobes, favoring multi lobar pneumonia. She remained afebrile, breathing comfortably on room air, and with a mild cough. Blood cultures were without growth, however final results pending upon discharge. Patient was treated with Levofloxacin and had significant improvement of her symptoms. On day of discharge, she was tolerating her diet, ambulating, breathing comfortably on room air, and feeling back to her normal self. new / change in prescriptions Levofloxacin for 7 days Follow up: PCP 3-5 days Followup: Randolph Moore MD [Primary Care Provider] - Time spent managing pt's care (in minutes): 45
== END 2022-12-19 12:07 | disposition home or self-care (01) | DRG 917 ==
LOC: ER 21:32 → ERHOLD 12-17 01:37 → 4TH 12-17 02:33 → OBSVTOIN 12-18 12:49
PROVIDERS: ADMIT Hospitalist; ATTEND Hospitalist
DX: T42.4X1A Poisoning by benzodiazepines, accidental (unintentional), initial encounter (principal); G92.8 Other toxic encephalopathy; U07.1 COVID-19; J12.82 Pneumonia due to coronavirus disease 2019; F05 Delirium due to known physiological condition; I10 Essential (primary) hypertension; E03.9 Hypothyroidism, unspecified; K21.9 Gastro-esophageal reflux disease without esophagitis; E78.5 Hyperlipidemia, unspecified; I48.91 Unspecified atrial fibrillation; I25.10 Atherosclerotic heart disease of native coronary artery without angina pectoris; I25.2 Old myocardial infarction; Z95.5 Presence of coronary angioplasty implant and graft; Z88.1 Allergy status to other antibiotic agents; Z88.5 Allergy status to narcotic agent; Z86.73 Personal history of transient ischemic attack (TIA), and cerebral infarction without residual deficits; Z79.01 Long term (current) use of anticoagulants; Z90.49 Acquired absence of other specified parts of digestive tract; Z79.890 Hormone replacement therapy; Z79.899 Other long term (current) drug therapy; Z86.718 Personal history of other venous thrombosis and embolism; Z90.710 Acquired absence of both cervix and uterus
CPT/HCPCS: 36415; 36600; 51702; 70450; 71045; 71260; 74177; 80048; 80053; 80307; 81003; 82077; 82805; 83605; 83735; 84145; 84439; 84443; 84484; 85025; 85610; 85730; 86140; 87040; 87804; 87811; 93005; 96365; 96366; 96367; 99285; G0378; J7050; Q9967

== ENCOUNTER 2023-04-27 19:33 | Inpatient (IN) | payer OTHER, MEDICARE ==
--- OUTSIDE RECORDS SUMMARY | 2023-04-27 19:38 | XMS REPORT | Continuity of Care Document ---
:1935 Author Organization [facility] t Address [address] [place] [address] Care Team Providers Name Role Phone Pcp, Patient Does Not Have A Primary Care Physician [id number] Emelina Colón Attending Clinician Unavailable RODY PINTO Attending Clinician Unavailable Kendal Lee OT Attending Clinician Unavailable Rody Pinto MD Attending Clinician Doctor Unassigned, [place] Attending Clinician Unavailable RICARDO CARLTON Attending Clinician Unavailable Emelina Colón Admitting Clinician Unavailable RICARDO CARLTON Admitting Clinician Unavailable Payers Payer Name Policy Type Policy Number Effective Date Expiration Date S [facility] A \T\ [id number] 2002 B 00:00:00 [facility] [id number] 2002 MEDICARE SUPPLEMENT 00:00:00 Problems Condition Condition Condition Status Onset Resolution Last Treating Co mments Source Name Details Category Date Date Treatment Clinician Date Stroke Stroke Disease Recurre 2017-[address] [facility] (cerebrum) (cerebrum) nce 0-11 Annalee kes 00:00: Medical 00 [place] Acute Acute Disease Recurre 2017-[address] [facility] ischemic ischemic nce 0-11 [facility] stroke stroke 00:00: Medical 00 [place] Essential Essential Disease Recurre 2017-[address] hypertensi hypertensi nce 0-11 Annalee kes on on 00:00: Medical 00 [place] Received Received Disease Recurre 2017-[address] [facility] tissue tissue nce 0-11 [facility] plasminoge plasminoge 00:00: Me dical n n 00 Center activator activator (t-PA) (t-PA) less than less than 24 hours 24 hours prior to prior to arrival arrival Primary Primary Disease Active Univers osteoarthr osteoarthr - it y of itis of itis of 00:00: [place] both first both first 00 Me dical carpometac carpometac Br anch arpal arpal joints joints Osteoporos Osteoporos Disease Active U nivers is is 5-11 ity of 00:00: [place] 00 Medical Branch History of History of Disease Active U nivers 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 00:00: [place] thrombosis thrombosis 00 Me dical ) ) Branch Fibromyalg Fibromyalg Disease Active U nivers ia ia 5- ity of 00:00: [place] 00 Medical Branch Encounter Encounter Disease Active Uni vers for for 11-04 ity of long-term long-term 00:00: [place] (current) (current) 00 Medi karlee use of use of Branch NSAIDs NSAIDs Chronic Chronic Disease Active Univers neck and neck and 11-04 ity of back pain back pain 00:00: Tamiko mcgill 00 Medical Branch Pain, Pain, Disease Active Univers joint, joint, 5-11 ity of multiple multiple 00:00: [place] sites sites 00 Medical Branch Allergies, Adverse Reactions, Alerts Allergy Allergy Status Severity Reaction(s) Onset Inactive Treating Comm ents Source Name Type Date Date Clinician cephalex DA Active SV FEVER, [facility] in NUMBNESS, 9-26 [place] SHAKING 00:00: d 00 Medical Center Cephalex Propensi Active 2017-[address] [facility] [address] in ty to 0-11 [facility] adverse 00:00: Medical reaction 00 Center s CEPHALEX Allergy Active 2017-[address] [facility] [address] IN -11 [facility] 00:00: Medical 00 Center Cephalex Propensi Active Other - See Fever , Univers in ty to comments 11-04 no ity of adverse 00:00: urination [place] reaction 00 Medical s Branch CEPHALEX DRUG Active Other-Cmnt Univ ers IN INGREDI 11-04 ity of 00:00: [place] 00 Medical Branch Family History Family Member Diagnosis Comments Start Date Stop Date Source Natural mother Stroke [facility] Social History Social Habit Start Date Stop Date Quantity Comments Source History SDOH University o f Alcohol Frequency [place] M edical Branch History SDOH University o f Alcohol Std [place] Medical Drinks Branch History SDOH University o f Alcohol Binge [place] Medic al Branch History of Cigarette Smoker [facility] tobacco use Medical [facility] Exposure to 2022-02-08 2022-02-18 Not sure University of SARS-CoV-2 00:00:00 12:46:00 [place] Medical (event) Branch Cigarettes smoked 2018-04-06 2018-04-[address] [facility] current (pack per 00:00:00 00:00:00 Medical Center day) - Reported Cigarette 2018-04-06 2018-04-[address] [facility] pack-years 00:00:00 00:00:00 [facility] Alcohol intake 2018-04-06 2018-04-06 Current non-drinker [facility] 00:00:00 00:00:00 of [facility] (finding) Alcohol Comment 2014-11-04 2014-11-04 occasionally Univers ity of 00:00:00 00:00:00 [facility] Tobacco Comment 2014-11-04 2014-11-04 says she tried Unive rsity of 00:00:00 00:00:00 Chantix X 3, did [place] Me dical not work, allergic Branch to adhesives so can't try patches, gums caused stomach upset and coudl not take, tried hypnosis and accupuncture but did not work Sex Assigned At [address] [address] Annalee kes 00:00:00 00:00:00 Medical Center Smoking Status Start Date Stop Date Source Smokes tobacco daily 2018-04-06 00:00:[address] [facility] Medications Ordered Filled Start Stop Current Ordering Indication Dosage Frequency Signature Comments Components Source Medication Medication Date Date Medication? Clinician (SIG) Name Name [facility] 2017-06 Yes 25mg Take [address] (ANTIVERT) 0-14 by mouth 2 Dolores es 25 MG 14:50: (two) Medical tablet 14 times Center daily as needed. aspirin 81 2017-06 Yes 81mg QD Take [address] MG EC 0-14 by mouth [facility] tablet 14:50: daily. [address] propranolol 2017-06 Yes 20mg Q.5D Take [address] [address] (INDERAL) 0-14 by mouth 2 Luke s 20 MG 14:50: (two) Medical tablet 14 times Center daily. amitriptyli 2017-06 Yes 50mg QD Take [address] ne (ELAVIL) 0-14 by mouth Luke s 50 MG 14:50: nightly. Medical tablet 14 [facility] 2017-06 Yes 25mg Take [address] (ANTIVERT) 0-14 by mouth 2 Dolores es 25 MG 14:50: (two) Medical tablet 14 times Center daily as needed. aspirin 81 2017-06 Yes 81mg QD Take [address] MG EC 0-14 by mouth [facility] tablet 14:50: daily. [address] propranolol 2017-06 Yes 20mg Q.5D Take [address] (INDERAL) 0-14 by mouth 2 Luke s 20 MG 14:50: (two) Medical tablet 14 times Center daily. amitriptyli 2017-06 Yes 50mg QD Take [address] ne (ELAVIL) 0-14 by mouth Luke s 50 MG 14:50: nightly. Medical tablet 14 [facility] 2017-06 Yes 25mg Take [address] (ANTIVERT) 0-14 by mouth 2 Dolores es 25 MG 14:50: (two) Medical tablet 14 times Center daily as needed. aspirin 81 2017-06 Yes 81mg QD Take [address] MG EC 0-14 by mouth [facility] tablet 14:50: daily. [address] propranolol 2017-06 Yes 20mg Q.5D Take [address] (INDERAL) 0-14 by mouth 2 Luke s 20 MG 14:50: (two) Medical tablet 14 times Center daily. amitriptyli 2017-06 Yes 50mg QD Take [address] ne (ELAVIL) 0-14 by mouth Luke s 50 MG 14:50: nightly. Medical tablet 14 [facility] 2017-06 Yes 25mg Take [address] (ANTIVERT) 0-14 by mouth 2 Dolores es 25 MG 14:50: (two) Medical tablet 14 times Center daily as needed. aspirin 81 2017-06 Yes 81mg QD Take [address] MG EC 0-14 by mouth [facility] tablet 14:50: daily. [address] propranolol 2017-06 Yes 20mg Q.5D Take [address] (INDERAL) 0-14 by mouth 2 Luke s 20 MG 14:50: (two) Medical tablet 14 times Center daily. amitriptyli 2017-06 Yes 50mg QD Take [address] ne (ELAVIL) 0-14 by mouth Luke s 50 MG 14:50: nightly. Medical tablet 14 [facility] 2017-06 Yes 25mg Take [address] (ANTIVERT) 0-14 by mouth 2 [place] es 25 MG 14:50: (two) Medical tablet 14 times Center daily as needed. aspirin 81 2017-06 Yes 81mg QD Take [address] MG EC 0-14 by mouth [facility] tablet 14:50: daily. [address] propranolol 2017-06 Yes 20mg Q.5D Take [address] (INDERAL) 0-14 by mouth 2 Luke s 20 MG 14:50: (two) Medical tablet 14 times Center daily. amitriptyli 2017-06 Yes 50mg QD Take [address] ne (ELAVIL) 0-14 by mouth Luke s 50 MG 14:50: nightly. Medical tablet 14 [place] atorvastati 2017-06 Yes 80mg QD Take 1 [...] the Medi karlee patch 00 skin every [place] third day . fentaNYL 2018 Yes 25{[facility] [address] (DURAGESIC) 0-01 h} patches [facility] 25 mcg/hr 00:00: onto the Medi karlee patch 00 skin every [place] third day . FENTanyl 25 Yes 1{patch Apply 1 Univers mcg/hr 1-17 } Patch to ity of patch 18:56: skin every [place] [address] Medical ([facility] Branch wo) hours. omeprazole 2017- Yes 10mg Take 10 mg U nivers 10 mg 1-17 by mouth ity of capsule 18:56: daily. [address] FENTanyl 25 Yes 1{patch Apply 1 Univers mcg/hr 1-17 } Patch to ity of patch 18:56: skin every [place] [address] Medical ([facility] Branch wo) hours. omeprazole 2017- Yes 10mg Take 10 mg U nivers 10 mg 1-17 by mouth ity of capsule 18:56: daily. [address] FENTanyl 25 Yes 1{patch Apply 1 Univers mcg/hr 1-17 } Patch to ity of patch 18:56: skin every [place] [address] Medical ([facility] Branch wo) hours. omeprazole 2017-0 Yes 10mg Take 10 mg U nivers 10 mg 1-17 by mouth ity of capsule 18:56: daily. [address] FENTanyl 25 Yes 1{patch Apply 1 Univers mcg/hr 1-17 } Patch to ity of patch 18:56: skin every [place] [address] Medical ([facility] Branch wo) hours. omeprazole 2017-0 Yes 10mg Take 10 mg U nivers 10 mg 1-17 by mouth ity of capsule 18:56: daily. [address] FENTanyl 25 Yes 1{patch Apply 1 Univers mcg/hr 1-17 } Patch to ity of patch 18:56: skin every [place] [address] Medical ([facility] wo) hours. omeprazole 2017-0 Yes 10mg Take 10 mg U nivers 10 mg 1-17 by mouth ity of capsule 18:56: daily. [address] traMADOL 50 2017- Yes 50mg Take 50 mg Univers mg tablet 1-17 by mouth ity of 18:56: every 6 [place] 20 (six) Medical hours. Branch traMADOL 50 0 Yes 50mg Take 50 mg Univers mg [...] 6 [place] 20 (six) Medical hours. Branch acetaminoph Yes [...] ity of ) 81 mg 09:03: daily. [address] Cholecalcif Yes 1{tbl} Take 1 Tab Univers eli, 5-11 by mouth ity of Vitamin D3, 09:03: daily. Nicolasa s (VITAMIN 53 Medical D3) 2,000 Branch unit Tab Aspirin Yes 1{tbl} Take 1 Tab Un jeremiah (ASPERDRINK 5-11 by mouth ity of ) 81 mg 09:03: daily. [address] Cholecalcif Yes 1{tbl} Take 1 Tab Univers eli, 5-11 by mouth ity of Vitamin D3, 09:03: daily. Nicolasa s (VITAMIN 53 Medical D3) 2,000 Branch unit Tab Aspirin Yes 1{tbl} Take 1 Tab Un jeremiah (ASPERDRINK 5-11 by mouth ity of ) 81 mg 09:03: daily. [address] Cholecalcif Yes 1{tbl} Take 1 Tab Univers eli, 5-11 by mouth ity of Vitamin D3, 09:03: daily. Nicolasa s (VITAMIN 53 Medical D3) 2,000 Branch unit Tab Aspirin Yes 1{tbl} Take 1 Tab Un jeremiah (ASPERDRINK 5-11 by mouth ity of ) 81 mg 09:03: daily. [address] Cholecalcif Yes 1{tbl} Take 1 Tab Univers eli, 5-11 by mouth ity of Vitamin D3, 09:03: daily. Nicolasa s (VITAMIN 53 Medical D3) 2,000 Branch unit Tab Aspirin Yes 1{tbl} Take 1 Tab Un jeremiah (ASPERDRINK 5-11 by mouth ity of ) 81 mg 09:03: daily. [address] Cholecalcif Yes 1{tbl} Take 1 Tab [...] Procedure Date / Time Performed Performing Clinician [facility] e ASSIGNMENT OF BENEFITS 2022-02-18 17:49:55 Doctor Unassigned, No [facility] Name Medical Branch REFERRAL- 2022-01-14 05:01:00 Doctor Unassigned, No [facility] REQUEST/RESPONSE Name [facility] [place] Encounters Start End Encounter Admission Attending Care Care Encounter Source Date/Time Date/Time Type Type Clinicians Facility Department ID 2023-03-23 2023-03-23 Outpatient Emelina Benton HCAPM ENDO LA0 [id number] [facility] 06:57:00 06:57:00 69 Leifpr aaron pena [facility] 2022-02-18 2022-02-18 Outpatient Fernanda PINTO [facility] [id number] Univers 13:00:00 14:12:11 RODY payne of [facility] 2022-02-18 2022-02-18 Ancillary Kendal Lee RUST 1.2. 840.114 [id number] Univers 13:00:00 14:12:11 Visit Rody Pinto [facility] 350.1.13.10 ity of [place] [id number] [place] [address] Branch OFFICE BUILDING 2022-02-18 2022-02-18 Orders Doctor HAYES 1.2.840.114 [id number] Univers 00:00:00 00:00:00 Only Unassigned, SILVINO 350.1.13.10 ity of [place] [facility] 4.2.7.2.686 Nicolas as [phone] [address] 2022-02-04 2022-02-04 Ancillary Kendal Lee RUST 1.2. 840.114 [id number] [facility] 16:15:00 17:05:41 Visit Rody Pinto HEALTH 350.1.13.10 ity [place] [id number] [address] OFFICE [facility] 2022-01-27 2022-01-27 Ancillary Kendal Lee RUST 1.2. 840.114 [id number] [facility] 13:45:00 14:36:15 Visit Rody Pinto HEALTH 350.1.13.10 ity [place] [id number] [address] OFFICE [facility] 2022-01-14 2022-01-14 Orders Doctor FREDDY 1.2.840.114 [id number] Univers 00:00:00 00:00:00 Only Unassigned, SILVINO 350.1.13.10 ity of [place] [facility] 4.2.7.2.686 Nicolas as [phone] [address] Results Test Description Test Time Test Comments Results Result Comments Source SURGICAL 2023-03-28 15:41:00 Test Item Value Reference Range Interpretation Angelica livingston SURGICAL RUN (test DATE: 03/28/23 FELICITAS Franco Bond - LAB PAGE 1 RUN TIME: 1541 Specimen Inquiry RUN USER: code = INTERFACE ) ANA MARIA T: LILIAN JEFFERSON LOC: JONATHAN U #: [id number] AGE/SX: 87/F ROOM: RE03/23/23REG DR: Emelina Colón MD : BED: DIS: STATUS: DEP [facility] TLOC: SPEC #: [id number] RECD: [facility] #: [id number] MATT: 03/23/23 [facility] DR: Emelina Colón MD ENTERED: SP TYPE: SURGICAL OTHR DR: ORDERED: [id number], [id number], ANATOMIC SPEC, SPECIMEN TRACK PROCEDU RES: [id number] (03/23/23) 15824 (03/28/23) SPECIMEN TRACK (03/23/23) TISSUES: A. ESOPHAGUS BIOPSY - ESOPHAGUS FINAL DIAGNOSIS ESOPHAGUS, BIOPSY: - Squamous mucosa with acute i nflammation and erosion. - No significant increase in eosinophils. - No intestinal metaplasia or dysplasia. - Negative GMS special stain for fungal elements. GROSS DESCRIPTION Esophagus biopsy . It consists of 3 tissue fragments measuring 1, 2 and 3 mm, entirelysubmitted as A1. Emma hnical tissue processing and slide preparation performed at [id number], [facility] [place] [address] Immunohistochemistry: This test was developed and its performance characterist icsdetermined by this laboratory. It has not been approved nor does it need approval by the USFDA. Appropriate positive and negative controls are reviewed and judged to be acceptable.This laborator y is certified under the Clinical Laboratory Improvement Amendments (CLIA-88)as qualified to per form high complexity clinical laboratory testing. MICROSCOPIC DESCRIPTION Microscopic exam ination is performed and the findings are incorporated into the finaldiagnosis. Please see diagnosis for findings. --- Signed SIGNATURE ON FILE Aleks Murphy 03/28/23 154 1 END OF REPORT COVID 19 INHOUSE [id number] 12:05:00 Test Item Value Reference Range Interpretation Comments COVID 19 INHOUSE AG NEGATIVE Negative Per manu facturer, (test code = negative result s should [id number]) be treated aspr esumptive and, if inconsi stent with clinical signs andsymptoms or necessary for patient man agement, should betested with an alternative mol ecular assay. Negative resultsdo not preclude SA RS-CoV-2 infection and s hould not be usedas the s ole basis for patient man agement decisions. Nega tive results should be considered in t he context of apatient's r ecent exposures, hist ory, presence of cli nicalsigns and symptoms co nsistent with COVID-19. - XR CHEST 1 [id number] 11:56:00 [facility] : 1935 Sex: FName: LILIAN JEFFERSON Bond : 1935 Age/S: 87 / F [address] [place] Unit #: [id number] Loc: [place] [address] Phys: Chari Jones MD Acct: [id number] Dis Date: Status: PRE SDC PHONE #: [phone] Exam Date: 03/22/2023 111 FAX #: Reason: PREOP EXAMS: CPT: [id number] XRCHEST 1 V 93226 Fluoro Time: DAP (Gy m2): Air Kerma (mGy): EXAM: - XR CHEST 1 V HISTORY: PREOP LOCATION CODE:H106 TECHNIQUE: Frontal radiograph of the chest. COMPARISON: None. FINDINGS: Normal heart size. No focal airspace consolidation. No pulmonary edema, pleural effusion or pneumothorax. Imaged osseous structures are without acute abnormality. IMPRESSION: No radiographic evidence of acute cardiopulmonary disease. at 1156 Reported and signed by: Bartolo Brothers M.D. CC: Emelina Colón MD; Chari Jones MD PAGE 1 SignedReport Name: LILIAN JEFFERSON Bond : 1935 Age/S: 87 / F [address] [place] Unit #: [id number] Loc: [place] [address] Phys: Chari Jones MD Acct: [id number] Dis Date: Status: PRE SDC PHONE #: [phone] Exam Date: 03/22/2023 111 FAX #: Reason: PREOP EXAMS: CPT: [id number] XR CHEST 1 V 91674 Fluoro Time: DAP (Gy m2): Air Kerma (mGy): (Continued) Technologist: Essie Mesa Trnscb Date/Time: 03/22/2023 (4748) [email or web address] Orig Print D/T: S: 03/22/2023 (9608) PAGE 2 Signed ReportPROTHROMBIN [id number] 11:34:00 Test Item Value Reference Range Interpretation Comments PT PATIENT (test 11.0 SECONDS 9.3-12.9 N code = PTP) INTERNATIONAL NORMAL 0.99 INR Unit 0.8-1.2 N TARGE T INR BY RATIO (test code = INDICATIO N Indication INR) INR1. Prophylax is of venous thrombos is 2.0 - 3.0 (orthoped ic surgery), Proph ylaxis of venous throm bosis (other than hig h-risk surgery), Treat ment of Deep Vein Thrombosis/Pulm onary Embolism, Preve ntion of systemic emb olism - Tissue heart va lves, Acute Myocardia l Infarction (to prevent systemic emboli sm), Valvular heart disease, Acute Myocardial Infa rction (to prevent sys temic embolism), Valv ular heart disease, Atrial Fibrillation, Bileaflet mecha nical valve in aortic position.2. Mec hanical prosthetic valv es (high risk), 2. 5 - 3.5 Presence of Lup us Anticoagulant o r Antiphospholipi d Antibodies, Pre vention of systemic emb olism - Acute Myocardia l Infarction (to prevent recurrent infar ct). Comment: PREOPTHROMBOPLASTIN TIME [id number] 11:34:00 Test Item Value Reference Range Interpretation Comments THROMBOPLASTIN TIME PARTIAL 26.6 SECONDS 26-35 N (test code = PTT) Comment: PREOPBASIC METABOLIC [id number] 11:33:00 Test Item Value Reference Range Interpretation Comments SODIUM (test code = 136 mmol/L 134-147 N NA) POTASSIUM (test 4.3 mmol/L 3.4-5.0 N code = K) CHLORIDE (test code 102 mmol/L 100-108 N = CL) CARBON DIOXIDE 26 mmol/L 21-32 N (test code = CO2) ANION GAP (test 8.0 GAP calc 4.0-15.0 N code = GAP) GLUCOSE (test code 147 MG/DL 70-110 H = GLU) BLOOD UREA NITROGEN 13 MG/DL 7-18 N (test code = BUN) GLOMERULAR 49 estGFR >60 L The Glomerular FILTRATION RATE Filtration R ate is a (test code = GFR) calculated parameterbased on serum Creatinin e, patient age and sex. GFR valuesless than 60 mL/min/1.73 squ are meters are damion cative ofChronic Kidne y Disease. Values less than 15 mL/min/1.73squa re meters indicate Kidney failure. The calculation for GFR is based on the CK D-EPI (2020) calculat ion. This formulais race indifferent and is the recommended for charis for GFRby the [facility] Kidney Foundati on for Adults.The GFR will not calculate i f the sex is unknown or if thepatient's ag e is <18 years. CREATININE (test 1.1 MG/DL 0.6-1.0 H code = CREAT) CALCIUM (test code 9.5 MG/DL 8.5-10.1 N = CA) CBC W/AUTO [id number] 11:05:00 Test Item Value Reference Range Interpretation Comments WHITE BLOOD CELL (test code = 10.0 K/mm3 3.5-11.0 N WBC) RED BLOOD CELL (test code = 4.22 M/mm3 4.70-6.10 L RBC) HEMOGLOBIN (test code = HGB) 12.4 G/DL 10.4-14.9 N HEMATOCRIT (test code = HCT) 37.6 % 31.5-44.1 N MEAN CELL VOLUME (test code = 89.1 Fl 84.5-98.6 N MCV) MEAN CELL HGB (test code = MCH) 29.4 pg 27.0-34.2 N MEAN CELL HGB CONCETRATION 33.0 G/DL 31.5-34.0 N (test code = MCHC) RED CELL DISTRIBUTION WIDTH 14.2 SD 11.5-14.5 N (test code = RDW) PLATELET COUNT (test code = 309 K/mm3 150-450 N PLT) MEAN PLATELET VOLUME (test code 10.20 fL 7.0-10.5 N = MPV) NEUTROPHIL % (test code = NT%) 65.3 % 40-76 N IMMATURE GRANULOCYTE % (test 0.4 % 0.0-5.0 N code = IG%) LYMPHOCYTE % (test code = LY%) 22.9 % 20.5-51.1 N MONOCYTE % (test code = MO%) 8.5 % 1.7-9.3 N EOSINOPHIL % (test code = EO%) 1.6 % 0.0-6.0 N BASOPHIL % (test code = BA%) 1.3 % 0.0-2.0 N NUCLEATED RBC % (test code = 0.0 /100WBC% 0.0-1.0 N NRBC%) NEUTROPHIL # (test code = NT#) 6.5 K/mm3 1.8-7.6 N IMMATURE GRANULOCYTE # (test 0.04 x10 3/uL 0.00-0.03 H code = IG#) LYMPHOCYTE # (test code = LY#) 2.3 K/mm3 0.6-3.2 N MONOCYTE # (test code = MO#) 0.9 K/mm3 0.3-1.1 N EOSINOPHIL # (test code = EO#) 0.2 K/mm3 0.0-0.4 N BASOPHIL # (test code = BA#) 0.1 K/mm3 0.0-0.1 N NUCLEATED RBC # (test code = 0.0 K/mm3 0.0-0.1 N NRBC#) MANUAL DIFF REQUIRED (test code NO DIFF/SCN CRITERIA = MDIFF) B-TYPE NATRIURETIC FACTOR (BNP)2018-04-08 14:09:00 Test Item Value Reference Range Interpretation Comments B-TYPE NATRIURETIC PEPTIDE (BEAKER) 109 pg/mL 0-100 H (test code = 700) [id number] 07:11:00 Test Item Value Reference Range Interpretation Comments MAGNESIUM (BEAKER) (test code = 2.0 mg/dL 1.6-2.6 627) BASIC METABOLIC [id number] 07:11:00 Test Item Value Reference Range Interpretation [...] PATIEN TS. CBC W/PLT COUNT & AUTO [id number] 06:38:00 Test Item Value Reference Range Interpretation [...] (BEAKER) (test code = 2801) BASIC METABOLIC [id number] 06:18:00 Test Item Value Reference Range Interpretation [...] S NOT APPLICABLE FOR DIALYSIS PATIEN TS. [id number] 03:50:00 Test Item Value Reference Range Interpretation Comments RPR SCREEN (BEAKER) (test code = Nonreactive Nonreactive 420) BASIC METABOLIC [id number] 06:30:00 Test Item Value Reference Range Interpretation [...] S NOT APPLICABLE FOR DIALYSIS PATIEN TS. [id number] 06:24:00 Test Item Value Reference Range Interpretation Comments MAGNESIUM (BEAKER) (test code = 2.4 mg/dL 1.6-2.6 627) CBC W/PLT COUNT & AUTO [id number] 06:06:00 Test Item Value Reference Range Interpretation [...] (test code = 2801) MR, BRAIN, WITHOUT [id number] 04:23:00FINAL REPORT MRI Brain without contrast, MRA head and neck without contrast. Clinical History: Stroke Technique: MRI of the brain utilizing axial T2, FLAIR, GRE, DWI; sagittal and coronal T1-weighted images.MRA of the head utilizing 3-D joaz-yu-zcqsot technique, with 3-D reconstructions. MRA of the neck utilizing 2- D and 3-D rjbt-uw-swhddf technique, with 3-D reconstructions. Comparisons: None Findings:MRI [...] wellevaluated. Otherwise no evidence for a major [place] of [place] proximal branch vessel occlusion. MRA neck: No evidence of hemodynamically significant stenosis in the cervical carotid or vertebral arteries by NASCET criteria. Signed: Nallely Torres Verified Date/Time: 04/07/2018 04:23:47 Re ading Location: [address] Reading Room MR, MRA, BRAIN, WITHOUT [id number] 04:23:00Reason for exam:->stroke s/p tpaFINAL REPORT MRI Brain without contrast, MRA head and neck without contrast. Clinical History: Stroke Technique: MRI of the brain utilizing axial T2, FLAIR, GRE, DWI; sagittal and coronal T1-weighted images.MRA of the head utilizing 3-D mkir-cn-ttyjtv technique, with 3-D reconstructions. MRA of the neck utilizing 2-D and 3-D fton-dr-ekbudb technique, with 3-D reconstructions. Comparisons: None Findings:MRI [...] evaluated. Otherwise no evidence for a major [place] of [place] proximal branch vessel occlusion. MRAneck: No evidence of hemodynamically significant stenosis in the cervical carotid or vertebral arteries by NASCET criteria. Signed: Nallely Torres [facility] Verified Date/Time: 04/07/2018 04:23:47 Reading Location: [address] Reading Room MR, MRA, NECK, WITHOUT IV [id number] 04:23:00Reason for exam:->stroke s/p tpaFINAL REPORT MRI Brain without contrast, MRA head and neck without contrast. Clinical History: Stroke Technique: MRI of the brain utilizing axial T2, FLAIR, GRE, DWI; sagittal and c oronal T1-weighted images.MRA of the head utilizing 3-D ietk-zq-ynobdg technique, with 3-D reconstructions. MRA of the neck utilizing 2-D and 3-D grfi-iv-zlfxul technique, with 3-D reconstructions. Comparisons: None Findings:MRI [...] wellevaluated. Otherwise no evidence for a major [place] of [place] proximal branch vessel occlusion. MRA neck: No evidence of hemodynamically significant stenosis in the cervical carotid or vertebral arteries by NASCET criteria. Signed: Nallely Torres Verified Date/Time: 04/07/2018 04:23:47 Re ading Location: [address] Reading Room TROPONIN [id number] 19:07:00 Test Item Value Reference Range Interpretation [...] 395) CK-MB Reference Range:<6.7 Normal6.7-10.0 Borderline>10.0 AbnormalTROPONIN [id number] 13:23:00 Test Item Value Reference Range Interpretation Comments TROPONIN I (BEAKER) (test code = 0.33 ng/mL 0.00-0.03 HH 397) Troponin I (TnI) [...] intravenous potassium replacement.CREATINE KINASE (CK), TOTAL AND [id number] 13:17:00 Test Item Value Reference Range Interpretation [...] completed or 30 min after intravenous potassium replacement.[id number] 13:08:00 Test Item Value Reference Range Interpretation Comments POTASSIUM (BEAKER) (test code = 4.0 meq/L 3.5-5.1 379) Check Serum Potassium level 2 hours after oral potassium replacement completed or 30 min after intravenous potassium replacement.[id number] 13:08:00 Test Item Value Reference Range Interpretation Comments MAGNESIUM (BEAKER) (test code = 2.6 mg/dL 1.6-2.6 627) Check Serum Potassium level 2 hours after oral potassium replacement completed or 30 min after intravenous potassium replacement.HEMOGLOBIN [id number] 09:52:00 Test Item Value Reference Range Interpretation Comments HEMOGLOBIN A1C (BEAKER) (test code = 5.1 % 4.3-6.1 368) TROPONIN [id number] 06:59:00 Test Item Value Reference Range Interpretation Comments TROPONIN I (BEAKER) (test code = 0.48 ng/mL 0.00-0.03 397) Troponin I (TnI) levels [...] Reference Range:<6.7 Normal6.7-10.0 Borderline>10.0 AbnormalTSH/FREE T4 IF [id number] 03:54:00 Test Item Value Reference Range Interpretation Comments THYROID STIMULATING HORMONE 2.21 uIU/mL 0.35-4.94 (BEAKER) (test code = 772) VITAMIN B12 AND [id number] 03:54:00 Test Item Value Reference Range Interpretation Comments VITAMIN B12 (BEAKER) (test code = 802 pg/mL 213-816 774) FOLATE (BEAKER) (test code = 362) 36.5 ng/mL >=7.0 RAD, CHEST, 1 VIEW, NON [id number] 03:38:00Reason for exam:->basline hospitalized for strokeShould this be performed at the bedside?->YesFINAL REPORT Chest one view. Clinical history: Baseline; hospitalized for stroke Comparison: None. Technique: A single frontal view of the chest was obtained. Findings/impression:The heart is normal in size. The aorta is uncoiled and atherosclerotic. There is no focal pulmonary c onsolidation, pleural effusion or pneumothorax. There is no pulmonary edema. The bony thorax is demineralized. Impression: No focal pulmonary consolidation. Signed: Kervin Armendarizeport Verified Date/Time: 04/06/2018 03:38:00 Reading Location: [facility] C013Y CT Body Reading Room C-REACTIVE [id number] 02:20:00 Test Item Value Reference Range Interpretation Comments C-REACTIVE PROTEIN (BEAKER) (test 0.05 mg/dL 0.00-0.50 code = 676) TROPONIN [id number] 02:07:00 Test Item Value Reference Range Interpretation [...] acidosis, acute neurological disease, and persistent tachyarrhythmia.FastingPROTHROMBIN [id number] 02:06:00 Test Item Value Reference Range Interpretation Comments PROTIME (BEAKER) (test code = 13.6 seconds 11.7-14.7 759) INR (BEAKER) (test code = 370) 1.0 <=5.9 RECOMMENDED COUMADIN/WARFARIN INR THERAPY RANGESSTANDARD DOSE: 2.0 - 3.0 Includes: PROPHYLAXIS for venous thrombosis, systemic embolization; TREATMENT for venous thrombosis and/or pulmonary embolus.HIGH RISK: Target INR is 2.5-3.5 for patients with mechanical heart valves.[id number] 02:06:00 Test Item Value Reference Range Interpretation Comments PARTIAL THROMBOPLASTIN TIME 26.6 seconds 22.5-36.0 (BEAKER) (test code = 760) [id number] 01:57:00 Test Item Value Reference Range Interpretation Comments MAGNESIUM (BEAKER) (test code = 1.9 mg/dL 1.6-2.6 627) FastingBASIC METABOLIC [id number] 01:57:00 Test Item Value Reference Range Interpretation [...] NOT APPLICABLE FOR DIALYSIS PATIEN TS. FastingLIPID [id number] 01:57:00 Test Item Value Reference Range Interpretation [...] High >=190 FastingCBC W/PLT COUNT & AUTO [id number] 01:37:00 Test Item Value Reference Range Interpretation [...] % 0-1 PERCENT (BEAKER) (test code = 3311)
[2023-04-27 23:04] VITALS: BMI 24.8
[2023-04-28] MEDS ORDERED: ALPRAZOLAM 1 MG TABLET PO PRN (00:16)
[2023-04-28] MEDS ORDERED: ONDANSETRON 4 MG/2 ML VIAL IV PRN (00:21)
[2023-04-28] MEDS: NA CHLORIDE 0.9% 1,000 ML IV SCH ×2 (01:23→16:32)
[2023-04-28] MEDS: LEVOTHYROXINE SOD 0.025 MG TAB PO SCH (06:30)
[2023-04-28] MEDS ORDERED: INFLUENZA VACCINE (for 6+ mo) 0.5 ML DOSE IMVAC ONE (08:00)
[2023-04-28] MEDS ORDERED: PNEUMOCOCCAL VACCINE 0.5 ML IMVAC ONE (08:00)
[2023-04-28] MEDS: APIXABAN 5 MG TABLET PO SCH ×2 (08:58→20:11)
[2023-04-28] MEDS: PANTOPRAZOLE 40MG TABLET PO SCH ×2 (08:58→20:11)
--- NOTE | 2023-04-28 11:50 | CON ---
Date of Consultation: 04/28/2023 Reason For Consultation: Dysphagia, malnutrition, evaluate for feeding tube. History Of Present Illness: The patient is an 87-year-old female who has had a Zay fundoplication done [address] [facility] following which she was in her good health until recently. A couple of months ago, she had an EGD, which showed a lot of inflammation and biopsy was not conclusi ve; however, there was some suspicion that the patient may have had cancer. The patient was treated for inflammation, has not had a followup EGD, and occasionally has difficulty swallowing solid food; and therefore, I was asked to evaluate and see if the patient needs a surgical feeding tube. The pat ient has had a significant workup. She had a chest, abdomen, and pelvic CT which shows no evidence o f malignancy, but it does show mild thickening of the distal esophagus with previous hiatal hernia re pair, mesh material in place. The patient had a soft tissue CT of the neck yesterday and there was s ome concern there was a mass in that area and this was done to rule out metastatic disease. However, the area of swelling or palpable abnormality corresponds to the prominent left external jugular vein . There is crossing deep to the inferior margin of the parotid tail. There are no other underlying suspicious findings seen. She does have some posterior erupted right mandibular molar which is incom pletely erupted is unchanged. She had a swallow study done back in January, which shows presbyesophag us, no filling defects, mucosal folds were normal. Tertiary contractions of the esophagus were visua lized. The patient can swallow liquids, however, off and on. She does have trouble with solid food. No sore throat, runny nose, cough, headaches, dizziness. No chest pain. No fever or chills. Review of Systems: Otherwise unremarkable. Past Medical History: Significant for TIA, hiatal hernia, migraines, hypothyroidism, atrial fibrilla tion, coronary artery disease. Past Surgical History: Zay fundoplication, cholecystectomy, hysterectomy, growth on facial nerve which was removed, cataract surgeries, heart stent placement. Allergies: CEPHALEXIN. SHE IS ALSO ALLERGIC TO CODEINE. Social History: The patient currently does not smoke, but drinks alcohol occasionally. Family History: Significant for heart disease in the father. Brother with brain cancer and cirrhosi s. Mother has heart disease and hypertension. Objective: Vital Signs: Stable. She is afebrile. General: She is awake, alert, oriented x3. Head and Neck: Cranial nerves 2 through 12 are grossly within normal limits. No neck masses. No JV D. Throat clear. Neck is supple. On the left side, there is slight prominence, but does not appear to be a hard mass. It is soft tissue prominence consistent with CT findings. Chest: Clear. Heart: S1, S2. Abdomen: Soft, nondistended, nontender. Positive bowel sounds. Extremities: Neurovascularly intact. Neuro: Nonfocal. Laboratory Data: Reviewed. White count is 6.4, H and H are 11.6 and 33.2, platelets are 261. There is no left shift. INR is 1.96. Chemistry reviewed. Of interest is albumin which is 2.6 and noted back in November. Otherwise, electrolytes are within normal limits. Prealbumin is 22.9. Assessment: An 87-year-old female with a complex history of dysphagia. I do not believe at this gallo e she needs surgical intervention. She does need, however, a trial with food to see if she can handl e it and if she can, she can be discharged home for outpatient workup. I would begin with a GI xiomy p with EGD to reevaluate the esophagus after 2 months of treatment and then should there be any findi ngs that require intervention, I will refer the patient to the surgery team that perform the Zay f undoplication, as that may be a contributing factor with scarring causing constrictions around the di stal esophagus leading to dysphagia. I do not think at this time a surgical feeding tube is indicated. Plan of care will be discussed with Dr. Oscar ortega as the patient. /MODL Voice ID: [id number] Report ID: [id number]
[2023-04-28] MEDS: METOPROLOL TAR 25 MG TAB PO SCH ×2 (13:39→17:34)
[2023-04-28] MEDS: DICYCLOMINE HCL 10 MG CAP PO SCH ×2 (13:41→20:11)
[2023-04-28] MEDS: AMITRIPTYLINE 25 MG TAB PO SCH (20:11)
[2023-04-28] MEDS ORDERED: MAGIC MOUTHWASH 180 ML BTL PO PRN (20:38)
[2023-04-28] MEDS ORDERED: cloNIDine HCL 0.1 MG TAB PO PRN (20:38)
[2023-04-29 03:33] LABS: Absolute Lymphocytes (CBC) 2.1 K/uL (0.7-4.9); Hematocrit 30.8 % (36.0-45.0); Lymphocytes % 36.2 % (15.3-44.8); MCV 89.1 fL (80-100); MPV 8.7 fL (7.6-11.3); Platelets 260 thou/uL (152-406); RBC Red Blood Cell Count 3.46 M/uL (3.86-4.86)
[2023-04-29 03:53] LABS: Potassium 3.7 mEq/L (3.5-5.1)
[2023-04-29] MEDS: METOPROLOL TAR 25 MG TAB PO SCH ×2 (05:35→17:14)
[2023-04-29] MEDS: LEVOTHYROXINE SOD 0.025 MG TAB PO SCH (05:36)
[2023-04-29] MEDS: NA CHLORIDE 0.9% 1,000 ML IV SCH ×3 (05:36→20:57)
[2023-04-29] MEDS: DICYCLOMINE HCL 10 MG CAP PO SCH ×3 (09:06→20:54)
[2023-04-29] MEDS: APIXABAN 5 MG TABLET PO SCH ×2 (09:06→20:54)
[2023-04-29] MEDS: PANTOPRAZOLE 40MG TABLET PO SCH ×2 (09:06→20:54)
[2023-04-29] MEDS: ENSURE ENLIVE 237 ML CAN PO SCH ×2 (13:28→20:54)
[2023-04-29] MEDS: AMITRIPTYLINE 25 MG TAB PO SCH (20:53)
[2023-04-30] MEDS: METOPROLOL TAR 25 MG TAB PO SCH (05:22)
[2023-04-30] MEDS: LEVOTHYROXINE SOD 0.025 MG TAB PO SCH (05:23)
[2023-04-30] MEDS: NA CHLORIDE 0.9% 1,000 ML IV SCH (08:25)
[2023-04-30] MEDS: ENSURE ENLIVE 237 ML CAN PO SCH (08:25)
[2023-04-30] MEDS: APIXABAN 5 MG TABLET PO SCH (08:25)
[2023-04-30] MEDS: PANTOPRAZOLE 40MG TABLET PO SCH (08:25)
[2023-04-30] MEDS: DICYCLOMINE HCL 10 MG CAP PO SCH (08:25)
[2023-04-30 11:09] VITALS: BP 146/69; TEMP 97
--- NOTE | 2023-05-03 12:12 | PN ---
Date of Progress Note: 04/28/2023 The patient has been able to tolerate her fluids somewhat, clear liquids, IV has improved her hydrati on considerably and she states she feels considerably better. Options were discussed with the family . She is seen by Dr. Bryan, who felt that there was some significant risk of putting in a feeding tu be through the abdomen. Therefore, the plan will be to try her on symptomatic treatment for the esop hagitis, hydrate her and possibly do EGD and a feeding tube in this manner if in fact the EGD has not shown any improvement. 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 She is urinating kaden almonte HR/MODL Voice ID: [id number] Report ID: [id number]
== END 2023-04-30 12:30 | disposition home or self-care (01) | DRG 392 ==
LOC: ER 19:33 → ERHOLD 19:36 → 2ND 21:31
PROVIDERS: ADMIT Family Medicine; ATTEND Family Medicine
DX: K20.90 Esophagitis, unspecified without bleeding (principal); E46 Unspecified protein-calorie malnutrition; Z68.24 Body mass index [BMI] 24.0-24.9, adult; E03.9 Hypothyroidism, unspecified; I48.91 Unspecified atrial fibrillation; I25.10 Atherosclerotic heart disease of native coronary artery without angina pectoris; Z95.5 Presence of coronary angioplasty implant and graft; Z88.1 Allergy status to other antibiotic agents; Z88.5 Allergy status to narcotic agent; Z98.42 Cataract extraction status, left eye; Z90.49 Acquired absence of other specified parts of digestive tract; Z98.41 Cataract extraction status, right eye; Z86.73 Personal history of transient ischemic attack (TIA), and cerebral infarction without residual deficits; Z90.710 Acquired absence of both cervix and uterus
CPT/HCPCS: 36415; 80048; 85025; J7030

== ENCOUNTER 2023-11-07 12:44 | Observation (INO) | payer OTHER, MEDICARE ==
[2023-11-07] MEDS ORDERED: LIDOCAINE VISCOUS 2% 10ML ORAL SOLN ONE (13:17)
[2023-11-07] MEDS ORDERED: MAGNES/ALUMIN/SIMET 30ML UCUP ONE (13:17)
[2023-11-07] MEDS ORDERED: NA CHLORIDE 0.9% 1,000 ML ONE (13:18)
[2023-11-07 13:23] LABS: Absolute Basophils 0.1 K/uL (0-0.5); Absolute Lymphocytes (CBC) 1.8 K/uL (0.7-4.9); Absolute Neutrophil 8.9 K/uL (1.8-8.0); Basophils % 0.9 % (0-1.3); Eosinophils % 0.3 % (0-4.4); Hematocrit 34.6 % (36.0-45.0); Hemoglobin 11.4 g/dL (12.0-15.0); Lymphocytes % 15.3 % (15.3-44.8); MCH 30.5 pg (27.0-35.0); MCV 92.5 fL (80-100); MPV 8.1 fL (7.6-11.3); Monocytes % 8.6 % (3.3-12.3); Neutrophils % 74.9 % (41.7-73.7); Platelets 279 thou/uL (152-406); RBC Red Blood Cell Count 3.75 M/uL (3.86-4.86); Red Cell Distribution Width 13.9 % (12.1-15.2)
[2023-11-07 13:39] LABS: Albumin 3.1 g/dL (3.4-5.0); Albumin/Globulin Ratio 0.8 (1.1-1.8); Anion Gap 9.8 mEq/L (5.0-15.0); Bilirubin Total 0.6 mg/dL (0.2-1.0); Globulin 3.8 g/dL (2.3-3.5); Potassium 3.8 mEq/L (3.5-5.1); Protein, Total 6.9 g/dL (6.4-8.2)
--- NOTE | 2023-11-07 14:32 | RAD REPORT ---
EXAM DESCRIPTION: CT - Soft Tissue Neck W/Contr CLINICAL HISTORY: sore throat after endoscopy COMPARISON: Soft Tissue Neck W/Contr dated 04/27/2023; Soft Tissue Neck W/Contr dated 03/31/2023; Head C Spine Mpr Wo Con dated 11/21/[address] scans are performed using dose optimization technique as appropriate and may includ e automated exposure control or mA/KV adjustment according to patient size. FINDINGS: Nasopharyngeal tissues are normal in appearance. Fossa Rosenmller are normal. Parapharyngeal fat triangles are symmetric. Tongue base structures are normal. Enhancement of the muc osal angio space. . Epiglottis and aryepiglottic folds are normal. Piriform sinuses are well aerated. Thickened proximal esophagus. The vocal cords are normal in appearance. Salivary glands are normal in appearance. Upper lung caballero are clear. Included intracranial contents are unremarkable. IMPRESSION: No acute soft tissue abnormality identified within the neck
--- NOTE | 2023-11-07 14:43 | RAD REPORT ---
EXAM DESCRIPTION: CTChest Abdomen Pelvis W Cont - 11/07/2023 2:01 pm CLINICAL HISTORY: vomiting after endoscopy, RLQ TTP COMPARISON: Chest Abdomen Pelvis W Cont dated 03/31/2023; Chest Abdomen Pelvis W Cont dated 12/17/2022 TECHNIQUE: CT of the chest, abdomen, and pelvis was performed with IV contrast. All CT scans are performed using dose optimization technique as appropriate and may include automated exposure control or mA/KV adjustment according to patient size. FINDINGS: Thorax: Chest Wall: No abnormal mass Lungs: No acute abnormality. Pleura: No effusions or pneumothorax. Alida/Mediastinum: Thickened and enhancing esophagus. Small hiatal hernia status post hernia repair. . Aorta/Pulmonary Arteries: Unremarkable Heart: Normal size. Coronary calcifications . Abdomen/Pelvis: Liver: No acute abnormality or suspicious lesions. Biliary: No biliary ductal dilatation. Cholecystectomy. Stomach: No significant focal abnormality. Duodenum: No significant focal abnormality. Pancreas: No significant abnormality. Spleen: No significant abnormality. Adrenal: No suspicious lesions. Kidney/ureter: No hydronephrosis. No renal calculi. Retroperitoneum: No retroperitoneal adenopathy. Vascular: No aneurysm. Severe atherosclerosis . Bowel: Diverticulosis. Mild stranding along the distal descending colon. This could reflect acute div erticulitis. No perforation or abscess. The colon does appear diffusely thickened enhancing.. Possibl e distal ileal diverticula or short-segment intussusception. There is a short segment of bowel which appears telescoping to a segment of fluid-filled small bowel. This is best seen on the coronal image 40, series 303. This may be transient. It does not appear to be causing any upstream dilatation. No a ppendix identified. Peritoneum: No ascites or free air. Bladder: Grossly unremarkable. Reproductive: Hysterectomy. Bones: No acute fracture. Other: n/a IMPRESSION: 1. Mild stranding at the at the distal descending colon could reflect mild or early acut e diverticulitis. No perforation or abscess. 2. Possible short-segment intussusception or distal small bowel diverticula. This is of uncertain sig nificance. No evidence of a bowel obstruction. No appendix identified or secondary signs of acute larry endicitis. A repeat CT with oral contrast could exclude an acute process as result of this finding. 3. Diffusely thickened esophagus likely reflecting esophagitis. Prior hiatal hernia repair. This area was likely better assessed on recent endoscopy.
--- NOTE | 2023-11-07 15:40 | EDPHYS ---
Physician Documentation [facility] Name: Dinh Love Age: 88 yrs Sex: Female : 1935 Arrival Date: 11/07/2023 Time: 12:44 Bed 20 Private MD: ED Physician Tod Phan HPI: 11/06 13:04 This 88 yrs old Female presents to ER via EMS with complaints of Throat pain, ms3 Nausea/Vomiting. 13:04 88-year-old female with past medical history of arthritis, atrial fibrillation, ms3 hypertension, myocardial infarction, TIA presents to the emergency department for throat pain that began Tuesday after having an endoscopy. Patient states she has had decreased p.o. intake since Tuesday. Patient states when she tries to drink or eat it comes back up. Patient states her discomfort is a 6/10. She endorses fatigue. Historical: - Allergies: 12:52 Codeine; itch; me1 12:52 Keflex; me1 - PMHx: 12:52 Arthritis; Atrial Fib; Hypertension; Myocardial infarction; TIA; me1 - PSHx: 12:52 Cholecystectomy; Heart Stents; hysterectomy; me1 - Immunization history:: Adult Immunizations up to date. - Infectious Disease History:: Denies. - Social history:: Smoking status: Patient/guardian denies using tobacco, but has a distant history of tobacco abuse. ROS: 13:04 Constitutional: Negative for fever, and chills. Neck: Negative for injury, pain, and ms3 swelling, Cardiovascular: Negative for chest pain, and palpitations. Respiratory: Negative for shortness of breath, cough, wheezing, and pleuritic chest pain, 13:04 MS/Extremity: Negative for injury and deformity, 13:04 Abdomen/GI: Positive for nausea and vomiting, Exam: 13:04 Constitutional: This is a well developed, well nourished patient who is awake, alert, ms3 and in no acute distress. Head/Face: Normocephalic, atraumatic. Neck: Trachea midline, no cervical lymphadenopathy. Supple, full range of motion without nuchal rigidity, or vertebral point tenderness. No Meningismus. Chest/axilla: Normal chest wall appearance and motion. Nontender with no deformity. Cardiovascular: Regular rate and rhythm with a normal S1 and S2. No gallops, murmurs, or rubs. Normal PMI, no JVD. No pulse deficits. Respiratory: Lungs have equal breath sounds bilaterally, clear to auscultation and percussion. No rales, rhonchi or wheezes noted. No increased work of breathing, no retractions or nasal flaring. 13:04 Abdomen/GI: Inspection: abdomen appears normal, Bowel sounds: normal, in all quadrants, Palpation: mild abdominal tenderness, in the right lower quadrant, Vital Signs: 12:50 BP 143 / 76; Pulse 107; Resp 18; Pulse Ox 97% on R/A; Weight 47.63 kg; Height 5 ft. 0 me1 in. ; Pain 4/10; 13:00 BP 144 / 69; Pulse 97; Resp 16; Pulse Ox 95% ; me1 14:00 BP 151 / 66; Pulse 87; Resp 16; Pulse Ox 95% on R/A; me1 15:00 BP 158 / 58; Pulse 88; Resp 17; Pulse Ox 100% on R/A; me1 12:50 Body Mass Index 20.51 (47.63 kg, 152.4 cm) me1 12:50 Pain Scale: Adult me1 MDM: 13:04 Differential diagnosis: Nonspecific abd pain, gastritis, pancreatitis, Bowel ms3 obstruction vs Esophageal perforation. 13:17 Patient medically screened. ms3 16:16 Data reviewed: vital signs, nurses notes, lab test result(s), radiologic studies, and ms3 as a result, I will admit patient. Consideration of Admission/Observation Patient was admitted/placed on observation. Management of patient was discussed with the following: Hospitalist: Dr Li. I considered the following discharge prescriptions or medication management in the emergency department Medications were administered in the Emergency Department. See MAR. Independent interpretation of the following test(s) in the Emergency Department EKG: See my EKG interpretation above. Historians other than the Patient: EMS: [facility]. Counseling: I had a detailed discussion with the patient and/or guardian regarding the historical points, exam findings, and any diagnostic results supporting the discharge/admit diagnosis, lab results, radiology results, the need for further work-up and treatment in the hospital. Response to treatment: the patient's symptoms have mildly improved after treatment, and as a result, I will admit patient. ED course: Discussed case with Dr Li and he accepts patient as observation.. 11/06 13:03 Order name: CBC with Diff; Complete Time: 13:26 ms3 11/06 13:03 Order name: CMP; Complete Time: 13:41 ms3 11/06 13:03 Order name: Lipase; Complete Time: 13:41 ms3 11/06 13:03 Order name: CT Soft Tissue Neck W/contr; Complete Time: 14:51 ms3 11/06 13:03 Order name: CT Chest, Abdomen, Pelvis - W/Contrast; Complete Time: 14:51 ms3 11/06 13:03 Order name: IV Saline Lock; Complete Time: 13:15 ms3 11/06 13:03 Order name: Labs collected and sent; Complete Time: 13:15 ms3 Administered Medications: 13:21 Drug: GI Cocktail without - (Maalox PO 30 ml, Lidocaine Mucous Membrane 2 % 15 me1 ml) PO once Route: PO; 13:40 Follow up: Response: No adverse reaction; Pain is decreased me1 13:22 Drug: NS 0.9% IV 1000 ml IV at 1 bolus Per protocol; 1000 mL bolus Route: IV; Rate: 1 me1 bolus; Site: right antecubital; 15:41 Follow up: Response: No adverse reaction; IV Status: Completed infusion; IV Intake: me1 1000ml Disposition Summary: 11/07/23 15:39 Hospitalization Ordered Notes: Provider: Giovanna Li ms3 Condition: Stable ms3 Problem: new ms3 Symptoms: are unchanged ms3 Bed/Room Type: Standard ms3 Hospitalization Status: Observation(11/07/23 15:55) ms3 Location: Telemetry/MedSurg (observation)(11/07/23 15:55) ms3 Room Assignment: 212(11/07/23 15:56) bd Diagnosis - Esophagitis, unspecified ms3 - Vomiting ms3 - Abdominal pain, Generalized ms3 Forms: - Medication Reconciliation Form ms3 - SBAR form ms3 - Leadership Thank You Letter ms3 Signatures: Dispatcher [employer] Olivia Bell Marcus, DO DO ms3 Alejandrina Mazariegos, RN RN me1 Corrections: (The following items were deleted from the chart) 15:52 15:39 ms3 bd 15:55 15:39 Inpatient Admission ms3 ms3 15:55 15:39 Telemetry/MedSurg (Inpatient) ms3 ms3 15:55 15:52 212 bd ms3 15:56 15:55 ms3 bd
--- NOTE | 2023-11-07 15:40 | ER ---
[facility] Age: 88 yrs Sex: Female : 1935 Arrival Date: 11/07/2023 Time: 12:44 Bed 20 Private MD: Diagnosis: Esophagitis, unspecified;Vomiting;Abdominal pain, Generalized Presentation: 11/06 12:50 Chief complaint: EMS states: C/O n/v and sore throat x 3 days. Had endoscopy on Tuesday me1 by Dr Colón that showed a gastric ulcer. Coronavirus screen: Vaccine status: Patient reports receiving the 2nd dose of the covid vaccine. Ebola Screen: No symptoms or risks identified at this time. Initial Sepsis Screen: Does the patient meet any 2 criteria? No. Patient's initial sepsis screen is negative. Does the patient have a suspected source of infection? No. Patient's initial sepsis screen is negative. Risk Assessment: Do you want to hurt yourself or someone else? Patient reports no desire to harm self or others. Onset of symptoms was November 04, 2023. 12:50 Method Of Arrival: EMS: [facility] 12:50 Acuity: KAROLINA 3 me1 Triage Assessment: 12:52 General: Appears uncomfortable, slender, well groomed, well developed, Behavior is me1 calm, cooperative, appropriate for age, Reports n/v and sore throat x 3 days. Pain: Complains of pain in throat Pain does not radiate. Pain currently is 3 out of 10 on a pain scale. Quality of pain is described as aching, Pain began 2-3 days ago. Is continuous. EENT: Throat is pink. Neuro: Level of Consciousness is awake, alert, obeys commands, Oriented to person, place, time, situation, Appropriate for age. Cardiovascular: Capillary refill < 3 seconds Patient's skin is warm and dry. Respiratory: Airway is patent Respiratory effort is even, unlabored, Respiratory pattern is regular, symmetrical. GI: Reports nausea, vomiting, since 3 days. : No signs and/or symptoms were reported regarding the genitourinary system. Derm: Skin is intact, is healthy with good turgor, Skin is pink, warm \T\ dry. Musculoskeletal: No signs and/or symptoms reported regarding the musculoskeletal system. Historical: - Allergies: 12:52 Codeine; itch; me1 12:52 Keflex; me1 - PMHx: 12:52 Arthritis; Atrial Fib; Hypertension; Myocardial infarction; TIA; me1 - PSHx: 12:52 Cholecystectomy; Heart Stents; hysterectomy; me1 - Immunization history:: Adult Immunizations up to date. - Infectious Disease History:: Denies. - Social history:: Smoking status: Patient/guardian denies using tobacco, but has a distant history of tobacco abuse. Screenin:56 [facility] ED Fall Risk Assessment (Adult) History of falling in the last 3 months, me1 including since admission No falls in past 3 months (0 pts) Confusion or Disorientation No (0 pts) Intoxicated or Sedated No (0 pts) Impaired Gait Yes (1 pt) Mobility Assist Device Used Yes (1 pt) Altered Elimination No (0 pt) Score/Fall Risk Level 3 or more points = High Risk Maintained a safe environment, Hourly rounding (assess needs \T\ fall precautionary measures) done, Used ambulatory aids as needed (educated on \T\ assisted with). Abuse screen: Denies threats or abuse. Nutritional screening: No deficits noted. Tuberculosis screening: No symptoms or risk factors identified. Assessment: 12:56 General: See triage assessment. . GI: Reports nausea, vomiting. me1 Vital Signs: 12:50 BP 143 / 76; Pulse 107; Resp 18; Pulse Ox 97% on R/A; Weight 47.63 kg; Height 5 ft. 0 me1 in. ; Pain 4/10; 13:00 BP 144 / 69; Pulse 97; Resp 16; Pulse Ox 95% ; me1 14:00 BP 151 / 66; Pulse 87; Resp 16; Pulse Ox 95% on R/A; me1 15:00 BP 158 / 58; Pulse 88; Resp 17; Pulse Ox 100% on R/A; me1 12:50 Body Mass Index 20.51 (47.63 kg, 152.4 cm) me1 12:50 Pain Scale: Adult wa1 ED Course: 12:50 Patient arrived in ED. me1 12:52 Tod Phan DO is Attending Physician. ms3 12:52 Triage completed. me1 12:52 Arm band placed on Patient placed in an exam room. me1 12:56 Patient has correct armband on for positive identification. Placed in gown. Bed in low me1 position. Call light in reach. Side rails up X2. Provided Education on: POC. Verbalized understanding. . Client placed on continuous cardiac and pulse oximetry monitoring. NIBP monitoring applied. Pulse ox on. NIBP on. 12:56 No provider procedures requiring assistance completed. wa1 13:04 Alejandrina Mazariegos, RN is Primary Nurse. me1 13:14 Initial lab(s) drawn, by me, sent to lab. Inserted saline lock: 22 gauge in right wa1 antecubital area, using aseptic technique. 13:15 CBC with Diff Sent. me1 13:15 CMP Sent. me1 13:15 Lipase Sent. me1 13:59 CT Soft Tissue Neck W/contr In Process Unspecified. EDMS 14:00 CT Chest, Abdomen, Pelvis - W/Contrast In Process Unspecified. EDMS 15:38 Giovanna Li MD is Hospitalizing Provider. ms3 16:37 Patient admitted, IV remains in place. me1 Administered Medications: 13:21 Drug: GI Cocktail without - (Maalox PO 30 ml, Lidocaine Mucous Membrane 2 % 15 me1 ml) PO once Route: PO; 13:40 Follow up: Response: No adverse reaction; Pain is decreased wa1 13:22 Drug: NS 0.9% IV 1000 ml IV at 1 bolus Per protocol; 1000 mL bolus Route: IV; Rate: 1 me1 bolus; Site: right antecubital; 15:41 Follow up: Response: No adverse reaction; IV Status: Completed infusion; IV Intake: me1 1000ml Medication: 16:37 VIS not applicable for this client. me1 Intake: 15:41 IV: 1000ml; Total: 1000ml. wa1 Outcome: 15:39 Decision to Hospitalize by Provider. ms3 16:37 Admitted to Med/surg accompanied by tech, via stretcher, with chart, Report called to [facility] faxed report to 2nd floor 16:37 Condition: stable 16:37 Instructed on the need for admit, 16:37 Patient left the ED. [facility] Signatures: Dispatcher [employer] Bentley Sullivan RN RN 1 Tod Phan DO DO ms3 Alejandrina Mazariegos, RN RN [facility] Corrections: (The following items were deleted from the chart) 23:04 16:37 Patient left the ED. ll1 me1
[2023-11-07] MEDS ORDERED: METOCLOPRAMIDE 10 MG/2mL INJ IV PRN (15:49)
[2023-11-07] MEDS: METHYLPREDNISOLONE 125 MG INJ IV ONE ×2 (15:50→17:22)
--- NOTE | 2023-11-07 15:53 | P.HP ---
Certification for Inpatient Patient admitted to: Observation With expected LOS: <2 Midnights Patient will require the following post-hospital care: None Practitioner: I am a practitioner with admitting privileges, knowledge of patient current condition, hospital course, and medical plan of care. Services: Services provided to patient in accordance with Admission requirements found in Title 42 Section 412.3 of the Code of Federal Regulations Patient History Date of Service: 11/07/23 Reason for admission: Dysphagia History of Present Illness: 88-year-old female with past medical history Arthritis; Atrial Fib; Hypertension; Myocardial infarction; TIA; presents to the emergency room with unable to eat or drink, throat pain for 3 days. She reports recent EGD with Dr. Mak, she denies esophageal dilation, she reports poor p.o. intake, throat swelling, moderate generalized weakness. No reported drooling, fever, chest pain, shortness of breath, Plan to admit for abdominal pain, esophagitis, vomiting, anorexia, dysphagia. Case discussed with Dr. Mak who performed EGD, he stated to rehydrate patient, admit to [place], [place] to have patient follow-up in his office in the a.m. ER evaluation 143 / 76; Pulse 107; Resp 18; Pulse Ox 97% on R/A; Weight 47.63 kg; Height 5 ft. 0, normal saline x 1 L, patient was treated with GI Cocktail without - (Maalox PO 30 ml, Lidocaine Mucous Membrane 2 % 15 ml) PO once Route: PO; CT of the neck IMPRESSION: No acute soft tissue abnormality identified within the neck, IMPRESSION: 1. Mild stranding at the at the distal descending colon could reflect mild or early acute diverticulitis. No perforation or abscess. 2. Possible short-segment intussusception or distal small bowel diverticula. This is of uncertain significance. No evidence of a bowel obstruction. No appendix identified or secondary signs of acute appendicitis. A repeat CT with oral contrast could exclude an acute process as result of this finding.3. Diffusely thickened esophagus likely reflecting esophagitis. Prior hiatal hernia repair. This area was likely better assessed on recent endoscopy. Laboratory evaluation hyponatremia sodium 132 hypoalbuminemia 2.2, WBCs 11.80, early left shift 74.9, microcytic anemia 11.4 34.6 Allergies cephalexin monohydrate [From Keflex] Allergy (Severe, Verified 04/27/23 23:02) CAUSES VERY HIGH TEMP Home Medications: Amitriptyline HCl 75 mg PO BEDTIME 11/12/18 Levothyroxine Sodium 25 mcg PO DAILY 08/07/20 Nitroglycerin 0.4 mg SL PRN PRN 08/07/20 Metoprolol Tartrate 50 mg PO DAILY 10/11/22 ALPRAZolam [Xanax*] 0.5 mg PO BEDTIME 12/17/22 Sertraline [Zoloft*] 25 mg PO DAILY 12/17/22 Apixaban [Eliquis] 2.5 mg PO BID 06/09/23 Omeprazole [Prilosec] 40 mg PO BID 06/09/23 - Past Medical/Surgical History Diabetic: No -: Transient ischemic attack -: Hiatal hernia -: OA OF SPINE -: MIGRAINES -: SHAKING SYNDROME -: MIGRAINES -: hypothyroid -: A. fib -: CAD -: Zay fundiplication -: Choleycystectomy -: Hysterectomy -: growth on facial nerv rmovd -: bilateral cataract -: heart stents Psychosocial/ Personal History: Patient lives at home with her son - Family History Father -: Heart disease Notes: Heart attack Brother Notes: Brain cancer, Liver Cirrhosis Mother -: Heart disease, Hypertension - Social History Alcohol use: No CD- Drugs: No Caffeine use: Yes Review of Systems Per HPI Physical Examination - Physical Exam General: Alert, In no apparent distress, Oriented x3, Other (Skin warm and dry) HEENT: Atraumatic, Normocephalic Neck: Supple, 2+ carotid pulse no bruit, Other (No drooling, no tongue edema) Respiratory: Clear to auscultation bilaterally, Normal air movement, Other (Respirations equal unlabored, no respiratory distress) Cardiovascular: Normal pulses, Regular rate/rhythm Capillary refill: <2 Seconds Gastrointestinal: Normal bowel sounds, Tenderness (Esophageal tenderness, O2 sat 97%) Musculoskeletal: No clubbing, No swelling, Other (Generalized weak) Neurological: Normal speech, Normal strength at 5/5 x4 extr - Studies Laboratory Data (last 24 hrs) 11/07/23 11/07/23 13:13 13:13 WBC 11.80 H RBC 3.75 L Hgb 11.4 L Hct 34.6 L MCV 92.5 MCH 30.5 MCHC 33.0 RDW 13.9 Plt Count 279 MPV 8.1 Neutrophils % 74.9 H Lymphocytes % 15.3 Monocytes % 8.6 Eosinophils % 0.3 Basophils % 0.9 Absolute Neutrophils 8.9 H Absolute Lymphocytes 1.8 Absolute Monocytes 1.0 Absolute Eosinophils 0.0 Absolute Basophils 0.1 Sodium 132 L Potassium 3.8 Chloride 102 Carbon Dioxide 24 Anion Gap 9.8 BUN 21 H Creatinine 0.79 Est GFR (CKD-EPI) 73 L Glucose 106 Calcium 8.9 Total Bilirubin 0.6 AST 18 ALT 17 Alkaline Phosphatase 63 Serum Total Protein 6.9 Albumin 3.1 L Globulin 3.8 H Albumin/Globulin Ratio 0.8 L Lipase 19 Assessment and Plan - Plan Assessment plan Esophagitis Dysphagia Anorexia Hiatal hernia IV fluids, keep n.p.o., admit to [facility], follow-up with GI in the a.m., IV Reglan, PPI, IV Solu-Medrol presents to the emergency room with unable to eat or drink, throat pain for 3 days. She reports recent EGD with Dr. Mak, she denies esophageal dilation, she reports poor p.o. intake, throat swelling, moderate generalized weakness. No reported fever, chest pain, shortness of breath, Plan to admit for abdominal pain, esophagitis, vomiting, anorexia, dysphagia. Case discussed with Dr. Mak who performed EGD, he stated to rehydrate patient, admitted to [place], [place] to have patient follow-up in his office in the a.m Poor p.o. intake secondary to divided ER evaluation 143 / 76; Pulse 107; Resp 18; Pulse Ox 97% on R/A; Weight 47.63 kg; Height 5 ft. 0, normal saline x 1 L, patient was treated with GI Cocktail without - (Maalox PO 30 ml, Lidocaine Mucous Membrane 2 % 15 ml) PO once Route: PO CT of the neck IMPRESSION: No acute soft tissue abnormality identified within the neck, IMPRESSION: 1. Mild stranding at the at the distal descending colon could reflect mild or early acute diverticulitis. No perforation or abscess. 2. Possible short-segment intussusception or distal small bowel diverticula. This is of uncertain significance. No evidence of a bowel obstruction. No appendix identified or secondary signs of acute appendicitis. A repeat CT with oral contrast could exclude an acute process as result of this finding.3. Diffusely thickened esophagus likely reflecting esophagitis. Prior hiatal hernia repair. This area was likely better assessed on recent endoscopy. hypoalbuminemia 2.2, Abdominal pain Vomiting Leukocytosis May be secondary from early diverticulitis per CT IV Zosyn, as needed antiemetic WBCs 11.80, early left shift 74.9 Hyponatremia IV normal saline Laboratory evaluation hyponatremia sodium 132 Trend electrolytes replace as needed Microcytic anemia microcytic anemia 11.4 34.6 Trend H&H History arthritis Atrial Fib Hypertension Myocardial infarction TIA Patient not tolerating p.o., Will control blood pressure with IV medication Full code DVT Diet n.p.o. Disposition Home independent prior Discharge Plan: Home - Advance Directives Does patient have a Living Will: No Does patient have a Durable POA for Healthcare: No - Code Status/Comfort Care Code Status Assessed: Yes Critical Care: No Time Spent Managing Pts Care (In Minutes): 55
[2023-11-07] MEDS ORDERED: SODIUM CHLORIDE 0.9% 10ML INJ IV PRN (17:01)
[2023-11-07] MEDS: PIPER TAZO 3.375 GM in NA CHLORIDE 0.9% 100 ML IV SCH (17:23)
[2023-11-07] MEDS: NA CHLORIDE 0.9% 1,000 ML IV SCH (17:23)
[2023-11-07] MEDS: METOPROLOL TARTRATE 5 MG/5 ML INJ IV PRN (17:40)
[2023-11-07 17:50] VITALS: BMI 20.5
[2023-11-07] MEDS: PANTOPRAZOLE 40 MG INJ IVP SCH (20:43)
[2023-11-07 22:51] VITALS: O2SAT 94
[2023-11-08] MEDS: METHYLPREDNISOLONE 125 MG INJ IV SCH (00:19)
[2023-11-08 04:02] LABS: Absolute Lymphocytes (CBC) 0.9 K/uL (0.7-4.9); Absolute Monocytes 0.1 K/uL (0.1-1.3); Basophils % 0.2 % (0-1.3); Hematocrit 31.3 % (36.0-45.0); Hemoglobin 10.5 g/dL (12.0-15.0); MCH 31.2 pg (27.0-35.0); MCHC 33.7 g/dL (32.0-36.0); MCV 92.5 fL (80-100); MPV 9.4 fL (7.6-11.3); Monocytes % 0.9 % (3.3-12.3); Neutrophils % 87.9 % (41.7-73.7); Platelets 262 thou/uL (152-406); RBC Red Blood Cell Count 3.38 M/uL (3.86-4.86); Red Cell Distribution Width 13.7 % (12.1-15.2)
[2023-11-08 04:15] LABS: Albumin 2.6 g/dL (3.4-5.0); Albumin/Globulin Ratio 0.8 (1.1-1.8); Anion Gap 10.8 mEq/L (5.0-15.0); Bilirubin Total 0.6 mg/dL (0.2-1.0); Globulin 3.4 g/dL (2.3-3.5); Magnesium 1.8 mg/dL (1.6-2.4); Potassium 3.8 mEq/L (3.5-5.1)
[2023-11-08 05:11] LABS: Band Neutrophils 10 % (0-1); Blood Morphology Comment NOTED (NOT SEEN); Burr Cells 1+; Differential Total Cells Count 100; Lymphocytes 11 % (15-42); Monocytes 1 % (0-10); Platelet Estimate ADEQ; Reactive Lymphocytes 1 %; Segmented Neutrophils 77 % (40-80)
[2023-11-08] MEDS: MAGNESIUM SULFATE 1 gm IVPB 1 GM/100 ML BAG IV ONE (05:25)
--- NOTE | 2023-11-08 07:56 | P.DS ---
Admission Date: 11/07/23 Discharge Date: 11/08/23 Disposition: ROUTINE DISCHARGE Discharge Condition: GOOD Reason for Admission: Dysphagia Brief History of Present Illness: 88-year-old female with past medical history Arthritis; Atrial Fib; Hypertension; Myocardial infarction; TIA; presents to the emergency room with unable to eat or drink, throat pain for 3 days. She reports recent EGD with Dr. Mak, she denies esophageal dilation, she reports poor p.o. intake, throat swelling, moderate generalized weakness. No reported drooling, fever, chest pain, shortness of breath, Plan to admit for abdominal pain, esophagitis, vomiting, anorexia, dysphagia. Case discussed with Dr. Mak who performed EGD, he stated to rehydrate patient, admit to [place], [place] to have patient follow-up in his office in the a.m. ER evaluation 143 / 76; Pulse 107; Resp 18; Pulse Ox 97% on R/A; Weight 47.63 kg; Height 5 ft. 0, normal saline x 1 L, patient was treated with GI Cocktail without - (Maalox PO 30 ml, Lidocaine Mucous Membrane 2 % 15 ml) PO once Route: PO; CT of the neck IMPRESSION: No acute soft tissue abnormality identified within the neck, IMPRESSION: 1. Mild stranding at the at the distal descending colon could reflect mild or early acute diverticulitis. No perforation or abscess. 2. Possible short-segment intussusception or distal small bowel diverticula. This is of uncertain significance. No evidence of a bowel obstruction. No appendix identified or secondary signs of acute appendicitis. A repeat CT with oral contrast could exclude an acute process as result of this finding.3. Diffusely thickened esophagus likely reflecting esophagitis. Prior hiatal hernia repair. This area was likely better assessed on recent endoscopy. Laboratory evaluation hyponatremia sodium 132 hypoalbuminemia 2.2, WBCs 11.80, early left shift 74.9, microcytic anemia 11.4 34.6 - Physical Exam General: Alert, In no apparent distress, Oriented x3, Other (Skin warm and dry) HEENT: Atraumatic, Normocephalic Neck: Supple, 2+ carotid pulse no bruit, Other (No drooling, no tongue edema) Respiratory: Clear to auscultation bilaterally, Normal air movement, Other (Respirations equal unlabored, no respiratory distress) Cardiovascular: Normal pulses, Regular rate/rhythm Capillary refill: <2 Seconds Gastrointestinal: Normal bowel sounds, Tenderness (Esophageal tenderness, O2 sat 97%) Musculoskeletal: No clubbing, No swelling, Other (Generalized weak) Neurological: Normal speech, Normal strength at 5/5 x4 extr Hospital Course: 88 year-old patient presented with past medical history Arthritis; Atrial Fib; Hypertension; Myocardial infarction; TIA; presents to the emergency room with unable to eat or drink, throat pain for 3 days. Was noted to have esophageal thickening. Recent EGD with Dr. Colón. Spoke with Dr. Mak he stated to have the patient follow-up in the clinic today. Condition improved with IV fluids, steroids, Patient tolerating diet, stable for discharge to home with follow-up appointment with primary care physician. Follow-up with GI after discharge PROBLEM: Esophageal thickening Esophagitis Dysphagia-recent EGD with HALEY Colón Anorexia Rad/Lab/Micro: Mild hyponatremia improved with IV fluids Microcytic anemia stable 11.4/34.3 CT of the neck IMPRESSION: No acute soft tissue abnormality identified within the neck, IMPRESSION: 1. Mild stranding at the at the distal descending colon could reflect mild or early acute diverticulitis. No perforation or abscess. 2. Possible short-segment intussusception or distal small bowel diverticula. This is of uncertain significance. No evidence of a bowel obstruction. No appendix identified or secondary signs of acute appendicitis. A repeat CT with oral contrast could exclude an acute process as result of this finding.3. Diffusely thickened esophagus likely reflecting esophagitis. Prior hiatal hernia repair. This area was likely better assessed on recent endoscopy. Follow with GI Dr Colón after discharge in office today, per Dr Colón Continue home medicines as previously prescribed GOAL: Clear understanding of disease process INSTRUCTIONS: Physician Discharge Instructions: -Follow-up with PCP in 1 to 2 weeks -Please call Dr. Li at [phone] if any questions regarding hospital stay -Please call nursing station at [phone] if any nursing or medication questions -Return to the emergency room if symptoms worsen Diet: ADA, low sodium Activity: Fall precautions Vital Signs/Physical Exam: Temp Pulse Resp BP Pulse Ox 97.3 F 98 H 16 153/68 H 95 11/08/23 04:00 11/08/23 04:00 11/08/23 04:00 11/08/23 04:00 11/08/23 04:00 Laboratory Data at Discharge: WBC 8.00 thou/uL (4.3-10.9) 11/08/23 02:49 Hgb 10.5 g/dL (12.0-15.0) L 11/08/23 02:49 Hct 31.3 % (36.0-45.0) L 11/08/23 02:49 Plt Count 262 thou/uL (152-406) 11/08/23 02:49 Sodium 134 mEq/L (136-145) L 11/08/23 02:49 Potassium 3.8 mEq/L (3.5-5.1) 11/08/23 02:49 BUN 21 mg/dL (7-18) H 11/08/23 02:49 Creatinine 0.70 mg/dL (0.55-1.02) 11/08/23 02:49 Glucose 110 mg/dL (74-106) H 11/08/23 02:49 Magnesium 1.8 mg/dL (1.6-2.4) 11/08/23 02:49 Total Bilirubin 0.6 mg/dL (0.2-1.0) 11/08/23 02:49 AST 14 U/L (15-37) L 11/08/23 02:49 ALT 15 U/L (13-56) 11/08/23 02:49 Alkaline Phosphatase 53 U/L (45-117) 11/08/23 02:49 Lipase 19 U/L (13-75) 11/07/23 13:13 Home Medications: Amitriptyline HCl 75 mg PO BEDTIME 11/12/18 Levothyroxine Sodium 25 mcg PO DAILY 08/07/20 Metoprolol Tartrate 50 mg PO DAILY 10/11/22 ALPRAZolam [Xanax*] 0.5 mg PO BEDTIME 12/17/22 Sertraline [Zoloft*] 75 mg PO DAILY 12/17/22 Apixaban [Eliquis] 2.5 mg PO BID 06/09/23 Omeprazole [Prilosec] 40 mg PO BID 06/09/23 Cholecalciferol (Vitamin D3) [Vitamin D3] 25 mcg PO DAILY 11/07/23 Ezetimibe [Zetia] 10 mg PO BEDTIME 11/07/23 Followup: Randolph Moore MD [Primary Care Provider] - Emelina Colón MD [OUTSIDE PHYSICIAN] - Time spent managing pt's care (in minutes): 55
[2023-11-08] MEDS: KCL 20 MEQ/100 mL IVPB 20 MEQ/100 ML BAG IV SCH (08:00)
[2023-11-08 09:24] VITALS: BP 155/74; TEMP 97.8
== END 2023-11-08 10:27 | disposition home or self-care (01) ==
LOC: ER 12:44 → 2ND 15:42
PROVIDERS: ADMIT Hospitalist; ATTEND Hospitalist
DX: R13.10 Dysphagia, unspecified (principal); R07.0 Pain in throat; K20.90 Esophagitis, unspecified without bleeding; M19.90 Unspecified osteoarthritis, unspecified site; I48.91 Unspecified atrial fibrillation; I10 Essential (primary) hypertension; I25.2 Old myocardial infarction; R53.1 Weakness; R10.9 Unspecified abdominal pain; R11.10 Vomiting, unspecified; R63.0 Anorexia; D72.829 Elevated white blood cell count, unspecified; E87.1 Hypo-osmolality and hyponatremia; D64.9 Anemia, unspecified; Z68.20 Body mass index [BMI] 20.0-20.9, adult; Z88.1 Allergy status to other antibiotic agents; Z86.73 Personal history of transient ischemic attack (TIA), and cerebral infarction without residual deficits
CPT/HCPCS: 96361; 85025 ×2; 36415; 83735; 83690; 80053 ×2; 71260; 70491; 74177; 96360; 99285; Q9967; J3475; J2543 ×3; C9113; J2919 ×3; J7030 ×3; G0378

== ENCOUNTER 2023-12-11 15:23 | Emergency (ER) | payer OTHER, MEDICARE ==
[2023-12-11 15:47] LABS: Absolute Eosinophils 0.1 K/uL (0-0.5); Absolute Lymphocytes (CBC) 1.7 K/uL (0.7-4.9); Absolute Monocytes 0.5 K/uL (0.1-1.3); Absolute Neutrophil 3.2 K/uL (1.8-8.0); Basophils % 0.8 % (0-1.3); Eosinophils % 1.5 % (0-4.4); Hematocrit 33.4 % (36.0-45.0); Hemoglobin 11.3 g/dL (12.0-15.0); Lymphocytes % 30.6 % (15.3-44.8); MCHC 33.9 g/dL (32.0-36.0); MCV 91.6 fL (80-100); MPV 7.7 fL (7.6-11.3); Monocytes % 8.8 % (3.3-12.3); Neutrophils % 58.3 % (41.7-73.7); Nucleated Red Blood Cells % 0.1 % (0-0); Platelets 323 thou/uL (152-406); RBC Red Blood Cell Count 3.65 M/uL (3.86-4.86); Red Cell Distribution Width 14.5 % (12.1-15.2)
[2023-12-11 16:09] LABS: Albumin 3.4 g/dL (3.4-5.0); Albumin/Globulin Ratio 1.1 (1.1-1.8); Anion Gap 12.3 mEq/L (5.0-15.0); Bilirubin Direct 0.2 mg/dL (0-0.2); Bilirubin Indirect, Calculated 0.3 mg/dL (0.2-0.8); Bilirubin Total 0.5 mg/dL (0.2-1.0); Globulin 3.1 g/dL (2.3-3.5); Magnesium 1.5 mg/dL (1.6-2.4); Potassium 3.3 mEq/L (3.5-5.1); Protein, Total 6.5 g/dL (6.4-8.2)
[2023-12-11 16:15] LABS: PT Prothrombin Time 12.1 SECONDS (9.5-12.5); Protime INR 1.1
--- NOTE | 2023-12-11 16:17 | RAD REPORT ---
EXAM DESCRIPTION: RAD - Chest Single View - 12/11/2023 4:01 pm CLINICAL HISTORY: syncope Chest pain. COMPARISON: Chest Single View dated 12/16/2022; Chest Single View dated 10/11/2022; Chest Single View dated 10/27/2021; Chest Single View dated 08/12/2021 FINDINGS: Portable technique limits examination quality. The lungs are emphysematous but grossly clear. The heart is normal in size. No displaced fractures. IMPRESSION: No acute intrathoracic process suspected.
--- NOTE | 2023-12-11 16:19 | RAD REPORT ---
EXAM DESCRIPTION: CT - Head Brain Wo Cont - 12/11/2023 4:02 pm CLINICAL HISTORY: SYNCOPE Headache, drowsiness COMPARISON: Head Brain Wo Cont dated 12/16/2022; Head Brain Wo Cont dated 07/21/2022 TECHNIQUE: All CT scans are performed using dose optimization technique as appropriate and may inclu de automated exposure control or mA/KV adjustment according to patient size. FINDINGS: No intracranial hemorrhage, hydrocephalus or extra-axial fluid collection.Moderate general ized brain atrophy is present with moderate periventricular and deep white matter chronic microvascul ar ischemic changes.No areas of brain edema or evidence of midline shift. The paranasal sinuses and mastoids are clear. The calvarium is intact. IMPRESSION: No acute intracranial abnormality.
[2023-12-11] MEDS ORDERED: POTASSIUM 25 MEQ EFFERV TAB ONE (17:40)
[2023-12-11] MEDS ORDERED: MAGNESIUM OXIDE 400 MG TAB ONE (17:40)
[2023-12-11] MEDS ORDERED: NA CHLORIDE 0.9% 500 ML ONE (17:41)
--- NOTE | 2023-12-11 18:40 | EDPHYS ---
Physician Documentation [facility] Name: Dinh Love Age: 88 yrs Sex: Female : 1935 Arrival Date: 12/11/2023 Time: 15:23 Bed 19 Private MD: ED Physician Maynor Alcazar HPI: 12/10 15:30 This 88 yrs old Female presents to ER via EMS with complaints of Syncope. cp 15:30 The patient has experienced syncope, lost consciousness. cp 15:30 Onset: The symptoms/episode began/occurred just prior to arrival. Duration: This was a cp single episode, that lasted an unknown period of time. Context: Just prior to the episode the patient experienced no apparent symptoms. Associated injury: The patient did not suffer any apparent associated injury. Associated signs and symptoms: Pertinent positives: seizure. Current symptoms: Currently, the patient is not experiencing any symptoms, the patient feels back to baseline. Patient is a 88-year-old female with past medical history significant for hypertension, atrial fibrillation who presents to the emergency department via EMS after reported syncopal episode with seizure type activity. Patient is alert and reports that she was outside of her home for about 30 minutes and when she went back inside she suddenly lost consciousness and reportedly had a seizure. Patient reports before falling to the ground family member was able to catch her so no observed injuries and at this time patient is alert x 3 and answering questions appropriately. Historical: - Allergies: 15:29 Codeine; itch; me1 15:29 Keflex; me1 - PMHx: 15:29 Arthritis; Atrial Fib; Hypertension; Myocardial infarction; TIA; me1 - PSHx: 15:29 Cholecystectomy; Heart Stents; hysterectomy; me1 - Immunization history:: Adult Immunizations up to date. - Infectious Disease History:: Denies. - Social history:: Smoking status: Reported history of juuling and/or vaping. ROS: 15:35 Constitutional: Negative for body aches, chills, fever, poor PO intake, cp 15:35 Eyes: Negative for injury, pain, redness, and discharge, cp 15:35 Cardiovascular: Negative for chest pain, edema, palpitations, 15:35 Respiratory: Negative for cough, shortness of breath, wheezing, 15:35 Abdomen/GI: Negative for abdominal pain, vomiting, diarrhea, constipation, 15:35 Back: Negative for pain at rest, pain with movement, 15:35 Neuro: Positive for syncope, history of seizure, Negative for dizziness, headache, speech changes, 15:35 All other systems are negative, Exam: 15:40 Constitutional: The patient appears in no acute distress, alert, awake, cp non-diaphoretic, non-toxic, well developed, well nourished, 15:40 Head/Face: Normocephalic, atraumatic. cp 15:40 Eyes: Periorbital structures: appear normal, Pupils: equal, round, and reactive to light and accomodation, Extraocular movements: intact throughout, Conjunctiva: normal, no exudate, no injection, Sclera: no appreciated abnormality, Lids and lashes: appear normal, bilaterally, 15:40 ENT: External ear(s): are unremarkable, Nose: is normal, Mouth: Lips: moist, Oral mucosa: moist, Posterior pharynx: Airway: no evidence of obstruction, patent, 15:40 Neck: ROM/movement: is normal, is supple, without pain, no range of motions limitations, 15:40 Chest/axilla: Inspection: normal, 15:40 Cardiovascular: Rate: normal, Edema: is not appreciated, JVD: is not appreciated, 15:40 Respiratory: the patient does not display signs of respiratory distress, Respirations: Breath sounds: are clear throughout, no decreased breath sounds, no stridor, 15:40 Abdomen/GI: Inspection: abdomen appears normal, Palpation: abdomen is soft and non-tender, in all quadrants, 15:40 Back: pain, is absent, ROM is normal, 15:40 Neuro: Orientation: to person, place \T\ time. Mentation: is normal, Cerebellar function: is grossly normal, Motor: moves all fours, strength is normal, Sensation: is normal, 15:55 ECG was reviewed by the Attending Physician. cp Vital Signs: 15:26 BP 151 / 81; Pulse 99; Resp 18; Temp 98.2(O); Pulse Ox 96% on R/A; Weight 46.72 kg; me1 Height 5 ft. 0 in. ; Pain 0/10; 16:00 BP 128 / 62; Pulse 90; Resp 14; Pulse Ox 99% on R/A; me1 17:00 BP 134 / 62; Pulse 82; Resp 17; Pulse Ox 98% on R/A; wi1 17:46 BP 127 / 64 Supine; Pulse 88; me1 17:46 BP 132 / 68 Sitting; Pulse 92; me1 17:46 BP 128 / 66 Standing; Pulse 87; me1 18:00 BP 155 / 86; Pulse 71; Resp 18; Pulse Ox 100% on R/A; me1 15:26 Body Mass Index 20.12 (46.72 kg, 152.4 cm) [facility] 15:26 Pain Scale: Adult wi1 MDM: 15:26 Patient medically screened. 17:43 Data reviewed: vital signs, nurses notes, lab test result(s), EKG, radiologic studies, cp CT scan, plain films. ED course: discussed results of today's testing and recommendation of observation and continued monitoring. Patient requesting discharge to home. 12/10 15:27 Order name: Basic Metabolic Panel; Complete Time: 17:02 16 17:02 Interpretation: Normal except: NA 133; K 3.3; GLUC 131; BUN 5; GFR 61. 12/10 15:27 Order name: CBC with Diff; Complete Time: 17:02 16 17:02 Interpretation: Normal except: RBC 3.65; HGB 11.3; HCT 33.4. 12/10 15:27 Order name: LFT's; Complete Time: 17:02 / 15:27 Order name: Magnesium; Complete Time: 17:02 /16 17:02 Interpretation: Abnormal: MG 1.5. 12/10 15:27 Order name: PT-INR; Complete Time: 17:02 12/10 15:27 Order name: Troponin HS; Complete Time: 17:02 /16 15:27 Order name: Urinalysis W/Microscopic 12/10 15:27 Order name: XRAY Chest (1 view); Complete Time: 17:02 /16 15:27 Order name: CT Head Brain wo Cont; Complete Time: 17:02 /16 17:03 Interpretation: Report reviewed. 12/10 15:27 Order name: EKG; Complete Time: 15:27 12/10 15:27 Order name: Cardiac monitoring; Complete Time: 15:52 / 15:27 Order name: EKG - Nurse/Tech; Complete Time: 15:52 12/10 15:27 Order name: IV Saline Lock; Complete Time: 15:34 cp 12/10 15:27 Order name: Labs collected and sent; Complete Time: 15:41 cp 12/10 15:27 Order name: O2 Per Protocol; Complete Time: 15:34 cp 12/10 15:27 Order name: O2 Sat Monitoring; Complete Time: 15:34 cp 12/10 17:24 Order name: Orthostatic Blood Pressure; Complete Time: 17:45 cp EC:55 Rate is 89 beats/min. Rhythm is regular. GA interval is prolonged at 210 msec. QRS cp interval is normal. QT interval is normal. T waves are Inverted in leads aVL, aVR, V2. Interpreted by me. Reviewed by me. Administered Medications: 17:45 Drug: Potassium PO Effervescent Tablet 50 mEq PO once; dissolve in 4 ounces of water or me1 juice Route: PO; 18:41 Follow up: Response: No adverse reaction me1 17:45 Drug: Magnesium PO 400 mg PO once Route: PO; me1 18:40 Follow up: Response: No adverse reaction me 17:45 Drug: NS 0.9% IV 500 ml IV at 125 ml/hr continuous Route: IV; Rate: 125 ml/hr; Site: [facility] left antecubital; 18:40 Follow up: Response: No adverse reaction; IV Status: Completed infusion; IV Intake: me1 100ml Point of Care Testin:47 n/a me1 Ranges: Critical Glucose Levels:Adult <50 mg/dl or >400 mg/dl <40 mg/dl or >180 mg/dl Disposition Summary: 12/11/23 18:40 Discharge Ordered Notes: Location: Home cp Problem: new cp Symptoms: have improved cp Condition: Stable cp Diagnosis - Heat syncope cp Followup: cp - With: Private Physician - When: 2 - 3 days - Reason: Recheck today's complaints Discharge Instructions: - Discharge Summary Sheet cp - Syncope cp - Heat Exhaustion cp Forms: - Medication Reconciliation Form cp - Antibiotic Education cp - Prescription Opioid Use cp - Patient Portal Instructions cp - Leadership Thank You Letter cp Addendum: 12/13/2023 14:19 I was immediately available for consultation during this patient's visit. I did not e c2 personally see the patient or discuss the patient with the MARLEY. . Signatures: Dispatcher [employer] Nahid Bertrand PA PA cp Eddleman, Michelle RN RN me1 Maynor Alcazar MD MD ec2
--- NOTE | 2023-12-11 18:40 | ER ---
Nurse's Notes [facility] Name: Dinh Love Age: 88 yrs Sex: Female : 1935 Arrival Date: 12/11/2023 Time: 15:23 Bed 19 Private MD: Diagnosis: Heat syncope Presentation: 12/10 15:26 Chief complaint: EMS states: toned out for syncopal episode and seizure. patient was me1 outside for about 30 mins and when she came inside she passed out then had a seizure witnessed by family. Family eased patient to the ground to prevent fall. Coronavirus screen: Vaccine status: Patient reports receiving the 2nd dose of the covid vaccine. Ebola Screen: No symptoms or risks identified at this time. Initial Sepsis Screen: Does the patient meet any 2 criteria? No. Patient's initial sepsis screen is negative. Does the patient have a suspected source of infection? No. Patient's initial sepsis screen is negative. Risk Assessment: Do you want to hurt yourself or someone else? Patient reports no desire to harm self or others. Onset of symptoms was December 11, 2023. 15:26 Method Of Arrival: EMS: [facility] me1 15:26 Acuity: KAROLINA 3 me1 15:32 Care prior to arrival: Medication(s) given: Normal saline infusion, 500 mL, IV me1 initiated. 20 GA, in the left antecubital area. Triage Assessment: 15:29 General: Appears comfortable, slender, well groomed, well developed, Behavior is calm, me1 cooperative, appropriate for age, Reports was outside for about 30 minutes, came inside and had a syncopal episode and seizure. Pain: Denies pain. EENT: No signs and/or symptoms were reported regarding the EENT system. Neuro: Level of Consciousness is awake, alert, obeys commands, Oriented to person, place, time, situation, Appropriate for age Reports a syncopal episode. Cardiovascular: Patient's skin is warm and dry. Respiratory: Airway is patent Trachea midline Respiratory effort is even, unlabored, Respiratory pattern is regular, symmetrical. GI: No signs and/or symptoms were reported involving the gastrointestinal system. : No signs and/or symptoms were reported regarding the genitourinary system. Derm: Skin is intact, is healthy with good turgor, Skin is pink, warm \T\ dry. Musculoskeletal: No signs and/or symptoms reported regarding the musculoskeletal system. Historical: - Allergies: 15:29 Codeine; itch; me1 15:29 Keflex; me1 - PMHx: 15:29 Arthritis; Atrial Fib; Hypertension; Myocardial infarction; TIA; me1 - PSHx: 15:29 Cholecystectomy; Heart Stents; hysterectomy; me1 - Immunization history:: Adult Immunizations up to date. - Infectious Disease History:: Denies. - Social history:: Smoking status: Reported history of juuling and/or vaping. Screenin:33 [facility] ED Fall Risk Assessment (Adult) History of falling in the last 3 months, me1 including since admission Yes- single mechanical fall (1 pt) Confusion or Disorientation No (0 pts) Intoxicated or Sedated No (0 pts) Impaired Gait No (0 pts) Mobility Assist Device Used No (0 pt) Altered Elimination No (0 pt) Score/Fall Risk Level 0 - 2 = Low Risk Maintained a safe environment, Provided non-skid footwear, Hourly rounding (assess needs \T\ fall precautionary measures) done. Abuse screen: Denies threats or abuse. Nutritional screening: No deficits noted. Tuberculosis screening: No symptoms or risk factors identified. Assessment: 15:33 General: see triage assessment. Pain: Denies pain. Neuro:. me1 15:53 Cardiovascular: Rhythm is sinus rhythm with 1st degree heart block. me1 Vital Signs: 15:26 BP 151 / 81; Pulse 99; Resp 18; Temp 98.2(O); Pulse Ox 96% on R/A; Weight 46.72 kg; me1 Height 5 ft. 0 in. ; Pain 0/10; 16:00 BP 128 / 62; Pulse 90; Resp 14; Pulse Ox 99% on R/A; me1 17:00 BP 134 / 62; Pulse 82; Resp 17; Pulse Ox 98% on R/A; me1 17:46 BP 127 / 64 Supine; Pulse 88; me1 17:46 BP 132 / 68 Sitting; Pulse 92; me1 17:46 BP 128 / 66 Standing; Pulse 87; me1 18:00 BP 155 / 86; Pulse 71; Resp 18; Pulse Ox 100% on R/A; me1 15:26 Body Mass Index 20.12 (46.72 kg, 152.4 cm) me1 15:26 Pain Scale: Adult ri1 ED Course: 15:25 Patient arrived in ED. me1 15:26 [facility] cp 15:26 Maynor Alcazar MD is Attending Physician. cp 15:26 Alejandrina Mazariegos, MARIO is Primary Nurse. me1 15:29 Triage completed. me1 15:29 Arm band placed on Patient placed in an exam room. me1 15:33 Patient has correct armband on for positive identification. Bed in low position. Call ri1 light in reach. Side rails up X2. Provided Education on: POC. Verbalized understanding. . Client placed on continuous cardiac and pulse oximetry monitoring. NIBP monitoring applied. teletypesetter monitor on. Pulse ox on. NIBP on. 15:33 No provider procedures requiring assistance completed. Maintain EMS IV. Dressing me1 intact. Good blood return noted. Site clean \T\ dry. Gauge \T\ site: 20g LAC. 15:41 Basic Metabolic Panel Sent. me1 15:41 CBC with Diff Sent. me1 15:41 LFT's Sent. me1 15:41 Magnesium Sent. me1 15:41 PT-INR Sent. me1 15:41 Troponin HS Sent. me1 15:52 Initial lab(s) drawn, by me, sent to lab. EKG done, by ED staff, reviewed by Nahid Carter me1 USMAN. 16:03 XRAY Chest (1 view) In Process Unspecified. EDMS 16:04 CT Head Brain wo Cont In Process Unspecified. EDMS 18:58 IV discontinued, intact, bleeding controlled, No redness/swelling at site. Pressure me1 dressing applied. Administered Medications: 17:45 Drug: Potassium PO Effervescent Tablet 50 mEq PO once; dissolve in 4 ounces of water or me1 juice Route: PO; 18:41 Follow up: Response: No adverse reaction me1 17:45 Drug: Magnesium PO 400 mg PO once Route: PO; me1 18:40 Follow up: Response: No adverse reaction me1 17:45 Drug: NS 0.9% IV 500 ml IV at 125 ml/hr continuous Route: IV; Rate: 125 ml/hr; [place] [facility] [place]; 18:40 Follow up: Response: No adverse reaction; IV Status: Completed infusion; IV Intake: me1 100ml Medication: 15:33 VIS not applicable for this client. me1 Point of Care Testin:47 n/a me1 Ranges: Intake: 18:40 IV: 100ml; Total: 100ml. me1 Outcome: 18:40 Discharge ordered by . cp 18:58 Discharged to home via wheelchair, with family, me1 18:58 Condition: stable 18:58 Discharge instructions given to patient, family, Instructed on discharge instructions, follow up and referral plans. Demonstrated understanding of instructions, follow-up care, 18:59 Patient left the ED. me1 Signatures: Dispatcher [employer] EDMS Nahid Carter PA PA cp Alejandrina Mazariegos, RN RN me1
[2023-12-11 18:56] LABS: Specific Gravity 1.009 (1.005-1.030); Sqamous Epithelial <5 /HPF (None Seen); Urine Bacteria <20 /HPF (<20); Urine Bilirubin NEGATIVE (Negative); Urine Blood Negative (Negative); Urine Clarity Turbid (Clear); Urine Color Light-Yellow (Yellow); Urine Culture Reflex Order NOT NEEDED; Urine Glucose NEGATIVE (Negative); Urine Ketones TRACE (Negative); Urine Micro Reflex YN NO BILL MICROSCOPIC; Urine Mucus Slight /HPF (None Seen); Urine Nitrite NEGATIVE (Negative); Urine Protein NEGATIVE (Negative); Urine RBC <5 /HPF (None Seen); Urine Urobilinogen Normal (Normal); Urine WBC <5 /HPF (<5); Urine pH 6.5 (5.0-7.0)
[2023-12-11 19:06] VITALS: TEMP 98.2
[2023-12-11 19:32] VITALS: BP 155/86; O2SAT 100
--- NOTE | 2023-12-12 14:55 | EKG ---
Test Date: 2023-12-11 Test Time: 15:47:32 Track Superintendent: MEASUREMENT RESULTS: Intervals: Rate: 89 HI: 210 QRSD: 80 QT: 396 QTc: 481 [place]: P: 78 HI: 210 QRS: -52 T: 76 INTERPRETIVE STATEMENTS: Sinus rhythm with 1st degree AV block Left axis deviation Abnormal ECG Compared to ECG 12/16/2022 21:39:30 First degree AV block now present Left-axis deviation now present Sinus bradycardia no longer present Electronically Signed On 12-12-23 14:51:15 CDT by Basim Rueda
== END 2023-12-11 18:59 | disposition home or self-care (01) ==
LOC: ER 15:23
DX: T67.1XXA Heat syncope, initial encounter (principal)
CPT/HCPCS: 93005; 85025; 81001; 80048; 36415; 83735; 85610; 80076; 84484; 70450; 71045; 96360; 99285; J7040

== ENCOUNTER 2024-07-27 22:02 | Emergency (ER) | payer OTHER, MEDICARE ==
[2024-07-27 23:54] LABS: Absolute Basophils 0.1 K/uL (0-0.5); Absolute Eosinophils 0.2 K/uL (0-0.5); Absolute Lymphocytes (CBC) 2.5 K/uL (0.7-4.9); Absolute Monocytes 0.7 K/uL (0.1-1.3); Absolute Neutrophil 3.4 K/uL (1.8-8.0); Hematocrit 35.8 % (36.0-45.0); Hemoglobin 11.9 g/dL (12.0-15.0); Lymphocytes % 36.5 % (15.3-44.8); MCH 29.9 pg (27.0-35.0); MCHC 33.3 g/dL (32.0-36.0); MCV 89.8 fL (80-100); MPV 8.7 fL (7.6-11.3); Monocytes % 10.7 % (3.3-12.3); Neutrophils % 48.8 % (41.7-73.7); Nucleated Red Blood Cells % 0.1 % (0-0); Platelets 306 thou/uL (152-406); RBC Red Blood Cell Count 3.99 M/uL (3.86-4.86); Red Cell Distribution Width 16.3 % (12.1-15.2)
[2024-07-28 00:10] LABS: Specific Gravity 1.015 (1.005-1.030); Sqamous Epithelial <5 /HPF (None Seen); Urine Bacteria None Seen /HPF (<20); Urine Bilirubin NEGATIVE (Negative); Urine Blood Negative (Negative); Urine Clarity Turbid (Clear); Urine Color Light-Yellow (Yellow); Urine Culture Reflex Order NOT NEEDED; Urine Glucose NEGATIVE (Negative); Urine Ketones NEGATIVE (Negative); Urine Microscopic Reflex YN ORDER UMIC; Urine Mucus Slight /HPF (None Seen); Urine Nitrite NEGATIVE (Negative); Urine Protein NEGATIVE (Negative); Urine RBC <5 /HPF (None Seen); Urine Urobilinogen Normal (Normal); Urine WBC <5 /HPF (<5)
[2024-07-28 00:13] LABS: Albumin/Globulin Ratio 0.8 (1.1-1.8); Anion Gap 9.7 mEq/L (5.0-15.0); Bilirubin Total 0.3 mg/dL (0.2-1.0); Globulin 3.9 g/dL (2.3-3.5); Potassium 3.7 mEq/L (3.5-5.1); Protein, Total 6.9 g/dL (6.4-8.2)
[2024-07-28 00:22] LABS: SARS-CoV-2 Antigen CONTROL BLUE LINE VIS/BG OK; SARS-CoV-2 Antigen Rapid Res Negative (Negative)
--- NOTE | 2024-07-28 00:25 | RAD REPORT ---
EXAM DESCRIPTION: Head Brain Wo Cont RadLex: CT HEAD WITHOUT IV CONTRAST CLINICAL HISTORY: 89 years Female; TIA; Bed Name: 14 TECHNIQUE: Noncontrast CT head. All CT scans at this facility use dose modulation, iterative reconstruction, and/or weight based dosi ng when appropriate to reduce radiation dose to as low as reasonably achievable. COMPARISON: CT head 12/11/2023. FINDINGS: Parenchyma: No acute hemorrhage, large territorial infarction, or mass effect. Scattered hypodense le sions are present in the white matter, likely chronic small vessel ischemic changes. Mild global volume loss. Ventricles and extra-axial spaces: Appropriate for age and degree of volume loss. Visualized paranasal sinuses: Clear. Mastoid air cells: Clear. Bones: No acute focal abnormality. Additional comment: Intracranial atherosclerosis. Bilateral lens replacement. IMPRESSION: 1. No acute intracranial findings. 2. Chronic microvascular ischemic changes. Electronically signed by: Sandy Peters MD 07/28/2024 12:23 AM [facility] Z9 Due to temporary technical issues with the [facility] reporting system, reports are being fermin d by the in-house radiologist without review as a courtesy to ensure prompt reporting the interpreting radiologist is fully responsible for the content of the report. Transcribed Date/Time: 07/28/2024 12:25 AM
--- NOTE | 2024-07-28 01:05 | ER ---
Nurse's Notes [facility] Name: Dinh Love Age: 89 yrs Sex: Female : 1935 Arrival Date: 07/27/2024 Time: 22:02 Bed 14 Private MD: Diagnosis: Other sequelae following unspecified cerebrovascular disease;Paresthesia of skin Presentation: 07/27 22:22 Chief complaint: EMS states: TONED OUT FOR WEAKNESS. EMS REPORTS THAT PT HAD A dd2 ESOPHAGEAL STRETCH ON TUESDAY AND TODAY FELT WEAK. PT REPORTS SHE WAS TOLD TO RESTART MEDS TODAY AND HAS NOT TAKEN ANY OF HER DAILY MEDICATIONS. Coronavirus screen: At this time, the client does not indicate any symptoms associated with coronavirus-19. Ebola Screen: No symptoms or risks identified at this time. Initial Sepsis Screen: Does the patient meet any 2 criteria? No. Patient's initial sepsis screen is negative. Does the patient have a suspected source of infection? No. Patient's initial sepsis screen is negative. Risk Assessment: Do you want to hurt yourself or someone else? Patient reports no desire to harm self or others. Onset of symptoms was July 27, 2024. Care prior to arrival: IV initiated. 20 GA, in the left forearm, Glucose check: 161. 22:22 Method Of Arrival: EMS: [facility] dd2 22:22 Acuity: KAROLINA 3 dd2 Triage Assessment: 07/28 01:14 Respiratory: Onset: The symptoms/episode began/occurred at an unknown time. dd2 Historical: - Allergies: 07/27 22:28 Codeine; itch; dd2 22:28 Keflex; dd2 - PMHx: 22:28 Arthritis; Atrial Fib; Hypertension; Myocardial infarction; TIA; dd2 - PSHx: 22:28 Cholecystectomy; Heart Stents; hysterectomy; dd2 - Immunization history:: Adult Immunizations up to date. - Infectious Disease History:: Denies. - Social history:: Smoking status: Patient denies any tobacco usage or history of. Screenin/01 00:08 [facility] ED Fall Risk Assessment (Adult) History of falling in the last 3 months, dd2 including since admission No falls in past 3 months (0 pts) Confusion or Disorientation No (0 pts) Intoxicated or Sedated No (0 pts) Impaired Gait No (0 pts) Mobility Assist Device Used No (0 pt) Altered Elimination No (0 pt) Score/Fall Risk Level 0 - 2 = Low Risk Oriented to surroundings, Maintained a safe environment, Educated pt \T\ family on fall prevention, incl call for assistance when getting out of bed, Assessed \T\ reinforced patient's understanding of fall precautions, Provided non-skid footwear, Used ambulatory aids as needed (educated on \T\ assisted with). Abuse screen: Denies threats or abuse. Nutritional screening: No deficits noted. Tuberculosis screening: No symptoms or risk factors identified. Assessment: 07/27 22:30 General: Appears in no apparent distress. Behavior is calm, cooperative, appropriate dd2 for age. Pain: Denies pain. Neuro: No deficits noted. Bradley Agitation-Sedation Scale (RASS): 0 - Alert and Calm Level of Consciousness is awake, alert, obeys commands, Oriented to person, place, time, situation, Appropriate for age. Cardiovascular: Reports WEAKNESS Heart tones S1 S2 present Patient's skin is warm and dry. Rhythm is regular. Respiratory: Airway is patent Respiratory effort is even, unlabored, Respiratory pattern is regular, symmetrical, Breath sounds are clear bilaterally. GI: No deficits noted. No signs and/or symptoms were reported involving the gastrointestinal system. Abdomen is non-distended, Abd is soft and non tender X 4 quads. : Reports burning with urination, vaginal itching, DIFFICULTY URINATING. EENT: No deficits noted. No signs and/or symptoms were reported regarding the EENT system. Derm: No deficits noted. No signs and/or symptoms reported regarding the dermatologic system. Musculoskeletal: No deficits noted. No signs and/or symptoms reported regarding the musculoskeletal system. Circulation, motion, and sensation intact. Range of motion: intact in all extremities. Vital Signs: 22:22 BP 181 / 86; Pulse 103; Resp 16; Temp 98.8(O); Pulse Ox 98% on R/A; Weight 44.54 kg; dd2 Pain 0/10; 07/28 00:03 BP 135 / 71; Pulse 84; Resp 16; Pulse Ox 100% on R/A; dd2 00:51 BP 131 / 72; Pulse 83; Resp 16; Pulse Ox 99% on R/A; dd2 07/27 22:22 Pain Scale: Adult dd2 Jennifer Coma Score: 00:58 Eye Response: spontaneous(4). Motor Response: obeys commands(6). Verbal Response: bo1 oriented(5). Total: 15. ED Course: 07/27 22:13 Patient arrived in ED. gm2 22:21 RICH MAC RN is Primary Nurse. dd2 22:23 Kaushal Mayer MD is Attending Physician. bo1 22:28 Triage completed. dd2 22:28 Arm band placed on right wrist. Patient placed in an exam room, on a stretcher. dd2 23:22 CT Head Brain wo Cont In Process Unspecified. EDMS 23:44 CBC with Diff Sent. dd2 23:44 CMP Sent. dd2 23:44 Urinalysis w/ reflexes Sent. dd2 23:44 SARS-COV-2 Antigen Rapid Sent. dd2 23:44 Flu Sent. dd2 23:44 No provider procedures requiring assistance completed. Initial lab(s) drawn, by tn, dd2 sent to lab. Urine collected: clean catch specimen, cloudy, COVID swab sent to lab. Flu and/or RSV swab sent to lab. Maintain EMS IV. Dressing intact. Good blood return noted. Site clean \T\ dry. Gauge \T\ site: 20G LT FOREARM. Flushed with 10 mL NS. 07/28 00:08 Patient has correct armband on for positive identification. Bed in low position. Call dd2 light in reach. Side rails up X2. Client placed on continuous cardiac and pulse oximetry monitoring. NIBP monitoring applied. 00:09 Patient maintains SpO2 saturation greater than 95% on room air. dd2 01:13 Provided Education on: D/C EDUCATION. dd2 01:13 IV discontinued, intact, bleeding controlled, No redness/swelling at site. Pressure dd2 dressing applied. Administered Medications: No medications were administered Medication: 00:08 VIS not applicable for this client. dd2 Outcome: 01:04 Discharge ordered by . bo1 01:13 Discharged to home via wheelchair, with family, dd2 01:13 Condition: stable 01:13 Discharge instructions given to patient, Instructed on discharge instructions, follow up and referral plans. medication usage, Demonstrated understanding of instructions, follow-up care, medications, 01:15 Patient left the ED. dd2 Signatures: Dispatcher [employer] EDMS Riana Slater gm2 Kaushal Mayer MD MD boRICH HOOPER, RN RN dd2
--- NOTE | 2024-07-28 01:05 | EDPHYS ---
Physician Documentation [facility] Name: Dinh Love Age: 89 yrs Sex: Female : 1935 Arrival Date: 07/27/2024 Time: 22:02 Bed 14 Private MD: ED Physician Kaushal Mayer HPI: 07/27 22:48 This 89 yrs old Female presents to ER via EMS with complaints of Shortness Of Breath. bo1 22:48 Onset: The symptoms/episode began/occurred yesterday, "Hot flashes" is the CC. "I think bo1 I am having a TIA.". The patient has been recently seen by a physician: Recent endoscopy performed showing gastritis with stricture. Restarted the Eliquis today AM. 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 Hot flashes at night, severe with fever. Historical: - Allergies: 22:28 Codeine; itch; dd2 22:28 Keflex; dd2 - PMHx: 22:28 Arthritis; Atrial Fib; Hypertension; Myocardial infarction; TIA; dd2 - PSHx: 22:28 Cholecystectomy; Heart Stents; hysterectomy; dd2 - Immunization history:: Adult Immunizations up to date. - Infectious Disease History:: Denies. - Social history:: Smoking status: Patient denies any tobacco usage or history of. ROS: 22:50 : Positive for urinary symptoms, Dark urine recently, bo1 07/28 00:56 Constitutional: Negative for fever, chills, and weight loss bo1 Constitutional: Positive for "hot flashes" to the body, Cardiovascular: Negative for chest pain, Cardiovascular: Negative for palpitations, Respiratory: Negative for cough, shortness of breath, Abdomen/GI: Negative for abdominal pain, nausea and vomiting, MS/extremity: Negative for pain, paresthesias, Skin: Negative for rash, All other systems are negative, Exam: 00:58 Constitutional: This is a well developed, well nourished patient who is awake, alert, bo1 and in no acute distress. 00:58 Constitutional: The patient appears alert, awake, comfortable, non-toxic, Elderly c/w with age 00:58 Eyes: Corneas: Sclera: icterus, is not appreciated, 00:58 Eyes: Corneas: are normal, bo1 00:58 Neck: External neck: is normal, no acute changes, 00:58 Cardiovascular: Rate: normal, Rhythm: regular, Pulses: no pulse deficits are appreciated, 00:58 Respiratory: the patient does not display signs of respiratory distress, Respirations: normal, no acute changes, Breath sounds: are clear throughout, 00:58 Abdomen/GI: Inspection: abdomen appears normal, Palpation: abdomen is soft and non-tender, 00:58 Musculoskeletal/extremity: Extremities: all appear grossly normal, with no appreciated pain with palpation, 00:58 Skin: no rash present. 00:58 Neuro: Orientation: is normal, appropriate for stated age, Mentation: is normal, appropriate for stated age, no acute changes, Memory: is normal, appropriate for stated age, no acute changes, Vital Signs: 07/27 22:22 BP 181 / 86; Pulse 103; Resp 16; Temp 98.8(O); Pulse Ox 98% on R/A; Weight 44.54 kg; dd2 Pain 0/10; 07/28 00:03 BP 135 / 71; Pulse 84; Resp 16; Pulse Ox 100% on R/A; dd2 00:51 BP 131 / 72; Pulse 83; Resp 16; Pulse Ox 99% on R/A; dd2 01 22:22 Pain Scale: Adult dd2 Jennifer Coma Score: 00:58 Eye Response: spontaneous(4). Motor Response: obeys commands(6). Verbal Response: bo1 oriented(5). Total: 15. MDM: 07/27 22:23 Medical Screening Exam initiated bo1 07/28 01:00 Differential diagnosis: Other vitamin deficiency or hormonal condition. Viral illness. bo1 Data reviewed: vital signs, lab test result(s), radiologic studies, CT scan. ED course: Pt now feels cold and is in her night robe. ED course: Pt will F/U with PCP and agrees to this plan. 07/27 22:52 Order name: CBC with Diff; Complete Time: 00:47 bo07/27 22:52 Order name: CMP; Complete Time: 00:47 07/27 22:52 Order name: Urinalysis w/ reflexes; Complete Time: 00:47 bo1 07/27 22:52 Order name: Flu; Complete Time: 00:47 07/27 22:52 Order name: SARS-COV-2 Antigen Rapid; Complete Time: 00:47 bo1 07/27 22:52 Order name: CT Head Brain wo Cont; Complete Time: 00:47 bo1 07/27 22:52 Order name: IV Saline Lock; Complete Time: 23:43 bo1 07/27 22:52 Order name: Labs collected and sent; Complete Time: 23:43 bo1 Administered Medications: No medications were administered Disposition Summary: 07/28/24 01:04 Discharge Ordered Notes: Location: Home bo1 Problem: new bo1 Symptoms: are unchanged bo1 Condition: Stable bo1 Diagnosis - Other sequelae following unspecified cerebrovascular disease bo1 - Paresthesia of skin bo1 Followup: bo1 - With: Private Physician - When: Upon discharge from the Emergency Department - Reason: Recheck today's complaints, Continuance of care Discharge Instructions: - Discharge Summary Sheet bo1 - Paresthesia, [id number] bo1 Forms: - Medication Reconciliation Form bo1 - Antibiotic Education bo1 - Prescription Opioid Use bo1 - Patient Portal Instructions bo1 - Leadership Thank You Letter bo1 Signatures: Dispatcher [employer] EDMS Kaushal Mayer MD MD bo1 RICH MAC RN RN dd2 Corrections: (The following items were deleted from the chart) 07/27 22:52 22:52 CBC+H.LAB.BRZ ordered. EDMS EDMS 22:52 22:52 COMPREHENSIVE METABOLIC PANEL+C.LAB.BRZ ordered. EDMS EDMS 22:52 22:52 Urinalysis+U.LAB.BRZ ordered. EDMS EDMS 22:52 22:52 Influenza Screen (A \\T\\ B)+BA.LAB.BRZ ordered. EDMS EDMS
[2024-07-28 01:27] VITALS: BP 131/72; TEMP 98.8; O2SAT 99
== END 2024-07-28 01:15 | disposition home or self-care (01) ==
LOC: ER 22:02
DX: I69.998 Other sequelae following unspecified cerebrovascular disease (principal); I10 Essential (primary) hypertension; I48.91 Unspecified atrial fibrillation; I25.2 Old myocardial infarction; Z11.52 Encounter for screening for COVID-19; Z95.818 Presence of other cardiac implants and grafts
CPT/HCPCS: 36415; 70450; 80053; 81001; 85025; 87804; 87811; 99284